=== PATIENT | male | born 1945 | race Caucasian/White ===

== ENCOUNTER 2019-07-26 11:15 | Outpatient (RCR) | payer MEDICARE, BC, SELFPAY ==
--- NOTE | 2019-03-24 18:37 | PT.OIE ---
Current Diagnoses Bicipital tendinitis, right shoulder (03/24/19) Pain in right upper arm (03/24/19) Abnormal posture (03/24/19) Weakness (03/24/19) Visit Care Team Role Provider Type Stan Spangler MD Primary Care Provider Physician Specialty: [facility] Practice Address: [address] [place] [address], [id number] Email: [email or web address] ESTELLA Renner Attending Provider Advanced Cloth Examiner [facility]ty: [facility] Address: [address] [place] [address], [place], [address] Email: [email or web address] Physical Therapy Initial Evaluation PT-OP-A Visit Information Start: 03/23/19 18:28 Freq: Status: Active Protocol: Document 03/24/19 15:18 [facility] (Rec: 03/24/19 18:37 [facility] [id number]) Out-Patient Physical Therapy Visit Information Visit Information Visit Type Initial Evaluation Visit Start Time 15:15 Visit Stop Time 16:20 Total Visit Minutes 65 Visit Number 1 Number of EVENTS SPECIALIST Visits 0 PT-OP-B Current Condition Start: 03/23/19 18:28 Freq: Status: Active Protocol: Document 03/24/19 15:18 [facility] (Rec: 03/24/19 16:04 [facility] [id number]) Current Condition History of Current Condition Onset Date got worse 3 weeks ago;over a year ago on/off but never very bad Current Complaints R lat brachium pain History of Current Condition Pt reports arm pain has been on and off for a while but its worse recently. He has taken anti inflammatories which sometiems helps. Reports it is worse in bed and sometimes even simple things like holding the shaver up aggrevates his arm. Pt reports he has started using a pillow at night and that helps. Pt reports the MD thought it may have to do with him working on the computer so he just got a new desk chair. Pt reports he has noticed his posture gets worse with prolonged sitting. 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 Pt reports on some occasional numbness in fingertips B. Pt reports when he gets a stiff neck, its typically on the R and he thinks that about 3 weeks ago he had some stifness . Prior Treatments and Tests no testing or other treatment Treatment Goals Patient/Caregiver Goals Improve sleep, improve strength, imporve compute posture, PT-OP-C Subjective Start: 03/23/19 18:28 Freq: Status: Active Protocol: Document 03/24/19 15:18 [facility] (Rec: 03/24/19 16:04 [facility] [id number]) Patient Questionnaires Quick Dash- Upper Extremity Quick Dash UE Score 27.3 Quick Dash UE Impairment 20 to 39% Impaired (Score 20- 39) OP-PT Pain Assessment Location R brachium Pain Location Details lat Scale Used Numeric (1 - 10) Description Aching,With Movement Description- Other best:2/10; worst: 6/10 Frequency Constant Pain Duration less than hour after stopping activity Other Pain Aggravating Factors sleeping, using razor, computer use, reaching Pain Alleviating Factors Heat,Medication Other Pain Alleviating Factors ointment PT-OP-J Posture/Palpation/Skin Start: 03/23/19 18:28 Freq: Status: Active Protocol: Document 03/24/19 15:18 [facility] (Rec: 03/24/19 18:37 [facility] [id number]) Posture Evaluation Comments Posture Comments 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 PT-OP-K Range of Motion Start: 03/23/19 18:28 Freq: Status: Active Protocol: Document 03/24/19 15:18 [facility] (Rec: 03/24/19 16:04 [facility] [id number]) Cervical Spine Range of Motion Cervical Spine Active Degrees Flexion 64 Extension 35 Rotation Left 62 Rotation Right 54 Lateral Flexion Left 22 Lateral Flexion Right 34 Shoulder Goniometric Range of Motion Shoulder Left Active Flexion 131 Abduction 130 External Rotation at 90 degrees 78 Abduction Internal Rotation 63 Internal Rotation Behind Back (text) T7 Right Active Flexion 129 Abduction 130 Horizontal Adduction 8 External Rotation at 90 degrees 48 Abduction Internal Rotation 58 Internal Rotation Behind Back (text) T7 PT-OP-L Special Tests Start: 03/23/19 18:28 Freq: Status: Active Protocol: Document 03/24/19 15:18 [facility] (Rec: 03/24/19 16:04 [facility] [id number]) Special Tests Shoulder Special Tests Stroud Alvarez Impingement Test Results positive Empty Can Test Results positive Neer Impingement Test Results neg Speed's Biceps Test Results positive for pain but ricketts also positive for pain Drop Arm Rotator Cuff Test Results neg AC Joint Compression Test Results neg Neural Special Tests- Upper Body Upper Limb Tension Test Test Results passive abd to 90 on R with joint tightness Radial Nerve Tension Test Results positive Comments ulnar, median negative PT-OP-M Strength Start: 03/23/19 18:28 Freq: Status: Active Protocol: Document 03/24/19 15:18 [facility] (Rec: 03/24/19 16:04 [facility] [id number]) Shoulder Strength Shoulder Manual Muscle Testing Left Flexion 5 Normal Extension 5 Normal Abduction (C5) 5 Normal External Rotation 4 Good Internal Rotation 5 Normal Horizontal Abduction 4+ Good+ Horizontal Adduction 4+ Good+ Right Flexion 3+ Fair+ Extension 4 Good Abduction (C5) 3+ Fair+ External Rotation 3+ Fair+ Horizontal Abduction 4- Good- Horizontal Adduction 3+ Fair+ PT-OP-Q Treatments Start: 03/23/19 18:28 Freq: Status: Active Protocol: Document 03/24/19 15:18 [facility] (Rec: 03/24/19 18:37 [facility] [id number]) Self-Care/Home Management Treatment Education Other Education edu on anatomy and how posture affects shoulder moverment and can cause pain. PT-OP-R Modalities Start: 03/23/19 18:28 Freq: Status: Active Protocol: Document 03/24/19 15:18 [facility] (Rec: 03/24/19 18:37 [facility] [id number]) Hot Pack/Cold Pack Treatment Hot Pack Location R brachium/shoulder Patient Position Sitting Treatment Duration (minutes) 15 PT-OP-T Assessment and Plan Start: 03/23/19 18:28 Freq: Status: Active Protocol: Document 03/24/19 15:18 [facility] (Rec: 03/24/19 16:04 [facility] [id number]) Physical Therapy Assessment Rehab Potential Rehabilitation Potential Good Evaluation Complexity Number of Personal Factors/Comorbidities 3 or More Number of Body Systems Impaired 4 or More Clinical Presentation at Evaluation Evolving Impairments Impairments Activity Tolerance,Functional Activities,Functional Mobility ,Pain,Posture,ROM,Soft Tissue Mobility,Strength Goals activities Short Term Goal (STG) Pt will be able to use razor without c/o pain or weakness. STG Duration 04/24/19 Assisted Goal (LTG) Pt will be able to sleep comfortably without pain. LTG Duration 05/24/19 posture Short Term Goal (STG) Pt will demonstrate appropriate ergonomic set up for his computer. STG Duration 04/24/19 Assisted Goal (LTG) Pt will demonstrate efficient posture with 5/5 EFT and ability to maintain most efficient posture without cueing. strength Short Term Goal (STG) Pt will be indep with HEP STG Duration 04/24/19 Assisted Goal (LTG) Pt will score 5/5 UE strength B in order to allow greater ease with typical daily activities. LTG Duration 05/24/19 Assessment Summary Assessment Pt presents with R brachium pain w/ s/s RC tendinopathy and possible impingement d/t postural restrictions & presentation. 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 He has significant R shoulder weakness, loss or ROM and pain that limits him. He would benefit from skilled PT to address these limitations and improve his ability to function without pain. Physical Therapy Plan Frequency and Duration Frequency of Treatment 2x/Week Duration of Treatment 2 months Plan of Care Start Date 03/24/19 Plan of Care End Date 05/24/19 Therapeutic Interventions Therapeutic Interventions Aquatic Therapy,Home Exercise Program,Joint Mobilizations, Manual Therapy,Neuromuscular Re-education,Patient/Caregiver Education,Self-Care/Home Management,Soft Tissue Mobilization,Taping, Therapeutic Activities, Therapeutic Exercises Modalities Cold Pack/Ice Massage,Electric Stimulation,Hot Packs, Infrared Therapy,Iontophoresis ,Traction- Mechanical, Ultrasound Next Visit Focus/Plan Next Note Type Treatment Note Next Visit Plan Review old cervical home program form, wall roll up, axial elongation, STM to UT & pec,
--- NOTE | 2019-03-24 18:37 | PT.OPPOC ---
Current Diagnoses Bicipital tendinitis, right shoulder (03/24/19) Pain in right upper arm (03/24/19) Abnormal posture (03/24/19) Weakness (03/24/19) Visit Care Team Role Provider Type Stan Spangler MD Primary Care Provider Physician Specialty: [facility] Address: [address] [place] [address], [id number] Email: [email or web address] ESTELLA Renner Attending Provider Advanced Telephone Clerk Telegraph Office Specialty: [facility] Address: [address] [place] [address], [place], [address] Email: [email or web address] Plan Of Care PT-OP-T Assessment and Plan Start: 03/23/19 18:28 Freq: Status: Active Protocol: Document 03/24/19 15:18 [facility] (Rec: 03/24/19 16:04 [facility] [id number]) Physical Therapy Assessment Rehab Potential Rehabilitation Potential Good Evaluation Complexity Number of Personal Factors/Comorbidities 3 or More Number of Body Systems Impaired 4 or More Clinical Presentation at Evaluation Evolving Impairments Impairments Activity Tolerance,Functional Activities,Functional Mobility ,Pain,Posture,ROM,Soft Tissue Mobility,Strength Goals activities Short Term Goal (STG) Pt will be able to use razor without c/o pain or weakness. STG Duration 04/24/19 Manager Sign Goal (LTG) Pt will be able to sleep comfortably without pain. LTG Duration 05/24/19 posture Short Term Goal (STG) Pt will demonstrate appropriate ergonomic set up for his computer. STG Duration 04/24/19 Penitentiary Goal (LTG) Pt will demonstrate efficient posture with 5/5 EFT and ability to maintain most efficient posture without cueing. strength Short Term Goal (STG) Pt will be indep with HEP STG Duration 04/24/19 Manager Sign Goal (LTG) Pt will score 5/5 UE strength B in order to allow greater ease with typical daily activities. LTG Duration 05/24/19 Assessment Summary Assessment Pt presents with R brachium pain w/ s/s RC tendinopathy and possible impingement d/t postural restrictions & presentation. 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 He has significant R shoulder weakness, loss or ROM and pain that limits him. He would benefit from skilled PT to address these limitations and improve his ability to function without pain. Physical Therapy Plan Frequency and Duration Frequency of Treatment 2x/Week Duration of Treatment 2 months Plan of Care Start Date 03/24/19 Plan of Care End Date 05/24/19 Therapeutic Interventions Therapeutic Interventions Aquatic Therapy,Home Exercise Program,Joint Mobilizations, Manual Therapy,Neuromuscular Re-education,Patient/Caregiver Education,Self-Care/Home Management,Soft Tissue Mobilization,Taping, Therapeutic Activities, Therapeutic Exercises Modalities Cold Pack/Ice Massage,Electric Stimulation,Hot Packs, Infrared Therapy,Iontophoresis ,Traction- Mechanical, Ultrasound Next Visit Focus/Plan Next Note Type Treatment Note Next Visit Plan Review old cervical home program form, wall roll up, axial elongation, STM to UT & pec, Plan of Care Dates Plan of Care Start Date 03/24/19 Plan of Care End Date 05/24/19
--- NOTE | 2019-03-29 17:54 | PT.OTN ---
Current Diagnoses Bicipital tendinitis, right shoulder (03/29/19) Pain in right upper arm (03/29/19) Abnormal posture (03/29/19) Weakness (03/29/19) Physical Therapy Treatment Note PT-OP-A Visit Information Start: 03/23/19 18:28 Freq: Status: Active Protocol: Document 03/29/19 15:02 [facility] (Rec: 03/29/19 17:54 [facility] [id number]) Out-Patient Physical Therapy Visit Information Visit Information Visit Type Treatment Note Visit Start Time 15:15 Visit Stop Time 16:15 Total Visit Minutes 60 Visit Number 2 Number of VISUAL EDUCATION TEACHER Visits 0 PT-OP-B Current Condition Start: 03/23/19 18:28 Freq: Status: Active Protocol: Document 03/24/19 15:18 [facility] (Rec: 03/24/19 16:04 [facility] [id number]) Current Condition History of Current Condition Onset Date got worse 3 weeks ago;over a year ago on/off but never very bad Current Complaints R lat brachium pain History of Current Condition Pt reports arm pain has been on and off for a while but its worse recently. He has taken anti inflammatories which sometiems helps. Reports it is worse in bed and sometimes even simple things like holding the shaver up aggrevates his arm. Pt reports he has started using a pillow at night and that helps. Pt reports the MD thought it may have to do with him working on the computer so he just got a new desk chair. Pt reports he has noticed his posture gets worse with prolonged sitting. 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 Pt reports on some occasional numbness in fingertips B. Pt reports when he gets a stiff neck, its typically on the R and he thinks that about 3 weeks ago he had some stifness . Prior Treatments and Tests no testing or other treatment Treatment Goals Patient/Caregiver Goals Improve sleep, improve strength, imporve compute posture, PT-OP-C Subjective Start: 03/23/19 18:28 Freq: Status: Active Protocol: Document 03/29/19 15:02 [facility] (Rec: 03/29/19 17:54 [facility] [id number]) OP-PT Subjective Patient Comments Patient Comments Pt reports he tweaked his shoulder getting into the shower yesterday PT-OP-J Posture/Palpation/Skin Start: 03/23/19 18:28 Freq: Status: Active Protocol: Document 03/24/19 15:18 [facility] (Rec: 03/24/19 18:37 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 (Rec: 03/24/19 16:04 [facility] [id number]) Cervical Spine Range of Motion Cervical Spine Active Degrees Flexion 64 Extension 35 Rotation Left 62 Rotation Right 54 Lateral Flexion Left 22 Lateral Flexion Right 34 Shoulder Goniometric Range of Motion Shoulder Left Active Flexion 131 Abduction 130 External Rotation at 90 degrees 78 Abduction Internal Rotation 63 Internal Rotation Behind Back (text) T7 Right Active Flexion 129 Abduction 130 Horizontal Adduction 8 External Rotation at 90 degrees 48 Abduction Internal Rotation 58 Internal Rotation Behind Back (text) T7 PT-OP-L Special Tests Start: 03/23/19 18:28 Freq: Status: Active Protocol: Document 03/24/19 15:18 [facility] (Rec: 03/24/19 16:04 [facility] [id number]) Special Tests Shoulder Special Tests Stroud Alvarez Impingement Test Results positive Empty Can Test Results positive Neer Impingement Test Results neg Speed's Biceps Test Results positive for pain but ricketts also positive for pain Drop Arm Rotator Cuff Test Results neg AC Joint Compression Test Results neg Neural Special Tests- Upper Body Upper Limb Tension Test Test Results passive abd to 90 on R with joint tightness Radial Nerve Tension Test Results positive Comments ulnar, median negative PT-OP-M Strength Start: 03/23/19 18:28 Freq: Status: Active Protocol: Document 03/24/19 15:18 [facility] (Rec: 03/24/19 16:04 [facility] [id number]) Shoulder Strength Shoulder Manual Muscle Testing Left Flexion 5 Normal Extension 5 Normal Abduction (C5) 5 Normal External Rotation 4 Good Internal Rotation 5 Normal Horizontal Abduction 4+ Good+ Horizontal Adduction 4+ Good+ Right Flexion 3+ Fair+ Extension 4 Good Abduction (C5) 3+ Fair+ External Rotation 3+ Fair+ Horizontal Abduction 4- Good- Horizontal Adduction 3+ Fair+ PT-OP-Q Treatments Start: 03/23/19 18:28 Freq: Status: Active Protocol: Document 03/29/19 15:02 [facility] (Rec: 03/29/19 17:54 [facility] [id number]) Therapeutic Exercises Supine Exercises tbar Supine Exercise Name flex Side right Reps/Minutes 10 Comments AAROM Standing Exercises IR Side right Equipment Used L1 Reps/Minutes 15 Comments w/towel between elbow & side ER Standing Exercise Name attempted tband but painful so did isometric Side right Reps/Minutes 5sec x5 ext Standing Exercise Name row & ext Side bilateral Equipment Used L1 Reps/Minutes 15 ea Manual Therapy Treatment Soft Tissue Mobilization biceps, deltoid Body Location R Mobilization Type Strumming pec Body Location R Mobilization Type Strumming Joint Mobilizations GH Joint R Direction distraction, inf glide & post glide Grade II PT-OP-R Modalities Start: 03/23/19 18:28 Freq: Status: Active Protocol: Document 03/29/19 15:02 [facility] (Rec: 03/29/19 17:54 [facility] [id number]) Hot Pack/Cold Pack Treatment Hot Pack Location R brachium/shoulder Patient Position Sitting Treatment Duration (minutes) 15 PT-OP-T Assessment and Plan Start: 03/23/19 18:28 Freq: Status: Active Protocol: Document 03/29/19 15:02 [facility] (Rec: 03/29/19 17:54 [facility] [id number]) Physical Therapy Assessment Goals activities Short Term Goal (STG) Pt will be able to use razor without c/o pain or weakness. STG Duration 04/24/19 Retirement Goal (LTG) Pt will be able to sleep comfortably without pain. LTG Duration 05/24/19 posture Short Term Goal (STG) Pt will demonstrate appropriate ergonomic set up for his computer. STG Duration 04/24/19 Retirement Goal (LTG) Pt will demonstrate efficient posture with 5/5 EFT and ability to maintain most efficient posture without cueing. strength Short Term Goal (STG) Pt will be indep with HEP STG Duration 04/24/19 Coffee Sommelier Goal (LTG) Pt will score 5/5 UE strength B in order to allow greater ease with typical daily activities. LTG Duration 05/24/19 Assessment Summary Assessment Pt required significant cueing re: his old home program and exercises were adjusted for appropriate scapular engagment in order to achieve proper scapulohumeral rhythm. He had tightness in pecs & GH joint capsule that improved with mobilization. Physical Therapy Plan Frequency and Duration Frequency of Treatment 2x/Week Duration of Treatment 2 months Plan of Care Start Date 03/24/19 Plan of Care End Date 05/24/19 Next Visit Focus/Plan Next Note Type Treatment Note Next Visit Plan Review exercises from last session, wall roll up, roll & reach, cont to work on shoulder jt mobility
--- NOTE | 2019-03-31 12:11 | PT.OTN ---
Current Diagnoses Bicipital tendinitis, right shoulder (03/31/19) Pain in right upper arm (03/31/19) Abnormal posture (03/31/19) Weakness (03/31/19) Physical Therapy Treatment Note PT-OP-A Visit Information Start: 03/23/19 18:28 Freq: Status: Active Protocol: Document 03/31/19 09:45 [facility] (Rec: 03/31/19 12:11 [facility] [id number]) Out-Patient Physical Therapy Visit Information Visit Information Visit Type Treatment Note Visit Start Time 09:47 Visit Stop Time 10:00 Visit Number 3 Number of GOVERNMENT RELATIONS DIRECTOR Visits 0 PT-OP-B Current Condition Start: 03/23/19 18:28 Freq: Status: Active Protocol: Document 03/24/19 15:18 [facility] (Rec: 03/24/19 16:04 [facility] [id number]) Current Condition History of Current Condition Onset Date got worse 3 weeks ago;over a year ago on/off but never very bad Current Complaints R lat brachium pain History of Current Condition Pt reports arm pain has been on and off for a while but its worse recently. He has taken anti inflammatories which sometiems helps. Reports it is worse in bed and sometimes even simple things like holding the shaver up aggrevates his arm. Pt reports he has started using a pillow at night and that helps. Pt reports the MD thought it may have to do with him working on the computer so he just got a new desk chair. Pt reports he has noticed his posture gets worse with prolonged sitting. 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 Pt reports on some occasional numbness in fingertips B. Pt reports when he gets a stiff neck, its typically on the R and he thinks that about 3 weeks ago he had some stifness . Prior Treatments and Tests no testing or other treatment Treatment Goals Patient/Caregiver Goals Improve sleep, improve strength, imporve compute posture, PT-OP-C Subjective Start: 03/23/19 18:28 Freq: Status: Active Protocol: Document 03/31/19 09:45 [facility] (Rec: 03/31/19 12:11 [facility] [id number]) OP-PT Subjective Patient Comments Patient Comments Pt reports doing better today and feeling pretty good aobut exercises PT-OP-J Posture/Palpation/Skin Start: 03/23/19 18:28 Freq: Status: Active Protocol: Document 03/24/19 15:18 [facility] (Rec: 03/24/19 18:37 [facility] [id number]) Posture Evaluation Comments Posture Comments 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 PT-OP-K Range of Motion Start: 03/23/19 18:28 Freq: Status: Active Protocol: Document 03/24/19 15:18 [facility] (Rec: 03/24/19 16:04 [facility] [id number]) Cervical Spine Range of Motion Cervical Spine Active Degrees Flexion 64 Extension 35 Rotation Left 62 Rotation Right 54 Lateral Flexion Left 22 Lateral Flexion Right 34 Shoulder Goniometric Range of Motion Shoulder Left Active Flexion 131 Abduction 130 External Rotation at 90 degrees 78 Abduction Internal Rotation 63 Internal Rotation Behind Back (text) T7 Right Active Flexion 129 Abduction 130 Horizontal Adduction 8 External Rotation at 90 degrees 48 Abduction Internal Rotation 58 Internal Rotation Behind Back (text) T7 PT-OP-L Special Tests Start: 03/23/19 18:28 Freq: Status: Active Protocol: Document 03/24/19 15:18 [facility] (Rec: 03/24/19 16:04 [facility] [id number]) Special Tests Shoulder Special Tests Stroud Alvarez Impingement Test Results positive Empty Can Test Results positive Neer Impingement Test Results neg Speed's Biceps Test Results positive for pain but ricketts also positive for pain Drop Arm Rotator Cuff Test Results neg AC Joint Compression Test Results neg Neural Special Tests- Upper Body Upper Limb Tension Test Test Results passive abd to 90 on R with joint tightness Radial Nerve Tension Test Results positive Comments ulnar, median negative PT-OP-M Strength Start: 03/23/19 18:28 Freq: Status: Active Protocol: Document 03/24/19 15:18 [facility] (Rec: 03/24/19 16:04 [facility] [id number]) Shoulder Strength Shoulder Manual Muscle Testing Left Flexion 5 Normal Extension 5 Normal Abduction (C5) 5 Normal External Rotation 4 Good Internal Rotation 5 Normal Horizontal Abduction 4+ Good+ Horizontal Adduction 4+ Good+ Right Flexion 3+ Fair+ Extension 4 Good Abduction (C5) 3+ Fair+ External Rotation 3+ Fair+ Horizontal Abduction 4- Good- Horizontal Adduction 3+ Fair+ PT-OP-Q Treatments Start: 10/02/19 18:28 Freq: Status: Active Protocol: Document 03/31/19 09:45 [facility] (Rec: 03/31/19 12:11 [facility] [id number]) Therapeutic Exercises Supine Exercises tbar Supine Exercise Name flex Side right Reps/Minutes 5 Comments AAROM Sidelying Exercises ER Sidelying Exercise Name to neutral Side right Reps/Minutes 15 Comments towel at elbow Standing Exercises IR Side right Equipment Used L1 Reps/Minutes 15 Comments w/towel between elbow & side ER Standing Exercise Name isometric Side right Reps/Minutes 5sec x5 ext Standing Exercise Name row & ext Side bilateral Equipment Used L1 Reps/Minutes 15 ea Therapeutic Activity Therapeutic Activity desk set up Comments edu on separate keyboard and mouse d/t lap top set up creating poor posture sleeping Comments how to prop arm for comfort Manual Therapy Treatment Joint Mobilizations GH Joint R Direction distraction, inf glide & post glide Grade II PT-OP-R Modalities Start: 03/23/19 18:28 Freq: Status: Active Protocol: Document 03/31/19 09:45 [facility] (Rec: 03/31/19 12:11 [facility] [id number]) Hot Pack/Cold Pack Treatment Hot Pack Location R brachium/shoulder Patient Position Sitting Treatment Duration (minutes) 15 PT-OP-T Assessment and Plan Start: 03/23/19 18:28 Freq: Status: Active Protocol: Document 03/31/19 09:45 [facility] (Rec: 03/31/19 12:11 [facility] [id number]) Physical Therapy Assessment Goals activities Short Term Goal (STG) Pt will be able to use razor without c/o pain or weakness. STG Duration 04/24/19 Custodial Goal (LTG) Pt will be able to sleep comfortably without pain. LTG Duration 05/24/19 posture Short Term Goal (STG) Pt will demonstrate appropriate ergonomic set up for his computer. STG Duration 04/24/19 Custodial Goal (LTG) Pt will demonstrate efficient posture with 5/5 EFT and ability to maintain most efficient posture without cueing. strength Short Term Goal (STG) Pt will be indep with HEP STG Duration 04/24/19 Custodial Goal (LTG) Pt will score 5/5 UE strength B in order to allow greater ease with typical daily activities. LTG Duration 05/24/19 Assessment Summary Assessment Pt did well with exercises today with min cueing. He was able to do wall roll up with significant cueing. Pt receptive to understanding importance of postural changes at home and sleeping posture. Physical Therapy Plan Frequency and Duration Frequency of Treatment 2x/Week Duration of Treatment 2 months Plan of Care Start Date 03/24/19 Plan of Care End Date 05/24/19 Next Visit Focus/Plan Next Note Type Treatment Note Next Visit Plan roll & reach & work on thoracic mobility
--- NOTE | 2019-04-20 15:22 | PT.OTN ---
Current Diagnoses Bicipital tendinitis, right shoulder (04/20/19) Pain in right upper arm (04/20/19) Abnormal posture (04/20/19) Weakness (04/20/19) Physical Therapy Treatment Note PT-OP-A Visit Information Start: 03/23/19 18:28 Freq: Status: Active Protocol: Document 04/20/19 09:44 [facility] (Rec: 04/20/19 15:22 [facility] [id number]) Out-Patient Physical Therapy Visit Information Visit Information Visit Type Treatment Note Visit Start Time 09:45 Visit Stop Time 10:40 Total Visit Minutes 55 Visit Number 4 Number of MANAGER OF IT Visits 0 PT-OP-B Current Condition Start: 03/23/19 18:28 Freq: Status: Active Protocol: Document 03/24/19 15:18 [facility] (Rec: 03/24/19 16:04 [facility] [id number]) Current Condition History of Current Condition Onset Date got worse 3 weeks ago;over a year ago on/off but never very bad Current Complaints R lat brachium pain History of Current Condition Pt reports arm pain has been on and off for a while but its worse recently. He has taken anti inflammatories which sometiems helps. Reports it is worse in bed and sometimes even simple things like holding the shaver up aggrevates his arm. Pt reports he has started using a pillow at night and that helps. Pt reports the MD thought it may have to do with him working on the computer so he just got a new desk chair. Pt reports he has noticed his posture gets worse with prolonged sitting. 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 Pt reports on some occasional numbness in fingertips B. Pt reports when he gets a stiff neck, its typically on the R and he thinks that about 3 weeks ago he had some stifness . Prior Treatments and Tests no testing or other treatment Treatment Goals Patient/Caregiver Goals Improve sleep, improve strength, imporve compute posture, PT-OP-C Subjective Start: 03/23/19 18:28 Freq: Status: Active Protocol: Document 04/20/19 09:44 [facility] (Rec: 04/20/19 15:22 [facility] [id number]) OP-PT Subjective Patient Comments Patient Comments Pt reports some difficulty with wall posture but exercises going better. Patient Reported Progress Improving PT-OP-J Posture/Palpation/Skin Start: 03/23/19 18:28 Freq: Status: Active Protocol: Document 03/24/19 15:18 [facility] (Rec: 03/24/19 18:37 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 (Rec: 03/24/19 16:04 [facility] [id number]) Cervical Spine Range of Motion Cervical Spine Active Degrees Flexion 64 Extension 35 Rotation Left 62 Rotation Right 54 Lateral Flexion Left 22 Lateral Flexion Right 34 Shoulder Goniometric Range of Motion Shoulder Left Active Flexion 131 Abduction 130 External Rotation at 90 degrees 78 Abduction Internal Rotation 63 Internal Rotation Behind Back (text) T7 Right Active Flexion 129 Abduction 130 Horizontal Adduction 8 External Rotation at 90 degrees 48 Abduction Internal Rotation 58 Internal Rotation Behind Back (text) T7 PT-OP-L Special Tests Start: 03/23/19 18:28 Freq: Status: Active Protocol: Document 03/24/19 15:18 [facility] (Rec: 03/24/19 16:04 [facility] [id number]) Special Tests Shoulder Special Tests Stroud Alvarez Impingement Test Results positive Empty Can Test Results positive Neer Impingement Test Results neg Speed's Biceps Test Results positive for pain but ricketts also positive for pain Drop Arm Rotator Cuff Test Results neg AC Joint Compression Test Results neg Neural Special Tests- Upper Body Upper Limb Tension Test Test Results passive abd to 90 on R with joint tightness Radial Nerve Tension Test Results positive Comments ulnar, median negative PT-OP-M Strength Start: 03/23/19 18:28 Freq: Status: Active Protocol: Document 03/24/19 15:18 [facility] (Rec: 03/24/19 16:04 [facility] [id number]) Shoulder Strength Shoulder Manual Muscle Testing Left Flexion 5 Normal Extension 5 Normal Abduction (C5) 5 Normal External Rotation 4 Good Internal Rotation 5 Normal Horizontal Abduction 4+ Good+ Horizontal Adduction 4+ Good+ Right Flexion 3+ Fair+ Extension 4 Good Abduction (C5) 3+ Fair+ External Rotation 3+ Fair+ Horizontal Abduction 4- Good- Horizontal Adduction 3+ Fair+ PT-OP-Q Treatments Start: 03/23/19 18:28 Freq: Status: Active Protocol: Document 04/20/19 09:44 [facility] (Rec: 04/20/19 15:22 [facility] [id number]) Therapeutic Exercises Sidelying Exercises ER Sidelying Exercise Name comfortable range Side right Reps/Minutes 15 Standing Exercises wall posture Standing Exercise Name w/abd up wall to comforable range Side bilateral Reps/Minutes 15sec hold x3 serratus punch Standing Exercise Name at wall Side bilateral Reps/Minutes 2x12 Manual Therapy Treatment Soft Tissue Mobilization teres Body Location minor/major Mobilization Type Strumming pec Body Location R Mobilization Type Strumming Joint Mobilizations scap thoracic Joint R Direction all directions with focus on upward rotation GH Joint R Direction distraction, inf glide & post glide & translation & lat gapping Comments Fucntional mobs PT-OP-R Modalities Start: 03/23/19 18:28 Freq: Status: Active Protocol: Document 04/20/19 09:44 [facility] (Rec: 04/20/19 15:22 [facility] [id number]) Hot Pack/Cold Pack Treatment Hot Pack Location R brachium/shoulder Patient Position Supine Treatment Duration (minutes) 15 PT-OP-T Assessment and Plan Start: 03/23/19 18:28 Freq: Status: Active Protocol: Document 04/20/19 09:44 [facility] (Rec: 04/20/19 15:22 [facility] [id number]) Physical Therapy Assessment Goals activities Short Term Goal (STG) Pt will be able to use razor without c/o pain or weakness. STG Duration 04/24/19 Project Coordinator Goal (LTG) Pt will be able to sleep comfortably without pain. LTG Duration 05/24/19 posture Short Term Goal (STG) Pt will demonstrate appropriate ergonomic set up for his computer. STG Duration 04/24/19 Shelter Goal (LTG) Pt will demonstrate efficient posture with 5/5 EFT and ability to maintain most efficient posture without cueing. strength Short Term Goal (STG) Pt will be indep with HEP STG Duration 04/24/19 Shelter Goal (LTG) Pt will score 5/5 UE strength B in order to allow greater ease with typical daily activities. LTG Duration 05/24/19 Assessment Summary Assessment Pt required cuieng for wall posture & for serratus punch exercise. He has significant GH tightness and limited scapulothoracic motion. Physical Therapy Plan Frequency and Duration Frequency of Treatment 2x/Week Duration of Treatment 2 months Plan of Care Start Date 03/24/19 Plan of Care End Date 05/24/19 Next Visit Focus/Plan Next Note Type Treatment Note Next Visit Plan roll & reach, thoracic mobility, review serratus punch at wall, PNF for scapular motions, scap & GH mobs, work on postural stability
--- NOTE | 2019-04-22 13:53 | PT.OTN ---
Current Diagnoses Bicipital tendinitis, right shoulder (04/22/19) Pain in right upper arm (04/22/19) Abnormal posture (04/22/19) Weakness (04/22/19) Physical Therapy Treatment Note PT-OP-A Visit Information Start: 03/23/19 18:28 Freq: Status: Active Protocol: Document 04/22/19 13:04 [facility] (Rec: 04/22/19 13:52 [facility] [id number]) Out-Patient Physical Therapy Visit Information Visit Information Visit Type Treatment Note Visit Start Time 13:04 Visit Stop Time 13:45 Total Visit Minutes 41 Visit Number 5 Number of ASSISTANT BRANCH OPERATIONS MANAGER Visits 0 PT-OP-B Current Condition Start: 03/23/19 18:28 Freq: Status: Active Protocol: Document 03/24/19 15:18 [facility] (Rec: 03/24/19 16:04 [facility] [id number]) Current Condition History of Current Condition Onset Date got worse 3 weeks ago;over a year ago on/off but never very bad Current Complaints R lat brachium pain History of Current Condition Pt reports arm pain has been on and off for a while but its worse recently. He has taken anti inflammatories which sometiems helps. Reports it is worse in bed and sometimes even simple things like holding the shaver up aggrevates his arm. Pt reports he has started using a pillow at night and that helps. Pt reports the MD thought it may have to do with him working on the computer so he just got a new desk chair. Pt reports he has noticed his posture gets worse with prolonged sitting. 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 Pt reports on some occasional numbness in fingertips B. Pt reports when he gets a stiff neck, its typically on the R and he thinks that about 3 weeks ago he had some stifness . Prior Treatments and Tests no testing or other treatment Treatment Goals Patient/Caregiver Goals Improve sleep, improve strength, imporve compute posture, PT-OP-C Subjective Start: 03/23/19 18:28 Freq: Status: Active Protocol: Document 04/22/19 13:04 [facility] (Rec: 04/22/19 13:52 [facility] [id number]) OP-PT Subjective Patient Comments Patient Comments Pt reports that PT exercises are helping him. He would like to sleep on his right side but has not been able to d/t right arm pain. 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 PT-OP-K Range of Motion Start: 03/23/19 18:28 Freq: Status: Active Protocol: Document 03/24/19 15:18 [facility] (Rec: 03/24/19 16:04 [facility] [id number]) Cervical Spine Range of Motion Cervical Spine Active Degrees Flexion 64 Extension 35 Rotation Left 62 Rotation Right 54 Lateral Flexion Left 22 Lateral Flexion Right 34 Shoulder Goniometric Range of Motion Shoulder Left Active Flexion 131 Abduction 130 External Rotation at 90 degrees 78 Abduction Internal Rotation 63 Internal Rotation Behind Back (text) T7 Right Active Flexion 129 Abduction 130 Horizontal Adduction 8 External Rotation at 90 degrees 48 Abduction Internal Rotation 58 Internal Rotation Behind Back (text) T7 PT-OP-L Special Tests Start: 03/23/19 18:28 Freq: Status: Active Protocol: Document 03/24/19 15:18 [facility] (Rec: 03/24/19 16:04 [facility] [id number]) Special Tests Shoulder Special Tests Stroud Alvarez Impingement Test Results positive Empty Can Test Results positive Neer Impingement Test Results neg Speed's Biceps Test Results positive for pain but ricketts also positive for pain Drop Arm Rotator Cuff Test Results neg AC Joint Compression Test Results neg Neural Special Tests- Upper Body Upper Limb Tension Test Test Results passive abd to 90 on R with joint tightness Radial Nerve Tension Test Results positive Comments ulnar, median negative PT-OP-M Strength Start: 03/23/19 18:28 Freq: Status: Active Protocol: Document 03/24/19 15:18 [facility] (Rec: 03/24/19 16:04 [facility] [id number]) Shoulder Strength Shoulder Manual Muscle Testing Left Flexion 5 Normal Extension 5 Normal Abduction (C5) 5 Normal External Rotation 4 Good Internal Rotation 5 Normal Horizontal Abduction 4+ Good+ Horizontal Adduction 4+ Good+ Right Flexion 3+ Fair+ Extension 4 Good Abduction (C5) 3+ Fair+ External Rotation 3+ Fair+ Horizontal Abduction 4- Good- Horizontal Adduction 3+ Fair+ PT-OP-Q Treatments Start: 03/23/19 18:28 Freq: Status: Active Protocol: Document 04/22/19 13:04 [facility] (Rec: 04/22/19 13:52 [facility] [id number]) Therapeutic Exercises Standing Exercises Racquet ball massage Comments STM with racquet ball--MWM ER infraspinatus; intrascapular Self-Care/Home Management Treatment Education Other Education Proper sleeping position, pt wants to practice B side lying , pillow support between arms, cervical and head support. Pt feels much less pain in right shoulder PT-OP-R Modalities Start: 03/23/19 18:28 Freq: Status: Active Protocol: Document 04/20/19 09:44 [facility] (Rec: 04/20/19 15:22 [facility] [id number]) Hot Pack/Cold Pack Treatment Hot Pack Location R brachium/shoulder Patient Position Supine Treatment Duration (minutes) 15 PT-OP-T Assessment and Plan Start: 03/23/19 18:28 Freq: Status: Active Protocol: Document 04/22/19 13:04 [facility] (Rec: 04/22/19 13:52 [facility] [id number]) Physical Therapy Assessment Goals activities Short Term Goal (STG) Pt will be able to use razor without c/o pain or weakness. STG Duration 04/24/19 Statement Services Representative Goal (LTG) Pt will be able to sleep comfortably without pain. LTG Duration 05/24/19 posture Short Term Goal (STG) Pt will demonstrate appropriate ergonomic set up for his computer. STG Duration 04/24/19 Usp Goal (LTG) Pt will demonstrate efficient posture with 5/5 EFT and ability to maintain most efficient posture without cueing. strength Short Term Goal (STG) Pt will be indep with HEP STG Duration 04/24/19 Usp Goal (LTG) Pt will score 5/5 UE strength B in order to allow greater ease with typical daily activities. LTG Duration 05/24/19 Assessment Summary Assessment Pt responds well to STM with racquet ball, MWM and performs ER isometric better and with less pain after MWM with racquet ball infraspinatus. Consider adding open book exercise. Physical Therapy Plan Frequency and Duration Frequency of Treatment 2x/Week Duration of Treatment 2 months Plan of Care Start Date 03/24/19 Plan of Care End Date 05/24/19 Next Visit Focus/Plan Next Note Type Treatment Note Next Visit Plan roll & reach, thoracic mobility, review serratus punch at [place], PNF for scapular motions, scap & GH mobs, work on postural stability
--- NOTE | 2019-04-26 15:43 | PT.OTN ---
Current Diagnoses Bicipital tendinitis, right shoulder (04/26/19) Pain in right upper arm (04/26/19) Abnormal posture (04/26/19) Weakness (04/26/19) Physical Therapy Treatment Note PT-OP-A Visit Information Start: 03/23/19 18:28 Freq: Status: Active Protocol: Document 04/26/19 09:46 MT (Rec: 04/26/19 11:49 MT [id number]) Out-Patient Physical Therapy Visit Information Visit Information Visit Type Treatment Note Visit Start Time 09:46 Visit Stop Time 10:43 Total Visit Minutes 57 Visit Number 6 Number of OFFICE EMPLOYEE Visits 0 PT-OP-B Current Condition Start: 03/23/19 18:28 Freq: Status: Active Protocol: Document 03/24/19 15:18 [facility] (Rec: 03/24/19 16:04 [facility] [id number]) Current Condition History of Current Condition Onset Date got worse 3 weeks ago;over a year ago on/off but never very bad Current Complaints R lat brachium pain History of Current Condition Pt reports arm pain has been on and off for a while but its worse recently. He has taken anti inflammatories which sometiems helps. Reports it is worse in bed and sometimes even simple things like holding the shaver up aggrevates his arm. Pt reports he has started using a pillow at night and that helps. Pt reports the MD thought it may have to do with him working on the computer so he just got a new desk chair. Pt reports he has noticed his posture gets worse with prolonged sitting. 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 Pt reports on some occasional numbness in fingertips B. Pt reports when he gets a stiff neck, its typically on the R and he thinks that about 3 weeks ago he had some stifness . Prior Treatments and Tests no testing or other treatment Treatment Goals Patient/Caregiver Goals Improve sleep, improve strength, imporve compute posture, PT-OP-C Subjective Start: 03/23/19 18:28 Freq: Status: Active Protocol: Document 04/26/19 09:46 MT (Rec: 04/26/19 11:49 MT [id number]) OP-PT Subjective Patient Comments Patient Comments Pt reported that he has been experiencing much less pain and that the exercises are helping him. He especially likes the racquetball self- massage technique. He reports that he did not feel sore after the joint mobilizations from the following session. Patient Reported Progress Improving PT-OP-J Posture/Palpation/Skin Start: 03/23/19 18:28 Freq: Status: Active Protocol: Document 03/24/19 15:18 [facility] (Rec: 03/24/19 18:37 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 (Rec: 03/24/19 16:04 [facility] [id number]) Cervical Spine Range of Motion Cervical Spine Active Degrees Flexion 64 Extension 35 Rotation Left 62 Rotation Right 54 Lateral Flexion Left 22 Lateral Flexion Right 34 Shoulder Goniometric Range of Motion Shoulder Left Active Flexion 131 Abduction 130 External Rotation at 90 degrees 78 Abduction Internal Rotation 63 Internal Rotation Behind Back (text) T7 Right Active Flexion 129 Abduction 130 Horizontal Adduction 8 External Rotation at 90 degrees 48 Abduction Internal Rotation 58 Internal Rotation Behind Back (text) T7 PT-OP-L Special Tests Start: 03/23/19 18:28 Freq: Status: Active Protocol: Document 03/24/19 15:18 [facility] (Rec: 03/24/19 16:04 [facility] [id number]) Special Tests Shoulder Special Tests Stroud Alvarez Impingement Test Results positive Empty Can Test Results positive Neer Impingement Test Results neg Speed's Biceps Test Results positive for pain but ricketts also positive for pain Drop Arm Rotator Cuff Test Results neg AC Joint Compression Test Results neg Neural Special Tests- Upper Body Upper Limb Tension Test Test Results passive abd to 90 on R with joint tightness Radial Nerve Tension Test Results positive Comments ulnar, median negative PT-OP-M Strength Start: 03/23/19 18:28 Freq: Status: Active Protocol: Document 03/24/19 15:18 [facility] (Rec: 03/24/19 16:04 [facility] [id number]) Shoulder Strength Shoulder Manual Muscle Testing Left Flexion 5 Normal Extension 5 Normal Abduction (C5) 5 Normal External Rotation 4 Good Internal Rotation 5 Normal Horizontal Abduction 4+ Good+ Horizontal Adduction 4+ Good+ Right Flexion 3+ Fair+ Extension 4 Good Abduction (C5) 3+ Fair+ External Rotation 3+ Fair+ Horizontal Abduction 4- Good- Horizontal Adduction 3+ Fair+ PT-OP-Q Treatments Start: 03/23/19 18:28 Freq: Status: Active Protocol: Document 04/26/19 09:46 MT (Rec: 04/26/19 11:49 MT [id number]) Therapeutic Exercises Supine Exercises roll and reach Supine Exercise Name open book/ roll and reach Side bilateral Reps/Minutes 20 Comments sustained hold caused inc pain to pt, added to HEP Prone Exercises thread the needle Prone Exercise Name thread the needle Side bilateral Reps/Minutes 20 Comments on hands and knees, added to HEP Standing Exercises wall posture Standing Exercise Name w/abd up wall to comforable range Side bilateral Reps/Minutes 15sec hold x3 Comments added to HEP serratus punch Standing Exercise Name at wall Side bilateral Reps/Minutes 2x12 Comments requires frequent cueing for proper technique Manual Therapy Treatment Joint Mobilizations GH Joint R Direction distraction, inf glide & post glide & translation & lat gapping Grade III Body Position Supine Comments Fucntional mobs PT-OP-R Modalities Start: 03/23/19 18:28 Freq: Status: Active Protocol: Document 04/26/19 09:46 MT (Rec: 04/26/19 11:49 MT [id number]) Hot Pack/Cold Pack Treatment Hot Pack Location R brachium/shoulder Patient Position Supine Treatment Duration (minutes) 15 Patient Tolerance Good PT-OP-T Assessment and Plan Start: 03/23/19 18:28 Freq: Status: Active Protocol: Document 04/26/19 09:46 MT (Rec: 04/26/19 11:49 MT [id number]) Physical Therapy Assessment Goals activities Short Term Goal (STG) Pt will be able to use razor without c/o pain or weakness. 04/26/19 - pt reports that the pain has been getting much better, but is still present during shaving or any activity requiring lifting above shoulder height STG Duration 04/24/19 Half-Way Goal (LTG) Pt will be able to sleep comfortably without pain. 04/26/19 - pt reports that sleeping is still on and off uncomfortable. he has been trying a bigger pillow, which helps but the discomfort is still present LTG Duration 05/24/19 posture Short Term Goal (STG) Pt will demonstrate appropriate ergonomic set up for his computer. STG Duration 04/24/19 Half-Way Goal (LTG) Pt will demonstrate efficient posture with 5/5 EFT and ability to maintain most efficient posture without cueing. strength Short Term Goal (STG) Pt will be indep with HEP STG Duration 04/24/19 Half-Way Goal (LTG) Pt will score 5/5 UE strength B in order to allow greater ease with typical daily activities. LTG Duration 05/24/19 Assessment Summary Assessment Pt continued to require cueing for wall posture and serratus punch exercise. wall posture , thread the needle, and roll and reach were added to pt's exercise program. Pt demonstrates GH tightness. He was able to achieve better range following joint mobilizations and reported no inc in pain. Physical Therapy Plan Frequency and Duration Frequency of Treatment 2x/Week Duration of Treatment 2 months Plan of Care Start Date 03/24/19 Plan of Care End Date 05/24/19 Next Visit Focus/Plan Next Note Type Treatment Note Next Visit Plan thoracic mobility, continue working on serratus punches, GH mobs, postural stability
--- NOTE | 2019-04-28 16:20 | PT.OTN ---
Current Diagnoses Bicipital tendinitis, right shoulder (04/28/19) Pain in right upper arm (04/28/19) Abnormal posture (04/28/19) Weakness (04/28/19) Physical Therapy Treatment Note PT-OP-A Visit Information Start: 03/23/19 18:28 Freq: Status: Active Protocol: Document 04/28/19 15:18 [facility] (Rec: 04/28/19 16:19 [facility] [id number]) Out-Patient Physical Therapy Visit Information Visit Information Visit Type Treatment Note Visit Start Time 15:18 Visit Stop Time 16:13 Total Visit Minutes 55 Visit Number 7 Number of ASSURANCE AUDITOR Visits 0 PT-OP-B Current Condition Start: 03/23/19 18:28 Freq: Status: Active Protocol: Document 03/24/19 15:18 [facility] (Rec: 03/24/19 16:04 [facility] [id number]) Current Condition History of Current Condition Onset Date got worse 3 weeks ago;over a year ago on/off but never very bad Current Complaints R lat brachium pain History of Current Condition Pt reports arm pain has been on and off for a while but its worse recently. He has taken anti inflammatories which sometiems helps. Reports it is worse in bed and sometimes even simple things like holding the shaver up aggrevates his arm. Pt reports he has started using a pillow at night and that helps. Pt reports the MD thought it may have to do with him working on the computer so he just got a new desk chair. Pt reports he has noticed his posture gets worse with prolonged sitting. 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 Pt reports on some occasional numbness in fingertips B. Pt reports when he gets a stiff neck, its typically on the R and he thinks that about 3 weeks ago he had some stifness . Prior Treatments and Tests no testing or other treatment Treatment Goals Patient/Caregiver Goals Improve sleep, improve strength, imporve compute posture, PT-OP-C Subjective Start: 03/23/19 18:28 Freq: Status: Active Protocol: Document 04/28/19 15:18 [facility] (Rec: 04/28/19 16:19 [facility] [id number]) OP-PT Subjective Patient Comments Patient Comments Completed exercises today. 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 PT-OP-K Range of Motion Start: 03/23/19 18:28 Freq: Status: Active Protocol: Document 03/24/19 15:18 [facility] (Rec: 03/24/19 16:04 [facility] [id number]) Cervical Spine Range of Motion Cervical Spine Active Degrees Flexion 64 Extension 35 Rotation Left 62 Rotation Right 54 Lateral Flexion Left 22 Lateral Flexion Right 34 Shoulder Goniometric Range of Motion Shoulder Left Active Flexion 131 Abduction 130 External Rotation at 90 degrees 78 Abduction Internal Rotation 63 Internal Rotation Behind Back (text) T7 Right Active Flexion 129 Abduction 130 Horizontal Adduction 8 External Rotation at 90 degrees 48 Abduction Internal Rotation 58 Internal Rotation Behind Back (text) T7 PT-OP-L Special Tests Start: 03/23/19 18:28 Freq: Status: Active Protocol: Document 03/24/19 15:18 [facility] (Rec: 03/24/19 16:04 [facility] [id number]) Special Tests Shoulder Special Tests Stroud Alvarez Impingement Test Results positive Empty Can Test Results positive Neer Impingement Test Results neg Speed's Biceps Test Results positive for pain but ricketts also positive for pain Drop Arm Rotator Cuff Test Results neg AC Joint Compression Test Results neg Neural Special Tests- Upper Body Upper Limb Tension Test Test Results passive abd to 90 on R with joint tightness Radial Nerve Tension Test Results positive Comments ulnar, median negative PT-OP-M Strength Start: 03/23/19 18:28 Freq: Status: Active Protocol: Document 03/24/19 15:18 [facility] (Rec: 03/24/19 16:04 [facility] [id number]) Shoulder Strength Shoulder Manual Muscle Testing Left Flexion 5 Normal Extension 5 Normal Abduction (C5) 5 Normal External Rotation 4 Good Internal Rotation 5 Normal Horizontal Abduction 4+ Good+ Horizontal Adduction 4+ Good+ Right Flexion 3+ Fair+ Extension 4 Good Abduction (C5) 3+ Fair+ External Rotation 3+ Fair+ Horizontal Abduction 4- Good- Horizontal Adduction 3+ Fair+ PT-OP-Q Treatments Start: 03/23/19 18:28 Freq: Status: Active Protocol: Document 04/28/19 15:18 [facility] (Rec: 04/28/19 16:19 [facility] [id number]) Therapeutic Exercises Supine Exercises flex Supine Exercise Name AROM Side bilateral Reps/Minutes 10 Prone Exercises thread the needle Prone Exercise Name thread the needle Side bilateral Reps/Minutes 20 Comments on hands and knees, added to HEP Sidelying Exercises open book Side bilateral Reps/Minutes 10 ER Side right Equipment Used 1# Reps/Minutes 15 Standing Exercises wall posture Standing Exercise Name w/abd up wall to comforable range Side bilateral Reps/Minutes 10 Comments added to [facility] Manual Therapy Treatment Soft Tissue Mobilization teres Body Location teres major/minor & infraspinatus Mobilization Type Rolling,Strumming Intensity/Depth Moderate Body Position Sidelying Joint Mobilizations AC Joint gapping FM GH Joint R Direction post glide with FM into range for shaving Body Position Supine PT-OP-R Modalities Start: 03/23/19 18:28 Freq: Status: Active Protocol: Document 04/28/19 15:18 [facility] (Rec: 04/28/19 16:19 [facility] [id number]) Hot Pack/Cold Pack Treatment Hot Pack Location R brachium/shoulder Patient Position Supine Treatment Duration (minutes) 15 Patient Tolerance Good PT-OP-T Assessment and Plan Start: 03/23/19 18:28 Freq: Status: Active Protocol: Document 04/28/19 15:18 [facility] (Rec: 04/28/19 16:19 [facility] [id number]) Physical Therapy Assessment Goals activities Short Term Goal (STG) Pt will be able to use razor without c/o pain or weakness. 04/26/19 - pt reports that the pain has been getting much better, but is still present during shaving or any activity requiring lifting above shoulder height STG Duration 04/24/19 Orientation & Mobility Specialist Goal (LTG) Pt will be able to sleep comfortably without pain. 04/26/19 - pt reports that sleeping is still on and off uncomfortable. he has been trying a bigger pillow, which helps but the discomfort is still present LTG Duration 05/24/19 posture Short Term Goal (STG) Pt will demonstrate appropriate ergonomic set up for his computer. STG Duration 04/24/19 Orientation & Mobility Specialist Goal (LTG) Pt will demonstrate efficient posture with 5/5 EFT and ability to maintain most efficient posture without cueing. strength Short Term Goal (STG) Pt will be indep with HEP STG Duration 04/24/19 Long-Term Goal (LTG) Pt will score 5/5 UE strength B in order to allow greater ease with typical daily activities. LTG Duration 05/24/19 Assessment Summary Assessment Pt required cueing for all exercises performed today with reminder re: scap positioning during strengthening exercises. He is improving with form and verbalizes understanding re: form Physical Therapy Plan Next Visit Focus/Plan Next Note Type Treatment Note Next Visit Plan cont to work on stability & soft tissue in shoulder & gh & ac joint
--- NOTE | 2019-05-03 16:41 | PT.OTN ---
Current Diagnoses Bicipital tendinitis, right shoulder (05/03/19) Pain in right upper arm (05/03/19) Abnormal posture (05/03/19) Weakness (05/03/19) Physical Therapy Treatment Note PT-OP-A Visit Information Start: 03/23/19 18:28 Freq: Status: Active Protocol: Document 05/03/19 09:47 MT (Rec: 05/03/19 11:42 MT [id number]) Out-Patient Physical Therapy Visit Information Visit Information Visit Type Treatment Note Visit Start Time 09:47 Visit Stop Time 10:45 Total Visit Minutes 58 Visit Number 8 Number of PATROL OFFICER Visits 0 PT-OP-B Current Condition Start: 03/23/19 18:28 Freq: Status: Active Protocol: Document 03/24/19 15:18 [facility] (Rec: 03/24/19 16:04 [facility] [id number]) Current Condition History of Current Condition Onset Date got worse 3 weeks ago;over a year ago on/off but never very bad Current Complaints R lat brachium pain History of Current Condition Pt reports arm pain has been on and off for a while but its worse recently. He has taken anti inflammatories which sometiems helps. Reports it is worse in bed and sometimes even simple things like holding the shaver up aggrevates his arm. Pt reports he has started using a pillow at night and that helps. Pt reports the MD thought it may have to do with him working on the computer so he just got a new desk chair. Pt reports he has noticed his posture gets worse with prolonged sitting. 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 Pt reports on some occasional numbness in fingertips B. Pt reports when he gets a stiff neck, its typically on the R and he thinks that about 3 weeks ago he had some stifness . Prior Treatments and Tests no testing or other treatment Treatment Goals Patient/Caregiver Goals Improve sleep, improve strength, imporve compute posture, PT-OP-C Subjective Start: 03/23/19 18:28 Freq: Status: Active Protocol: Document 05/03/19 09:47 MT (Rec: 05/03/19 11:42 MT [id number]) OP-PT Subjective Patient Comments Patient Comments Pt remarked that he has been complianbt with his HEP and stretches, but has only been focusing on his right side. He said that he continues to have pain in his shoulder and that some days are pain free while others are pretty stiff and sore. Patient Reported Progress Improving PT-OP-J Posture/Palpation/Skin Start: 03/23/19 18:28 Freq: Status: Active Protocol: Document 03/24/19 15:18 [facility] (Rec: 03/24/19 18:37 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 (Rec: 03/24/19 16:04 [facility] [id number]) Cervical Spine Range of Motion Cervical Spine Active Degrees Flexion 64 Extension 35 Rotation Left 62 Rotation Right 54 Lateral Flexion Left 22 Lateral Flexion Right 34 Shoulder Goniometric Range of Motion Shoulder Left Active Flexion 131 Abduction 130 External Rotation at 90 degrees 78 Abduction Internal Rotation 63 Internal Rotation Behind Back (text) T7 Right Active Flexion 129 Abduction 130 Horizontal Adduction 8 External Rotation at 90 degrees 48 Abduction Internal Rotation 58 Internal Rotation Behind Back (text) T7 PT-OP-L Special Tests Start: 03/23/19 18:28 Freq: Status: Active Protocol: Document 03/24/19 15:18 [facility] (Rec: 03/24/19 16:04 [facility] [id number]) Special Tests Shoulder Special Tests Stroud Alvarez Impingement Test Results positive Empty Can Test Results positive Neer Impingement Test Results neg Speed's Biceps Test Results positive for pain but ricketts also positive for pain Drop Arm Rotator Cuff Test Results neg AC Joint Compression Test Results neg Neural Special Tests- Upper Body Upper Limb Tension Test Test Results passive abd to 90 on R with joint tightness Radial Nerve Tension Test Results positive Comments ulnar, median negative PT-OP-M Strength Start: 03/23/19 18:28 Freq: Status: Active Protocol: Document 03/24/19 15:18 [facility] (Rec: 03/24/19 16:04 [facility] [id number]) Shoulder Strength Shoulder Manual Muscle Testing Left Flexion 5 Normal Extension 5 Normal Abduction (C5) 5 Normal External Rotation 4 Good Internal Rotation 5 Normal Horizontal Abduction 4+ Good+ Horizontal Adduction 4+ Good+ Right Flexion 3+ Fair+ Extension 4 Good Abduction (C5) 3+ Fair+ External Rotation 3+ Fair+ Horizontal Abduction 4- Good- Horizontal Adduction 3+ Fair+ PT-OP-Q Treatments Start: 03/23/19 18:28 Freq: Status: Active Protocol: Document 05/03/19 09:47 MT (Rec: 05/03/19 11:42 MT [id number]) Therapeutic Exercises Supine Exercises serratus punches Side bilateral Reps/Minutes 20 Comments requires frequent cueing for proper shoulder motion flex Supine Exercise Name AROM Side bilateral Reps/Minutes 10 Comments painful arch; slight pain at about 45 degrees roll and reach Supine Exercise Name open book/ roll and reach Side bilateral Reps/Minutes 20 Comments sustained hold caused inc pain to pt, added to HEP Prone Exercises thread the needle Prone Exercise Name thread the needle Side bilateral Reps/Minutes 20 Comments on hands and knees, added to HEP Sidelying Exercises open book Side bilateral Reps/Minutes 10 ER Side right Reps/Minutes 20 Comments #1 was aggravating pain so performed without resistance Standing Exercises wall posture Standing Exercise Name w/abd up wall to comforable range Side bilateral Reps/Minutes 10 serratus punch Standing Exercise Name at wall Side bilateral Reps/Minutes 2x12 Comments requires frequent cueing for proper technique IR Standing Exercise Name resisted IR Side right Resistance L3 Reps/Minutes 10 ER Standing Exercise Name resisted ER Side right Resistance L1 Reps/Minutes 5 Comments aggravated pain so perofrmed in sidelying ext Standing Exercise Name rows and lat pulldowns Side bilateral Resistance L3 Reps/Minutes 10 each Manual Therapy Treatment Joint Mobilizations AC Joint gapping FM Body Position Sidelying scap thoracic Joint scapular upward rotation and protraction Grade III Body Position Sidelying PT-OP-R Modalities Start: 03/23/19 18:28 Freq: Status: Active Protocol: Document 05/03/19 09:47 MT (Rec: 05/03/19 11:42 MT [id number]) Hot Pack/Cold Pack Treatment Hot Pack Location R brachium/shoulder Patient Position Supine Treatment Duration (minutes) 15 Patient Tolerance Good PT-OP-T Assessment and Plan Start: 03/23/19 18:28 Freq: Status: Active Protocol: Document 05/03/19 09:47 MT (Rec: 05/03/19 11:42 MT [id number]) Physical Therapy Assessment Goals activities Short Term Goal (STG) Pt will be able to use razor without c/o pain or weakness. 04/26/19 - pt reports that the pain has been getting much better, but is still present during shaving or any activity requiring lifting above shoulder height STG Duration 04/24/19 Infrastructure Consultant Goal (LTG) Pt will be able to sleep comfortably without pain. 04/26/19 - pt reports that sleeping is still on and off uncomfortable. he has been trying a bigger pillow, which helps but the discomfort is still present LTG Duration 05/24/19 posture Short Term Goal (STG) Pt will demonstrate appropriate ergonomic set up for his computer. STG Duration 04/24/19 Infrastructure Consultant Goal (LTG) Pt will demonstrate efficient posture with 5/5 EFT and ability to maintain most efficient posture without cueing. strength Short Term Goal (STG) Pt will be indep with HEP STG Duration 04/24/19 Infrastructure Consultant Goal (LTG) Pt will score 5/5 UE strength B in order to allow greater ease with typical daily activities. LTG Duration 05/24/19 Assessment Summary Assessment Revieq pt's HEP to ensure and provide cueing for proper sapular motion. Looked for areas of HEP to be progressed. Pt continues to have pain with ER and aB with resistance , but was able to perform these exercises without any weight in sidelying. Manual therapy techniques foused on motion of scapula. Pt had better control of motion and less pain with supine serratus punches following manual therapy. Physical Therapy Plan Frequency and Duration Frequency of Treatment 2x/Week Duration of Treatment 2 months Plan of Care Start Date 03/24/19 Plan of Care End Date 05/24/19 Next Visit Focus/Plan Next Note Type Treatment Note Next Visit Plan cont to work on stability & soft tissue in shoulder & gh & ac joint
--- NOTE | 2019-05-05 09:45 | PT.OTN ---
Current Diagnoses Bicipital tendinitis, right shoulder (05/05/19) Pain in right upper arm (05/05/19) Abnormal posture (05/05/19) Weakness (05/05/19) Physical Therapy Treatment Note PT-OP-A Visit Information Start: 03/23/19 18:28 Freq: Status: Active Protocol: Document 05/05/19 13:20 [facility] (Rec: 05/07/19 13:24 [facility] [id number]) Out-Patient Physical Therapy Visit Information Visit Information Visit Type Treatment Note Visit Start Time 09:00 Visit Stop Time 09:45 Total Visit Minutes 45 Visit Number 9 PT-OP-B Current Condition Start: 03/23/19 18:28 Freq: Status: Active Protocol: Document 03/24/19 15:18 [facility] (Rec: 03/24/19 16:04 [facility] [id number]) Current Condition History of Current Condition Onset Date got worse 3 weeks ago;over a year ago on/off but never very bad Current Complaints R lat brachium pain History of Current Condition Pt reports arm pain has been on and off for a while but its worse recently. He has taken anti inflammatories which sometiems helps. Reports it is worse in bed and sometimes even simple things like holding the shaver up aggrevates his arm. Pt reports he has started using a pillow at night and that helps. Pt reports the MD thought it may have to do with him working on the computer so he just got a new desk chair. Pt reports he has noticed his posture gets worse with prolonged sitting. 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 Pt reports on some occasional numbness in fingertips B. Pt reports when he gets a stiff neck, its typically on the R and he thinks that about 3 weeks ago he had some stifness . Prior Treatments and Tests no testing or other treatment Treatment Goals Patient/Caregiver Goals Improve sleep, improve strength, imporve compute posture, PT-OP-C Subjective Start: 03/23/19 18:28 Freq: Status: Active Protocol: Document 05/05/19 13:20 [facility] (Rec: 05/07/19 13:24 [facility] [id number]) OP-PT Subjective Patient Comments Patient Comments pt reports that he is doing better but still is waking up with night time pain. It is difficult to find a comfortable position to sleep PT-OP-J Posture/Palpation/Skin Start: 03/23/19 18:28 Freq: Status: Active Protocol: Document 03/24/19 15:18 [facility] (Rec: 03/24/19 18:37 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 (Rec: 03/24/19 16:04 [facility] [id number]) Cervical Spine Range of Motion Cervical Spine Active Degrees Flexion 64 Extension 35 Rotation Left 62 Rotation Right 54 Lateral Flexion Left 22 Lateral Flexion Right 34 Shoulder Goniometric Range of Motion Shoulder Left Active Flexion 131 Abduction 130 External Rotation at 90 degrees 78 Abduction Internal Rotation 63 Internal Rotation Behind Back (text) T7 Right Active Flexion 129 Abduction 130 Horizontal Adduction 8 External Rotation at 90 degrees 48 Abduction Internal Rotation 58 Internal Rotation Behind Back (text) T7 PT-OP-L Special Tests Start: 03/23/19 18:28 Freq: Status: Active Protocol: Document 03/24/19 15:18 [facility] (Rec: 03/24/19 16:04 [facility] [id number]) Special Tests Shoulder Special Tests Stroud Alvarez Impingement Test Results positive Empty Can Test Results positive Neer Impingement Test Results neg Speed's Biceps Test Results positive for pain but ricketts also positive for pain Drop Arm Rotator Cuff Test Results neg AC Joint Compression Test Results neg Neural Special Tests- Upper Body Upper Limb Tension Test Test Results passive abd to 90 on R with joint tightness Radial Nerve Tension Test Results positive Comments ulnar, median negative PT-OP-M Strength Start: 03/23/19 18:28 Freq: Status: Active Protocol: Document 03/24/19 15:18 [facility] (Rec: 03/24/19 16:04 [facility] [id number]) Shoulder Strength Shoulder Manual Muscle Testing Left Flexion 5 Normal Extension 5 Normal Abduction (C5) 5 Normal External Rotation 4 Good Internal Rotation 5 Normal Horizontal Abduction 4+ Good+ Horizontal Adduction 4+ Good+ Right Flexion 3+ Fair+ Extension 4 Good Abduction (C5) 3+ Fair+ External Rotation 3+ Fair+ Horizontal Abduction 4- Good- Horizontal Adduction 3+ Fair+ PT-OP-Q Treatments Start: 03/23/19 18:28 Freq: Status: Active Protocol: Document 05/05/19 13:20 [facility] (Rec: 05/07/19 13:24 [facility] [id number]) Cardio Equipment Upper Body Ergometer (UBE) Duration (Minutes) 5 RPM 120 Other good tolerance Therapeutic Exercises Supine Exercises serratus punches Side bilateral Reps/Minutes 20 Comments requires frequent cueing for proper shoulder motion flex Supine Exercise Name AROM Side bilateral Reps/Minutes 10 Comments painful arch; slight pain at about 45 degrees roll and reach Supine Exercise Name open book/ roll and reach Side bilateral Reps/Minutes 20 Comments sustained hold caused inc pain to pt, added to HEP tbar Supine Exercise Name flex Side right Reps/Minutes 5 Comments AAROM Prone Exercises thread the needle Prone Exercise Name thread the needle Side bilateral Reps/Minutes 20 Comments on hands and knees, added to HEP Sidelying Exercises open book Side bilateral Reps/Minutes 10 ER Side right Equipment Used 0 weight Reps/Minutes 20 Sitting Exercises 1 Sitting Exercise Name seated shoulder pully Reps/Minutes x 4 min Standing Exercises 1 Standing Exercise Name abduction wall slides Reps/Minutes x 10 reps Racquet ball massage Comments STM with racquet ball--MWM ER infraspinatus; intrascapular wall posture Standing Exercise Name w/abd up wall to comforable range Side bilateral Reps/Minutes 10 serratus punch Standing Exercise Name at wall Side bilateral Reps/Minutes 2x12 Comments requires frequent cueing for proper technique IR Standing Exercise Name resisted IR Side right Resistance L3 Reps/Minutes 10 ER Standing Exercise Name resisted ER Side right Resistance L1 Reps/Minutes 5 Comments aggravated pain so perofrmed in sidelying ext Standing Exercise Name rows and lat pulldowns Side bilateral Resistance L3 Reps/Minutes 10 each PT-OP-R Modalities Start: 03/23/19 18:28 Freq: Status: Active Protocol: Document 05/03/19 09:47 [facility] (Rec: 05/03/19 11:42 [facility] [id number]) Hot Pack/Cold Pack Treatment Hot Pack Location R brachium/shoulder Patient Position Supine Treatment Duration (minutes) 15 Patient Tolerance Good PT-OP-T Assessment and Plan Start: 03/23/19 18:28 Freq: Status: Active Protocol: Document 05/05/19 13:20 [facility] (Rec: 05/07/19 13:24 [facility] [id number]) Physical Therapy Assessment Assessment Summary Assessment increased reps to 3 sets of 10 today. This went well for all except theraband ER which is still difficult. Kept patient at level 1 theraband and no weight for sidelying ER Physical Therapy Plan Frequency and Duration Frequency of Treatment 2x/Week Duration of Treatment 2 months Plan of Care Start Date 03/24/19 Plan of Care End Date 05/24/19 Next Visit Focus/Plan Next Note Type Treatment Note Next Visit Plan cont to work on stability & soft tissue in shoulder & gh & ac joint
--- NOTE | 2019-05-10 14:15 | PT.OTN ---
Current Diagnoses Bicipital tendinitis, right shoulder (05/10/19) Pain in right upper arm (05/10/19) Abnormal posture (05/10/19) Weakness (05/10/19) Physical Therapy Treatment Note PT-OP-A Visit Information Start: 03/23/19 18:28 Freq: Status: Active Protocol: Document 05/10/19 09:45 [facility] (Rec: 05/10/19 12:36 [facility] [id number]) Out-Patient Physical Therapy Visit Information Visit Information Visit Type Treatment Note Visit Start Time 09:45 Visit Stop Time 10:39 Total Visit Minutes 54 Visit Number 10 Number of BUILDING COORDINATOR Visits 0 PT-OP-B Current Condition Start: 03/23/19 18:28 Freq: Status: Active Protocol: Document 03/24/19 15:18 [facility] (Rec: 03/24/19 16:04 [facility] [id number]) Current Condition History of Current Condition Onset Date got worse 3 weeks ago;over a year ago on/off but never very bad Current Complaints R lat brachium pain History of Current Condition Pt reports arm pain has been on and off for a while but its worse recently. He has taken anti inflammatories which sometiems helps. Reports it is worse in bed and sometimes even simple things like holding the shaver up aggrevates his arm. Pt reports he has started using a pillow at night and that helps. Pt reports the MD thought it may have to do with him working on the computer so he just got a new desk chair. Pt reports he has noticed his posture gets worse with prolonged sitting. 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 Pt reports on some occasional numbness in fingertips B. Pt reports when he gets a stiff neck, its typically on the R and he thinks that about 3 weeks ago he had some stifness . Prior Treatments and Tests no testing or other treatment Treatment Goals Patient/Caregiver Goals Improve sleep, improve strength, imporve compute posture, PT-OP-C Subjective Start: 03/23/19 18:28 Freq: Status: Active Protocol: Document 05/10/19 09:45 [facility] (Rec: 05/10/19 12:36 [facility] [id number]) OP-PT Subjective Patient Comments Patient Comments Pt reported that his shoulder feels the worst when heis trying to find a comfortable position to sleep, but he has been able to loosen his shoulder up more easily in the mornings. He has been compliant with his HEP and performing 3 sets of them each juan carlos dn says he thinks that has been helping with his pain . He reports that he has changed his desk configuration , but has not tried it out yet . PT-OP-J Posture/Palpation/Skin Start: 03/23/19 18:28 Freq: Status: Active Protocol: Document 03/24/19 15:18 [facility] (Rec: 03/24/19 18:37 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 (Rec: 03/24/19 16:04 [facility] [id number]) Cervical Spine Range of Motion Cervical Spine Active Degrees Flexion 64 Extension 35 Rotation Left 62 Rotation Right 54 Lateral Flexion Left 22 Lateral Flexion Right 34 Shoulder Goniometric Range of Motion Shoulder Left Active Flexion 131 Abduction 130 External Rotation at 90 degrees 78 Abduction Internal Rotation 63 Internal Rotation Behind Back (text) T7 Right Active Flexion 129 Abduction 130 Horizontal Adduction 8 External Rotation at 90 degrees 48 Abduction Internal Rotation 58 Internal Rotation Behind Back (text) T7 PT-OP-L Special Tests Start: 03/23/19 18:28 Freq: Status: Active Protocol: Document 03/24/19 15:18 [facility] (Rec: 03/24/19 16:04 [facility] [id number]) Special Tests Shoulder Special Tests Stroud Alvarez Impingement Test Results positive Empty Can Test Results positive Neer Impingement Test Results neg Speed's Biceps Test Results positive for pain but ricketts also positive for pain Drop Arm Rotator Cuff Test Results neg AC Joint Compression Test Results neg Neural Special Tests- Upper Body Upper Limb Tension Test Test Results passive abd to 90 on R with joint tightness Radial Nerve Tension Test Results positive Comments ulnar, median negative PT-OP-M Strength Start: 03/23/19 18:28 Freq: Status: Active Protocol: Document 03/24/19 15:18 [facility] (Rec: 03/24/19 16:04 [facility] [id number]) Shoulder Strength Shoulder Manual Muscle Testing Left Flexion 5 Normal Extension 5 Normal Abduction (C5) 5 Normal External Rotation 4 Good Internal Rotation 5 Normal Horizontal Abduction 4+ Good+ Horizontal Adduction 4+ Good+ Right Flexion 3+ Fair+ Extension 4 Good Abduction (C5) 3+ Fair+ External Rotation 3+ Fair+ Horizontal Abduction 4- Good- Horizontal Adduction 3+ Fair+ PT-OP-Q Treatments Start: 03/23/19 18:28 Freq: Status: Active Protocol: Document 05/10/19 09:45 [facility] (Rec: 05/10/19 12:36 MT [id number]) Cardio Equipment Upper Body Ergometer (UBE) Duration (Minutes) 5 RPM 120 Other good tolerance, forward and backward Therapeutic Exercises Supine Exercises serratus punches Side bilateral Reps/Minutes 20 Comments requires frequent cueing for proper shoulder motion flex Supine Exercise Name AROM Side bilateral Reps/Minutes 10 Comments use tbar to help with movement Sidelying Exercises open book Side bilateral Reps/Minutes 10 Comments cueing for bending knees to prevent pelvis motion ER Side right Equipment Used 0-1# weight Reps/Minutes 20 Comments was able to tolerate 1# for 10 reps Sitting Exercises 1 Sitting Exercise Name seated shoulder pully Reps/Minutes x 4 min Standing Exercises wall posture Standing Exercise Name w/ H abd Side bilateral Reps/Minutes 10 IR Standing Exercise Name resisted IR Side right Resistance L3 Reps/Minutes 10 ext Standing Exercise Name rows and lat pulldowns Side bilateral Resistance L3 Reps/Minutes 10 each Manual Therapy Treatment Joint Mobilizations GH Joint distraction + glides Direction inferior, posterior Grade III Body Position Hooklying Comments inferior glide with NM retrainging for abd, posterior glide with retraining for IR and HaB. PT-OP-R Modalities Start: 03/23/19 18:28 Freq: Status: Active Protocol: Document 05/10/19 09:45 [facility] (Rec: 05/10/19 12:36 MT [id number]) Hot Pack/Cold Pack Treatment Hot Pack Location R brachium/shoulder Patient Position Supine Treatment Duration (minutes) 15 Patient Tolerance Good PT-OP-T Assessment and Plan Start: 03/23/19 18:28 Freq: Status: Active Protocol: Document 05/10/19 09:45 [facility] (Rec: 05/10/19 12:36 MT [id number]) Physical Therapy Assessment Goals activities Short Term Goal (STG) Pt will be able to use razor without c/o pain or weakness. 04/26/19 - pt reports that the pain has been getting much better, but is still present during shaving or any activity requiring lifting above shoulder height STG Duration 04/24/19 Intermediate Goal (LTG) Pt will be able to sleep comfortably without pain. 04/26/19 - pt reports that sleeping is still on and off uncomfortable. he has been trying a bigger pillow, which helps but the discomfort is still present LTG Duration 05/24/19 posture Short Term Goal (STG) Pt will demonstrate appropriate ergonomic set up for his computer. STG Duration 04/24/19 Intermediate Goal (LTG) Pt will demonstrate efficient posture with 5/5 EFT and ability to maintain most efficient posture without cueing. strength Short Term Goal (STG) Pt will be indep with HEP STG Duration 04/24/19 Slps Goal (LTG) Pt will score 5/5 UE strength B in order to allow greater ease with typical daily activities. LTG Duration 05/24/19 Assessment Summary Assessment Pt able to perform shoulder strengthening exercises with band with less cueing for proper scapular motion. Pt was able to progress sidelying ER by adding 1# weight for about 10 reps before becoming fatigued. Pt was told to try incorporating 1# into some of his reps for HEP. Pt continues to reuqire cueing for serratus punch movement. Performed mobilizations on R GH. Pt was able to get more activation of posterior shoulder stabilization with IR vs HaB. Physical Therapy Plan Frequency and Duration Frequency of Treatment 2x/Week Duration of Treatment 2 months Plan of Care Start Date 03/24/19 Plan of Care End Date 05/24/19 Next Visit Focus/Plan Next Note Type Treatment Note Next Visit Plan progress exercises for core stability, increase manual therapy
--- NOTE | 2019-05-10 16:49 | PT.OPPN ---
Current Diagnoses Bicipital tendinitis, right shoulder (05/12/19) Pain in right upper arm (05/12/19) Abnormal posture (05/12/19) Weakness (05/12/19) Physical Therapy Progress Note PT-OP-A Visit Information Start: 03/23/19 18:28 Freq: Status: Active Protocol: Document 05/10/19 09:45 [facility] (Rec: 05/10/19 12:36 MT [id number]) Out-Patient Physical Therapy Visit Information Visit Information Visit Type Treatment Note Visit Start Time 09:45 Visit Stop Time 10:39 Total Visit Minutes 54 Visit Number 10 Number of PATROL OFFICER Visits 0 PT-OP-B Current Condition Start: 03/23/19 18:28 Freq: Status: Active Protocol: Document 03/24/19 15:18 [facility] (Rec: 03/24/19 16:04 [facility] [id number]) Current Condition History of Current Condition Onset Date got worse 3 weeks ago;over a year ago on/off but never very bad Current Complaints R lat brachium pain History of Current Condition Pt reports arm pain has been on and off for a while but its worse recently. He has taken anti inflammatories which sometiems helps. Reports it is worse in bed and sometimes even simple things like holding the shaver up aggrevates his arm. Pt reports he has started using a pillow at night and that helps. Pt reports the MD thought it may have to do with him working on the computer so he just got a new desk chair. Pt reports he has noticed his posture gets worse with prolonged sitting. 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 Pt reports on some occasional numbness in fingertips B. Pt reports when he gets a stiff neck, its typically on the R and he thinks that about 3 weeks ago he had some stifness . Prior Treatments and Tests no testing or other treatment Treatment Goals Patient/Caregiver Goals Improve sleep, improve strength, imporve compute posture, PT-OP-C Subjective Start: 03/23/19 18:28 Freq: Status: Active Protocol: Document 05/10/19 09:45 [facility] (Rec: 05/10/19 12:36 MT [id number]) OP-PT Subjective Patient Comments Patient Comments Pt reported that his shoulder feels the worst when heis trying to find a comfortable position to sleep, but he has been able to loosen his shoulder up more easily in the mornings. He has been compliant with his HEP and performing 3 sets of them each juan carlos dn says he thinks that has been helping with his pain . He reports that he has changed his desk configuration , but has not tried it out yet . PT-OP-J Posture/Palpation/Skin Start: 03/23/19 18:28 Freq: Status: Active Protocol: Document 03/24/19 15:18 [facility] (Rec: 03/24/19 18:37 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 (Rec: 03/24/19 16:04 [facility] [id number]) Cervical Spine Range of Motion Cervical Spine Active Degrees Flexion 64 Extension 35 Rotation Left 62 Rotation Right 54 Lateral Flexion Left 22 Lateral Flexion Right 34 Shoulder Goniometric Range of Motion Shoulder Measured in Degrees Left Active Flexion 131 Abduction 130 External Rotation at 90 degrees 78 Abduction Internal Rotation 63 Internal Rotation Behind Back (text) T7 Right Active Flexion 129 Abduction 130 Horizontal Adduction 8 External Rotation at 90 degrees 48 Abduction Internal Rotation 58 Internal Rotation Behind Back (text) T7 PT-OP-L Special Tests Start: 03/23/19 18:28 Freq: Status: Active Protocol: Document 03/24/19 15:18 [facility] (Rec: 03/24/19 16:04 [facility] [id number]) Special Tests Shoulder Special Tests Stroud Alvarez Impingement Test Results positive Empty Can Test Results positive Neer Impingement Test Results neg Speed's Biceps Test Results positive for pain but ricketts also positive for pain Drop Arm Rotator Cuff Test Results neg AC Joint Compression Test Results neg Neural Special Tests- Upper Body Upper Limb Tension Test Test Results passive abd to 90 on R with joint tightness Radial Nerve Tension Test Results positive Comments ulnar, median negative PT-OP-M Strength Start: 03/23/19 18:28 Freq: Status: Active Protocol: Document 03/24/19 15:18 [facility] (Rec: 03/24/19 16:04 [facility] [id number]) Shoulder Strength Shoulder Manual Muscle Testing Left Flexion 5 Normal Extension 5 Normal Abduction (C5) 5 Normal External Rotation 4 Good Internal Rotation 5 Normal Horizontal Abduction 4+ Good+ Horizontal Adduction 4+ Good+ Right Flexion 3+ Fair+ Extension 4 Good Abduction (C5) 3+ Fair+ External Rotation 3+ Fair+ Horizontal Abduction 4- Good- Horizontal Adduction 3+ Fair+ PT-OP-T Assessment and Plan Start: 03/23/19 18:28 Freq: Status: Active Protocol: Document 05/10/19 09:45 [facility] (Rec: 05/10/19 12:36 MT [id number]) Physical Therapy Assessment Goals activities Short Term Goal (STG) Pt will be able to use razor without c/o pain or weakness. 04/26/19 - pt reports that the pain has been getting much better, but is still present during shaving or any activity requiring lifting above shoulder height STG Duration 04/24/19 Usp Goal (LTG) Pt will be able to sleep comfortably without pain. 04/26/19 - pt reports that sleeping is still on and off uncomfortable. he has been trying a bigger pillow, which helps but the discomfort is still present LTG Duration 05/24/19 posture Short Term Goal (STG) Pt will demonstrate appropriate ergonomic set up for his computer. STG Duration 04/24/19 Usp Goal (LTG) Pt will demonstrate efficient posture with 5/5 EFT and ability to maintain most efficient posture without cueing. strength Short Term Goal (STG) Pt will be indep with HEP STG Duration 04/24/19 Usp Goal (LTG) Pt will score 5/5 UE strength B in order to allow greater ease with typical daily activities. LTG Duration 05/24/19 Assessment Summary Assessment Pt able to perform shoulder strengthening exercises with band with less cueing for proper scapular motion. Pt was able to progress sidelying ER by adding 1# weight for about 10 reps before becoming fatigued. Pt was told to try incorporating 1# into some of his reps for HEP. Pt continues to reuqire cueing for serratus punch movement. Performed mobilizations on R GH. Pt was able to get more activation of posterior shoulder stabilization with IR vs HaB. Physical Therapy Plan Frequency and Duration Frequency of Treatment 2x/Week Duration of Treatment 2 months Plan of Care Start Date 03/24/19 Plan of Care End Date 05/24/19 Next Visit Focus/Plan Next Note Type Treatment Note Next Visit Plan progress exercises for core stability, increase manual therapy
--- NOTE | 2019-05-12 16:05 | PT.OTN ---
Current Diagnoses Bicipital tendinitis, right shoulder (05/12/19) Pain in right upper arm (05/12/19) Abnormal posture (05/12/19) Weakness (05/12/19) Physical Therapy Treatment Note PT-OP-A Visit Information Start: 03/23/19 18:28 Freq: Status: Active Protocol: Document 05/12/19 09:47 [facility] (Rec: 05/12/19 16:05 [facility] [id number]) Out-Patient Physical Therapy Visit Information Visit Information Visit Type Treatment Note Visit Start Time 09:47 Visit Stop Time 10:42 Total Visit Minutes 55 Visit Number 11 Number of FIELD REPORTER Visits 0 PT-OP-B Current Condition Start: 03/23/19 18:28 Freq: Status: Active Protocol: Document 03/24/19 15:18 [facility] (Rec: 03/24/19 16:04 [facility] [id number]) Current Condition History of Current Condition Onset Date got worse 3 weeks ago;over a year ago on/off but never very bad Current Complaints R lat brachium pain History of Current Condition Pt reports arm pain has been on and off for a while but its worse recently. He has taken anti inflammatories which sometiems helps. Reports it is worse in bed and sometimes even simple things like holding the shaver up aggrevates his arm. Pt reports he has started using a pillow at night and that helps. Pt reports the MD thought it may have to do with him working on the computer so he just got a new desk chair. Pt reports he has noticed his posture gets worse with prolonged sitting. 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 Pt reports on some occasional numbness in fingertips B. Pt reports when he gets a stiff neck, its typically on the R and he thinks that about 3 weeks ago he had some stifness . Prior Treatments and Tests no testing or other treatment Treatment Goals Patient/Caregiver Goals Improve sleep, improve strength, imporve compute posture, PT-OP-C Subjective Start: 03/23/19 18:28 Freq: Status: Active Protocol: Document 05/12/19 09:47 [facility] (Rec: 05/12/19 16:05 [facility] [id number]) OP-PT Subjective Patient Comments Patient Comments Pt reports slowly getting better. 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 PT-OP-K Range of Motion Start: 03/23/19 18:28 Freq: Status: Active Protocol: Document 03/24/19 15:18 [facility] (Rec: 03/24/19 16:04 [facility] [id number]) Cervical Spine Range of Motion Cervical Spine Active Degrees Flexion 64 Extension 35 Rotation Left 62 Rotation Right 54 Lateral Flexion Left 22 Lateral Flexion Right 34 Shoulder Goniometric Range of Motion Shoulder Left Active Flexion 131 Abduction 130 External Rotation at 90 degrees 78 Abduction Internal Rotation 63 Internal Rotation Behind Back (text) T7 Right Active Flexion 129 Abduction 130 Horizontal Adduction 8 External Rotation at 90 degrees 48 Abduction Internal Rotation 58 Internal Rotation Behind Back (text) T7 PT-OP-L Special Tests Start: 03/23/19 18:28 Freq: Status: Active Protocol: Document 03/24/19 15:18 [facility] (Rec: 03/24/19 16:04 [facility] [id number]) Special Tests Shoulder Special Tests Stroud Alvarez Impingement Test Results positive Empty Can Test Results positive Neer Impingement Test Results neg Speed's Biceps Test Results positive for pain but ricketts also positive for pain Drop Arm Rotator Cuff Test Results neg AC Joint Compression Test Results neg Neural Special Tests- Upper Body Upper Limb Tension Test Test Results passive abd to 90 on R with joint tightness Radial Nerve Tension Test Results positive Comments ulnar, median negative PT-OP-M Strength Start: 03/23/19 18:28 Freq: Status: Active Protocol: Document 03/24/19 15:18 [facility] (Rec: 03/24/19 16:04 [facility] [id number]) Shoulder Strength Shoulder Manual Muscle Testing Left Flexion 5 Normal Extension 5 Normal Abduction (C5) 5 Normal External Rotation 4 Good Internal Rotation 5 Normal Horizontal Abduction 4+ Good+ Horizontal Adduction 4+ Good+ Right Flexion 3+ Fair+ Extension 4 Good Abduction (C5) 3+ Fair+ External Rotation 3+ Fair+ Horizontal Abduction 4- Good- Horizontal Adduction 3+ Fair+ PT-OP-Q Treatments Start: 03/23/19 18:28 Freq: Status: Active Protocol: Document 05/12/19 09:47 [facility] (Rec: 05/12/19 16:05 [facility] [id number]) Cardio Equipment Upper Body Ergometer (UBE) Duration (Minutes) 5 RPM 120 Other good tolerance, forward and backward Therapeutic Exercises Supine Exercises flex Supine Exercise Name w/focus on scap stability and distraction Manual Therapy Treatment Soft Tissue Mobilization pec Body Location R Mobilization Type Strumming Comments w/Habd &IR Joint Mobilizations GH Joint R Direction inferior, posterior glide & translation,distracton, lat gap FM Neuro Re-Education Treatment Movement Re-Education Movement Re-education Activities for post glide w/HAbd, distraction & lat gappping neuro redu w/manual facilitation PT-OP-R Modalities Start: 03/23/19 18:28 Freq: Status: Active Protocol: Document 05/12/19 09:47 [facility] (Rec: 05/12/19 16:05 [facility] [id number]) Hot Pack/Cold Pack Treatment Hot Pack Location R brachium/shoulder Patient Position Supine Treatment Duration (minutes) 15 Patient Tolerance Good PT-OP-T Assessment and Plan Start: 03/23/19 18:28 Freq: Status: Active Protocol: Document 05/12/19 09:47 [facility] (Rec: 05/12/19 16:05 [facility] [id number]) Physical Therapy Assessment Goals activities Short Term Goal (STG) Pt will be able to use razor without c/o pain or weakness. 04/26/19 - pt reports that the pain has been getting much better, but is still present during shaving or any activity requiring lifting above shoulder height STG Duration 04/24/19 Fpc Goal (LTG) Pt will be able to sleep comfortably without pain. 04/26/19 - pt reports that sleeping is still on and off uncomfortable. he has been trying a bigger pillow, which helps but the discomfort is still present LTG Duration 05/24/19 posture Short Term Goal (STG) Pt will demonstrate appropriate ergonomic set up for his computer. STG Duration 04/24/19 Fpc Goal (LTG) Pt will demonstrate efficient posture with 5/5 EFT and ability to maintain most efficient posture without cueing. strength Short Term Goal (STG) Pt will be indep with HEP STG Duration 04/24/19 Fpc Goal (LTG) Pt will score 5/5 UE strength B in order to allow greater ease with typical daily activities. LTG Duration 05/24/19 Assessment Summary Assessment Pt improved with ROM after treatment, but has signfiicant difficulty with using intrinsics to stabilize with overhead motions. Did well with exercise with cueing Physical Therapy Plan Frequency and Duration Frequency of Treatment 2x/Week Duration of Treatment 2 months Plan of Care Start Date 03/24/19 Plan of Care End Date 05/24/19 Therapeutic Interventions Therapeutic Interventions Aquatic Therapy,Home Exercise Program,Joint Mobilizations, Manual Therapy,Neuromuscular Re-education,Patient/Caregiver Education,Self-Care/Home Management,Soft Tissue Mobilization,Taping, Therapeutic Activities, Therapeutic Exercises Modalities Cold Pack/Ice Massage,Electric Stimulation,Hot Packs, Infrared Therapy,Iontophoresis ,Traction- Mechanical, Ultrasound Next Visit Focus/Plan Next Note Type Treatment Note Next Visit Plan progress exercises for core stability, increase manual therapy
--- NOTE | 2019-05-16 13:51 | PT.OTN ---
Current Diagnoses Bicipital tendinitis, right shoulder (05/16/19) Pain in right upper arm (05/16/19) Abnormal posture (05/16/19) Weakness (05/16/19) Physical Therapy Treatment Note PT-OP-A Visit Information Start: 03/23/19 18:28 Freq: Status: Active Protocol: Document 05/16/19 09:45 [facility] (Rec: 05/16/19 13:16 [facility] [id number]) Out-Patient Physical Therapy Visit Information Visit Information Visit Type Treatment Note Visit Start Time 09:45 Visit Stop Time 10:38 Total Visit Minutes 53 Visit Number 12 Number of S IRON WORKER Visits 0 PT-OP-B Current Condition Start: 03/23/19 18:28 Freq: Status: Active Protocol: Document 03/24/19 15:18 [facility] (Rec: 03/24/19 16:04 [facility] [id number]) Current Condition History of Current Condition Onset Date got worse 3 weeks ago;over a year ago on/off but never very bad Current Complaints R lat brachium pain History of Current Condition Pt reports arm pain has been on and off for a while but its worse recently. He has taken anti inflammatories which sometiems helps. Reports it is worse in bed and sometimes even simple things like holding the shaver up aggrevates his arm. Pt reports he has started using a pillow at night and that helps. Pt reports the MD thought it may have to do with him working on the computer so he just got a new desk chair. Pt reports he has noticed his posture gets worse with prolonged sitting. 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 Pt reports on some occasional numbness in fingertips B. Pt reports when he gets a stiff neck, its typically on the R and he thinks that about 3 weeks ago he had some stifness . Prior Treatments and Tests no testing or other treatment Treatment Goals Patient/Caregiver Goals Improve sleep, improve strength, imporve compute posture, PT-OP-C Subjective Start: 03/23/19 18:28 Freq: Status: Active Protocol: Document 05/16/19 09:45 [facility] (Rec: 05/16/19 13:16 [facility] [id number]) OP-PT Subjective Patient Comments Patient Comments Pt reports that his R shoulder has been slowly feeling like it is getting better, but there are times where it does not feel good for any particular reason PT-OP-J Posture/Palpation/Skin Start: 03/23/19 18:28 Freq: Status: Active Protocol: Document 03/24/19 15:18 [facility] (Rec: 03/24/19 18:37 [facility] [id number]) Posture Evaluation Comments Posture Comments 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 PT-OP-K Range of Motion Start: 03/23/19 18:28 Freq: Status: Active Protocol: Document 03/24/19 15:18 [facility] (Rec: 03/24/19 16:04 [facility] [id number]) Cervical Spine Range of Motion Cervical Spine Active Degrees Flexion 64 Extension 35 Rotation Left 62 Rotation Right 54 Lateral Flexion Left 22 Lateral Flexion Right 34 Shoulder Goniometric Range of Motion Shoulder Left Active Flexion 131 Abduction 130 External Rotation at 90 degrees 78 Abduction Internal Rotation 63 Internal Rotation Behind Back (text) T7 Right Active Flexion 129 Abduction 130 Horizontal Adduction 8 External Rotation at 90 degrees 48 Abduction Internal Rotation 58 Internal Rotation Behind Back (text) T7 PT-OP-L Special Tests Start: 03/23/19 18:28 Freq: Status: Active Protocol: Document 03/24/19 15:18 [facility] (Rec: 03/24/19 16:04 [facility] [id number]) Special Tests Shoulder Special Tests Stroud Alvarez Impingement Test Results positive Empty Can Test Results positive Neer Impingement Test Results neg Speed's Biceps Test Results positive for pain but ricketts also positive for pain Drop Arm Rotator Cuff Test Results neg AC Joint Compression Test Results neg Neural Special Tests- Upper Body Upper Limb Tension Test Test Results passive abd to 90 on R with joint tightness Radial Nerve Tension Test Results positive Comments ulnar, median negative PT-OP-M Strength Start: 03/23/19 18:28 Freq: Status: Active Protocol: Document 03/24/19 15:18 [facility] (Rec: 03/24/19 16:04 [facility] [id number]) Shoulder Strength Shoulder Manual Muscle Testing Left Flexion 5 Normal Extension 5 Normal Abduction (C5) 5 Normal External Rotation 4 Good Internal Rotation 5 Normal Horizontal Abduction 4+ Good+ Horizontal Adduction 4+ Good+ Right Flexion 3+ Fair+ Extension 4 Good Abduction (C5) 3+ Fair+ External Rotation 3+ Fair+ Horizontal Abduction 4- Good- Horizontal Adduction 3+ Fair+ PT-OP-Q Treatments Start: 03/23/19 18:28 Freq: Status: Active Protocol: Document 05/16/19 09:45 [facility] (Rec: 05/16/19 13:16 [facility] [id number]) Therapeutic Exercises Supine Exercises serratus punches Side bilateral Equipment Used tbar Reps/Minutes 20 Comments requires frequent cueing for proper shoulder motion flex Supine Exercise Name w/focus on scap stability and distraction Reps/Minutes 10 Sidelying Exercises ER Side right Equipment Used 1# weight Reps/Minutes 15 Manual Therapy Treatment Soft Tissue Mobilization biceps, deltoid Body Location R ant deltoid Mobilization Type Strumming,Sustained Pressure Intensity/Depth Superficial Body Position Hooklying pec Body Location R pec Mobilization Type Strumming,Sustained Pressure Intensity/Depth Moderate Body Position Hooklying Comments w/Habd &IR Joint Mobilizations GH Joint R Direction inferior, posterior glide & translation,distracton, lat gap FM Grade III Body Position Hooklying Comments inferior glide with NM retrainging for abd, posterior glide with retraining for IR and HaB. PT-OP-R Modalities Start: 03/23/19 18:28 Freq: Status: Active Protocol: Document 05/16/19 09:45 [facility] (Rec: 05/16/19 13:16 [facility] [id number]) Hot Pack/Cold Pack Treatment Hot Pack Location R brachium/shoulder Patient Position Supine Treatment Duration (minutes) 15 Patient Tolerance Good PT-OP-T Assessment and Plan Start: 03/23/19 18:28 Freq: Status: Active Protocol: Document 05/16/19 09:45 [facility] (Rec: 05/16/19 13:16 [facility] [id number]) Physical Therapy Assessment Goals activities Short Term Goal (STG) Pt will be able to use razor without c/o pain or weakness. 04/26/19 - pt reports that the pain has been getting much better, but is still present during shaving or any activity requiring lifting above shoulder height STG Duration 04/24/19 Assorter Laundry Goal (LTG) Pt will be able to sleep comfortably without pain. 04/26/19 - pt reports that sleeping is still on and off uncomfortable. he has been trying a bigger pillow, which helps but the discomfort is still present LTG Duration 05/24/19 posture Short Term Goal (STG) Pt will demonstrate appropriate ergonomic set up for his computer. STG Duration 04/24/19 Assorter Laundry Goal (LTG) Pt will demonstrate efficient posture with 5/5 EFT and ability to maintain most efficient posture without cueing. strength Short Term Goal (STG) Pt will be indep with HEP STG Duration 04/24/19 Assorter Laundry Goal (LTG) Pt will score 5/5 UE strength B in order to allow greater ease with typical daily activities. LTG Duration 05/24/19 Assessment Summary Assessment Pt is improving in his ROM and his tolerance for movement with resistance with his R GH ER. He was able to increase his ROm for horzontal aB and internal rotation following joint mobilizzations, but continues to have difficulty and requires max cueing for activating his intrinsics and stabilizing muscles during neuromuscular re-education. Physical Therapy Plan Frequency and Duration Frequency of Treatment 2x/Week Duration of Treatment 2 months Plan of Care Start Date 03/24/19 Plan of Care End Date 05/24/19 Next Visit Focus/Plan Next Note Type Treatment Note Next Visit Plan progress exercises for core stability, increase manual therapy
--- NOTE | 2019-05-18 15:36 | PT.OTN ---
Current Diagnoses Bicipital tendinitis, right shoulder (05/18/19) Pain in right upper arm (05/18/19) Abnormal posture (05/18/19) Weakness (05/18/19) Physical Therapy Treatment Note PT-OP-A Visit Information Start: 03/23/19 18:28 Freq: Status: Active Protocol: Document 05/18/19 13:01 [facility] (Rec: 05/18/19 14:29 [facility] [id number]) Out-Patient Physical Therapy Visit Information Visit Information Visit Type Treatment Note Visit Start Time 13:01 Visit Stop Time 14:00 Total Visit Minutes 59 Visit Number 13 Number of AMUSEMENT PARK RIDE MECHANIC Visits 0 PT-OP-B Current Condition Start: 03/23/19 18:28 Freq: Status: Active Protocol: Document 03/24/19 15:18 [facility] (Rec: 03/24/19 16:04 [facility] [id number]) Current Condition History of Current Condition Onset Date got worse 3 weeks ago;over a year ago on/off but never very bad Current Complaints R lat brachium pain History of Current Condition Pt reports arm pain has been on and off for a while but its worse recently. He has taken anti inflammatories which sometiems helps. Reports it is worse in bed and sometimes even simple things like holding the shaver up aggrevates his arm. Pt reports he has started using a pillow at night and that helps. Pt reports the MD thought it may have to do with him working on the computer so he just got a new desk chair. Pt reports he has noticed his posture gets worse with prolonged sitting. 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 Pt reports on some occasional numbness in fingertips B. Pt reports when he gets a stiff neck, its typically on the R and he thinks that about 3 weeks ago he had some stifness . Prior Treatments and Tests no testing or other treatment Treatment Goals Patient/Caregiver Goals Improve sleep, improve strength, imporve compute posture, PT-OP-C Subjective Start: 03/23/19 18:28 Freq: Status: Active Protocol: Document 05/18/19 13:01 [facility] (Rec: 05/18/19 14:29 [facility] [id number]) OP-PT Subjective Patient Comments Patient Comments Pt reports that he has been able to do his HEP and begin incorporating 1# weights in to a set of his ER. He reports that he continues to have pain with certain movements of his arms and uses his L arm to do a lot of things he would normally do with his R arm. Sleeping is also still painful for him, even when trying different sleeping positions. 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 PT-OP-K Range of Motion Start: 03/23/19 18:28 Freq: Status: Active Protocol: Document 03/24/19 15:18 [facility] (Rec: 03/24/19 16:04 [facility] [id number]) Cervical Spine Range of Motion Cervical Spine Active Degrees Flexion 64 Extension 35 Rotation Left 62 Rotation Right 54 Lateral Flexion Left 22 Lateral Flexion Right 34 Shoulder Goniometric Range of Motion Shoulder Left Active Flexion 131 Abduction 130 External Rotation at 90 degrees 78 Abduction Internal Rotation 63 Internal Rotation Behind Back (text) T7 Right Active Flexion 129 Abduction 130 Horizontal Adduction 8 External Rotation at 90 degrees 48 Abduction Internal Rotation 58 Internal Rotation Behind Back (text) T7 PT-OP-L Special Tests Start: 03/23/19 18:28 Freq: Status: Active Protocol: Document 03/24/19 15:18 [facility] (Rec: 03/24/19 16:04 [facility] [id number]) Special Tests Shoulder Special Tests Stroud Alvarez Impingement Test Results positive Empty Can Test Results positive Neer Impingement Test Results neg Speed's Biceps Test Results positive for pain but ricketts also positive for pain Drop Arm Rotator Cuff Test Results neg AC Joint Compression Test Results neg Neural Special Tests- Upper Body Upper Limb Tension Test Test Results passive abd to 90 on R with joint tightness Radial Nerve Tension Test Results positive Comments ulnar, median negative PT-OP-M Strength Start: 03/23/19 18:28 Freq: Status: Active Protocol: Document 03/24/19 15:18 [facility] (Rec: 03/24/19 16:04 [facility] [id number]) Shoulder Strength Shoulder Manual Muscle Testing Left Flexion 5 Normal Extension 5 Normal Abduction (C5) 5 Normal External Rotation 4 Good Internal Rotation 5 Normal Horizontal Abduction 4+ Good+ Horizontal Adduction 4+ Good+ Right Flexion 3+ Fair+ Extension 4 Good Abduction (C5) 3+ Fair+ External Rotation 3+ Fair+ Horizontal Abduction 4- Good- Horizontal Adduction 3+ Fair+ PT-OP-Q Treatments Start: 03/23/19 18:28 Freq: Status: Active Protocol: Document 05/18/19 13:01 [facility] (Rec: 05/18/19 14:29 [facility] [id number]) Cardio Equipment Upper Body Ergometer (UBE) Duration (Minutes) 5 RPM 120 Other good tolerance, forward and backward Therapeutic Exercises Supine Exercises serratus punches Side bilateral Equipment Used tbar Reps/Minutes 15 Comments requires frequent cueing for proper shoulder motion flex Supine Exercise Name w/focus on scap stability and distraction Reps/Minutes 15 Comments painful arc at about 45 degrees flexion tbar Supine Exercise Name D2 flexion; D1 extension Side right Reps/Minutes 15 each Manual Therapy Treatment Joint Mobilizations GH Joint R Direction inferior, posterior glide Grade III Body Position Hooklying Comments 1. inferior glide in supine with NM retrainging for abd, posterior glide with retraining for IR. 2. inferior glide in sitting with retraining for aB while pt activates inferior GH stabilizing muscles PT-OP-R Modalities Start: 03/23/19 18:28 Freq: Status: Active Protocol: Document 05/18/19 13:01 [facility] (Rec: 05/18/19 14:29 [facility] [id number]) Hot Pack/Cold Pack Treatment Hot Pack Location R brachium/shoulder Patient Position Supine Treatment Duration (minutes) 15 Patient Tolerance Good PT-OP-T Assessment and Plan Start: 03/23/19 18:28 Freq: Status: Active Protocol: Document 05/18/19 13:01 [facility] (Rec: 05/18/19 14:29 [facility] [id number]) Physical Therapy Assessment Goals activities Short Term Goal (STG) Pt will be able to use razor without c/o pain or weakness. 04/26/19 - pt reports that the pain has been getting much better, but is still present during shaving or any activity requiring lifting above shoulder height STG Duration 04/24/19 Ict Business Analyst Goal (LTG) Pt will be able to sleep comfortably without pain. 04/26/19 - pt reports that sleeping is still on and off uncomfortable. he has been trying a bigger pillow, which helps but the discomfort is still present LTG Duration 05/24/19 posture Short Term Goal (STG) Pt will demonstrate appropriate ergonomic set up for his computer. STG Duration 04/24/19 Ict Business Analyst Goal (LTG) Pt will demonstrate efficient posture with 5/5 EFT and ability to maintain most efficient posture without cueing. strength Short Term Goal (STG) Pt will be indep with HEP STG Duration 04/24/19 Alf Goal (LTG) Pt will score 5/5 UE strength B in order to allow greater ease with typical daily activities. LTG Duration 05/24/19 Assessment Summary Assessment Pt is improving in his tolerance for active ROM exercises. He still maintains a painful arc with his R UE during flexion. Pt responded well to mobilizations with contract-relax and re- education. Attempted the inferior mobilization in sitting with arm on table, which pt had much quicker activation of his inferior GH stabilizer muscles to maintain an inferior glide during re- education. Physical Therapy Plan Frequency and Duration Frequency of Treatment 2x/Week Duration of Treatment 2 months Plan of Care Start Date 03/24/19 Plan of Care End Date 05/24/19 Next Visit Focus/Plan Next Note Type Progress Note Next Visit Plan progress exercises for core stability, increase manual therapy
--- NOTE | 2019-05-24 16:13 | PT.OPPN ---
Current Diagnoses Bicipital tendinitis, right shoulder (05/24/19) Pain in right upper arm (05/24/19) Abnormal posture (05/24/19) Weakness (05/24/19) Physical Therapy Progress Note PT-OP-A Visit Information Start: 03/23/19 18:28 Freq: Status: Active Protocol: Document 05/24/19 09:46 MT (Rec: 05/24/19 11:00 MT [email or web address]) Out-Patient Physical Therapy Visit Information Visit Information Visit Type Progress Note Visit Start Time 09:46 Visit Stop Time 10:50 Total Visit Minutes 64 Visit Number 14 Number of SENIOR CENTER DIRECTOR Visits 0 PT-OP-B Current Condition Start: 03/23/19 18:28 Freq: Status: Active Protocol: Document 03/24/19 15:18 [facility] (Rec: 03/24/19 16:04 [facility] [id number]) Current Condition History of Current Condition Onset Date got worse 3 weeks ago;over a year ago on/off but never very bad Current Complaints R lat brachium pain History of Current Condition Pt reports arm pain has been on and off for a while but its worse recently. He has taken anti inflammatories which sometiems helps. Reports it is worse in bed and sometimes even simple things like holding the shaver up aggrevates his arm. Pt reports he has started using a pillow at night and that helps. Pt reports the MD thought it may have to do with him working on the computer so he just got a new desk chair. Pt reports he has noticed his posture gets worse with prolonged sitting. 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 Pt reports on some occasional numbness in fingertips B. Pt reports when he gets a stiff neck, its typically on the R and he thinks that about 3 weeks ago he had some stifness . Prior Treatments and Tests no testing or other treatment Treatment Goals Patient/Caregiver Goals Improve sleep, improve strength, imporve compute posture, PT-OP-C Subjective Start: 03/23/19 18:28 Freq: Status: Active Protocol: Document 05/24/19 09:46 MT (Rec: 05/24/19 11:00 MT [email or web address]) OP-PT Subjective Patient Comments Patient Comments Pt reports that he still gets on and off pain with different activities, especially with activtiies involving lifting and HaB. He reports that he feels like he is constantly on the edge of pain with active motions of his R arm. He is noting that he generally is seeing improvement with his tolerance to movement and strength in his R UE. PT-OP-J Posture/Palpation/Skin Start: 03/23/19 18:28 Freq: Status: Active Protocol: Document 05/24/19 09:46 MT (Rec: 05/24/19 11:00 MT [email or web address]) Posture Evaluation [facility] Postural Classification System Elbow Flexion Test 2 PT-OP-K Range of Motion Start: 03/23/19 18:28 Freq: Status: Active Protocol: Document 03/24/19 15:18 [facility] (Rec: 03/24/19 16:04 [facility] [id number]) Cervical Spine Range of Motion Cervical Spine Active Degrees Flexion 64 Extension 35 Rotation Left 62 Rotation Right 54 Lateral Flexion Left 22 Lateral Flexion Right 34 Shoulder Goniometric Range of Motion Shoulder Measured in Degrees Left Active Flexion 131 Abduction 130 External Rotation at 90 degrees 78 Abduction Internal Rotation 63 Internal Rotation Behind Back (text) T7 Right Active Flexion 129 Abduction 130 Horizontal Adduction 8 External Rotation at 90 degrees 48 Abduction Internal Rotation 58 Internal Rotation Behind Back (text) T7 PT-OP-L Special Tests Start: 03/23/19 18:28 Freq: Status: Active Protocol: Document 03/24/19 15:18 [facility] (Rec: 03/24/19 16:04 [facility] [id number]) Special Tests Shoulder Special Tests Stroud Alvarez Impingement Test Results positive Empty Can Test Results positive Neer Impingement Test Results neg Speed's Biceps Test Results positive for pain but ricketts also positive for pain Drop Arm Rotator Cuff Test Results neg AC Joint Compression Test Results neg Neural Special Tests- Upper Body Upper Limb Tension Test Test Results passive abd to 90 on R with joint tightness Radial Nerve Tension Test Results positive Comments ulnar, median negative PT-OP-M Strength Start: 03/23/19 18:28 Freq: Status: Active Protocol: Document 05/24/19 09:46 MT (Rec: 05/24/19 11:00 MT [email or web address]) Shoulder Strength Shoulder Manual Muscle Testing Right Flexion 4+ Good+ Extension 5 Normal Abduction (C5) 4 Good External Rotation 3 Fair Internal Rotation 4+ Good+ PT-OP-T Assessment and Plan Start: 03/23/19 18:28 Freq: Status: Active Protocol: Document 05/24/19 09:46 MT (Rec: 05/24/19 11:00 MT [email or web address]) Physical Therapy Assessment Goals activities Short Term Goal (STG) Pt will be able to use razor without c/o pain or weakness. 04/26/19 - pt reports that the pain has been getting much better, but is still present during shaving or any activity requiring lifting above shoulder height 05/24/19 - pt still reports discomfort with using razor and other activities involving HaB STG Duration 06/24/19 Correction Goal (LTG) Pt will be able to sleep comfortably without pain. 04/26/19 - pt reports that sleeping is still on and off uncomfortable. he has been trying a bigger pillow, which helps but the discomfort is still present 05/24/19 - pt reports that sleep is still painful on certain days LTG Duration 07/25/19 posture Short Term Goal (STG) Pt will demonstrate appropriate ergonomic set up for his computer. STG Duration achieved Correction Goal (LTG) Pt will demonstrate efficient posture with 5/5 EFT and ability to maintain most efficient posture without cueing. 05/24/20 - EFT 2/5 LTG Duration 07/25/19 strength Short Term Goal (STG) Pt will be indep with HEP STG Duration achieved Correction Goal (LTG) Pt will score 5/5 UE strength B in order to allow greater ease with typical daily activities. 05/24/19 - pt's RUE ER strength is a 3/5. LTG Duration 07/25/19 Progress Towards Goals Progress Towards Goals Progressing Toward Goals Progress Comments Pt is making progress toward his goals. He has achieved his goals of setting up his desk to be ergonomically efficient and for being independent with his HEP. He has been improving in his general strength and activity tolerance, but has not met his goals for R UE strength or having no pain with ADL's and sleeping. Assessment Summary Assessment Assessed pt's progress toward his goals. Pt continues to have deficits in R UE strength and propero neuromuscular control and stabilization during certain movements. He is also continuing to get pain with certain ADL's and with sleep, but has reported some improvement. Pt will continue to benefit from skilled PT to address these deficits. Pt was positioned in sitting with arm on table for STM and mobilizations because this position allowed the pt to relax and allow facilitation the most for best mobilization results. Pt had increased pain-free motion in HaB following manual treatment. Physical Therapy Plan Frequency and Duration Frequency of Treatment 2x/Week Duration of Treatment 2 months Plan of Care Start Date 05/24/19 Plan of Care End Date 07/25/19 Therapeutic Interventions Therapeutic Interventions Aquatic Therapy,Coordination Training,Home Exercise Program ,Joint Mobilizations,Manual Therapy,Neuromuscular Re- education,Patient/Caregiver Education,Self-Care/Home Management,Soft Tissue Mobilization,Taping, Therapeutic Activities, Therapeutic Exercises Modalities Cold Pack/Ice Massage,Electric Stimulation,Hot Packs, Infrared Therapy,Iontophoresis ,Traction- Mechanical, Ultrasound Next Visit Focus/Plan Next Note Type Treatment Note Next Visit Plan continue to work on manual therapy for shoulder, pt responded well to seated position for manual therapy, increasing pain-free ROM for IR/ER/HaB, progress HEP
--- NOTE | 2019-05-26 09:34 | PT.OTN ---
Current Diagnoses Bicipital tendinitis, right shoulder (05/26/19) Pain in right upper arm (05/26/19) Abnormal posture (05/26/19) Weakness (05/26/19) Physical Therapy Treatment Note PT-OP-A Visit Information Start: 03/23/19 18:28 Freq: Status: Active Protocol: Document 05/26/19 07:33 [facility] (Rec: 05/26/19 09:34 [facility] [id number]) Out-Patient Physical Therapy Visit Information Visit Information Visit Type Treatment Note Visit Start Time 07:30 Visit Stop Time 08:20 Total Visit Minutes 55 Visit Number 15 PT-OP-B Current Condition Start: 03/23/19 18:28 Freq: Status: Active Protocol: Document 03/24/19 15:18 [facility] (Rec: 03/24/19 16:04 [facility] [id number]) Current Condition History of Current Condition Onset Date got worse 3 weeks ago;over a year ago on/off but never very bad Current Complaints R lat brachium pain History of Current Condition Pt reports arm pain has been on and off for a while but its worse recently. He has taken anti inflammatories which sometiems helps. Reports it is worse in bed and sometimes even simple things like holding the shaver up aggrevates his arm. Pt reports he has started using a pillow at night and that helps. Pt reports the MD thought it may have to do with him working on the computer so he just got a new desk chair. Pt reports he has noticed his posture gets worse with prolonged sitting. 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 Pt reports on some occasional numbness in fingertips B. Pt reports when he gets a stiff neck, its typically on the R and he thinks that about 3 weeks ago he had some stifness . Prior Treatments and Tests no testing or other treatment Treatment Goals Patient/Caregiver Goals Improve sleep, improve strength, imporve compute posture, PT-OP-C Subjective Start: 03/23/19 18:28 Freq: Status: Active Protocol: Document 05/26/19 07:33 [facility] (Rec: 05/26/19 09:34 [facility] [id number]) OP-PT Subjective Patient Comments Patient Comments Pt reports reaching across seems to be going better. Pt reports reaching is bothering him less but reaching with wt is more painful still and difficult Patient Reported Progress Improving PT-OP-J Posture/Palpation/Skin Start: 03/23/19 18:28 Freq: Status: Active Protocol: Document 05/24/19 09:46 MT (Rec: 05/24/19 11:00 MT [email or web address]) Posture Evaluation [facility] Postural Classification System Elbow Flexion Test 2 PT-OP-K Range of Motion Start: 03/23/19 18:28 Freq: Status: Active Protocol: Document 03/24/19 15:18 [facility] (Rec: 03/24/19 16:04 [facility] [id number]) Cervical Spine Range of Motion Cervical Spine Active Degrees Flexion 64 Extension 35 Rotation Left 62 Rotation Right 54 Lateral Flexion Left 22 Lateral Flexion Right 34 Shoulder Goniometric Range of Motion Shoulder Left Active Flexion 131 Abduction 130 External Rotation at 90 degrees 78 Abduction Internal Rotation 63 Internal Rotation Behind Back (text) T7 Right Active Flexion 129 Abduction 130 Horizontal Adduction 8 External Rotation at 90 degrees 48 Abduction Internal Rotation 58 Internal Rotation Behind Back (text) T7 PT-OP-L Special Tests Start: 03/23/19 18:28 Freq: Status: Active Protocol: Document 03/24/19 15:18 [facility] (Rec: 03/24/19 16:04 [facility] [id number]) Special Tests Shoulder Special Tests Stroud Alvarez Impingement Test Results positive Empty Can Test Results positive Neer Impingement Test Results neg Speed's Biceps Test Results positive for pain but ricketts also positive for pain Drop Arm Rotator Cuff Test Results neg AC Joint Compression Test Results neg Neural Special Tests- Upper Body Upper Limb Tension Test Test Results passive abd to 90 on R with joint tightness Radial Nerve Tension Test Results positive Comments ulnar, median negative PT-OP-M Strength Start: 03/23/19 18:28 Freq: Status: Active Protocol: Document 05/24/19 09:46 MT (Rec: 05/24/19 11:00 MT [email or web address]) Shoulder Strength Shoulder Manual Muscle Testing Right Flexion 4+ Good+ Extension 5 Normal Abduction (C5) 4 Good External Rotation 3 Fair Internal Rotation 4+ Good+ PT-OP-Q Treatments Start: 03/23/19 18:28 Freq: Status: Active Protocol: Document 05/26/19 07:33 [facility] (Rec: 05/26/19 09:34 [facility] [id number]) Cardio Equipment Upper Body Ergometer (UBE) Duration (Minutes) 6 RPM 60 Seat Position 13 Height 5.5 Other fwd/bck Therapeutic Exercises Supine Exercises flex Supine Exercise Name flexed at 90 w/ isometrics from all directions for stabilizations Reps/Minutes 2 min Sidelying Exercises open book Side right Reps/Minutes 6 Comments review form ER Side right Reps/Minutes 8 Standing Exercises casie pose Standing Exercise Name at sink 1 Standing Exercise Name doorway 1. inf glide 2. stretch overhead wall posture Standing Exercise Name w/ H abd Side bilateral Reps/Minutes 10 Manual Therapy Treatment Soft Tissue Mobilization teres Body Location teres & lats Mobilization Type Myofascial Release,Rolling, Strumming,Sustained Pressure Intensity/Depth Moderate Body Position Supine Comments w/c/r into flex pec Body Location w/shoulder flex Joint Mobilizations GH Joint post gliding R PT-OP-R Modalities Start: 03/23/19 18:28 Freq: Status: Active Protocol: Document 05/26/19 07:33 [facility] (Rec: 05/26/19 09:34 [facility] [id number]) Hot Pack/Cold Pack Treatment Hot Pack Location R brachium/shoulder Patient Position Supine Treatment Duration (minutes) 15 Patient Tolerance Good PT-OP-T Assessment and Plan Start: 03/23/19 18:28 Freq: Status: Active Protocol: Document 05/26/19 07:33 [facility] (Rec: 05/26/19 09:34 [facility] [id number]) Physical Therapy Assessment Goals activities Short Term Goal (STG) Pt will be able to use razor without c/o pain or weakness. 04/26/19 - pt reports that the pain has been getting much better, but is still present during shaving or any activity requiring lifting above shoulder height 05/24/19 - pt still reports discomfort with using razor and other activities involving HaB STG Duration 06/24/19 Correction Goal (LTG) Pt will be able to sleep comfortably without pain. 04/26/19 - pt reports that sleeping is still on and off uncomfortable. he has been trying a bigger pillow, which helps but the discomfort is still present 05/24/19 - pt reports that sleep is still painful on certain days LTG Duration 07/25/19 posture Short Term Goal (STG) Pt will demonstrate appropriate ergonomic set up for his computer. STG Duration achieved Correction Goal (LTG) Pt will demonstrate efficient posture with 5/5 EFT and ability to maintain most efficient posture without cueing. 05/24/20 - EFT 2/5 LTG Duration 07/25/19 strength Short Term Goal (STG) Pt will be indep with HEP STG Duration achieved Pulp Refiner Operator Goal (LTG) Pt will score 5/5 UE strength B in order to allow greater ease with typical daily activities. 05/24/19 - pt's RUE ER strength is a 3/5. LTG Duration 07/25/19 Assessment Summary Assessment Pt improving with ROM and is improving with ability to stabilize in shoulder. He still has difficulty with resisted reaching activtieis but did present today with improved Habd since last session. Physical Therapy Plan Frequency and Duration Frequency of Treatment 2x/Week Duration of Treatment 2 months Plan of Care Start Date 05/24/19 Plan of Care End Date 07/25/19 Next Visit Focus/Plan Next Note Type Treatment Note Next Visit Plan cont to work on post capsule & strength and stability with reaching
--- NOTE | 2019-05-31 18:21 | PT.OTN ---
Current Diagnoses Bicipital tendinitis, right shoulder (05/31/19) Pain in right upper arm (05/31/19) Abnormal posture (05/31/19) Weakness (05/31/19) Physical Therapy Treatment Note PT-OP-A Visit Information Start: 03/23/19 18:28 Freq: Status: Active Protocol: Document 05/31/19 09:44 [facility] (Rec: 05/31/19 12:10 MT [id number]) Out-Patient Physical Therapy Visit Information Visit Information Visit Type Treatment Note Visit Start Time 09:44 Visit Stop Time 10:45 Total Visit Minutes 61 Visit Number 16 Number of WORKGROUP LEADER Visits 0 PT-OP-B Current Condition Start: 03/23/19 18:28 Freq: Status: Active Protocol: Document 03/24/19 15:18 [facility] (Rec: 03/24/19 16:04 [facility] [id number]) Current Condition History of Current Condition Onset Date got worse 3 weeks ago;over a year ago on/off but never very bad Current Complaints R lat brachium pain History of Current Condition Pt reports arm pain has been on and off for a while but its worse recently. He has taken anti inflammatories which sometiems helps. Reports it is worse in bed and sometimes even simple things like holding the shaver up aggrevates his arm. Pt reports he has started using a pillow at night and that helps. Pt reports the MD thought it may have to do with him working on the computer so he just got a new desk chair. Pt reports he has noticed his posture gets worse with prolonged sitting. 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 Pt reports on some occasional numbness in fingertips B. Pt reports when he gets a stiff neck, its typically on the R and he thinks that about 3 weeks ago he had some stifness . Prior Treatments and Tests no testing or other treatment Treatment Goals Patient/Caregiver Goals Improve sleep, improve strength, imporve compute posture, PT-OP-C Subjective Start: 03/23/19 18:28 Freq: Status: Active Protocol: Document 05/31/19 09:44 [facility] (Rec: 05/31/19 12:10 MT [id number]) OP-PT Subjective Patient Comments Patient Comments Pt remarked that he feels like he has turned a corner with his shoulder and has had overall reduced pain and improved ability to do more of his ADL's Patient Reported Progress Improving PT-OP-J Posture/Palpation/Skin Start: 03/23/19 18:28 Freq: Status: Active Protocol: Document 05/24/19 09:46 [facility] (Rec: 05/24/19 11:00 MT [email or web address]) Posture Evaluation [facility] Postural Classification System Elbow Flexion Test 2 PT-OP-K Range of Motion Start: 03/23/19 18:28 Freq: Status: Active Protocol: Document 03/24/19 15:18 [facility] (Rec: 03/24/19 16:04 [facility] [id number]) Cervical Spine Range of Motion Cervical Spine Active Degrees Flexion 64 Extension 35 Rotation Left 62 Rotation Right 54 Lateral Flexion Left 22 Lateral Flexion Right 34 Shoulder Goniometric Range of Motion Shoulder Left Active Flexion 131 Abduction 130 External Rotation at 90 degrees 78 Abduction Internal Rotation 63 Internal Rotation Behind Back (text) T7 Right Active Flexion 129 Abduction 130 Horizontal Adduction 8 External Rotation at 90 degrees 48 Abduction Internal Rotation 58 Internal Rotation Behind Back (text) T7 PT-OP-L Special Tests Start: 03/23/19 18:28 Freq: Status: Active Protocol: Document 03/24/19 15:18 [facility] (Rec: 03/24/19 16:04 [facility] [id number]) Special Tests Shoulder Special Tests Stroud Alvarez Impingement Test Results positive Empty Can Test Results positive Neer Impingement Test Results neg Speed's Biceps Test Results positive for pain but ricketts also positive for pain Drop Arm Rotator Cuff Test Results neg AC Joint Compression Test Results neg Neural Special Tests- Upper Body Upper Limb Tension Test Test Results passive abd to 90 on R with joint tightness Radial Nerve Tension Test Results positive Comments ulnar, median negative PT-OP-M Strength Start: 03/23/19 18:28 Freq: Status: Active Protocol: Document 05/24/19 09:46 [facility] (Rec: 05/24/19 11:00 MT [email or web address]) Shoulder Strength Shoulder Manual Muscle Testing Right Flexion 4+ Good+ Extension 5 Normal Abduction (C5) 4 Good External Rotation 3 Fair Internal Rotation 4+ Good+ PT-OP-Q Treatments Start: 03/23/19 18:28 Freq: Status: Active Protocol: Document 05/31/19 09:44 [facility] (Rec: 05/31/19 12:10 MT [id number]) Cardio Equipment Upper Body Ergometer (UBE) Duration (Minutes) 6 RPM 100 Seat Position 13 Height 5.5 Other fwd/bck Therapeutic Exercises Sitting Exercises 1 Sitting Exercise Name habd with arm across table Standing Exercises 1 Standing Exercise Name stretch overhead in doorway wall posture Standing Exercise Name w/ H abd and abd Side bilateral Reps/Minutes 10 serratus punch Standing Exercise Name at wall Side bilateral Comments cueing for proper scapualr motion and full protraction IR Side right Resistance L2 ER Side right Resistance L1 ext Standing Exercise Name pull downs and rows Side bilateral Resistance L3 Comments progressed resistance for HEP Manual Therapy Treatment Joint Mobilizations GH Joint R Direction inferior, posterior glide Grade III Body Position Sitting Comments 1. inferior glide with arm aB onto table, re-education for IR 2. posterior/inferior glide with arm HaB onto table, re- education for HaB PT-OP-R Modalities Start: 03/23/19 18:28 Freq: Status: Active Protocol: Document 05/31/19 09:44 [facility] (Rec: 05/31/19 12:10 MT [id number]) Hot Pack/Cold Pack Treatment Hot Pack Location R brachium/shoulder Patient Position Supine Treatment Duration (minutes) 15 Patient Tolerance Good PT-OP-T Assessment and Plan Start: 03/23/19 18:28 Freq: Status: Active Protocol: Document 05/31/19 09:44 [facility] (Rec: 05/31/19 12:10 [facility] [id number]) Physical Therapy Assessment Goals activities Short Term Goal (STG) Pt will be able to use razor without c/o pain or weakness. 04/26/19 - pt reports that the pain has been getting much better, but is still present during shaving or any activity requiring lifting above shoulder height 05/24/19 - pt still reports discomfort with using razor and other activities involving HaB STG Duration 06/24/19 Half-Way Goal (LTG) Pt will be able to sleep comfortably without pain. 04/26/19 - pt reports that sleeping is still on and off uncomfortable. he has been trying a bigger pillow, which helps but the discomfort is still present 05/24/19 - pt reports that sleep is still painful on certain days LTG Duration 07/25/19 posture Short Term Goal (STG) Pt will demonstrate appropriate ergonomic set up for his computer. STG Duration achieved Laundry Housekeeper Goal (LTG) Pt will demonstrate efficient posture with 5/5 EFT and ability to maintain most efficient posture without cueing. 05/24/20 - EFT 2/5 LTG Duration 07/25/19 strength Short Term Goal (STG) Pt will be indep with HEP STG Duration achieved Laundry Housekeeper Goal (LTG) Pt will score 5/5 UE strength B in order to allow greater ease with typical daily activities. 05/24/19 - pt's RUE ER strength is a 3/5. LTG Duration 07/25/19 Assessment Summary Assessment Pt is demonstrating increased ROM toleration and imprved strength and motor control with Habd and ER. Reviewed pt 's HEP and looked for exercises to eliminate in order to make HEP more concise . Pt also required cueing for slowing down movements to increase stabilization and control. Pt was able to achieve more abd and Habd with re-education for ER and Habd. Pt is able to actively stabilize his GH joint during movements with less cueing during manual therapy. Physical Therapy Plan Frequency and Duration Frequency of Treatment 2x/Week Duration of Treatment 2 months Plan of Care Start Date 05/24/19 Plan of Care End Date 07/25/19 Therapeutic Interventions Therapeutic Interventions Aquatic Therapy,Coordination Training,Home Exercise Program ,Joint Mobilizations,Manual Therapy,Neuromuscular Re- education,Patient/Caregiver Education,Self-Care/Home Management,Soft Tissue Mobilization,Taping, Therapeutic Activities, Therapeutic Exercises Modalities Cold Pack/Ice Massage,Electric Stimulation,Hot Packs, Infrared Therapy,Iontophoresis ,Traction- Mechanical, Ultrasound Next Visit Focus/Plan Next Note Type Treatment Note Next Visit Plan cont to work on post capsule & strength and stability with reaching
--- NOTE | 2019-06-02 10:40 | PT.OTN ---
Current Diagnoses Bicipital tendinitis, right shoulder (06/02/19) Pain in right upper arm (06/02/19) Abnormal posture (06/02/19) Weakness (06/02/19) Physical Therapy Treatment Note PT-OP-A Visit Information Start: 03/23/19 18:28 Freq: Status: Active Protocol: Document 06/02/19 09:54 [facility] (Rec: 06/02/19 10:40 [facility] [id number]) Out-Patient Physical Therapy Visit Information Visit Information Visit Type Treatment Note Visit Start Time 09:48 Visit Stop Time 10:42 Total Visit Minutes 54 Visit Number 17 Number of CLINIC LEAD Visits 0 PT-OP-B Current Condition Start: 03/23/19 18:28 Freq: Status: Active Protocol: Document 03/24/19 15:18 [facility] (Rec: 03/24/19 16:04 [facility] [id number]) Current Condition History of Current Condition Onset Date got worse 3 weeks ago;over a year ago on/off but never very bad Current Complaints R lat brachium pain History of Current Condition Pt reports arm pain has been on and off for a while but its worse recently. He has taken anti inflammatories which sometiems helps. Reports it is worse in bed and sometimes even simple things like holding the shaver up aggrevates his arm. Pt reports he has started using a pillow at night and that helps. Pt reports the MD thought it may have to do with him working on the computer so he just got a new desk chair. Pt reports he has noticed his posture gets worse with prolonged sitting. 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 Pt reports on some occasional numbness in fingertips B. Pt reports when he gets a stiff neck, its typically on the R and he thinks that about 3 weeks ago he had some stifness . Prior Treatments and Tests no testing or other treatment Treatment Goals Patient/Caregiver Goals Improve sleep, improve strength, imporve compute posture, PT-OP-C Subjective Start: 03/23/19 18:28 Freq: Status: Active Protocol: Document 06/02/19 09:54 [facility] (Rec: 06/02/19 10:40 [facility] [id number]) OP-PT Subjective Patient Comments Patient Comments Pt wants to review band numbers with exercises & form PT-OP-J Posture/Palpation/Skin Start: 03/23/19 18:28 Freq: Status: Active Protocol: Document 05/24/19 09:46 [facility] (Rec: 05/24/19 11:00 MT [id number]) Posture Evaluation [facility] Postural Classification System Elbow Flexion Test 2 PT-OP-K Range of Motion Start: 03/23/19 18:28 Freq: Status: Active Protocol: Document 03/24/19 15:18 [facility] (Rec: 03/24/19 16:04 [facility] [id number]) Cervical Spine Range of Motion Cervical Spine Active Degrees Flexion 64 Extension 35 Rotation Left 62 Rotation Right 54 Lateral Flexion Left 22 Lateral Flexion Right 34 Shoulder Goniometric Range of Motion Shoulder Left Active Flexion 131 Abduction 130 External Rotation at 90 degrees 78 Abduction Internal Rotation 63 Internal Rotation Behind Back (text) T7 Right Active Flexion 129 Abduction 130 Horizontal Adduction 8 External Rotation at 90 degrees 48 Abduction Internal Rotation 58 Internal Rotation Behind Back (text) T7 PT-OP-L Special Tests Start: 03/23/19 18:28 Freq: Status: Active Protocol: Document 03/24/19 15:18 [facility] (Rec: 03/24/19 16:04 [facility] [id number]) Special Tests Shoulder Special Tests Stroud Alvarez Impingement Test Results positive Empty Can Test Results positive Neer Impingement Test Results neg Speed's Biceps Test Results positive for pain but ricketts also positive for pain Drop Arm Rotator Cuff Test Results neg AC Joint Compression Test Results neg Neural Special Tests- Upper Body Upper Limb Tension Test Test Results passive abd to 90 on R with joint tightness Radial Nerve Tension Test Results positive Comments ulnar, median negative PT-OP-M Strength Start: 03/23/19 18:28 Freq: Status: Active Protocol: Document 05/24/19 09:46 [facility] (Rec: 05/24/19 11:00 MT [id number]) Shoulder Strength Shoulder Manual Muscle Testing Right Flexion 4+ Good+ Extension 5 Normal Abduction (C5) 4 Good External Rotation 3 Fair Internal Rotation 4+ Good+ PT-OP-Q Treatments Start: 03/23/19 18:28 Freq: Status: Active Protocol: Document 06/02/19 09:54 [facility] (Rec: 06/02/19 10:40 [facility] [id number]) Cardio Equipment Upper Body Ergometer (UBE) Duration (Minutes) 6 RPM 100 Seat Position 13 Height 5.5 Other fwd/bck Therapeutic Exercises Sitting Exercises 1 Sitting Exercise Name habd with arm across table Standing Exercises serratus punch Standing Exercise Name at wall Side bilateral Comments cueing for proper scapualr motion and full protraction IR Standing Exercise Name at 45 deg Side right Resistance L1 Reps/Minutes 15 ER Side right Resistance L1 Reps/Minutes 15 Comments w/towel at elbow ext Standing Exercise Name ext Side bilateral Resistance L3 Reps/Minutes 12 Comments progressed resistance for HEP Manual Therapy Treatment Soft Tissue Mobilization teres Body Location teres & post delt Mobilization Type Myofascial Release,Rolling, Strumming,Sustained Pressure Intensity/Depth Moderate Body Position Supine Comments w/c/r into HAbd Joint Mobilizations ribs Joint 2nd R Direction inf FM w/Habd SC Joint R Direction inf FM w/Habd AC Direction ventral & dorsal FM GH Joint r Direction post FM Body Position Sitting PT-OP-R Modalities Start: 03/23/19 18:28 Freq: Status: Active Protocol: Document 06/02/19 09:54 [facility] (Rec: 06/02/19 10:40 [facility] [id number]) Hot Pack/Cold Pack Treatment Hot Pack Location R brachium/shoulder Patient Position Supine Treatment Duration (minutes) 15 Patient Tolerance Good PT-OP-T Assessment and Plan Start: 03/23/19 18:28 Freq: Status: Active Protocol: Document 06/02/19 09:54 [facility] (Rec: 06/02/19 10:40 [facility] [id number]) Physical Therapy Assessment Goals activities Short Term Goal (STG) Pt will be able to use razor without c/o pain or weakness. 04/26/19 - pt reports that the pain has been getting much better, but is still present during shaving or any activity requiring lifting above shoulder height 05/24/19 - pt still reports discomfort with using razor and other activities involving HaB STG Duration 06/24/19 Care Home Goal (LTG) Pt will be able to sleep comfortably without pain. 04/26/19 - pt reports that sleeping is still on and off uncomfortable. he has been trying a bigger pillow, which helps but the discomfort is still present 05/24/19 - pt reports that sleep is still painful on certain days LTG Duration 07/25/19 posture Short Term Goal (STG) Pt will demonstrate appropriate ergonomic set up for his computer. STG Duration achieved Care Home Goal (LTG) Pt will demonstrate efficient posture with 5/5 EFT and ability to maintain most efficient posture without cueing. 05/24/20 - EFT 2/5 LTG Duration 07/25/19 strength Short Term Goal (STG) Pt will be indep with HEP STG Duration achieved Senior Manufacturing Technician Goal (LTG) Pt will score 5/5 UE strength B in order to allow greater ease with typical daily activities. 05/24/19 - pt's RUE ER strength is a 3/5. LTG Duration 07/25/19 Assessment Summary Assessment Pt improving with ability with HAbd and flex but still has difficulty with end ranges or with any resistance with these activities. He improved with movement ease after manual therapy Physical Therapy Plan Frequency and Duration Frequency of Treatment 2x/Week Duration of Treatment 2 months Plan of Care Start Date 05/24/19 Plan of Care End Date 07/25/19 Next Visit Focus/Plan Next Note Type Treatment Note Next Visit Plan cont to work on post capsule & strength and stability with reaching
--- NOTE | 2019-06-07 10:27 | PT.OTN ---
Current Diagnoses Bicipital tendinitis, right shoulder (06/07/19) Pain in right upper arm (06/07/19) Abnormal posture (06/07/19) Weakness (06/07/19) Physical Therapy Treatment Note PT-OP-A Visit Information Start: 03/23/19 18:28 Freq: Status: Active Protocol: Document 06/07/19 09:46 [facility] (Rec: 06/07/19 10:27 [facility] [id number]) Out-Patient Physical Therapy Visit Information Visit Information Visit Type Treatment Note Visit Start Time 09:46 Visit Stop Time 10:26 Total Visit Minutes 40 Visit Number 18 Number of VESSEL ORDINARY SEAMAN Visits 0 PT-OP-B Current Condition Start: 03/23/19 18:28 Freq: Status: Active Protocol: Document 03/24/19 15:18 [facility] (Rec: 03/24/19 16:04 [facility] [id number]) Current Condition History of Current Condition Onset Date got worse 3 weeks ago;over a year ago on/off but never very bad Current Complaints R lat brachium pain History of Current Condition Pt reports arm pain has been on and off for a while but its worse recently. He has taken anti inflammatories which sometiems helps. Reports it is worse in bed and sometimes even simple things like holding the shaver up aggrevates his arm. Pt reports he has started using a pillow at night and that helps. Pt reports the MD thought it may have to do with him working on the computer so he just got a new desk chair. Pt reports he has noticed his posture gets worse with prolonged sitting. 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 Pt reports on some occasional numbness in fingertips B. Pt reports when he gets a stiff neck, its typically on the R and he thinks that about 3 weeks ago he had some stifness . Prior Treatments and Tests no testing or other treatment Treatment Goals Patient/Caregiver Goals Improve sleep, improve strength, imporve compute posture, PT-OP-C Subjective Start: 03/23/19 18:28 Freq: Status: Active Protocol: Document 06/07/19 09:46 [facility] (Rec: 06/07/19 10:27 [facility] [id number]) OP-PT Subjective Patient Comments Patient Comments Pt states that sleeping is getting better. He is not awakening as much d/t pain. Reaching forward and across his body is troublesome. PT-OP-J Posture/Palpation/Skin Start: 03/23/19 18:28 Freq: Status: Active Protocol: Document 05/24/19 09:46 [facility] (Rec: 05/24/19 11:00 MT [email or web address]) Posture Evaluation [facility] Postural Classification System Elbow Flexion Test 2 PT-OP-K Range of Motion Start: 03/23/19 18:28 Freq: Status: Active Protocol: Document 03/24/19 15:18 [facility] (Rec: 03/24/19 16:04 [facility] [id number]) Cervical Spine Range of Motion Cervical Spine Active Degrees Flexion 64 Extension 35 Rotation Left 62 Rotation Right 54 Lateral Flexion Left 22 Lateral Flexion Right 34 Shoulder Goniometric Range of Motion Shoulder Left Active Flexion 131 Abduction 130 External Rotation at 90 degrees 78 Abduction Internal Rotation 63 Internal Rotation Behind Back (text) T7 Right Active Flexion 129 Abduction 130 Horizontal Adduction 8 External Rotation at 90 degrees 48 Abduction Internal Rotation 58 Internal Rotation Behind Back (text) T7 PT-OP-L Special Tests Start: 03/23/19 18:28 Freq: Status: Active Protocol: Document 03/24/19 15:18 [facility] (Rec: 03/24/19 16:04 [facility] [id number]) Special Tests Shoulder Special Tests Stroud Alvarez Impingement Test Results positive Empty Can Test Results positive Neer Impingement Test Results neg Speed's Biceps Test Results positive for pain but ricketts also positive for pain Drop Arm Rotator Cuff Test Results neg AC Joint Compression Test Results neg Neural Special Tests- Upper Body Upper Limb Tension Test Test Results passive abd to 90 on R with joint tightness Radial Nerve Tension Test Results positive Comments ulnar, median negative PT-OP-M Strength Start: 03/23/19 18:28 Freq: Status: Active Protocol: Document 05/24/19 09:46 [facility] (Rec: 05/24/19 11:00 MT [id number]) Shoulder Strength Shoulder Manual Muscle Testing Right Flexion 4+ Good+ Extension 5 Normal Abduction (C5) 4 Good External Rotation 3 Fair Internal Rotation 4+ Good+ PT-OP-Q Treatments Start: 03/23/19 18:28 Freq: Status: Active Protocol: Document 06/07/19 09:46 [facility] (Rec: 06/07/19 10:27 [facility] [id number]) Cardio Equipment Upper Body Ergometer (UBE) Duration (Minutes) 6 RPM 100 Seat Position 13 Height 5.5 Other fwd/bck Therapeutic Exercises Supine Exercises Posterior capsule stretch Comments Shoulder elevation with standing, so supported neck in supine and performed Sidelying Exercises open book Comments Performed 5 reps B today, he is doing at home Standing Exercises PNF AROM against wall Comments Pattern 2, following arm with eyes, consider progressing pattern and home MWM pect stretch in doorway, scap retraction to lower arms Comments Performed feet flush to door or behind, 3 reps, slowly, careful PT-OP-R Modalities Start: 03/23/19 18:28 Freq: Status: Active Protocol: Document 06/02/19 09:54 [facility] (Rec: 06/02/19 10:40 [facility] [id number]) Hot Pack/Cold Pack Treatment Hot Pack Location R brachium/shoulder Patient Position Supine Treatment Duration (minutes) 15 Patient Tolerance Good PT-OP-T Assessment and Plan Start: 03/23/19 18:28 Freq: Status: Active Protocol: Document 06/07/19 09:46 [facility] (Rec: 06/07/19 10:27 [id number]) Physical Therapy Assessment Goals activities Short Term Goal (STG) Pt will be able to use razor without c/o pain or weakness. 04/26/19 - pt reports that the pain has been getting much better, but is still present during shaving or any activity requiring lifting above shoulder height 05/24/19 - pt still reports discomfort with using razor and other activities involving HaB STG Duration 06/24/19 Custodial Goal (LTG) Pt will be able to sleep comfortably without pain. 04/26/19 - pt reports that sleeping is still on and off uncomfortable. he has been trying a bigger pillow, which helps but the discomfort is still present 05/24/19 - pt reports that sleep is still painful on certain days LTG Duration 07/25/19 posture Short Term Goal (STG) Pt will demonstrate appropriate ergonomic set up for his computer. STG Duration achieved Custodial Goal (LTG) Pt will demonstrate efficient posture with 5/5 EFT and ability to maintain most efficient posture without cueing. 05/24/20 - EFT 2/5 LTG Duration 07/25/19 strength Short Term Goal (STG) Pt will be indep with HEP STG Duration achieved Custodial Goal (LTG) Pt will score 5/5 UE strength B in order to allow greater ease with typical daily activities. 05/24/19 - pt's RUE ER strength is a 3/5. LTG Duration 07/25/19 Assessment Summary Assessment Pt with posterior capsule tightness with stretch, form better in supine than standing . Pect stretch in doorway is powerful and ed to perform carefully. He likes distraction of the shoulder. May consider AP mobs in the future with shoulder in ER as tolerated. Also consider progressing PNF for band exercises as primary therapist deems appropriate. Physical Therapy Plan Frequency and Duration Frequency of Treatment 2x/Week Duration of Treatment 2 months Plan of Care Start Date 05/24/19 Plan of Care End Date 07/25/19 Therapeutic Interventions Therapeutic Interventions Aquatic Therapy,Coordination Training,Home Exercise Program ,Joint Mobilizations,Manual Therapy,Neuromuscular Re- education,Patient/Caregiver Education,Self-Care/Home Management,Soft Tissue Mobilization,Taping, Therapeutic Activities, Therapeutic Exercises Modalities Cold Pack/Ice Massage,Electric Stimulation,Hot Packs, Infrared Therapy,Iontophoresis ,Traction- Mechanical, Ultrasound Next Visit Focus/Plan Next Note Type Treatment Note Next Visit Plan cont to work on post capsule & strength and stability with reaching, consider active PNF exercises
--- NOTE | 2019-06-09 18:02 | PT.OTN ---
Current Diagnoses Bicipital tendinitis, right shoulder (06/09/19) Pain in right upper arm (06/09/19) Abnormal posture (06/09/19) Weakness (06/09/19) Physical Therapy Treatment Note PT-OP-A Visit Information Start: 03/23/19 18:28 Freq: Status: Active Protocol: Document 06/09/19 07:36 [facility] (Rec: 06/09/19 18:01 [facility] [id number]) Out-Patient Physical Therapy Visit Information Visit Information Visit Type Treatment Note Visit Start Time 07:31 Visit Stop Time 08:14 Total Visit Minutes 43 Visit Number 19 Number of CLIENT SERVICE EXECUTIVE Visits 0 PT-OP-B Current Condition Start: 03/23/19 18:28 Freq: Status: Active Protocol: Document 03/24/19 15:18 [facility] (Rec: 03/24/19 16:04 [facility] [id number]) Current Condition History of Current Condition Onset Date got worse 3 weeks ago;over a year ago on/off but never very bad Current Complaints R lat brachium pain History of Current Condition Pt reports arm pain has been on and off for a while but its worse recently. He has taken anti inflammatories which sometiems helps. Reports it is worse in bed and sometimes even simple things like holding the shaver up aggrevates his arm. Pt reports he has started using a pillow at night and that helps. Pt reports the MD thought it may have to do with him working on the computer so he just got a new desk chair. Pt reports he has noticed his posture gets worse with prolonged sitting. 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 Pt reports on some occasional numbness in fingertips B. Pt reports when he gets a stiff neck, its typically on the R and he thinks that about 3 weeks ago he had some stifness . Prior Treatments and Tests no testing or other treatment Treatment Goals Patient/Caregiver Goals Improve sleep, improve strength, imporve compute posture, PT-OP-C Subjective Start: 03/23/19 18:28 Freq: Status: Active Protocol: Document 06/09/19 07:36 [facility] (Rec: 06/09/19 18:01 [facility] [id number]) OP-PT Subjective Patient Comments Patient Comments Pt reports he wants to go over wall posture. Reports shaving is better and reaching to put dishes away is better. Certain movements will still be painful but cannot isolate which ones at this time. Patient Reported Progress Improving PT-OP-J Posture/Palpation/Skin Start: 03/23/19 18:28 Freq: Status: Active Protocol: Document 05/24/19 09:46 [facility] (Rec: 05/24/19 11:00 MT [id number]) Posture Evaluation [facility] Postural Classification System Elbow Flexion Test 2 PT-OP-K Range of Motion Start: 03/23/19 18:28 Freq: Status: Active Protocol: Document 03/24/19 15:18 [facility] (Rec: 03/24/19 16:04 [facility] [id number]) Cervical Spine Range of Motion Cervical Spine Active Degrees Flexion 64 Extension 35 Rotation Left 62 Rotation Right 54 Lateral Flexion Left 22 Lateral Flexion Right 34 Shoulder Goniometric Range of Motion Shoulder Left Active Flexion 131 Abduction 130 External Rotation at 90 degrees 78 Abduction Internal Rotation 63 Internal Rotation Behind Back (text) T7 Right Active Flexion 129 Abduction 130 Horizontal Adduction 8 External Rotation at 90 degrees 48 Abduction Internal Rotation 58 Internal Rotation Behind Back (text) T7 PT-OP-L Special Tests Start: 03/23/19 18:28 Freq: Status: Active Protocol: Document 03/24/19 15:18 [facility] (Rec: 03/24/19 16:04 [facility] [id number]) Special Tests Shoulder Special Tests Stroud Alvarez Impingement Test Results positive Empty Can Test Results positive Neer Impingement Test Results neg Speed's Biceps Test Results positive for pain but ricketts also positive for pain Drop Arm Rotator Cuff Test Results neg AC Joint Compression Test Results neg Neural Special Tests- Upper Body Upper Limb Tension Test Test Results passive abd to 90 on R with joint tightness Radial Nerve Tension Test Results positive Comments ulnar, median negative PT-OP-M Strength Start: 03/23/19 18:28 Freq: Status: Active Protocol: Document 05/24/19 09:46 [facility] (Rec: 05/24/19 11:00 MT [id number]) Shoulder Strength Shoulder Manual Muscle Testing Right Flexion 4+ Good+ Extension 5 Normal Abduction (C5) 4 Good External Rotation 3 Fair Internal Rotation 4+ Good+ PT-OP-Q Treatments Start: 03/23/19 18:28 Freq: Status: Active Protocol: Document 06/09/19 07:36 [facility] (Rec: 06/09/19 18:01 [facility] [id number]) Cardio Equipment Upper Body Ergometer (UBE) Duration (Minutes) 6 RPM 100 Seat Position 13 Height 5.5 Other fwd/bck Therapeutic Exercises Supine Exercises Posterior capsule stretch Comments Shoulder elevation with standing, so supported neck in supine and performed Standing Exercises PNF AROM against wall Standing Exercise Name PNF D2 ext Side right Equipment Used L1 Reps/Minutes 15 MWM pect stretch in doorway, scap retraction to lower arms Comments Performed feet flush to door or behind, 3 reps, slowly, careful wall posture Standing Exercise Name w/90/90 ER Side bilateral Reps/Minutes 15 IR Standing Exercise Name at 45 deg Side right Resistance L1 Reps/Minutes 15 ER Side right Resistance L1 Reps/Minutes 15 Comments w/towel at elbow ext Standing Exercise Name ext Side bilateral Resistance L4 Reps/Minutes 12 Comments progressed resistance for HEP Self-Care/Home Management Treatment Education Other Education edu re: anatomy & importance of posture; discussed some desk set up importance; reaching mechanics PT-OP-R Modalities Start: 03/23/19 18:28 Freq: Status: Active Protocol: Document 06/02/19 09:54 [facility] (Rec: 06/02/19 10:40 [facility] [id number]) Hot Pack/Cold Pack Treatment Hot Pack Location R brachium/shoulder Patient Position Supine Treatment Duration (minutes) 15 Patient Tolerance Good PT-OP-T Assessment and Plan Start: 03/23/19 18:28 Freq: Status: Active Protocol: Document 06/09/19 07:36 [facility] (Rec: 06/09/19 18:01 [facility] [id number]) Physical Therapy Assessment Goals activities Short Term Goal (STG) Pt will be able to use razor without c/o pain or weakness. 04/26/19 - pt reports that the pain has been getting much better, but is still present during shaving or any activity requiring lifting above shoulder height 05/24/19 - pt still reports discomfort with using razor and other activities involving HaB STG Duration 06/24/19 Mcc Goal (LTG) Pt will be able to sleep comfortably without pain. 04/26/19 - pt reports that sleeping is still on and off uncomfortable. he has been trying a bigger pillow, which helps but the discomfort is still present 05/24/19 - pt reports that sleep is still painful on certain days LTG Duration 07/25/19 posture Short Term Goal (STG) Pt will demonstrate appropriate ergonomic set up for his computer. STG Duration achieved It Support Analyst Goal (LTG) Pt will demonstrate efficient posture with 5/5 EFT and ability to maintain most efficient posture without cueing. 05/24/20 - EFT 2/5 LTG Duration 07/25/19 strength Short Term Goal (STG) Pt will be indep with HEP STG Duration achieved It Support Analyst Goal (LTG) Pt will score 5/5 UE strength B in order to allow greater ease with typical daily activities. 05/24/19 - pt's RUE ER strength is a 3/5. LTG Duration 07/25/19 Assessment Summary Assessment Pt did well with exercises but did require cueing with reaching tecnique but once he followed appropriate movement mecahnics, he no longer had pain with movement. Physical Therapy Plan Frequency and Duration Frequency of Treatment 2x/Week Duration of Treatment 2 months Plan of Care Start Date 05/24/19 Plan of Care End Date 07/25/19 Next Visit Focus/Plan Next Note Type Treatment Note Next Visit Plan cont to work on post capsule & strength and stability with reaching
--- NOTE | 2019-06-23 08:22 | PT.OTN ---
Current Diagnoses Bicipital tendinitis, right shoulder (06/23/19) Pain in right upper arm (06/23/19) Abnormal posture (06/23/19) Weakness (06/23/19) Physical Therapy Treatment Note PT-OP-A Visit Information Start: 03/23/19 18:28 Freq: Status: Active Protocol: Document 06/23/19 07:27 [facility] (Rec: 06/23/19 08:21 [facility] [id number]) Out-Patient Physical Therapy Visit Information Visit Information Visit Type Treatment Note Visit Start Time 07:30 Visit Stop Time 08:10 Total Visit Minutes 40 Visit Number 20 Number of DIRECTOR AGRICULTURAL SERVICES Visits 0 PT-OP-B Current Condition Start: 03/23/19 18:28 Freq: Status: Active Protocol: Document 03/24/19 15:18 [facility] (Rec: 03/24/19 16:04 [facility] [id number]) Current Condition History of Current Condition Onset Date got worse 3 weeks ago;over a year ago on/off but never very bad Current Complaints R lat brachium pain History of Current Condition Pt reports arm pain has been on and off for a while but its worse recently. He has taken anti inflammatories which sometiems helps. Reports it is worse in bed and sometimes even simple things like holding the shaver up aggrevates his arm. Pt reports he has started using a pillow at night and that helps. Pt reports the MD thought it may have to do with him working on the computer so he just got a new desk chair. Pt reports he has noticed his posture gets worse with prolonged sitting. 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 Pt reports on some occasional numbness in fingertips B. Pt reports when he gets a stiff neck, its typically on the R and he thinks that about 3 weeks ago he had some stifness . Prior Treatments and Tests no testing or other treatment Treatment Goals Patient/Caregiver Goals Improve sleep, improve strength, imporve compute posture, PT-OP-C Subjective Start: 03/23/19 18:28 Freq: Status: Active Protocol: Document 06/23/19 07:27 [facility] (Rec: 06/23/19 08:21 [facility] [id number]) OP-PT Subjective Patient Comments Patient Comments Pt reprots he can shave without having to take a break and can reach better but has to think about his mechanics. Overll doing better. Patient Reported Progress Improving PT-OP-J Posture/Palpation/Skin Start: 03/23/19 18:28 Freq: Status: Active Protocol: Document 05/24/19 09:46 [facility] (Rec: 05/24/19 11:00 [facility] [id number]) Posture Evaluation [facility] Postural Classification System Elbow Flexion Test 2 PT-OP-K Range of Motion Start: 03/23/19 18:28 Freq: Status: Active Protocol: Document 03/24/19 15:18 [facility] (Rec: 03/24/19 16:04 [facility] [id number]) Cervical Spine Range of Motion Cervical Spine Active Degrees Flexion 64 Extension 35 Rotation Left 62 Rotation Right 54 Lateral Flexion Left 22 Lateral Flexion Right 34 Shoulder Goniometric Range of Motion Shoulder Left Active Flexion 131 Abduction 130 External Rotation at 90 degrees 78 Abduction Internal Rotation 63 Internal Rotation Behind Back (text) T7 Right Active Flexion 129 Abduction 130 Horizontal Adduction 8 External Rotation at 90 degrees 48 Abduction Internal Rotation 58 Internal Rotation Behind Back (text) T7 PT-OP-L Special Tests Start: 03/23/19 18:28 Freq: Status: Active Protocol: Document 03/24/19 15:18 [facility] (Rec: 03/24/19 16:04 [facility] [id number]) Special Tests Shoulder Special Tests Stroud Alvarez Impingement Test Results positive Empty Can Test Results positive Neer Impingement Test Results neg Speed's Biceps Test Results positive for pain but ricketts also positive for pain Drop Arm Rotator Cuff Test Results neg AC Joint Compression Test Results neg Neural Special Tests- Upper Body Upper Limb Tension Test Test Results passive abd to 90 on R with joint tightness Radial Nerve Tension Test Results positive Comments ulnar, median negative PT-OP-M Strength Start: 03/23/19 18:28 Freq: Status: Active Protocol: Document 05/24/19 09:46 [facility] (Rec: 05/24/19 11:00 [facility] [id number]) Shoulder Strength Shoulder Manual Muscle Testing Right Flexion 4+ Good+ Extension 5 Normal Abduction (C5) 4 Good External Rotation 3 Fair Internal Rotation 4+ Good+ PT-OP-Q Treatments Start: 03/23/19 18:28 Freq: Status: Active Protocol: Document 06/23/19 07:27 [facility] (Rec: 06/23/19 08:21 [facility] [id number]) Cardio Equipment Upper Body Ergometer (UBE) Duration (Minutes) 6 RPM 100 Seat Position 13 Height 6 Other fwd/bck Therapeutic Exercises Supine Exercises ER Equipment Used manual resistance Reps/Minutes sustained hold Prone Exercises scaption Side right Reps/Minutes 15 ER Prone Exercise Name /90 ER Side right Reps/Minutes 15 Habd Side right Reps/Minutes 15 Standing Exercises PNF AROM against wall Standing Exercise Name PNF D2 ext Side right Equipment Used L1 Reps/Minutes 15 Comments not against wall wall posture Standing Exercise Name w/ ER Side bilateral Reps/Minutes 15 ER Side right Resistance L1 Reps/Minutes 15 Comments w/towel at elbow Manual Therapy Treatment Soft Tissue Mobilization pec Body Location R w/ER Mobilization Type Strumming Joint Mobilizations ribs Joint distraction ribs 4-6 Grade II AC Direction ventral FM w/D2 patern GH Joint R Direction inf FM w/D2 pattern PT-OP-R Modalities Start: 03/23/19 18:28 Freq: Status: Active Protocol: Document 06/23/19 07:27 [facility] (Rec: 06/23/19 08:22 [facility] [id number]) Hot Pack/Cold Pack Treatment Hot Pack Location R brachium/shoulder Patient Position Supine Treatment Duration (minutes) 15 Patient Tolerance Good PT-OP-T Assessment and Plan Start: 03/23/19 18:28 Freq: Status: Active Protocol: Document 06/23/19 07:27 [facility] (Rec: 06/23/19 08:21 [facility] [id number]) Physical Therapy Assessment Goals activities Short Term Goal (STG) Pt will be able to use razor without c/o pain or weakness. 04/26/19 - pt reports that the pain has been getting much better, but is still present during shaving or any activity requiring lifting above shoulder height 05/24/19 - pt still reports discomfort with using razor and other activities involving HaB STG Duration achieved Grain Broker And Market Operator Goal (LTG) Pt will be able to sleep comfortably without pain. 04/26/19 - pt reports that sleeping is still on and off uncomfortable. he has been trying a bigger pillow, which helps but the discomfort is still present 05/24/19 - pt reports that sleep is still painful on certain days LTG Duration 07/25/19 posture Short Term Goal (STG) Pt will demonstrate appropriate ergonomic set up for his computer. STG Duration achieved Grain Broker And Market Operator Goal (LTG) Pt will demonstrate efficient posture with 5/5 EFT and ability to maintain most efficient posture without cueing. 05/24/20 - EFT 2/5 LTG Duration 07/25/19 strength Short Term Goal (STG) Pt will be indep with HEP STG Duration achieved Skilled Nursing Goal (LTG) Pt will score 5/5 UE strength B in order to allow greater ease with typical daily activities. 05/24/19 - pt's RUE ER strength is a 3/5. LTG Duration 07/25/19 Assessment Summary Assessment Pt able to tolerate all exercises with inc pain with cuieng for posture & scapular motions. Pt cont to have tightness in pecs and shoulder joints that limit her motion but is improving and pt is more restricted with motor control. Physical Therapy Plan Frequency and Duration Frequency of Treatment 2x/Week Duration of Treatment 2 months Plan of Care Start Date 05/24/19 Plan of Care End Date 07/25/19 Next Visit Focus/Plan Next Note Type Treatment Note Next Visit Plan cont to work on post capsule & strength and stability with reaching
--- NOTE | 2019-06-28 18:09 | PT.OTN ---
Current Diagnoses Bicipital tendinitis, right shoulder (06/28/19) Pain in right upper arm (06/28/19) Abnormal posture (06/28/19) Weakness (06/28/19) Physical Therapy Treatment Note PT-OP-A Visit Information Start: 03/23/19 18:28 Freq: Status: Active Protocol: Document 06/28/19 08:12 [facility] (Rec: 06/28/19 18:09 [facility] [id number]) Out-Patient Physical Therapy Visit Information Visit Information Visit Type Treatment Note Visit Start Time 08:15 Visit Stop Time 09:10 Total Visit Minutes 55 Visit Number 21 Number of BUILDING RENTAL SUPERINTENDENT Visits 0 PT-OP-B Current Condition Start: 03/23/19 18:28 Freq: Status: Active Protocol: Document 03/24/19 15:18 [facility] (Rec: 03/24/19 16:04 [facility] [id number]) Current Condition History of Current Condition Onset Date got worse 3 weeks ago;over a year ago on/off but never very bad Current Complaints R lat brachium pain History of Current Condition Pt reports arm pain has been on and off for a while but its worse recently. He has taken anti inflammatories which sometiems helps. Reports it is worse in bed and sometimes even simple things like holding the shaver up aggrevates his arm. Pt reports he has started using a pillow at night and that helps. Pt reports the MD thought it may have to do with him working on the computer so he just got a new desk chair. Pt reports he has noticed his posture gets worse with prolonged sitting. 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 Pt reports on some occasional numbness in fingertips B. Pt reports when he gets a stiff neck, its typically on the R and he thinks that about 3 weeks ago he had some stifness . Prior Treatments and Tests no testing or other treatment Treatment Goals Patient/Caregiver Goals Improve sleep, improve strength, imporve compute posture, PT-OP-C Subjective Start: 03/23/19 18:28 Freq: Status: Active Protocol: Document 06/28/19 08:12 [facility] (Rec: 06/28/19 18:09 [facility] [id number]) OP-PT Subjective Patient Comments Patient Comments Pt reports woke up feeling pretty good today. Notes he is working on his moving mechanics. He is now sleeping better at night. Reports he if he moves in the wrong way, he feels it still. Patient Reported Progress Improving PT-OP-J Posture/Palpation/Skin Start: 03/23/19 18:28 Freq: Status: Active Protocol: Document 05/24/19 09:46 [facility] (Rec: 05/24/19 11:00 MT [id number]) Posture Evaluation [facility] Postural Classification System Elbow Flexion Test 2 PT-OP-K Range of Motion Start: 03/23/19 18:28 Freq: Status: Active Protocol: Document 03/24/19 15:18 [facility] (Rec: 03/24/19 16:04 [facility] [id number]) Cervical Spine Range of Motion Cervical Spine Active Degrees Flexion 64 Extension 35 Rotation Left 62 Rotation Right 54 Lateral Flexion Left 22 Lateral Flexion Right 34 Shoulder Goniometric Range of Motion Shoulder Left Active Flexion 131 Abduction 130 External Rotation at 90 degrees 78 Abduction Internal Rotation 63 Internal Rotation Behind Back (text) T7 Right Active Flexion 129 Abduction 130 Horizontal Adduction 8 External Rotation at 90 degrees 48 Abduction Internal Rotation 58 Internal Rotation Behind Back (text) T7 PT-OP-L Special Tests Start: 03/23/19 18:28 Freq: Status: Active Protocol: Document 03/24/19 15:18 [facility] (Rec: 03/24/19 16:04 [facility] [id number]) Special Tests Shoulder Special Tests Stroud Alvarez Impingement Test Results positive Empty Can Test Results positive Neer Impingement Test Results neg Speed's Biceps Test Results positive for pain but ricketts also positive for pain Drop Arm Rotator Cuff Test Results neg AC Joint Compression Test Results neg Neural Special Tests- Upper Body Upper Limb Tension Test Test Results passive abd to 90 on R with joint tightness Radial Nerve Tension Test Results positive Comments ulnar, median negative PT-OP-M Strength Start: 03/23/19 18:28 Freq: Status: Active Protocol: Document 05/24/19 09:46 [facility] (Rec: 05/24/19 11:00 MT [id number]) Shoulder Strength Shoulder Manual Muscle Testing Right Flexion 4+ Good+ Extension 5 Normal Abduction (C5) 4 Good External Rotation 3 Fair Internal Rotation 4+ Good+ PT-OP-Q Treatments Start: 03/23/19 18:28 Freq: Status: Active Protocol: Document 06/28/19 08:12 [facility] (Rec: 06/28/19 18:09 [facility] [id number]) Cardio Equipment Upper Body Ergometer (UBE) Duration (Minutes) 6 RPM 100 Seat Position 13 Height 6 Other fwd/bck Therapeutic Exercises Prone Exercises scaption Side right Reps/Minutes 15 ER Prone Exercise Name 90/90 ER Side right Reps/Minutes 20 Habd Side right Reps/Minutes 15 Standing Exercises ER Side right Resistance L1 Reps/Minutes 15 Comments 90/90 Manual Therapy Treatment Soft Tissue Mobilization infraspinatus Body Location R Mobilization Type Strumming,Sustained Pressure Body Position Prone Comments w/er teres Body Location R Mobilization Type Rolling,Strumming Joint Mobilizations thoracic Joint R Direction UPA w/breathing AC Direction ventral FM w/90/90 ER prone PT-OP-R Modalities Start: 03/23/19 18:28 Freq: Status: Active Protocol: Document 06/28/19 08:12 [facility] (Rec: 06/28/19 18:09 [facility] [id number]) Hot Pack/Cold Pack Treatment Hot Pack Location R brachium/shoulder Patient Position Supine Treatment Duration (minutes) 15 Patient Tolerance Good PT-OP-T Assessment and Plan Start: 03/23/19 18:28 Freq: Status: Active Protocol: Document 06/28/19 08:12 [facility] (Rec: 06/28/19 18:09 [facility] [id number]) Physical Therapy Assessment Goals activities Short Term Goal (STG) Pt will be able to use razor without c/o pain or weakness. 04/26/19 - pt reports that the pain has been getting much better, but is still present during shaving or any activity requiring lifting above shoulder height 05/24/19 - pt still reports discomfort with using razor and other activities involving HaB STG Duration achieved Jail Goal (LTG) Pt will be able to sleep comfortably without pain. 04/26/19 - pt reports that sleeping is still on and off uncomfortable. he has been trying a bigger pillow, which helps but the discomfort is still present 05/24/19 - pt reports that sleep is still painful on certain days LTG Duration 07/25/19 posture Short Term Goal (STG) Pt will demonstrate appropriate ergonomic set up for his computer. STG Duration achieved Hydroelectric Mechanic Goal (LTG) Pt will demonstrate efficient posture with 5/5 EFT and ability to maintain most efficient posture without cueing. 05/24/20 - EFT 2/5 LTG Duration 07/25/19 strength Short Term Goal (STG) Pt will be indep with HEP STG Duration achieved Jail Goal (LTG) Pt will score 5/5 UE strength B in order to allow greater ease with typical daily activities. 05/24/19 - pt's RUE ER strength is a 3/5. LTG Duration 07/25/19 Assessment Summary Assessment Pt did well with all activities today with dec pain with exercises after manual therapy. REquires cuieng for scap motion and resetting to neutral. Improved painfree ROM after manual treatment. Physical Therapy Plan Frequency and Duration Frequency of Treatment 2x/Week Duration of Treatment 2 months Plan of Care Start Date 05/24/19 Plan of Care End Date 07/25/19 Next Visit Focus/Plan Next Note Type Treatment Note Next Visit Plan cont to work on post capsule & strength and stability with reaching
--- NOTE | 2019-06-30 12:07 | PT-IP ANOTE ---
Pt called out same day d/t waking up w/sore throat.
--- NOTE | 2019-07-12 14:54 | PT.OTN ---
Current Diagnoses Bicipital tendinitis, right shoulder (07/12/19) Pain in right upper arm (07/12/19) Abnormal posture (07/12/19) Weakness (07/12/19) Physical Therapy Treatment Note PT-OP-A Visit Information Start: 03/23/19 18:28 Freq: Status: Active Protocol: Document 07/12/19 13:50 [facility] (Rec: 07/12/19 14:54 [facility] [id number]) Out-Patient Physical Therapy Visit Information Visit Information Visit Type Treatment Note Visit Start Time 13:46 Visit Stop Time 14:27 Total Visit Minutes 41 Visit Number 22 Number of SOLAR WATER HEATER INSTALLER Visits 0 PT-OP-B Current Condition Start: 03/23/19 18:28 Freq: Status: Active Protocol: Document 03/24/19 15:18 [facility] (Rec: 03/24/19 16:04 [facility] [id number]) Current Condition History of Current Condition Onset Date got worse 3 weeks ago;over a year ago on/off but never very bad Current Complaints R lat brachium pain History of Current Condition Pt reports arm pain has been on and off for a while but its worse recently. He has taken anti inflammatories which sometiems helps. Reports it is worse in bed and sometimes even simple things like holding the shaver up aggrevates his arm. Pt reports he has started using a pillow at night and that helps. Pt reports the MD thought it may have to do with him working on the computer so he just got a new desk chair. Pt reports he has noticed his posture gets worse with prolonged sitting. 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 Pt reports on some occasional numbness in fingertips B. Pt reports when he gets a stiff neck, its typically on the R and he thinks that about 3 weeks ago he had some stifness . Prior Treatments and Tests no testing or other treatment Treatment Goals Patient/Caregiver Goals Improve sleep, improve strength, imporve compute posture, PT-OP-C Subjective Start: 03/23/19 18:28 Freq: Status: Active Protocol: Document 07/12/19 13:50 [facility] (Rec: 07/12/19 14:54 [facility] [id number]) OP-PT Subjective Patient Comments Patient Comments Pt reports overall he feels like he is doing better but had a set back this weekend after doing shoveling and a lot of driving. Notes the next day, he was very sore so he stretched and heated and by the next day, it was better. PT-OP-J Posture/Palpation/Skin Start: 03/23/19 18:28 Freq: Status: Active Protocol: Document 05/24/19 09:46 [facility] (Rec: 05/24/19 11:00 MT [id number]) Posture Evaluation [facility] Postural Classification System Elbow Flexion Test 2 PT-OP-K Range of Motion Start: 03/23/19 18:28 Freq: Status: Active Protocol: Document 03/24/19 15:18 [facility] (Rec: 03/24/19 16:04 [facility] [id number]) Cervical Spine Range of Motion Cervical Spine Active Degrees Flexion 64 Extension 35 Rotation Left 62 Rotation Right 54 Lateral Flexion Left 22 Lateral Flexion Right 34 Shoulder Goniometric Range of Motion Shoulder Left Active Flexion 131 Abduction 130 External Rotation at 90 degrees 78 Abduction Internal Rotation 63 Internal Rotation Behind Back (text) T7 Right Active Flexion 129 Abduction 130 Horizontal Adduction 8 External Rotation at 90 degrees 48 Abduction Internal Rotation 58 Internal Rotation Behind Back (text) T7 PT-OP-L Special Tests Start: 03/23/19 18:28 Freq: Status: Active Protocol: Document 03/24/19 15:18 [facility] (Rec: 03/24/19 16:04 [facility] [id number]) Special Tests Shoulder Special Tests Stroud Alvarez Impingement Test Results positive Empty Can Test Results positive Neer Impingement Test Results neg Speed's Biceps Test Results positive for pain but ricketts also positive for pain Drop Arm Rotator Cuff Test Results neg AC Joint Compression Test Results neg Neural Special Tests- Upper Body Upper Limb Tension Test Test Results passive abd to 90 on R with joint tightness Radial Nerve Tension Test Results positive Comments ulnar, median negative PT-OP-M Strength Start: 03/23/19 18:28 Freq: Status: Active Protocol: Document 05/24/19 09:46 [facility] (Rec: 05/24/19 11:00 [facility] [id number]) Shoulder Strength Shoulder Manual Muscle Testing Right Flexion 4+ Good+ Extension 5 Normal Abduction (C5) 4 Good External Rotation 3 Fair Internal Rotation 4+ Good+ PT-OP-Q Treatments Start: 03/23/19 18:28 Freq: Status: Active Protocol: Document 07/12/19 13:50 [facility] (Rec: 07/12/19 14:54 [facility] [id number]) Cardio Equipment Upper Body Ergometer (UBE) Duration (Minutes) 6 RPM 100 Seat Position 13 Height 6 Other fwd/bck Therapeutic Exercises Standing Exercises 1 Standing Exercise Name flex Side right Equipment Used 1-2# Comments in mirror; focus on form Manual Therapy Treatment Soft Tissue Mobilization infraspinatus Body Location R Mobilization Type Strumming,Sustained Pressure Body Position Prone Comments w/er Joint Mobilizations AC Direction ventral FM w/90/90 ER prone Self-Care/Home Management Treatment Education Patient Education Home Exercise Program Other Education review HEP, Review sleep positioning options, edu on importance of inc strength & endurance. PT-OP-R Modalities Start: 03/23/19 18:28 Freq: Status: Active Protocol: Document 06/28/19 08:12 [facility] (Rec: 06/28/19 18:09 [facility] [id number]) Hot Pack/Cold Pack Treatment Hot Pack Location R brachium/shoulder Patient Position Supine Treatment Duration (minutes) 15 Patient Tolerance Good PT-OP-T Assessment and Plan Start: 03/23/19 18:28 Freq: Status: Active Protocol: Document 07/12/19 13:50 [facility] (Rec: 07/12/19 14:54 [facility] [id number]) Physical Therapy Assessment Goals activities Short Term Goal (STG) Pt will be able to use razor without c/o pain or weakness. 04/26/19 - pt reports that the pain has been getting much better, but is still present during shaving or any activity requiring lifting above shoulder height 05/24/19 - pt still reports discomfort with using razor and other activities involving HaB STG Duration achieved Hvac Controls Technician Goal (LTG) Pt will be able to sleep comfortably without pain. 04/26/19 - pt reports that sleeping is still on and off uncomfortable. he has been trying a bigger pillow, which helps but the discomfort is still present 05/24/19 - pt reports that sleep is still painful on certain days LTG Duration 07/25/19 posture Short Term Goal (STG) Pt will demonstrate appropriate ergonomic set up for his computer. STG Duration achieved Prison Goal (LTG) Pt will demonstrate efficient posture with 5/5 EFT and ability to maintain most efficient posture without cueing. 12/3/20 - EFT 2/5 LTG Duration 07/25/19 strength Short Term Goal (STG) Pt will be indep with HEP STG Duration achieved Hvac Controls Technician Goal (LTG) Pt will score 5/5 UE strength B in order to allow greater ease with typical daily activities. 05/24/19 - pt's RUE ER strength is a 3/5. LTG Duration 07/25/19 Assessment Summary Assessment Pt able to dec pressure on shoulder with mult options for adjusting sleep posture. He was able to do 2# with flex only about 4 x prior to using compensenatory strategies. He was able to do 1# for mult reps and is to cont this for HEP Physical Therapy Plan Frequency and Duration Frequency of Treatment 2x/Week Duration of Treatment 2 months Plan of Care Start Date 05/24/19 Plan of Care End Date 07/25/19 Next Visit Focus/Plan Next Note Type Treatment Note Next Visit Plan cont to work on post capsule & strength and stability with reaching; possible d/c if pt feels ready.
--- NOTE | 2019-07-26 12:10 | PT.OTN ---
Current Diagnoses Bicipital tendinitis, right shoulder (07/26/19) Pain in right upper arm (07/26/19) Abnormal posture (07/26/19) Weakness (07/26/19) Physical Therapy Treatment Note PT-OP-A Visit Information Start: 03/23/19 18:28 Freq: Status: Active Protocol: Document 07/26/19 11:25 [facility] (Rec: 07/26/19 12:10 [facility] [id number]) Out-Patient Physical Therapy Visit Information Visit Information Visit Type Discharge Summary Visit Start Time 11:18 Visit Stop Time 11:59 Total Visit Minutes 41 Visit Number 23 Number of CLIP BOLTER AND WRAPPER Visits 0 PT-OP-B Current Condition Start: 03/23/19 18:28 Freq: Status: Active Protocol: Document 03/24/19 15:18 [facility] (Rec: 03/24/19 16:04 [facility] [id number]) Current Condition History of Current Condition Onset Date got worse 3 weeks ago;over a year ago on/off but never very bad Current Complaints R lat brachium pain History of Current Condition Pt reports arm pain has been on and off for a while but its worse recently. He has taken anti inflammatories which sometiems helps. Reports it is worse in bed and sometimes even simple things like holding the shaver up aggrevates his arm. Pt reports he has started using a pillow at night and that helps. Pt reports the MD thought it may have to do with him working on the computer so he just got a new desk chair. Pt reports he has noticed his posture gets worse with prolonged sitting. 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 Pt reports on some occasional numbness in fingertips B. Pt reports when he gets a stiff neck, its typically on the R and he thinks that about 3 weeks ago he had some stifness . Prior Treatments and Tests no testing or other treatment Treatment Goals Patient/Caregiver Goals Improve sleep, improve strength, imporve compute posture, PT-OP-C Subjective Start: 03/23/19 18:28 Freq: Status: Active Protocol: Document 07/26/19 11:25 [facility] (Rec: 07/26/19 12:10 [facility] [id number]) OP-PT Subjective Patient Comments Patient Comments Pt reports overall doing well. he still notes weakness with reaching but changed his pillow and that helps sleeping and got a mattress topper. Patient Reported Progress Improving PT-OP-J Posture/Palpation/Skin Start: 03/23/19 18:28 Freq: Status: Active Protocol: Document 07/26/19 11:25 [facility] (Rec: 07/26/19 12:10 [facility] [id number]) Posture Evaluation [facility] Postural Classification System Elbow Flexion Test 4 PT-OP-K Range of Motion Start: 03/23/19 18:28 Freq: Status: Active Protocol: Document 03/24/19 15:18 [facility] (Rec: 03/24/19 16:04 [facility] [id number]) Cervical Spine Range of Motion Cervical Spine Active Degrees Flexion 64 Extension 35 Rotation Left 62 Rotation Right 54 Lateral Flexion Left 22 Lateral Flexion Right 34 Shoulder Goniometric Range of Motion Shoulder Left Active Flexion 131 Abduction 130 External Rotation at 90 degrees 78 Abduction Internal Rotation 63 Internal Rotation Behind Back (text) T7 Right Active Flexion 129 Abduction 130 Horizontal Adduction 8 External Rotation at 90 degrees 48 Abduction Internal Rotation 58 Internal Rotation Behind Back (text) T7 PT-OP-L Special Tests Start: 03/23/19 18:28 Freq: Status: Active Protocol: Document 03/24/19 15:18 [facility] (Rec: 03/24/19 16:04 [facility] [id number]) Special Tests Shoulder Special Tests Stroud Alvarez Impingement Test Results positive Empty Can Test Results positive Neer Impingement Test Results neg Speed's Biceps Test Results positive for pain but ricketts also positive for pain Drop Arm Rotator Cuff Test Results neg AC Joint Compression Test Results neg Neural Special Tests- Upper Body Upper Limb Tension Test Test Results passive abd to 90 on R with joint tightness Radial Nerve Tension Test Results positive Comments ulnar, median negative PT-OP-M Strength Start: 03/23/19 18:28 Freq: Status: Active Protocol: Document 07/26/19 11:25 [facility] (Rec: 07/26/19 12:10 [facility] [id number]) Shoulder Strength Shoulder Manual Muscle Testing Right Flexion 4+ Good+ Extension 5 Normal Abduction (C5) 4+ Good+ External Rotation 3+ Fair+ Internal Rotation 5 Normal PT-OP-Q Treatments Start: 03/23/19 18:28 Freq: Status: Active Protocol: Document 07/26/19 11:25 [facility] (Rec: 07/26/19 12:10 [facility] [id number]) Cardio Equipment Upper Body Ergometer (UBE) Duration (Minutes) 6 RPM 100 Seat Position 13 Height 6 Other fwd/bck Therapeutic Exercises Prone Exercises ER Prone Exercise Name 90/90 ER Side right Equipment Used 1# Reps/Minutes 10 Habd Side right Equipment Used 1# Reps/Minutes 15 Sidelying Exercises open book Side right Equipment Used 1# Reps/Minutes 10 Standing Exercises abd Side right Reps/Minutes 10 1 Standing Exercise Name flex Side right Equipment Used 1-2# Comments in mirror; focus on form wall posture Standing Exercise Name w/90/90 ER Side bilateral Reps/Minutes 15 ER Side right Resistance L1 Reps/Minutes 15 Comments w/towel ext Standing Exercise Name ext Side bilateral Resistance L4 Reps/Minutes 12 Manual Therapy Treatment Soft Tissue Mobilization infraspinatus Body Location R Mobilization Type Strumming,Sustained Pressure Body Position Prone Comments w/er PT-OP-R Modalities Start: 03/23/19 18:28 Freq: Status: Active Protocol: Document 06/28/19 08:12 [facility] (Rec: 06/28/19 18:09 [facility] [id number]) Hot Pack/Cold Pack Treatment Hot Pack Location R brachium/shoulder Patient Position Supine Treatment Duration (minutes) 15 Patient Tolerance Good PT-OP-T Assessment and Plan Start: 03/23/19 18:28 Freq: Status: Active Protocol: Document 07/26/19 11:25 [facility] (Rec: 07/26/19 12:10 [facility] [id number]) Physical Therapy Assessment Goals activities Short Term Goal (STG) Pt will be able to use razor without c/o pain or weakness. 04/26/19 - pt reports that the pain has been getting much better, but is still present during shaving or any activity requiring lifting above shoulder height 05/24/19 - pt still reports discomfort with using razor and other activities involving HaB STG Duration achieved Frog Farmer Goal (LTG) Pt will be able to sleep comfortably without pain. 04/26/19 - pt reports that sleeping is still on and off uncomfortable. he has been trying a bigger pillow, which helps but the discomfort is still present 05/24/19 - pt reports that sleep is still painful on certain days LTG Duration achieved posture Short Term Goal (STG) Pt will demonstrate appropriate ergonomic set up for his computer. STG Duration achieved Frog Farmer Goal (LTG) Pt will demonstrate efficient posture with 5/5 EFT and ability to maintain most efficient posture without cueing. 05/24/20 - EFT 2/5 LTG Duration significantly improved to 4/5 strength Short Term Goal (STG) Pt will be indep with HEP STG Duration achieved Frog Farmer Goal (LTG) Pt will score 5/5 UE strength B in order to allow greater ease with typical daily activities. 05/24/19 - pt's RUE ER strength is a 3/5. LTG Duration improved and pt to cont to work on at home Assessment Summary Assessment Pt is indep with HEP at this time and has significantly improved with functional mobility, ROM, strength, dec pain and overall ability. Pt is d/c to HEP at this time. Physical Therapy Plan Frequency and Duration Frequency of Treatment 1x/Week Duration of Treatment 1 day Plan of Care Start Date 07/26/19 Plan of Care End Date 07/26/19 Therapeutic Interventions Therapeutic Interventions Aquatic Therapy,Coordination Training,Home Exercise Program ,Joint Mobilizations,Manual Therapy,Neuromuscular Re- education,Patient/Caregiver Education,Self-Care/Home Management,Soft Tissue Mobilization,Taping, Therapeutic Activities, Therapeutic Exercises Modalities Cold Pack/Ice Massage,Electric Stimulation,Hot Packs, Infrared Therapy,Iontophoresis ,Traction- Mechanical, Ultrasound Discharge Physical Therapy Discharge Reasons Goals Met
--- NOTE | 2019-07-26 12:10 | PT.OPPOC ---
Physical, Occupational & Speech Therapy At [facility] Current Diagnoses Bicipital tendinitis, right shoulder (07/26/19) Pain in right upper arm (07/26/19) Abnormal posture (07/26/19) Weakness (07/26/19) Visit Care Team Role Provider Type Stan Spangler MD Primary Care Provider Physician Specialty: [facility] Address: [address] [place] [address], [facility] [place], [address] Email: [email or web address] Renner Attending Provider Advanced Solution Coordinator Specialty: [facility] Address: [address] [place] [address], [facility] [place], [address] Email: [email or web address] Plan Of Care PT-OP-T Assessment and Plan Start: 03/23/19 18:28 Freq: Status: Active Protocol: Document 07/26/19 11:25 [facility] (Rec: 07/26/19 12:10 [facility] [id number]) Physical Therapy Assessment Goals activities Short Term Goal (STG) Pt will be able to use razor without c/o pain or weakness. 04/26/19 - pt reports that the pain has been getting much better, but is still present during shaving or any activity requiring lifting above shoulder height 05/24/19 - pt still reports discomfort with using razor and other activities involving HaB STG Duration achieved Long-Term Goal (LTG) Pt will be able to sleep comfortably without pain. 04/26/19 - pt reports that sleeping is still on and off uncomfortable. he has been trying a bigger pillow, which helps but the discomfort is still present 05/24/19 - pt reports that sleep is still painful on certain days LTG Duration achieved posture Short Term Goal (STG) Pt will demonstrate appropriate ergonomic set up for his computer. STG Duration achieved Long-Term Goal (LTG) Pt will demonstrate efficient posture with 5/5 EFT and ability to maintain most efficient posture without cueing. 05/24/20 - EFT 2/5 LTG Duration significantly improved to 4/5 strength Short Term Goal (STG) Pt will be indep with HEP STG Duration achieved Plate Painter Goal (LTG) Pt will score 5/5 UE strength B in order to allow greater ease with typical daily activities. 05/24/19 - pt's RUE ER strength is a 3/5. LTG Duration improved and pt to cont to work on at home Assessment Summary Assessment Pt is indep with HEP at this time and has significantly improved with functional mobility, ROM, strength, dec pain and overall ability. Pt is d/c to HEP at this time. Physical Therapy Plan Frequency and Duration Frequency of Treatment 1x/Week Duration of Treatment 1 day Plan of Care Start Date 07/26/19 Plan of Care End Date 07/26/19 Therapeutic Interventions Therapeutic Interventions Aquatic Therapy,Coordination Training,Home Exercise Program ,Joint Mobilizations,Manual Therapy,Neuromuscular Re- education,Patient/Caregiver Education,Self-Care/Home Management,Soft Tissue Mobilization,Taping, Therapeutic Activities, Therapeutic Exercises Modalities Cold Pack/Ice Massage,Electric Stimulation,Hot Packs, Infrared Therapy,Iontophoresis ,Traction- Mechanical, Ultrasound Discharge Physical Therapy Discharge Reasons Goals Met Plan of Care Dates Plan of Care Start Date 07/26/19 Plan of Care End Date 07/26/19 Electronically Signed by: Karolina Reyes, PT 07/26/19 1210 Please Sign and Return: I have reviewed this Plan of Care and certify that the skilled therapy services above are required to meet the patient?s needs. Physician Signature Date Printed Name and Credentials Clinical Instructor Signature Printed Name and Credentials
== END 2019-07-26 12:11 | disposition home or self-care (01) ==
LOC: PHYS 11:15
PROVIDERS: PCP Family Medicine; Visit Provider Internal Medicine
DX: M79.621 Pain in right upper arm (principal); M75.21 Bicipital tendinitis, right shoulder; R53.1 Weakness; R29.3 Abnormal posture
CPT/HCPCS: 97010; 97110; 97112; 97140; 97162; 97530; 97535

== ENCOUNTER 2020-09-24 16:00 | Outpatient (RCR) | payer MEDICARE, BC, OTHER, SELFPAY ==
--- NOTE | 2020-04-16 17:37 | PT.OIE ---
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) Pain in left ankle and joints of left foot (04/16/20) Other specified joint disorders, left ankle and foot (04/16/20) Difficulty in walking, not elsewhere classified (04/16/20) Abnormal posture (04/16/20) Weakness (04/16/20) Visit Care Team Role Provider Type Stan Spangler MD Family Provider Physician Primary Care Provider Specialty: Family Practice Address: [address] [place] [address], [facility] [place], [address] Email: [email or web address] Perkins DPM Attending Provider Physician Referring Provider Specialty: Podiatry Address: [address] [place] [address], [place], [address] Email: [email or web address] [facility] Initial Evaluation PT-OP-A Visit Information Start: 04/16/20 07:27 Freq: Status: Active Protocol: Document 04/16/20 08:17 [facility] (Rec: 04/16/20 09:00 [facility] [id number]) Out-Patient Physical Therapy Visit Information Visit Information Visit Type Initial Evaluation Visit Note 07/01 Visit Start Time 08:18 Visit Stop Time 09:00 Total Visit Minutes 42 Visit Number 1 Number of CONSTRUCTION FRAMER Visits 0 PT-OP-B Current Condition Start: 04/16/20 07:27 Freq: Status: Active Protocol: Document 04/16/20 08:17 [facility] (Rec: 04/16/20 09:00 [facility] [id number]) Current Condition History of Current Condition Onset Date several months ago , ~5 months ago Current Complaints ant and lat L ankle History of Current Condition Pt reports he cannot remember anything specific starting his foot pain. Pt reprots he has had pain on/off and it has been nagging. Uphill is worse than downhill. Takes a walk 3 miles every few days and hasn' t been able to not walk d/t pain. Pt has been doing some stretching, ibuprofen to help. Pain has gradually gotten worse Prior Treatments and Tests Xrays shows some problems per pt and had a steroid injection -initally didn't help but after a couple of weeks it may have helped slightly, but not does not feel like its making much difference. He has started superfeet insoles per MD and that helped. Treatment Goals Patient/Caregiver Goals be able to do walks without pain Personal Factors Other Personal Factors That May Effect PMH: back pain, neck pain, Therapy/Recovery varicose veins PT-OP-C Subjective Start: 04/16/20 07:27 Freq: Status: Active Protocol: Document 04/16/20 08:17 [facility] (Rec: 04/16/20 09:00 [facility] [id number]) Patient Questionnaires Foot & Ankle Ability Measure- ADL and Sports FAAM-ADL Score 56 FAAM-ADL Impairment 20 to 39% Impaired (Score 50- 66) Lower Extremity Functional Scale LEFS Score 59 LEFS Impairment 20 to 39% Impaired (Score 48- 62) OP-PT Pain Assessment Location L ankle Pain Location Details L ant lat ankle Intensity 4 Scale Used Numeric (0 - 10) Description Sharp,With Movement Frequency Intermittent Pain Aggravating Factors Walking,Stair Climbing Other Pain Aggravating Factors up hills, DF Pain Alleviating Factors Heat,Medication Other Pain Alleviating Factors stretching PT-OP-D Balance Start: 04/16/20 07:27 Freq: Status: Active Protocol: Document 04/16/20 08:17 [facility] (Rec: 04/16/20 09:00 [facility] [id number]) Balance Tests Single Limb Standing Single Limb- Right 15 sec w/arms out and lat shift over hips Single Limb- Left 3 sec w/arms out and lat shift over hips-some pain PT-OP-F Manual Assessment Start: 04/16/20 07:27 Freq: Status: Active Protocol: Document 04/16/20 08:17 [facility] (Rec: 04/16/20 09:00 [facility] [id number]) Manual Assessments Soft Tissue Assessment Soft Tissue Mobility Assessment tihgtness/tendernss in L calf, L ATFL PT-OP-G Mobility & Gait Start: 04/16/20 07:27 Freq: Status: Active Protocol: Document 04/16/20 08:17 [facility] (Rec: 04/16/20 09:00 [facility] [id number]) OP Gait Assessment Comments Gait Comments dec push off, some lat leaning Stair Climbing Evaluation Comments Stair Climbing Comments able ot go up/down reciprocally with mild paind escent PT-OP-J Posture/Palpation/Skin Start: 04/16/20 07:27 Freq: Status: Active Protocol: Document 04/16/20 08:17 [facility] (Rec: 04/16/20 09:00 [facility] [id number]) Posture Evaluation [facility] Postural Classification System Lumbar Protective Mechanism Left AP 1 Lumbar Protective Mechanism Right AP 2 Lumbar Protective Mechanism Left PA 0 Lumbar Protective Mechanism Right PA 0 Comments Posture Comments thoracic cage sheared R, pronation B, fwd head and shoulders PT-OP-K Range of Motion Start: 04/16/20 07:27 Freq: Status: Active Protocol: Document 04/16/20 08:17 [facility] (Rec: 04/16/20 09:00 [facility] [id number]) Ankle and Foot Goniometric Range of Motion Ankle and Foot Right Active Dorsiflexion with Knee Flexed 3 Plantarflexion 56 Inversion 25 Eversion 21 Left Active Dorsiflexion with Knee Flexed 1 Plantarflexion 48 Inversion 10 Eversion 18 Comments pain w/inversion & DF PT-OP-M Strength Start: 04/16/20 07:27 Freq: Status: Active Protocol: Document 04/16/20 08:17 [facility] (Rec: 04/16/20 09:00 [facility] [id number]) Hip Strength Hip Manual Muscle Testing Right Flexion (L2) 3+ Fair+ Extension (S1) 4- Good- Abduction 4 Good External Rotation 4- Good- Internal Rotation 4+ Good+ Left Flexion (L2) 3 Fair Extension (S1) 3+ Fair+ Abduction 4 Good External Rotation 3+ Fair+ Internal Rotation 4+ Good+ Knee Strength Knee Manual Muscle Testing Right Flexion (S2) 4 Good Left Flexion (S2) 4 Good Extension (L3) 5 Normal Ankle/Foot Strength Ankle and Foot Manual Muscle Testing Right Dorsiflexion (L4) 5 Normal Inversion 5 Normal Eversion (S1) 5 Normal Left Dorsiflexion (L4) 4 Good Plantarflexion (S1) 3 Fair Inversion 4- Good- Eversion (S1) 5 Normal Comments only able to do 3 heel raises PT-OP-Q Treatments Start: 04/16/20 07:27 Freq: Status: Active Protocol: Document 04/16/20 08:17 [facility] (Rec: 04/16/20 09:00 [facility] [id number]) Therapeutic Exercises Prone Exercises ext Prone Exercise Name hip alt Side bilateral Reps/Minutes 10 Sitting Exercises stretch Sitting Exercise Name plantar fascia stretch Side left Reps/Minutes 30 sec 1 Sitting Exercise Name gastroc towel stretch Side left Equipment Used yoga strap Reps/Minutes 30 sec PT-OP-T Assessment and Plan Start: 04/16/20 07:27 Freq: Status: Active Protocol: Document 04/16/20 08:17 [facility] (Rec: 04/16/20 09:00 [facility] [id number]) Physical Therapy Assessment Rehab Potential Rehabilitation Potential Good Evaluation Complexity Number of Personal Factors/Comorbidities 3 or More Number of Body Systems Impaired 4 or More Clinical Presentation at Evaluation Evolving Impairments Impairments Activity Tolerance,Balance, Functional Activities, Functional Mobility,Gait,Pain, Posture,ROM,Soft Tissue Mobility,Strength Goals balance Skilled Nursing Goal (LTG) Pt will be able to balance 10 sec on LLE w/o lat deviation B LTG Duration 06/16/20 ROM Skilled Nursing Goal (LTG) Pt will have improved DF to 10 w/knee flex and 6 w/knee ext so he will have improved gait mechanics. LTG Duration 06/16/20 FAAM Impairment 56/84 Short Term Goal (STG) Pt will score 66/84 to show improved functional ability. STG Duration 05/17/20 Skilled Nursing Goal (LTG) Pt will score 80/84 to show improved functional ability. LTG Duration 06/16/20 activities Short Term Goal (STG) Pt will be able to go up/down stairs without pain STG Duration 05/17/20 Skilled Nursing Goal (LTG) Pt will be able to do his typical walks without any inc in pain. LTG Duration 06/16/20 strength Short Term Goal (STG) Pt will be indep with HEP STG Duration 05/17/20 Skilled Nursing Goal (LTG) Pt will have 5/5 LE strength and 3/5 LPM to show improved stability so he will not have pain during typical activities . LTG Duration 06/16/20 Assessment Summary Assessment Pt presents with L ankle pain consistant with ant impingment as diagnosed by MD. Pt has limited ROM, strength, and inc pain with activities including his walks, stairs and extended standing. He would beneift from PT to work manually on increasing ROM of ankle with less pain and work on improving gait mechanics and restoring strength of L ankle in order to improve pt's ability to continue his recreational activities and ADLs without pain. Physical Therapy Plan Frequency and Duration Frequency of Treatment 2x/Week Duration of Treatment 2 months Plan of Care Start Date 04/16/20 Plan of Care End Date 06/16/20 Therapeutic Interventions Therapeutic Interventions Aquatic Therapy,Balance Training,Gait Training,Home Exercise Program,Joint Mobilizations,Manual Therapy, Neuromuscular Re-education, Patient/Caregiver Education, Self-Care/Home Management,Soft Tissue Mobilization,Taping, Therapeutic Activities, Therapeutic Exercises Modalities Cold Pack/Ice Massage,Electric Stimulation,Hot Packs, Infrared Therapy,Iontophoresis ,Ultrasound Next Visit Focus/Plan Next Note Type Treatment Note Next Visit Plan calcaneal, talar & tib/fib mobs, STM to calf & plantar fascia, review exercises, work on squat & balance board
--- NOTE | 2020-04-16 17:37 | PT.OPPOC ---
Physical, Occupational & Speech Therapy At [facility] 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) Pain in left ankle and joints of left foot (04/16/20) Other specified joint disorders, left ankle and foot (04/16/20) Difficulty in walking, not elsewhere classified (04/16/20) Abnormal posture (04/16/20) Weakness (04/16/20) Visit Care Team Role Provider Type Stan Spangler MD Family Provider Physician Primary Care Provider Specialty: Family Practice Address: [address] [place] [address], [facility] [place], [address] Email: Susan Perkins DPM Attending Provider Physician Referring Provider Specialty: Podiatry Address: [address] [place] [address], [id number] Email: [email or web address] Plan Of Care PT-OP-T Assessment and Plan Start: 04/16/20 07:27 Freq: Status: Active Protocol: Document 04/16/20 08:17 [facility] (Rec: 04/16/20 09:00 [facility] [id number]) Physical Therapy Assessment Rehab Potential Rehabilitation Potential Good Evaluation Complexity Number of Personal Factors/Comorbidities 3 or More Number of Body Systems Impaired 4 or More Clinical Presentation at Evaluation Evolving Impairments Impairments Activity Tolerance,Balance, Functional Activities, Functional Mobility,Gait,Pain, Posture,ROM,Soft Tissue Mobility,Strength Goals balance Senior Living Goal (LTG) Pt will be able to balance 10 sec on LLE w/o lat deviation B LTG Duration 06/16/20 ROM Group Teacher Goal (LTG) Pt will have improved DF to 10 w/knee flex and 6 w/knee ext so he will have improved gait mechanics. LTG Duration 06/16/20 FAAM Impairment 56/84 Short Term Goal (STG) Pt will score 66/84 to show improved functional ability. STG Duration 05/17/20 Group Teacher Goal (LTG) Pt will score 80/84 to show improved functional ability. LTG Duration 06/16/20 activities Short Term Goal (STG) Pt will be able to go up/down stairs without pain STG Duration 05/17/20 Group Teacher Goal (LTG) Pt will be able to do his typical walks without any inc in pain. LTG Duration 06/16/20 strength Short Term Goal (STG) Pt will be indep with HEP STG Duration 05/17/20 Senior Living Goal (LTG) Pt will have 5/5 LE strength and 3/5 LPM to show improved stability so he will not have pain during typical activities . LTG Duration 06/16/20 Assessment Summary Assessment Pt presents with L ankle pain consistant with ant impingment as diagnosed by MD. Pt has limited ROM, strength, and inc pain with activities including his walks, stairs and extended standing. He would beneift from PT to work manually on increasing ROM of ankle with less pain and work on improving gait mechanics and restoring strength of L ankle in order to improve pt's ability to continue his recreational activities and ADLs without pain. Physical Therapy Plan Frequency and Duration Frequency of Treatment 2x/Week Duration of Treatment 2 months Plan of Care Start Date 04/16/20 Plan of Care End Date 06/16/20 Therapeutic Interventions Therapeutic Interventions Aquatic Therapy,Balance Training,Gait Training,Home Exercise Program,Joint Mobilizations,Manual Therapy, Neuromuscular Re-education, Patient/Caregiver Education, Self-Care/Home Management,Soft Tissue Mobilization,Taping, Therapeutic Activities, Therapeutic Exercises Modalities Cold Pack/Ice Massage,Electric Stimulation,Hot Packs, Infrared Therapy,Iontophoresis ,Ultrasound Next Visit Focus/Plan Next Note Type Treatment Note Next Visit Plan calcaneal, talar & tib/fib mobs, STM to calf & plantar fascia, review exercises, work on squat & balance board Plan of Care Dates Plan of Care Start Date 04/16/20 Plan of Care End Date 06/16/20 Electronically Signed by: Karolina Reyes, PT 04/16/20 1010 Please Sign and Return: I have reviewed this Plan of Care and certify that the skilled therapy services above are required to meet the patient?s needs. Physician Signature Date Printed Name and Credentials Clinical Instructor Signature Printed Name and Credentials
--- NOTE | 2020-04-18 09:03 | PT.OTN ---
Current Diagnoses Other acquired deformities of left foot (04/18/20) Pain in left ankle and joints of left foot (04/18/20) Other specified joint disorders, left ankle and foot (04/18/20) Difficulty in walking, not elsewhere classified (04/18/20) Abnormal posture (04/18/20) Weakness (04/18/20) Physical Therapy Treatment Note PT-OP-A Visit Information Start: 04/16/20 07:27 Freq: Status: Active Protocol: Document 04/18/20 08:19 [facility] (Rec: 04/18/20 09:03 [facility] [id number]) Out-Patient Physical Therapy Visit Information Visit Information Visit Type Treatment Note Visit Note 08/01 Visit Start Time 08:16 Visit Stop Time 08:56 Total Visit Minutes 40 Visit Number 2 Number of DIE TRIMMER Visits 0 PT-OP-B Current Condition Start: 04/16/20 07:27 Freq: Status: Active Protocol: Document 04/16/20 08:17 [facility] (Rec: 04/16/20 09:00 [facility] [id number]) Current Condition History of Current Condition Onset Date several months ago , ~5 months ago Current Complaints ant and lat L ankle History of Current Condition Pt reports he cannot remember anything specific starting his foot pain. Pt reprots he has had pain on/off and it has been nagging. Uphill is worse than downhill. Takes a walk 3 miles every few days and hasn' t been able to not walk d/t pain. Pt has been doing some stretching, ibuprofen to help. Pain has gradually gotten worse Prior Treatments and Tests Xrays shows some problems per pt and had a steroid injection -initally didn't help but after a couple of weeks it may have helped slightly, but not does not feel like its making much difference. He has started superfeet insoles per MD and that helped. Treatment Goals Patient/Caregiver Goals be able to do walks without pain Personal Factors Other Personal Factors That May Effect PMH: back pain, neck pain, Therapy/Recovery varicose veins PT-OP-C Subjective Start: 04/16/20 07:27 Freq: Status: Active Protocol: Document 04/18/20 08:19 [facility] (Rec: 04/18/20 09:03 [facility] [id number]) OP-PT Subjective Patient Comments Patient Comments Pt wants to check to make sure he is doing exercises correctly PT-OP-D Balance Start: 04/16/20 07:27 Freq: Status: Active Protocol: Document 04/16/20 08:17 [facility] (Rec: 04/16/20 09:00 [facility] [id number]) Balance Tests Single Limb Standing Single Limb- Right 15 sec w/arms out and lat shift over hips Single Limb- Left 3 sec w/arms out and lat shift over hips-some pain PT-OP-F Manual Assessment Start: 04/16/20 07:27 Freq: Status: Active Protocol: Document 04/16/20 08:17 [facility] (Rec: 04/16/20 09:00 [facility] [id number]) Manual Assessments Soft Tissue Assessment Soft Tissue Mobility Assessment tihgtness/tendernss in L calf, L ATFL PT-OP-G Mobility & Gait Start: 04/16/20 07:27 Freq: Status: Active Protocol: Document 04/16/20 08:17 [facility] (Rec: 04/16/20 09:00 [facility] [id number]) OP Gait Assessment Comments Gait Comments dec push off, some lat leaning Stair Climbing Evaluation Comments Stair Climbing Comments able ot go up/down reciprocally with mild paind escent PT-OP-J Posture/Palpation/Skin Start: 04/16/20 07:27 Freq: Status: Active Protocol: Document 04/16/20 08:17 [facility] (Rec: 04/16/20 09:00 [facility] [id number]) Posture Evaluation [place] Postural Classification System Lumbar Protective Mechanism Left AP 1 Lumbar Protective Mechanism Right AP 2 Lumbar Protective Mechanism Left PA 0 Lumbar Protective Mechanism Right PA 0 Comments Posture Comments thoracic cage sheared R, pronation B, fwd head and shoulders PT-OP-K Range of Motion Start: 04/16/20 07:27 Freq: Status: Active Protocol: Document 04/16/20 08:17 [facility] (Rec: 04/16/20 09:00 [facility] [id number]) Ankle and Foot Goniometric Range of Motion Ankle and Foot Right Active Dorsiflexion with Knee Flexed 3 Plantarflexion 56 Inversion 25 Eversion 21 Left Active Dorsiflexion with Knee Flexed 1 Plantarflexion 48 Inversion 10 Eversion 18 Comments pain w/inversion & DF PT-OP-M Strength Start: 04/16/20 07:27 Freq: Status: Active Protocol: Document 04/16/20 08:17 [facility] (Rec: 04/16/20 09:00 [facility] [id number]) Hip Strength Hip Manual Muscle Testing Right Flexion (L2) 3+ Fair+ Extension (S1) 4- Good- Abduction 4 Good External Rotation 4- Good- Internal Rotation 4+ Good+ Left Flexion (L2) 3 Fair Extension (S1) 3+ Fair+ Abduction 4 Good External Rotation 3+ Fair+ Internal Rotation 4+ Good+ Knee Strength Knee Manual Muscle Testing Right Flexion (S2) 4 Good Left Flexion (S2) 4 Good Extension (L3) 5 Normal Ankle/Foot Strength Ankle and Foot Manual Muscle Testing Right Dorsiflexion (L4) 5 Normal Inversion 5 Normal Eversion (S1) 5 Normal Left Dorsiflexion (L4) 4 Good Plantarflexion (S1) 3 Fair Inversion 4- Good- Eversion (S1) 5 Normal Comments only able to do 3 heel raises PT-OP-Q Treatments Start: 04/16/20 07:27 Freq: Status: Active Protocol: Document 04/18/20 08:19 [facility] (Rec: 04/18/20 09:03 [facility] [id number]) Therapeutic Exercises Sitting Exercises flex Sitting Exercise Name towel scrunch Side left Reps/Minutes 2 intrinsics Sitting Exercise Name 1. big toe DF 2. DF of toes> abd>back to ground Side left Reps/Minutes 15 ea stretch Sitting Exercise Name plantar fascia stretch Side left Reps/Minutes 30 sec 1 Sitting Exercise Name gastroc towel stretch Side left Equipment Used yoga strap Reps/Minutes 30 sec Manual Therapy Treatment Soft Tissue Mobilization calf Body Location L calf & achilles & plantar fasica Mobilization Type Rolling,Strumming,Sustained Pressure Intensity/Depth Moderate Body Position Supine Joint Mobilizations tib fib Joint distal tib PA glide FM talus Joint L Direction distraction & AP FM calcaneus Joint L Direction distraction & lat tilt FM PT-OP-T Assessment and Plan Start: 04/16/20 07:27 Freq: Status: Active Protocol: Document 04/18/20 08:19 [facility] (Rec: 04/18/20 09:03 [facility] [id number]) Physical Therapy Assessment Goals balance Check Weigher Goal (LTG) Pt will be able to balance 10 sec on LLE w/o lat deviation B LTG Duration 06/16/20 ROM Check Weigher Goal (LTG) Pt will have improved DF to 10 w/knee flex and 6 w/knee ext so he will have improved gait mechanics. LTG Duration 06/16/20 FAAM Impairment 56/84 Short Term Goal (STG) Pt will score 66/84 to show improved functional ability. STG Duration 05/17/20 Longterm Goal (LTG) Pt will score 80/84 to show improved functional ability. LTG Duration 06/16/20 activities Short Term Goal (STG) Pt will be able to go up/down stairs without pain STG Duration 05/17/20 Check Weigher Goal (LTG) Pt will be able to do his typical walks without any inc in pain. LTG Duration 06/16/20 strength Short Term Goal (STG) Pt will be indep with HEP STG Duration 05/17/20 Longterm Goal (LTG) Pt will have 5/5 LE strength and 3/5 LPM to show improved stability so he will not have pain during typical activities . LTG Duration 06/16/20 Assessment Summary Assessment Pt had only min pain with DF after manual treatment done today. He was able to do all new exercises without inc pain . Cuieng for initial HEP was only required with plantar fascia stretch Physical Therapy Plan Frequency and Duration Frequency of Treatment 2x/Week Duration of Treatment 2 months Plan of Care Start Date 04/16/20 Plan of Care End Date 06/16/20 Next Visit Focus/Plan Next Note Type Treatment Note Next Visit Plan calcaneal, talar & tib/fib mobs, STM to calf & plantar fascia, review exercises, work on squat & balance board
--- NOTE | 2020-04-23 13:45 | PT.OTN ---
Current Diagnoses Other acquired deformities of left foot (04/23/20) Pain in left ankle and joints of left foot (04/23/20) Other specified joint disorders, left ankle and foot (04/23/20) Difficulty in walking, not elsewhere classified (04/23/20) Abnormal posture (04/23/20) Weakness (04/23/20) Physical Therapy Treatment Note PT-OP-A Visit Information Start: 04/16/20 07:27 Freq: Status: Active Protocol: Document 04/23/20 13:02 [facility] (Rec: 04/23/20 13:45 [facility] [id number]) Out-Patient Physical Therapy Visit Information Visit Information Visit Type Treatment Note Visit Note 08/29 Visit Start Time 13:02 Visit Stop Time 13:42 Total Visit Minutes 40 Visit Number 3 Number of TICKET CLERK Visits 0 PT-OP-B Current Condition Start: 04/16/20 07:27 Freq: Status: Active Protocol: Document 04/16/20 08:17 [facility] (Rec: 04/16/20 09:00 [facility] [id number]) Current Condition History of Current Condition Onset Date several months ago , ~5 months ago Current Complaints ant and lat L ankle History of Current Condition Pt reports he cannot remember anything specific starting his foot pain. Pt reprots he has had pain on/off and it has been nagging. Uphill is worse than downhill. Takes a walk 3 miles every few days and hasn' t been able to not walk d/t pain. Pt has been doing some stretching, ibuprofen to help. Pain has gradually gotten worse Prior Treatments and Tests Xrays shows some problems per pt and had a steroid injection -initally didn't help but after a couple of weeks it may have helped slightly, but not does not feel like its making much difference. He has started superfeet insoles per MD and that helped. Treatment Goals Patient/Caregiver Goals be able to do walks without pain Personal Factors Other Personal Factors That May Effect PMH: back pain, neck pain, Therapy/Recovery varicose veins PT-OP-C Subjective Start: 04/16/20 07:27 Freq: Status: Active Protocol: Document 04/23/20 13:02 [facility] (Rec: 04/23/20 13:45 [facility] [id number]) OP-PT Subjective Patient Comments Patient Comments Pt reports he has beend oing exercises and pain is less right after PT-OP-D Balance Start: 04/16/20 07:27 Freq: Status: Active Protocol: Document 04/16/20 08:17 [facility] (Rec: 04/16/20 09:00 [facility] [id number]) Balance Tests Single Limb Standing Single Limb- Right 15 sec w/arms out and lat shift over hips Single Limb- Left 3 sec w/arms out and lat shift over hips-some pain PT-OP-F Manual Assessment Start: 04/16/20 07:27 Freq: Status: Active Protocol: Document 04/16/20 08:17 [facility] (Rec: 04/16/20 09:00 [facility] [id number]) Manual Assessments Soft Tissue Assessment Soft Tissue Mobility Assessment tihgtness/tendernss in L calf, L ATFL PT-OP-G Mobility & Gait Start: 04/16/20 07:27 Freq: Status: Active Protocol: Document 04/16/20 08:17 [facility] (Rec: 04/16/20 09:00 [facility] [id number]) OP Gait Assessment Comments Gait Comments dec push off, some lat leaning Stair Climbing Evaluation Comments Stair Climbing Comments able ot go up/down reciprocally with mild paind escent PT-OP-J Posture/Palpation/Skin Start: 04/16/20 07:27 Freq: Status: Active Protocol: Document 04/16/20 08:17 [facility] (Rec: 04/16/20 09:00 [facility] [id number]) Posture Evaluation [facility] Postural Classification System Lumbar Protective Mechanism Left AP 1 Lumbar Protective Mechanism Right AP 2 Lumbar Protective Mechanism Left PA 0 Lumbar Protective Mechanism Right PA 0 Comments Posture Comments thoracic cage sheared R, pronation B, fwd head and shoulders PT-OP-K Range of Motion Start: 04/16/20 07:27 Freq: Status: Active Protocol: Document 04/16/20 08:17 [facility] (Rec: 04/16/20 09:00 [facility] [id number]) Ankle and Foot Goniometric Range of Motion Ankle and Foot Right Active Dorsiflexion with Knee Flexed 3 Plantarflexion 56 Inversion 25 Eversion 21 Left Active Dorsiflexion with Knee Flexed 1 Plantarflexion 48 Inversion 10 Eversion 18 Comments pain w/inversion & DF PT-OP-M Strength Start: 04/16/20 07:27 Freq: Status: Active Protocol: Document 04/16/20 08:17 [facility] (Rec: 04/16/20 09:00 [facility] [id number]) Hip Strength Hip Manual Muscle Testing Right Flexion (L2) 3+ Fair+ Extension (S1) 4- Good- Abduction 4 Good External Rotation 4- Good- Internal Rotation 4+ Good+ Left Flexion (L2) 3 Fair Extension (S1) 3+ Fair+ Abduction 4 Good External Rotation 3+ Fair+ Internal Rotation 4+ Good+ Knee Strength Knee Manual Muscle Testing Right Flexion (S2) 4 Good Left Flexion (S2) 4 Good Extension (L3) 5 Normal Ankle/Foot Strength Ankle and Foot Manual Muscle Testing Right Dorsiflexion (L4) 5 Normal Inversion 5 Normal Eversion (S1) 5 Normal Left Dorsiflexion (L4) 4 Good Plantarflexion (S1) 3 Fair Inversion 4- Good- Eversion (S1) 5 Normal Comments only able to do 3 heel raises PT-OP-Q Treatments Start: 04/16/20 07:27 Freq: Status: Active Protocol: Document 04/23/20 13:02 [facility] (Rec: 04/23/20 13:45 [facility] [id number]) Gym Equipment Shuttle Balance red clips Comments fwd & side: WBOS & NBOS fwd staggered stance Therapeutic Exercises Sitting Exercises flex Sitting Exercise Name towel scrunch Side left Reps/Minutes 2 intrinsics Sitting Exercise Name 1. big toe DF 2. DF of toes> abd>back to ground Side left Reps/Minutes 10 ea stretch Sitting Exercise Name plantar fascia stretch Side left Reps/Minutes 30 sec 1 Sitting Exercise Name gastroc towel stretch Side left Equipment Used yoga strap Reps/Minutes 30 sec Manual Therapy Treatment Joint Mobilizations tib fib Joint distal tib PA glide FM talus Joint L Direction distraction & AP & med glide FM calcaneus Joint L Direction distraction & lat tilt FM PT-OP-T Assessment and Plan Start: 04/16/20 07:27 Freq: Status: Active Protocol: Document 04/23/20 13:02 [facility] (Rec: 04/23/20 13:45 [facility] [id number]) Physical Therapy Assessment Goals balance Horticultural Therapist Goal (LTG) Pt will be able to balance 10 sec on LLE w/o lat deviation B LTG Duration 06/16/20 ROM Horticultural Therapist Goal (LTG) Pt will have improved DF to 10 w/knee flex and 6 w/knee ext so he will have improved gait mechanics. LTG Duration 06/16/20 FAAM Impairment 56/84 Short Term Goal (STG) Pt will score 66/84 to show improved functional ability. STG Duration 05/17/20 Horticultural Therapist Goal (LTG) Pt will score 80/84 to show improved functional ability. LTG Duration 06/16/20 activities Short Term Goal (STG) Pt will be able to go up/down stairs without pain STG Duration 05/17/20 Intermediate Goal (LTG) Pt will be able to do his typical walks without any inc in pain. LTG Duration 06/16/20 strength Short Term Goal (STG) Pt will be indep with HEP STG Duration 05/17/20 Horticultural Therapist Goal (LTG) Pt will have 5/5 LE strength and 3/5 LPM to show improved stability so he will not have pain during typical activities . LTG Duration 06/16/20 Assessment Summary Assessment Pt was challenged by balance board with espeically difficulty w/NBOS & staggered stance positions. DIfficiulty with squat from with IR Of hips R>L and w/knees going fwd past toes. Max cuieng required and use of mirror. Good performance w/ HEP Physical Therapy Plan Frequency and Duration Frequency of Treatment 2x/Week Duration of Treatment 2 months Plan of Care Start Date 04/16/20 Plan of Care End Date 06/16/20 Next Visit Focus/Plan Next Note Type Treatment Note Next Visit Plan calcaneal, talar & tib/fib mobs, STM to calf & plantar fascia, review exercises, cont work on squat & balance board
--- NOTE | 2020-04-25 14:05 | PT.OTN ---
Current Diagnoses Other acquired deformities of left foot (04/25/20) Pain in left ankle and joints of left foot (04/25/20) Other specified joint disorders, left ankle and foot (04/25/20) Difficulty in walking, not elsewhere classified (04/25/20) Abnormal posture (04/25/20) Weakness (04/25/20) Physical Therapy Treatment Note PT-OP-A Visit Information Start: 04/16/20 07:27 Freq: Status: Active Protocol: Document 04/25/20 13:55 [facility] (Rec: 04/25/20 14:05 [facility] [id number]) Out-Patient Physical Therapy Visit Information Visit Information Visit Type Treatment Note Visit Note 09/29 Visit Start Time 13:00 Visit Stop Time 13:45 Total Visit Minutes 45 Visit Number 4 Number of ELEMENTARY SCHOOL BAND DIRECTOR Visits 0 PT-OP-B Current Condition Start: 04/16/20 07:27 Freq: Status: Active Protocol: Document 04/16/20 08:17 [facility] (Rec: 04/16/20 09:00 [facility] [id number]) Current Condition History of Current Condition Onset Date several months ago , ~5 months ago Current Complaints ant and lat L ankle History of Current Condition Pt reports he cannot remember anything specific starting his foot pain. Pt reprots he has had pain on/off and it has been nagging. Uphill is worse than downhill. Takes a walk 3 miles every few days and hasn' t been able to not walk d/t pain. Pt has been doing some stretching, ibuprofen to help. Pain has gradually gotten worse Prior Treatments and Tests Xrays shows some problems per pt and had a steroid injection -initally didn't help but after a couple of weeks it may have helped slightly, but not does not feel like its making much difference. He has started superfeet insoles per MD and that helped. Treatment Goals Patient/Caregiver Goals be able to do walks without pain Personal Factors Other Personal Factors That May Effect PMH: back pain, neck pain, Therapy/Recovery varicose veins PT-OP-C Subjective Start: 04/16/20 07:27 Freq: Status: Active Protocol: Document 04/25/20 13:55 [facility] (Rec: 04/25/20 14:05 [facility] [id number]) OP-PT Subjective Patient Comments Patient Comments Pt reprots noting pain with push off PT-OP-D Balance Start: 04/16/20 07:27 Freq: Status: Active Protocol: Document 04/16/20 08:17 [facility] (Rec: 04/16/20 09:00 [facility] [id number]) Balance Tests Single Limb Standing Single Limb- Right 15 sec w/arms out and lat shift over hips Single Limb- Left 3 sec w/arms out and lat shift over hips-some pain PT-OP-F Manual Assessment Start: 04/16/20 07:27 Freq: Status: Active Protocol: Document 04/16/20 08:17 [facility] (Rec: 04/16/20 09:00 [facility] [id number]) Manual Assessments Soft Tissue Assessment Soft Tissue Mobility Assessment tihgtness/tendernss in L calf, L ATFL PT-OP-G Mobility & Gait Start: 04/16/20 07:27 Freq: Status: Active Protocol: Document 04/16/20 08:17 [facility] (Rec: 04/16/20 09:00 [facility] [id number]) OP Gait Assessment Comments Gait Comments dec push off, some lat leaning Stair Climbing Evaluation Comments Stair Climbing Comments able ot go up/down reciprocally with mild paind escent PT-OP-J Posture/Palpation/Skin Start: 04/16/20 07:27 Freq: Status: Active Protocol: Document 04/16/20 08:17 [facility] (Rec: 04/16/20 09:00 [facility] [id number]) Posture Evaluation [place]i Postural Classification System Lumbar Protective Mechanism Left AP 1 Lumbar Protective Mechanism Right AP 2 Lumbar Protective Mechanism Left PA 0 Lumbar Protective Mechanism Right PA 0 Comments Posture Comments thoracic cage sheared R, pronation B, fwd head and shoulders PT-OP-K Range of Motion Start: 04/16/20 07:27 Freq: Status: Active Protocol: Document 04/16/20 08:17 [facility] (Rec: 04/16/20 09:00 [facility] [id number]) Ankle and Foot Goniometric Range of Motion Ankle and Foot Right Active Dorsiflexion with Knee Flexed 3 Plantarflexion 56 Inversion 25 Eversion 21 Left Active Dorsiflexion with Knee Flexed 1 Plantarflexion 48 Inversion 10 Eversion 18 Comments pain w/inversion & DF PT-OP-M Strength Start: 10/26/20 07:27 Freq: Status: Active Protocol: Document 04/16/20 08:17 [facility] (Rec: 04/16/20 09:00 [facility] [id number]) Hip Strength Hip Manual Muscle Testing Right Flexion (L2) 3+ Fair+ Extension (S1) 4- Good- Abduction 4 Good External Rotation 4- Good- Internal Rotation 4+ Good+ Left Flexion (L2) 3 Fair Extension (S1) 3+ Fair+ Abduction 4 Good External Rotation 3+ Fair+ Internal Rotation 4+ Good+ Knee Strength Knee Manual Muscle Testing Right Flexion (S2) 4 Good Left Flexion (S2) 4 Good Extension (L3) 5 Normal Ankle/Foot Strength Ankle and Foot Manual Muscle Testing Right Dorsiflexion (L4) 5 Normal Inversion 5 Normal Eversion (S1) 5 Normal Left Dorsiflexion (L4) 4 Good Plantarflexion (S1) 3 Fair Inversion 4- Good- Eversion (S1) 5 Normal Comments only able to do 3 heel raises PT-OP-Q Treatments Start: 04/16/20 07:27 Freq: Status: Active Protocol: Document 04/25/20 13:55 [facility] (Rec: 04/25/20 14:05 [facility] [id number]) Gym Equipment Shuttle Balance red clips Comments fwd & side: WBOS & NBOS fwd staggered stance Therapeutic Exercises Sitting Exercises 1 Sitting Exercise Name DF Side left Reps/Minutes 30 Standing Exercises 1 Standing Exercise Name PF Side bilateral Reps/Minutes 30 Manual Therapy Treatment Soft Tissue Mobilization calf Body Location L calf & achilles & plantar fasica Mobilization Type Rolling,Strumming,Sustained Pressure Intensity/Depth Moderate Body Position Supine Joint Mobilizations tib fib Joint distal fib AP glide FM talus Joint L Direction distraction & AP & med glide FM PT-OP-T Assessment and Plan Start: 04/16/20 07:27 Freq: Status: Active Protocol: Document 04/25/20 13:55 [facility] (Rec: 04/25/20 14:05 [facility] [id number]) Physical Therapy Assessment Goals balance Gas Generator Operator Goal (LTG) Pt will be able to balance 10 sec on LLE w/o lat deviation B LTG Duration 06/16/20 [facility] Goal (LTG) Pt will have improved DF to 10 w/knee flex and 6 w/knee ext so he will have improved gait mechanics. LTG Duration 06/16/20 FAAM Impairment 56/84 Short Term Goal (STG) Pt will score 66/84 to show improved functional ability. STG Duration 05/17/20 [facility] Goal (LTG) Pt will score 80/84 to show improved functional ability. LTG Duration 06/16/20 activities Short Term Goal (STG) Pt will be able to go up/down stairs without pain STG Duration 05/17/20 [facility] Goal (LTG) Pt will be able to do his typical walks without any inc in pain. LTG Duration 06/16/20 strength Short Term Goal (STG) Pt will be indep with HEP STG Duration 05/17/20 [facility] Goal (LTG) Pt will have 5/5 LE strength and 3/5 LPM to show improved stability so he will not have pain during typical activities . LTG Duration 06/16/20 Assessment Summary Assessment Pt able to do all new exercises without inc pain as long as he kept his foot in neutral.i mproved balance on balance board today but still significant challenge. Physical Therapy Plan Frequency and Duration Frequency of Treatment 2x/Week Duration of Treatment 2 months Plan of Care Start Date 04/16/20 Plan of Care End Date 06/16/20 Next Visit Focus/Plan Next Note Type Treatment Note Next Visit Plan calcaneal, talar & tib/fib mobs, STM to calf & plantar fascia, review exercises, cont work on squat & balance board
--- NOTE | 2020-04-30 12:11 | PT.OTN ---
Current Diagnoses Other acquired deformities of left foot (04/30/20) Pain in left ankle and joints of left foot (04/30/20) Other specified joint disorders, left ankle and foot (04/30/20) Difficulty in walking, not elsewhere classified (04/30/20) Abnormal posture (04/30/20) Weakness (04/30/20) Physical Therapy Treatment Note PT-OP-A Visit Information Start: 04/16/20 07:27 Freq: Status: Active Protocol: Document 04/30/20 11:19 [facility] (Rec: 04/30/20 12:11 [facility] [id number]) Out-Patient Physical Therapy Visit Information Visit Information Visit Type Treatment Note Visit Note 10/29 Visit Start Time 11:19 Visit Stop Time 12:00 Total Visit Minutes 41 Visit Number 5 Number of WATER CONTROL STATION ENGINEER Visits 0 PT-OP-B Current Condition Start: 04/16/20 07:27 Freq: Status: Active Protocol: Document 04/16/20 08:17 [facility] (Rec: 04/16/20 09:00 [facility] [id number]) Current Condition History of Current Condition Onset Date several months ago , ~5 months ago Current Complaints ant and lat L ankle History of Current Condition Pt reports he cannot remember anything specific starting his foot pain. Pt reprots he has had pain on/off and it has been nagging. Uphill is worse than downhill. Takes a walk 3 miles every few days and hasn' t been able to not walk d/t pain. Pt has been doing some stretching, ibuprofen to help. Pain has gradually gotten worse Prior Treatments and Tests Xrays shows some problems per pt and had a steroid injection -initally didn't help but after a couple of weeks it may have helped slightly, but not does not feel like its making much difference. He has started superfeet insoles per MD and that helped. Treatment Goals Patient/Caregiver Goals be able to do walks without pain Personal Factors Other Personal Factors That May Effect PMH: back pain, neck pain, Therapy/Recovery varicose veins PT-OP-C Subjective Start: 04/16/20 07:27 Freq: Status: Active Protocol: Document 04/30/20 11:19 [facility] (Rec: 04/30/20 12:11 [facility] [id number]) OP-PT Subjective Patient Comments Patient Comments Pt reprots feeling good with exercises but still noting soreness PT-OP-D Balance Start: 04/16/20 07:27 Freq: Status: Active Protocol: Document 04/16/20 08:17 [facility] (Rec: 04/16/20 09:00 [facility] [id number]) Balance Tests Single Limb Standing Single Limb- Right 15 sec w/arms out and lat shift over hips Single Limb- Left 3 sec w/arms out and lat shift over hips-some pain PT-OP-F Manual Assessment Start: 04/16/20 07:27 Freq: Status: Active Protocol: Document 04/16/20 08:17 [facility] (Rec: 04/16/20 09:00 [facility] [id number]) Manual Assessments Soft Tissue Assessment Soft Tissue Mobility Assessment tihgtness/tendernss in L calf, L ATFL PT-OP-G Mobility & Gait Start: 04/16/20 07:27 Freq: Status: Active Protocol: Document 04/16/20 08:17 [facility] (Rec: 04/16/20 09:00 [facility] [id number]) OP Gait Assessment Comments Gait Comments dec push off, some lat leaning Stair Climbing Evaluation Comments Stair Climbing Comments able ot go up/down reciprocally with mild paind escent PT-OP-J Posture/Palpation/Skin Start: 04/16/20 07:27 Freq: Status: Active Protocol: Document 04/16/20 08:17 [facility] (Rec: 04/16/20 09:00 [facility] [id number]) Posture Evaluation [place] Postural Classification System Lumbar Protective Mechanism Left AP 1 Lumbar Protective Mechanism Right AP 2 Lumbar Protective Mechanism Left PA 0 Lumbar Protective Mechanism Right PA 0 Comments Posture Comments thoracic cage sheared R, pronation B, fwd head and shoulders PT-OP-K Range of Motion Start: 04/16/20 07:27 Freq: Status: Active Protocol: Document 04/16/20 08:17 [facility] (Rec: 04/16/20 09:00 [facility] [id number]) Ankle and Foot Goniometric Range of Motion Ankle and Foot Right Active Dorsiflexion with Knee Flexed 3 Plantarflexion 56 Inversion 25 Eversion 21 Left Active Dorsiflexion with Knee Flexed 1 Plantarflexion 48 Inversion 10 Eversion 18 Comments pain w/inversion & DF PT-OP-M Strength Start: 04/16/20 07:27 Freq: Status: Active Protocol: Document 04/16/20 08:17 [facility] (Rec: 04/16/20 09:00 [facility] [id number]) Hip Strength Hip Manual Muscle Testing Right Flexion (L2) 3+ Fair+ Extension (S1) 4- Good- Abduction 4 Good External Rotation 4- Good- Internal Rotation 4+ Good+ Left Flexion (L2) 3 Fair Extension (S1) 3+ Fair+ Abduction 4 Good External Rotation 3+ Fair+ Internal Rotation 4+ Good+ Knee Strength Knee Manual Muscle Testing Right Flexion (S2) 4 Good Left Flexion (S2) 4 Good Extension (L3) 5 Normal Ankle/Foot Strength Ankle and Foot Manual Muscle Testing Right Dorsiflexion (L4) 5 Normal Inversion 5 Normal Eversion (S1) 5 Normal Left Dorsiflexion (L4) 4 Good Plantarflexion (S1) 3 Fair Inversion 4- Good- Eversion (S1) 5 Normal Comments only able to do 3 heel raises PT-OP-Q Treatments Start: 04/16/20 07:27 Freq: Status: Active Protocol: Document 04/30/20 11:19 [facility] (Rec: 04/30/20 12:11 [facility] [id number]) Gym Equipment Shuttle Balance red clips Comments fwd & side: WBOS & NBOS fwd staggered stance Gait Training Gait Activity wt shifts Comments 1.fwd wt shifts to each LE 2. wt acceptance w/balance in SLS in mirror 3. hip hikes to work on wt acceptance x10 B Manual Therapy Treatment Joint Mobilizations tib fib Joint distal fib PA FM talus Direction distraction & med glide in PF calcaneus Joint L Direction distraction & lat gapping into PF PT-OP-T Assessment and Plan Start: 04/16/20 07:27 Freq: Status: Active Protocol: Document 04/30/20 11:19 [facility] (Rec: 04/30/20 12:11 [facility] [id number]) Physical Therapy Assessment Goals balance Chip Bin Operator Goal (LTG) Pt will be able to balance 10 sec on LLE w/o lat deviation B LTG Duration 06/16/20 ROM Chip Bin Operator Goal (LTG) Pt will have improved DF to 10 w/knee flex and 6 w/knee ext so he will have improved gait mechanics. LTG Duration 06/16/20 FAAM Impairment 56/84 Short Term Goal (STG) Pt will score 66/84 to show improved functional ability. STG Duration 05/17/20 [facility] Goal (LTG) Pt will score 80/84 to show improved functional ability. LTG Duration 06/16/20 activities Short Term Goal (STG) Pt will be able to go up/down stairs without pain STG Duration 05/17/20 [facility] Goal (LTG) Pt will be able to do his typical walks without any inc in pain. LTG Duration 06/16/20 strength Short Term Goal (STG) Pt will be indep with HEP STG Duration 05/17/20 Chip Bin Operator Goal (LTG) Pt will have 5/5 LE strength and 3/5 LPM to show improved stability so he will not have pain during typical activities . LTG Duration 06/16/20 Assessment Summary Assessment Pt did better on balance board today with improved stiablity . Did require cueing for foot postiioning in all standing exercises. Improved PF w/less inversion after mnaul treatment Physical Therapy Plan Next Visit Focus/Plan Next Note Type Treatment Note Next Visit Plan work on squating and balance
--- NOTE | 2020-05-02 11:55 | PT.OTN ---
Current Diagnoses Other acquired deformities of left foot (05/02/20) Pain in left ankle and joints of left foot (05/02/20) Other specified joint disorders, left ankle and foot (05/02/20) Difficulty in walking, not elsewhere classified (05/02/20) Abnormal posture (05/02/20) Weakness (05/02/20) Physical Therapy Treatment Note PT-OP-A Visit Information Start: 04/16/20 07:27 Freq: Status: Active Protocol: Document 05/02/20 11:42 [facility] (Rec: 05/02/20 11:54 [facility] [id number]) Out-Patient Physical Therapy Visit Information Visit Information Visit Type Treatment Note Visit Note 11/29 Visit Start Time 09:03 Visit Stop Time 09:44 Total Visit Minutes 41 Visit Number 6 Number of BIOCHEMISTRY TEACHER Visits 0 PT-OP-B Current Condition Start: 04/16/20 07:27 Freq: Status: Active Protocol: Document 04/16/20 08:17 [facility] (Rec: 04/16/20 09:00 [facility] [id number]) Current Condition History of Current Condition Onset Date several months ago , ~5 months ago Current Complaints ant and lat L ankle History of Current Condition Pt reports he cannot remember anything specific starting his foot pain. Pt reprots he has had pain on/off and it has been nagging. Uphill is worse than downhill. Takes a walk 3 miles every few days and hasn' t been able to not walk d/t pain. Pt has been doing some stretching, ibuprofen to help. Pain has gradually gotten worse Prior Treatments and Tests Xrays shows some problems per pt and had a steroid injection -initally didn't help but after a couple of weeks it may have helped slightly, but not does not feel like its making much difference. He has started superfeet insoles per MD and that helped. Treatment Goals Patient/Caregiver Goals be able to do walks without pain Personal Factors Other Personal Factors That May Effect PMH: back pain, neck pain, Therapy/Recovery varicose veins PT-OP-C Subjective Start: 04/16/20 07:27 Freq: Status: Active Protocol: Document 05/02/20 11:42 [facility] (Rec: 05/02/20 11:54 [facility] [id number]) OP-PT Subjective Patient Comments Patient Comments pt reports exercises do feel good PT-OP-D Balance Start: 04/16/20 07:27 Freq: Status: Active Protocol: Document 04/16/20 08:17 [facility] (Rec: 04/16/20 09:00 [facility] [id number]) Balance Tests Single Limb Standing Single Limb- Right 15 sec w/arms out and lat shift over hips Single Limb- Left 3 sec w/arms out and lat shift over hips-some pain PT-OP-F Manual Assessment Start: 04/16/20 07:27 Freq: Status: Active Protocol: Document 04/16/20 08:17 [facility] (Rec: 04/16/20 09:00 [facility] [id number]) Manual Assessments Soft Tissue Assessment Soft Tissue Mobility Assessment tihgtness/tendernss in L calf, L ATFL PT-OP-G Mobility & Gait Start: 04/16/20 07:27 Freq: Status: Active Protocol: Document 04/16/20 08:17 [facility] (Rec: 04/16/20 09:00 [facility] [id number]) OP Gait Assessment Comments Gait Comments dec push off, some lat leaning Stair Climbing Evaluation Comments Stair Climbing Comments able ot go up/down reciprocally with mild paind escent PT-OP-J Posture/Palpation/Skin Start: 04/16/20 07:27 Freq: Status: Active Protocol: Document 04/16/20 08:17 [facility] (Rec: 04/16/20 09:00 [facility] [id number]) Posture Evaluation [place] Postural Classification System Lumbar Protective Mechanism Left AP 1 Lumbar Protective Mechanism Right AP 2 Lumbar Protective Mechanism Left PA 0 Lumbar Protective Mechanism Right PA 0 Comments Posture Comments thoracic cage sheared R, pronation B, fwd head and shoulders PT-OP-K Range of Motion Start: 04/16/20 07:27 Freq: Status: Active Protocol: Document 04/16/20 08:17 [facility] (Rec: 04/16/20 09:00 [facility] [id number]) Ankle and Foot Goniometric Range of Motion Ankle and Foot Right Active Dorsiflexion with Knee Flexed 3 Plantarflexion 56 Inversion 25 Eversion 21 Left Active Dorsiflexion with Knee Flexed 1 Plantarflexion 48 Inversion 10 Eversion 18 Comments pain w/inversion & DF PT-OP-M Strength Start: 04/16/20 07:27 Freq: Status: Active Protocol: Document 04/16/20 08:17 [facility] (Rec: 04/16/20 09:00 [facility] [id number]) Hip Strength Hip Manual Muscle Testing Right Flexion (L2) 3+ Fair+ Extension (S1) 4- Good- Abduction 4 Good External Rotation 4- Good- Internal Rotation 4+ Good+ Left Flexion (L2) 3 Fair Extension (S1) 3+ Fair+ Abduction 4 Good External Rotation 3+ Fair+ Internal Rotation 4+ Good+ Knee Strength Knee Manual Muscle Testing Right Flexion (S2) 4 Good Left Flexion (S2) 4 Good Extension (L3) 5 Normal Ankle/Foot Strength Ankle and Foot Manual Muscle Testing Right Dorsiflexion (L4) 5 Normal Inversion 5 Normal Eversion (S1) 5 Normal Left Dorsiflexion (L4) 4 Good Plantarflexion (S1) 3 Fair Inversion 4- Good- Eversion (S1) 5 Normal Comments only able to do 3 heel raises PT-OP-Q Treatments Start: 04/16/20 07:27 Freq: Status: Active Protocol: Document 05/02/20 11:42 [facility] (Rec: 05/02/20 11:54 [facility] [id number]) Gym Equipment Shuttle Balance red clips Comments fwd & side: WBOS & NBOS fwd staggered stance Therapeutic Exercises Standing Exercises stretch Standing Exercise Name B calf stretch Side bilateral Equipment Used stair Reps/Minutes 30sec 1 Standing Exercise Name PF Side bilateral Reps/Minutes 30 Comments w/tennis ball btwn heels Gait Training Gait Activity wt shifts Comments 1.fwd wt shifts to each LE Manual Therapy Treatment Soft Tissue Mobilization calf Body Location L calf & achilles & plantar fasica Mobilization Type Rolling,Strumming,Sustained Pressure Intensity/Depth Moderate Body Position Supine Neuro Re-Education Treatment Balance Activities tandem stance Details B trials PT-OP-R Modalities Start: 04/16/20 07:27 Freq: Status: Active Protocol: Document 05/02/20 11:42 [facility] (Rec: 05/02/20 11:55 [facility] [id number]) Infrared Treatment Treatment L ant to fibula Duration (Minutes) 1 Program or Protocal chronic med intenisity for ligaments & tendons PT-OP-T Assessment and Plan Start: 04/16/20 07:27 Freq: Status: Active Protocol: Document 05/02/20 11:42 [facility] (Rec: 05/02/20 11:54 [facility] [id number]) Physical Therapy Assessment Goals balance [facility] Goal (LTG) Pt will be able to balance 10 sec on LLE w/o lat deviation B LTG Duration 06/16/20 ROM [facility] Goal (LTG) Pt will have improved DF to 10 w/knee flex and 6 w/knee ext so he will have improved gait mechanics. LTG Duration 06/16/20 FAAM Impairment 56/84 Short Term Goal (STG) Pt will score 66/84 to show improved functional ability. STG Duration 05/17/20 [employer] Operator Goal (LTG) Pt will score 80/84 to show improved functional ability. LTG Duration 06/16/20 activities Short Term Goal (STG) Pt will be able to go up/down stairs without pain STG Duration 05/17/20 [facility] Goal (LTG) Pt will be able to do his typical walks without any inc in pain. LTG Duration 06/16/20 strength Short Term Goal (STG) Pt will be indep with HEP STG Duration 05/17/20 [employer] Operator Goal (LTG) Pt will have 5/5 LE strength and 3/5 LPM to show improved stability so he will not have pain during typical activities . LTG Duration 06/16/20 Assessment Summary Assessment pt did well with exercises today but with gait he did require cueing to keep big toe down with push off. He did report feeling better after session. Physical Therapy Plan Frequency and Duration Frequency of Treatment 2x/Week Duration of Treatment 2 months Plan of Care Start Date 04/16/20 Plan of Care End Date 06/16/20 Next Visit Focus/Plan Next Note Type Treatment Note Next Visit Plan work on squating and balance
--- NOTE | 2020-05-07 12:07 | PT.OTN ---
Current Diagnoses Other acquired deformities of left foot (05/07/20) Pain in left ankle and joints of left foot (05/07/20) Other specified joint disorders, left ankle and foot (05/07/20) Difficulty in walking, not elsewhere classified (05/07/20) Abnormal posture (05/07/20) Weakness (05/07/20) Physical Therapy Treatment Note PT-OP-A Visit Information Start: 04/16/20 07:27 Freq: Status: Active Protocol: Document 05/07/20 10:58 [facility] (Rec: 05/07/20 12:06 [facility] [id number]) Out-Patient Physical Therapy Visit Information Visit Information Visit Type Treatment Note Visit Note 12/29 Visit Start Time 11:17 Visit Stop Time 11:57 Total Visit Minutes 40 Visit Number 7 Number of BUSINESS SUPPORT ASSISTANT Visits 0 PT-OP-B Current Condition Start: 04/16/20 07:27 Freq: Status: Active Protocol: Document 04/16/20 08:17 [facility] (Rec: 04/16/20 09:00 [facility] [id number]) Current Condition History of Current Condition Onset Date several months ago , ~5 months ago Current Complaints ant and lat L ankle History of Current Condition Pt reports he cannot remember anything specific starting his foot pain. Pt reprots he has had pain on/off and it has been nagging. Uphill is worse than downhill. Takes a walk 3 miles every few days and hasn' t been able to not walk d/t pain. Pt has been doing some stretching, ibuprofen to help. Pain has gradually gotten worse Prior Treatments and Tests Xrays shows some problems per pt and had a steroid injection -initally didn't help but after a couple of weeks it may have helped slightly, but not does not feel like its making much difference. He has started superfeet insoles per MD and that helped. Treatment Goals Patient/Caregiver Goals be able to do walks without pain Personal Factors Other Personal Factors That May Effect PMH: back pain, neck pain, Therapy/Recovery varicose veins PT-OP-C Subjective Start: 04/16/20 07:27 Freq: Status: Active Protocol: Document 05/07/20 10:58 [facility] (Rec: 05/07/20 12:06 [facility] [id number]) OP-PT Subjective Patient Comments Patient Comments did exercises daily except 1 day PT-OP-D Balance Start: 04/16/20 07:27 Freq: Status: Active Protocol: Document 04/16/20 08:17 [facility] (Rec: 04/16/20 09:00 [facility] [id number]) Balance Tests Single Limb Standing Single Limb- Right 15 sec w/arms out and lat shift over hips Single Limb- Left 3 sec w/arms out and lat shift over hips-some pain PT-OP-F Manual Assessment Start: 04/16/20 07:27 Freq: Status: Active Protocol: Document 04/16/20 08:17 [facility] (Rec: 04/16/20 09:00 [facility] [id number]) Manual Assessments Soft Tissue Assessment Soft Tissue Mobility Assessment tihgtness/tendernss in L calf, L ATFL PT-OP-G Mobility & Gait Start: 04/16/20 07:27 Freq: Status: Active Protocol: Document 04/16/20 08:17 [facility] (Rec: 04/16/20 09:00 [facility] [id number]) OP Gait Assessment Comments Gait Comments dec push off, some lat leaning Stair Climbing Evaluation Comments Stair Climbing Comments able ot go up/down reciprocally with mild paind escent PT-OP-J Posture/Palpation/Skin Start: 04/16/20 07:27 Freq: Status: Active Protocol: Document 04/16/20 08:17 [facility] (Rec: 04/16/20 09:00 [facility] [id number]) Posture Evaluation Timi Postural Classification System Lumbar Protective Mechanism Left AP 1 Lumbar Protective Mechanism Right AP 2 Lumbar Protective Mechanism Left PA 0 Lumbar Protective Mechanism Right PA 0 Comments Posture Comments thoracic cage sheared R, pronation B, fwd head and shoulders PT-OP-K Range of Motion Start: 04/16/20 07:27 Freq: Status: Active Protocol: Document 04/16/20 08:17 [facility] (Rec: 04/16/20 09:00 [facility] [id number]) Ankle and Foot Goniometric Range of Motion Ankle and Foot Right Active Dorsiflexion with Knee Flexed 3 Plantarflexion 56 Inversion 25 Eversion 21 Left Active Dorsiflexion with Knee Flexed 1 Plantarflexion 48 Inversion 10 Eversion 18 Comments pain w/inversion & DF PT-OP-M Strength Start: 04/16/20 07:27 Freq: Status: Active Protocol: Document 04/16/20 08:17 [facility] (Rec: 04/16/20 09:00 [facility] [id number]) Hip Strength Hip Manual Muscle Testing Right Flexion (L2) 3+ Fair+ Extension (S1) 4- Good- Abduction 4 Good External Rotation 4- Good- Internal Rotation 4+ Good+ Left Flexion (L2) 3 Fair Extension (S1) 3+ Fair+ Abduction 4 Good External Rotation 3+ Fair+ Internal Rotation 4+ Good+ Knee Strength Knee Manual Muscle Testing Right Flexion (S2) 4 Good Left Flexion (S2) 4 Good Extension (L3) 5 Normal Ankle/Foot Strength Ankle and Foot Manual Muscle Testing Right Dorsiflexion (L4) 5 Normal Inversion 5 Normal Eversion (S1) 5 Normal Left Dorsiflexion (L4) 4 Good Plantarflexion (S1) 3 Fair Inversion 4- Good- Eversion (S1) 5 Normal Comments only able to do 3 heel raises PT-OP-Q Treatments Start: 04/16/20 07:27 Freq: Status: Active Protocol: Document 05/07/20 10:58 [facility] (Rec: 05/07/20 12:06 [facility] [id number]) Gym Equipment Shuttle Balance red clips Comments fwd & side: WBOS & NBOS fwd staggered stance fwd &side WBOS wt shifts Therapeutic Exercises Sitting Exercises 1 Sitting Exercise Name eversion Side left Equipment Used L2 Reps/Minutes 20 Standing Exercises squat Side bilateral Equipment Used L1 band around knees Reps/Minutes 10 w/rail & 20 over chair in mirror Comments focus on knee position 1 Standing Exercise Name PF Side bilateral Reps/Minutes 30 Comments w/tennis ball btwn heels Gait Training Gait Activity wt shifts Comments 1.fwd wt shifts to each LE Manual Therapy Treatment Joint Mobilizations talus Direction med glide & AP FM PT-OP-R Modalities Start: 04/16/20 07:27 Freq: Status: Active Protocol: Document 05/02/20 11:42 [facility] (Rec: 05/02/20 11:55 [facility] [id number]) Infrared Treatment Treatment L ant to fibula Duration (Minutes) 1 Program or Protocal chronic med intenisity for ligaments & tendons PT-OP-T Assessment and Plan Start: 04/16/20 07:27 Freq: Status: Active Protocol: Document 05/07/20 10:58 [facility] (Rec: 05/07/20 12:06 [facility] [id number]) Physical Therapy Assessment Goals balance Snow Plow Tractor Operator Goal (LTG) Pt will be able to balance 10 sec on LLE w/o lat deviation B LTG Duration 06/16/20 ROM Long-Term Goal (LTG) Pt will have improved DF to 10 w/knee flex and 6 w/knee ext so he will have improved gait mechanics. LTG Duration 06/16/20 FAAM Impairment 56/84 Short Term Goal (STG) Pt will score 66/84 to show improved functional ability. STG Duration 05/17/20 Long-Term Goal (LTG) Pt will score 80/84 to show improved functional ability. LTG Duration 06/16/20 activities Short Term Goal (STG) Pt will be able to go up/down stairs without pain STG Duration 05/17/20 Long-Term Goal (LTG) Pt will be able to do his typical walks without any inc in pain. LTG Duration 06/16/20 strength Short Term Goal (STG) Pt will be indep with HEP STG Duration 05/17/20 Snow Plow Tractor Operator Goal (LTG) Pt will have 5/5 LE strength and 3/5 LPM to show improved stability so he will not have pain during typical activities . LTG Duration 06/16/20 Assessment Summary Assessment Pt able to dec pain with push off and heel raises when focus on not supinating excessively in PF whcih is difficult for pt and initially required tacitle cueing. Physical Therapy Plan Frequency and Duration Frequency of Treatment 2x/Week Duration of Treatment 2 months Plan of Care Start Date 04/16/20 Plan of Care End Date 06/16/20 Next Visit Focus/Plan Next Note Type Treatment Note Next Visit Plan work on squating and balance
--- NOTE | 2020-05-09 17:52 | PT.OTN ---
Current Diagnoses Other acquired deformities of left foot (05/09/20) Pain in left ankle and joints of left foot (05/09/20) Other specified joint disorders, left ankle and foot (05/09/20) Difficulty in walking, not elsewhere classified (05/09/20) Abnormal posture (05/09/20) Weakness (05/09/20) Physical Therapy Treatment Note PT-OP-A Visit Information Start: 04/16/20 07:27 Freq: Status: Active Protocol: Document 05/09/20 09:02 [facility] (Rec: 05/09/20 17:52 [facility] [id number]) Out-Patient Physical Therapy Visit Information Visit Information Visit Type Treatment Note Visit Note 01/29 Visit Start Time 09:04 Visit Stop Time 09:44 Total Visit Minutes 40 Visit Number 8 Number of INSURANCE OFFICE MANAGER Visits 0 PT-OP-B Current Condition Start: 04/16/20 07:27 Freq: Status: Active Protocol: Document 04/16/20 08:17 [facility] (Rec: 04/16/20 09:00 [facility] [id number]) Current Condition History of Current Condition Onset Date several months ago , ~5 months ago Current Complaints ant and lat L ankle History of Current Condition Pt reports he cannot remember anything specific starting his foot pain. Pt reprots he has had pain on/off and it has been nagging. Uphill is worse than downhill. Takes a walk 3 miles every few days and hasn' t been able to not walk d/t pain. Pt has been doing some stretching, ibuprofen to help. Pain has gradually gotten worse Prior Treatments and Tests Xrays shows some problems per pt and had a steroid injection -initally didn't help but after a couple of weeks it may have helped slightly, but not does not feel like its making much difference. He has started superfeet insoles per MD and that helped. Treatment Goals Patient/Caregiver Goals be able to do walks without pain Personal Factors Other Personal Factors That May Effect PMH: back pain, neck pain, Therapy/Recovery varicose veins PT-OP-C Subjective Start: 04/16/20 07:27 Freq: Status: Active Protocol: Document 05/09/20 09:02 [facility] (Rec: 05/09/20 17:52 [facility] [id number]) OP-PT Subjective Patient Comments Patient Comments Pt reports pain is less when first getitng up and with hills. Notes pain is different now Patient Reported Progress Improving PT-OP-D Balance Start: 04/16/20 07:27 Freq: Status: Active Protocol: Document 04/16/20 08:17 [facility] (Rec: 04/16/20 09:00 [facility] [id number]) Balance Tests Single Limb Standing Single Limb- Right 15 sec w/arms out and lat shift over hips Single Limb- Left 3 sec w/arms out and lat shift over hips-some pain PT-OP-F Manual Assessment Start: 04/16/20 07:27 Freq: Status: Active Protocol: Document 04/16/20 08:17 [facility] (Rec: 04/16/20 09:00 [facility] [id number]) Manual Assessments Soft Tissue Assessment Soft Tissue Mobility Assessment tihgtness/tendernss in L calf, L ATFL PT-OP-G Mobility & Gait Start: 04/16/20 07:27 Freq: Status: Active Protocol: Document 04/16/20 08:17 [facility] (Rec: 04/16/20 09:00 [facility] [id number]) OP Gait Assessment Comments Gait Comments dec push off, some lat leaning Stair Climbing Evaluation Comments Stair Climbing Comments able ot go up/down reciprocally with mild paind escent PT-OP-J Posture/Palpation/Skin Start: 04/16/20 07:27 Freq: Status: Active Protocol: Document 04/16/20 08:17 [facility] (Rec: 04/16/20 09:00 [facility] [id number]) Posture Evaluation Timi Postural Classification System Lumbar Protective Mechanism Left AP 1 Lumbar Protective Mechanism Right AP 2 Lumbar Protective Mechanism Left PA 0 Lumbar Protective Mechanism Right PA 0 Comments Posture Comments thoracic cage sheared R, pronation B, fwd head and shoulders PT-OP-K Range of Motion Start: 04/16/20 07:27 Freq: Status: Active Protocol: Document 04/16/20 08:17 [facility] (Rec: 04/16/20 09:00 [facility] [id number]) Ankle and Foot Goniometric Range of Motion Ankle and Foot Right Active Dorsiflexion with Knee Flexed 3 Plantarflexion 56 Inversion 25 Eversion 21 Left Active Dorsiflexion with Knee Flexed 1 Plantarflexion 48 Inversion 10 Eversion 18 Comments pain w/inversion & DF PT-OP-M Strength Start: 04/16/20 07:27 Freq: Status: Active Protocol: Document 04/16/20 08:17 [facility] (Rec: 04/16/20 09:00 [facility] [id number]) Hip Strength Hip Manual Muscle Testing Right Flexion (L2) 3+ Fair+ Extension (S1) 4- Good- Abduction 4 Good External Rotation 4- Good- Internal Rotation 4+ Good+ Left Flexion (L2) 3 Fair Extension (S1) 3+ Fair+ Abduction 4 Good External Rotation 3+ Fair+ Internal Rotation 4+ Good+ Knee Strength Knee Manual Muscle Testing Right Flexion (S2) 4 Good Left Flexion (S2) 4 Good Extension (L3) 5 Normal Ankle/Foot Strength Ankle and Foot Manual Muscle Testing Right Dorsiflexion (L4) 5 Normal Inversion 5 Normal Eversion (S1) 5 Normal Left Dorsiflexion (L4) 4 Good Plantarflexion (S1) 3 Fair Inversion 4- Good- Eversion (S1) 5 Normal Comments only able to do 3 heel raises PT-OP-Q Treatments Start: 04/16/20 07:27 Freq: Status: Active Protocol: Document 05/09/20 09:02 [facility] (Rec: 05/09/20 17:52 [facility] [id number]) Gym Equipment Shuttle Balance red clips Comments fwd & side: WBOS & NBOS fwd staggered stance fwd &side WBOS wt shifts Therapeutic Exercises Sitting Exercises 1 Sitting Exercise Name eversion Side left Reps/Minutes 20 Standing Exercises squat Side bilateral Equipment Used L1 band around knees Reps/Minutes 20 over chair in mirror Comments focus on knee position 1 Standing Exercise Name PF Side bilateral Reps/Minutes 30 Comments w/tennis ball btwn heels Manual Therapy Treatment Joint Mobilizations forefoot Comments 1. cueniforms gapping in standing w/arch support & supine 2. 1st MT AP FM talus Direction med glide & AP FM PT-OP-R Modalities Start: 04/16/20 07:27 Freq: Status: Active Protocol: Document 05/09/20 09:02 [facility] (Rec: 05/09/20 17:52 [facility] [id number]) Infrared Treatment Treatment L ant to fibula Duration (Minutes) 1 Program or Protocal chronic med intenisity for ligaments & tendons PT-OP-T Assessment and Plan Start: 04/16/20 07:27 Freq: Status: Active Protocol: Document 05/09/20 09:02 [facility] (Rec: 05/09/20 17:52 [facility] [id number]) Physical Therapy Assessment Goals balance Horizontal Resaw Operator Goal (LTG) Pt will be able to balance 10 sec on LLE w/o lat deviation B LTG Duration 06/16/20 ROM Horizontal Resaw Operator Goal (LTG) Pt will have improved DF to 10 w/knee flex and 6 w/knee ext so he will have improved gait mechanics. LTG Duration 06/16/20 FAAM Impairment 56/84 Short Term Goal (STG) Pt will score 66/84 to show improved functional ability. STG Duration 05/17/20 Horizontal Resaw Operator Goal (LTG) Pt will score 80/84 to show improved functional ability. LTG Duration 06/16/20 activities Short Term Goal (STG) Pt will be able to go up/down stairs without pain STG Duration 05/17/20 Jail Goal (LTG) Pt will be able to do his typical walks without any inc in pain. LTG Duration 06/16/20 strength Short Term Goal (STG) Pt will be indep with HEP STG Duration 05/17/20 Horizontal Resaw Operator Goal (LTG) Pt will have 5/5 LE strength and 3/5 LPM to show improved stability so he will not have pain during typical activities . LTG Duration 06/16/20 Assessment Summary Assessment Improved squat form today with use of mirror and band and min-mod cueing. DId not use band today with eversionto get better quality motion. Physical Therapy Plan Frequency and Duration Frequency of Treatment 2x/Week Duration of Treatment 2 months Plan of Care Start Date 04/16/20 Plan of Care End Date 06/16/20 Next Visit Focus/Plan Next Note Type Treatment Note Next Visit Plan work on squating and balance
--- NOTE | 2020-05-14 09:13 | PT.OTN ---
Current Diagnoses Other acquired deformities of left foot (05/14/20) Pain in left ankle and joints of left foot (05/14/20) Other specified joint disorders, left ankle and foot (05/14/20) Difficulty in walking, not elsewhere classified (05/14/20) Abnormal posture (05/14/20) Weakness (05/14/20) Physical Therapy Treatment Note PT-OP-A Visit Information Start: 04/16/20 07:27 Freq: Status: Active Protocol: Document 05/14/20 08:15 [facility] (Rec: 05/14/20 09:13 [facility] [id number]) Out-Patient Physical Therapy Visit Information Visit Information Visit Type Treatment Note Visit Note 03/01 Visit Start Time 08:16 Visit Stop Time 08:56 Total Visit Minutes 40 Visit Number 9 Number of PRIMARY CARE NURSE PRACTITIONER Visits 0 PT-OP-B Current Condition Start: 04/16/20 07:27 Freq: Status: Active Protocol: Document 04/16/20 08:17 [facility] (Rec: 04/16/20 09:00 [facility] [id number]) Current Condition History of Current Condition Onset Date several months ago , ~5 months ago Current Complaints ant and lat L ankle History of Current Condition Pt reports he cannot remember anything specific starting his foot pain. Pt reprots he has had pain on/off and it has been nagging. Uphill is worse than downhill. Takes a walk 3 miles every few days and hasn' t been able to not walk d/t pain. Pt has been doing some stretching, ibuprofen to help. Pain has gradually gotten worse Prior Treatments and Tests Xrays shows some problems per pt and had a steroid injection -initally didn't help but after a couple of weeks it may have helped slightly, but not does not feel like its making much difference. He has started superfeet insoles per MD and that helped. Treatment Goals Patient/Caregiver Goals be able to do walks without pain Personal Factors Other Personal Factors That May Effect PMH: back pain, neck pain, Therapy/Recovery varicose veins PT-OP-C Subjective Start: 04/16/20 07:27 Freq: Status: Active Protocol: Document 05/14/20 08:15 [facility] (Rec: 05/14/20 09:13 [facility] [id number]) OP-PT Subjective Patient Comments Patient Comments Pt reports he feels like he is doing better on hills on hikes. PT-OP-D Balance Start: 04/16/20 07:27 Freq: Status: Active Protocol: Document 04/16/20 08:17 [facility] (Rec: 04/16/20 09:00 [facility] [id number]) Balance Tests Single Limb Standing Single Limb- Right 15 sec w/arms out and lat shift over hips Single Limb- Left 3 sec w/arms out and lat shift over hips-some pain PT-OP-F Manual Assessment Start: 04/16/20 07:27 Freq: Status: Active Protocol: Document 04/16/20 08:17 [facility] (Rec: 04/16/20 09:00 [facility] [id number]) Manual Assessments Soft Tissue Assessment Soft Tissue Mobility Assessment tihgtness/tendernss in L calf, L ATFL PT-OP-G Mobility & Gait Start: 04/16/20 07:27 Freq: Status: Active Protocol: Document 04/16/20 08:17 [facility] (Rec: 04/16/20 09:00 [facility] [id number]) OP Gait Assessment Comments Gait Comments dec push off, some lat leaning Stair Climbing Evaluation Comments Stair Climbing Comments able ot go up/down reciprocally with mild paind escent PT-OP-J Posture/Palpation/Skin Start: 04/16/20 07:27 Freq: Status: Active Protocol: Document 04/16/20 08:17 [facility] (Rec: 04/16/20 09:00 [facility] [id number]) Posture Evaluation [facility] Postural Classification System Lumbar Protective Mechanism Left AP 1 Lumbar Protective Mechanism Right AP 2 Lumbar Protective Mechanism Left PA 0 Lumbar Protective Mechanism Right PA 0 Comments Posture Comments thoracic cage sheared R, pronation B, fwd head and shoulders PT-OP-K Range of Motion Start: 04/16/20 07:27 Freq: Status: Active Protocol: Document 04/16/20 08:17 [facility] (Rec: 04/16/20 09:00 [facility] [id number]) Ankle and Foot Goniometric Range of Motion Ankle and Foot Right Active Dorsiflexion with Knee Flexed 3 Plantarflexion 56 Inversion 25 Eversion 21 Left Active Dorsiflexion with Knee Flexed 1 Plantarflexion 48 Inversion 10 Eversion 18 Comments pain w/inversion & DF PT-OP-M Strength Start: 04/16/20 07:27 Freq: Status: Active Protocol: Document 04/16/20 08:17 [facility] (Rec: 04/16/20 09:00 [facility] [id number]) Hip Strength Hip Manual Muscle Testing Right Flexion (L2) 3+ Fair+ Extension (S1) 4- Good- Abduction 4 Good External Rotation 4- Good- Internal Rotation 4+ Good+ Left Flexion (L2) 3 Fair Extension (S1) 3+ Fair+ Abduction 4 Good External Rotation 3+ Fair+ Internal Rotation 4+ Good+ Knee Strength Knee Manual Muscle Testing Right Flexion (S2) 4 Good Left Flexion (S2) 4 Good Extension (L3) 5 Normal Ankle/Foot Strength Ankle and Foot Manual Muscle Testing Right Dorsiflexion (L4) 5 Normal Inversion 5 Normal Eversion (S1) 5 Normal Left Dorsiflexion (L4) 4 Good Plantarflexion (S1) 3 Fair Inversion 4- Good- Eversion (S1) 5 Normal Comments only able to do 3 heel raises PT-OP-Q Treatments Start: 04/16/20 07:27 Freq: Status: Active Protocol: Document 05/14/20 08:15 [facility] (Rec: 05/14/20 09:13 [facility] [id number]) Gym Equipment Shuttle Balance red clips Comments fwd & side: WBOS & NBOS fwd staggered stance fwd &side WBOS wt shifts Therapeutic Exercises Supine Exercises flex Supine Exercise Name passive stretching to L ant tib Reps/Minutes 30 sec Comments other foot to help Sitting Exercises 1 Sitting Exercise Name eversion Side left Equipment Used non first set, 2nd Lvl 1 tband Reps/Minutes 2x10 Standing Exercises squat Side bilateral Equipment Used L1 band around knees Reps/Minutes 20 over chair in mirror Comments focus on knee position Manual Therapy Treatment Soft Tissue Mobilization calf Body Location L achilles Mobilization Type Rolling,Strumming,Sustained Pressure Intensity/Depth Moderate Body Position Supine Comments TFM along ATFL Joint Mobilizations talus Direction med glide & AP FM calcaneus Joint L Direction lat glide & distraction PT-OP-R Modalities Start: 04/16/20 07:27 Freq: Status: Active Protocol: Document 05/14/20 08:15 [facility] (Rec: 05/14/20 09:13 [facility] [id number]) Infrared Treatment Treatment L ant to fibula Duration (Minutes) 1 Program or Protocal chronic med intenisity for ligaments & tendons PT-OP-T Assessment and Plan Start: 04/16/20 07:27 Freq: Status: Active Protocol: Document 05/14/20 08:15 [facility] (Rec: 05/14/20 09:13 [facility] [id number]) Physical Therapy Assessment Goals balance Prison Goal (LTG) Pt will be able to balance 10 sec on LLE w/o lat deviation B LTG Duration 06/16/20 ROM Sheet Metal Worker Maintenance Goal (LTG) Pt will have improved DF to 10 w/knee flex and 6 w/knee ext so he will have improved gait mechanics. LTG Duration 06/16/20 FAAM Impairment 56/84 Short Term Goal (STG) Pt will score 66/84 to show improved functional ability. STG Duration 05/17/20 Prison Goal (LTG) Pt will score 80/84 to show improved functional ability. LTG Duration 06/16/20 activities Short Term Goal (STG) Pt will be able to go up/down stairs without pain STG Duration 05/17/20 Sheet Metal Worker Maintenance Goal (LTG) Pt will be able to do his typical walks without any inc in pain. LTG Duration 06/16/20 strength Short Term Goal (STG) Pt will be indep with HEP STG Duration 05/17/20 Sheet Metal Worker Maintenance Goal (LTG) Pt will have 5/5 LE strength and 3/5 LPM to show improved stability so he will not have pain during typical activities . LTG Duration 06/16/20 Assessment Summary Assessment Pt cont to improve with his ability to do exercises but squatting does require band as attempteed w/o and pt went too far fwd w/knees past toes. He cont to have inverted positioning when going into PF which likely causes the pain d/t inc tension on ligaments. Physical Therapy Plan Frequency and Duration Frequency of Treatment 2x/Week Duration of Treatment 2 months Plan of Care Start Date 04/16/20 Plan of Care End Date 06/16/20 Next Visit Focus/Plan Next Note Type Progress Note Next Visit Plan work on squating and balance
--- NOTE | 2020-05-16 09:46 | PT.OTN ---
Current Diagnoses Other acquired deformities of left foot (05/16/20) Pain in left ankle and joints of left foot (05/16/20) Other specified joint disorders, left ankle and foot (05/16/20) Difficulty in walking, not elsewhere classified (05/16/20) Abnormal posture (05/16/20) Weakness (05/16/20) Physical Therapy Treatment Note PT-OP-A Visit Information Start: 04/16/20 07:27 Freq: Status: Active Protocol: Document 05/16/20 07:31 [facility] (Rec: 05/16/20 09:45 [facility] [id number]) Out-Patient Physical Therapy Visit Information Visit Information Visit Type Progress Note Visit Note 07/01 Visit Start Time 07:31 Visit Stop Time 08:15 Total Visit Minutes 44 Visit Number 10 Number of PASS WORKER Visits 0 PT-OP-B Current Condition Start: 04/16/20 07:27 Freq: Status: Active Protocol: Document 04/16/20 08:17 [facility] (Rec: 04/16/20 09:00 [facility] [id number]) Current Condition History of Current Condition Onset Date several months ago , ~5 months ago Current Complaints ant and lat L ankle History of Current Condition Pt reports he cannot remember anything specific starting his foot pain. Pt reprots he has had pain on/off and it has been nagging. Uphill is worse than downhill. Takes a walk 3 miles every few days and hasn' t been able to not walk d/t pain. Pt has been doing some stretching, ibuprofen to help. Pain has gradually gotten worse Prior Treatments and Tests Xrays shows some problems per pt and had a steroid injection -initally didn't help but after a couple of weeks it may have helped slightly, but not does not feel like its making much difference. He has started superfeet insoles per MD and that helped. Treatment Goals Patient/Caregiver Goals be able to do walks without pain Personal Factors Other Personal Factors That May Effect PMH: back pain, neck pain, Therapy/Recovery varicose veins PT-OP-C Subjective Start: 04/16/20 07:27 Freq: Status: Active Protocol: Document 05/16/20 07:31 [facility] (Rec: 05/16/20 09:45 [facility] [id number]) OP-PT Subjective Patient Comments Patient Comments P treports exercises takea obut 25 min PT-OP-D Balance Start: 04/16/20 07:27 Freq: Status: Active Protocol: Document 05/16/20 07:31 [facility] (Rec: 05/16/20 09:45 [facility] [id number]) Balance Tests Single Limb Standing Single Limb- Right 13 sec w/arms across chest and dec lat shift over hips Single Limb- Left 15 sec w/arms out & lat shift; 7 sec w/arms across chest and some lat shift PT-OP-F Manual Assessment Start: 04/16/20 07:27 Freq: Status: Active Protocol: Document 04/16/20 08:17 [facility] (Rec: 04/16/20 09:00 [facility] [id number]) Manual Assessments Soft Tissue Assessment Soft Tissue Mobility Assessment tihgtness/tendernss in L calf, L ATFL PT-OP-G Mobility & Gait Start: 04/16/20 07:27 Freq: Status: Active Protocol: Document 04/16/20 08:17 [facility] (Rec: 04/16/20 09:00 [facility] [id number]) OP Gait Assessment Comments Gait Comments dec push off, some lat leaning Stair Climbing Evaluation Comments Stair Climbing Comments able ot go up/down reciprocally with mild paind escent PT-OP-J Posture/Palpation/Skin Start: 04/16/20 07:27 Freq: Status: Active Protocol: Document 04/16/20 08:17 [facility] (Rec: 04/16/20 09:00 [facility] [id number]) Posture Evaluation [facility] Postural Classification System Lumbar Protective Mechanism Left AP 1 Lumbar Protective Mechanism Right AP 2 Lumbar Protective Mechanism Left PA 0 Lumbar Protective Mechanism Right PA 0 Comments Posture Comments thoracic cage sheared R, pronation B, fwd head and shoulders PT-OP-K Range of Motion Start: 04/16/20 07:27 Freq: Status: Active Protocol: Document 05/16/20 07:31 [facility] (Rec: 05/16/20 09:45 [facility] [id number]) Ankle and Foot Goniometric Range of Motion Ankle and Foot Right Active Dorsiflexion with Knee Flexed 3 Left Active Dorsiflexion with Knee Flexed 3 Dorsiflexion with Knee Extended 2 PT-OP-M Strength Start: 04/16/20 07:27 Freq: Status: Active Protocol: Document 05/16/20 07:31 [facility] (Rec: 05/16/20 09:45 [facility] [id number]) Hip Strength Hip Manual Muscle Testing Right Flexion (L2) 4- Good- Extension (S1) 4- Good- Abduction 4 Good External Rotation 4 Good Internal Rotation 4+ Good+ Left Flexion (L2) 4- Good- Extension (S1) 4 Good Abduction 4+ Good+ External Rotation 4 Good Internal Rotation 4+ Good+ Knee Strength Knee Manual Muscle Testing Right Flexion (S2) 5 Normal Left Flexion (S2) 5 Normal Extension (L3) 5 Normal Ankle/Foot Strength Ankle and Foot Manual Muscle Testing Right Dorsiflexion (L4) 5 Normal Plantarflexion (S1) 5 Normal Inversion 5 Normal Eversion (S1) 5 Normal Left Dorsiflexion (L4) 4+ Good+ Plantarflexion (S1) 3+ Fair+ Inversion 4+ Good+ Eversion (S1) 5 Normal Comments able to do 9 PT-OP-Q Treatments Start: 04/16/20 07:27 Freq: Status: Active Protocol: Document 05/16/20 07:31 [facility] (Rec: 05/16/20 09:45 [facility] [id number]) Therapeutic Exercises Sitting Exercises stretch Sitting Exercise Name stretch into PF & plantar flexor stretch Side left Reps/Minutes 30 sec x2 1 Sitting Exercise Name eversion & DF Side left Equipment Used L2 Reps/Minutes 15 ea Standing Exercises squat Side bilateral Equipment Used L1 band around knees Reps/Minutes 20 over chair in mirror Comments focus on knee position 1 Standing Exercise Name wt shift fwd Side bilateral Reps/Minutes 8 Self-Care/Home Management Treatment Education Patient Education Home Exercise Program Other Education review of HEP with questions & progression w/resistance w/ some andwriting down more cues PT-OP-R Modalities Start: 04/16/20 07:27 Freq: Status: Active Protocol: Document 05/16/20 07:31 [facility] (Rec: 05/16/20 09:45 [facility] [id number]) Infrared Treatment Treatment L ant to fibula Duration (Minutes) 1 Program or Protocal chronic med intenisity for ligaments & tendons PT-OP-T Assessment and Plan Start: 04/16/20 07:27 Freq: Status: Active Protocol: Document 05/16/20 07:31 [facility] (Rec: 05/16/20 09:45 [facility] [id number]) Physical Therapy Assessment Goals balance Nursing Home Goal (LTG) Pt will be able to balance 10 sec on LLE w/o lat deviation B 05/16-improving LTG Duration 06/16/20 ROM Lead Fabricator Goal (LTG) Pt will have improved DF to 10 w/knee flex and 6 w/knee ext so he will have improved gait mechanics. 05/16-improving LTG Duration 06/16/20 FAAM Impairment 56/84 Short Term Goal (STG) Pt will score 66/84 to show improved functional ability. STG Duration 05/17/20 Nursing Home Goal (LTG) Pt will score 80/84 to show improved functional ability. LTG Duration 06/16/20 activities Short Term Goal (STG) Pt will be able to go up/down stairs without pain 05/16-occ some pain STG Duration 05/17/20 Lead Fabricator Goal (LTG) Pt will be able to do his typical walks without any inc in pain. 05/16-improving LTG Duration 06/16/20 strength Short Term Goal (STG) Pt will be indep with HEP STG Duration achieved progressing as needed Lead Fabricator Goal (LTG) Pt will have 5/5 LE strength and 3/5 LPM to show improved stability so he will not have pain during typical activities . 05/16-improving LTG Duration 06/16/20 Assessment Summary Assessment Pt is showing great improvement with strength, balance, pain and some improvement with ROM. Adjsuted and reviewed exercises today and enocuraged pt to do strengthening every other day and stretching daily. Physical Therapy Plan Frequency and Duration Frequency of Treatment 2x/Week Duration of Treatment 2 months Plan of Care Start Date 04/16/20 Plan of Care End Date 06/16/20 Next Visit Focus/Plan Next Note Type Treatment Note Next Visit Plan work on squating and balance
--- NOTE | 2020-05-16 16:00 | PT.OPPN ---
Current Diagnoses Other acquired deformities of left foot (05/22/20) Pain in left ankle and joints of left foot (05/22/20) Other specified joint disorders, left ankle and foot (05/22/20) Difficulty in walking, not elsewhere classified (05/22/20) Abnormal posture (05/22/20) Weakness (05/22/20) Physical Therapy Progress Note PT-OP-A Visit Information Start: 04/16/20 07:27 Freq: Status: Active Protocol: Document 05/16/20 07:31 [facility] (Rec: 05/16/20 09:45 [facility] [id number]) Out-Patient Physical Therapy Visit Information Visit Information Visit Type Progress Note Visit Note 07/01 Visit Start Time 07:31 Visit Stop Time 08:15 Total Visit Minutes 44 Visit Number 10 Number of OCCUPATIONAL THERAPY SUPERVISOR Visits 0 PT-OP-B Current Condition Start: 04/16/20 07:27 Freq: Status: Active Protocol: Document 04/16/20 08:17 [facility] (Rec: 04/16/20 09:00 [facility] [id number]) Current Condition History of Current Condition Onset Date several months ago , ~5 months ago Current Complaints ant and lat L ankle History of Current Condition Pt reports he cannot remember anything specific starting his foot pain. Pt reprots he has had pain on/off and it has been nagging. Uphill is worse than downhill. Takes a walk 3 miles every few days and hasn' t been able to not walk d/t pain. Pt has been doing some stretching, ibuprofen to help. Pain has gradually gotten worse Prior Treatments and Tests Xrays shows some problems per pt and had a steroid injection -initally didn't help but after a couple of weeks it may have helped slightly, but not does not feel like its making much difference. He has started superfeet insoles per MD and that helped. Treatment Goals Patient/Caregiver Goals be able to do walks without pain Personal Factors Other Personal Factors That May Effect PMH: back pain, neck pain, Therapy/Recovery varicose veins PT-OP-C Subjective Start: 04/16/20 07:27 Freq: Status: Active Protocol: Document 05/16/20 07:31 [facility] (Rec: 05/16/20 09:45 [facility] [id number]) OP-PT Subjective Patient Comments Patient Comments P treports exercises takea obut 25 min PT-OP-D Balance Start: 04/16/20 07:27 Freq: Status: Active Protocol: Document 05/16/20 07:31 [facility] (Rec: 05/16/20 09:45 [facility] [id number]) Balance Tests Single Limb Standing Single Limb- Right 13 sec w/arms across chest and dec lat shift over hips Single Limb- Left 15 sec w/arms out & lat shift; 7 sec w/arms across chest and some lat shift PT-OP-F Manual Assessment Start: 04/16/20 07:27 Freq: Status: Active Protocol: Document 04/16/20 08:17 [facility] (Rec: 04/16/20 09:00 [facility] [id number]) Manual Assessments Soft Tissue Assessment Soft Tissue Mobility Assessment tihgtness/tendernss in L calf, L ATFL PT-OP-G Mobility & Gait Start: 04/16/20 07:27 Freq: Status: Active Protocol: Document 04/16/20 08:17 [facility] (Rec: 04/16/20 09:00 [facility] [id number]) OP Gait Assessment Comments Gait Comments dec push off, some lat leaning Stair Climbing Evaluation Comments Stair Climbing Comments able ot go up/down reciprocally with mild paind escent PT-OP-J Posture/Palpation/Skin Start: 04/16/20 07:27 Freq: Status: Active Protocol: Document 04/16/20 08:17 [facility] (Rec: 04/16/20 09:00 [facility] [id number]) Posture Evaluation [facility] Postural Classification System Lumbar Protective Mechanism Left AP 1 Lumbar Protective Mechanism Right AP 2 Lumbar Protective Mechanism Left PA 0 Lumbar Protective Mechanism Right PA 0 Comments Posture Comments thoracic cage sheared R, pronation B, fwd head and shoulders PT-OP-K Range of Motion Start: 04/16/20 07:27 Freq: Status: Active Protocol: Document 05/16/20 07:31 [facility] (Rec: 05/16/20 09:45 [facility] [id number]) Ankle and Foot Goniometric Range of Motion Ankle and Foot Measured in Degrees Right Active Dorsiflexion with Knee Flexed 3 Left Active Dorsiflexion with Knee Flexed 3 Dorsiflexion with Knee Extended 2 PT-OP-M Strength Start: 04/16/20 07:27 Freq: Status: Active Protocol: Document 05/16/20 07:31 [facility] (Rec: 05/16/20 09:45 [facility] [id number]) Hip Strength Hip Manual Muscle Testing Right Flexion (L2) 4- Good- Extension (S1) 4- Good- Abduction 4 Good External Rotation 4 Good Internal Rotation 4+ Good+ Left Flexion (L2) 4- Good- Extension (S1) 4 Good Abduction 4+ Good+ External Rotation 4 Good Internal Rotation 4+ Good+ Knee Strength Knee Manual Muscle Testing Right Flexion (S2) 5 Normal Left Flexion (S2) 5 Normal Extension (L3) 5 Normal Ankle/Foot Strength Ankle and Foot Manual Muscle Testing Right Dorsiflexion (L4) 5 Normal Plantarflexion (S1) 5 Normal Inversion 5 Normal Eversion (S1) 5 Normal Left Dorsiflexion (L4) 4+ Good+ Plantarflexion (S1) 3+ Fair+ Inversion 4+ Good+ Eversion (S1) 5 Normal Comments able to do 9 PT-OP-T Assessment and Plan Start: 04/16/20 07:27 Freq: Status: Active Protocol: Document 05/16/20 07:31 [facility] (Rec: 05/16/20 09:45 [facility] [id number]) Physical Therapy Assessment Goals balance Supervisor [employer] Rol[employer] Covers Goal (LTG) Pt will be able to balance 10 sec on LLE w/o lat deviation B 05/16-improving LTG Duration 06/16/20 ROM Intermediate Goal (LTG) Pt will have improved DF to 10 w/knee flex and 6 w/knee ext so he will have improved gait mechanics. 05/16-improving LTG Duration 06/16/20 FAAM Impairment 56/84 Short Term Goal (STG) Pt will score 66/84 to show improved functional ability. STG Duration 05/17/20 Intermediate Goal (LTG) Pt will score 80/84 to show improved functional ability. LTG Duration 06/16/20 activities Short Term Goal (STG) Pt will be able to go up/down stairs without pain 05/16-occ some pain STG Duration 05/17/20 Intermediate Goal (LTG) Pt will be able to do his typical walks without any inc in pain. 05/16-improving LTG Duration 06/16/20 strength Short Term Goal (STG) Pt will be indep with HEP STG Duration achieved progressing as needed Intermediate Goal (LTG) Pt will have 5/5 LE strength and 3/5 LPM to show improved stability so he will not have pain during typical activities . 05/16-improving LTG Duration 06/16/20 Assessment Summary Assessment Pt is showing great improvement with strength, balance, pain and some improvement with ROM. Adjsuted and reviewed exercises today and enocuraged pt to do strengthening every other day and stretching daily. Physical Therapy Plan Frequency and Duration Frequency of Treatment 2x/Week Duration of Treatment 2 months Plan of Care Start Date 04/16/20 Plan of Care End Date 06/16/20 Next Visit Focus/Plan Next Note Type Treatment Note Next Visit Plan work on squating and balance
--- NOTE | 2020-05-22 10:51 | PT.OTN ---
Current Diagnoses Other acquired deformities of left foot (05/22/20) Pain in left ankle and joints of left foot (05/22/20) Other specified joint disorders, left ankle and foot (05/22/20) Difficulty in walking, not elsewhere classified (05/22/20) Abnormal posture (05/22/20) Weakness (05/22/20) Physical Therapy Treatment Note PT-OP-A Visit Information Start: 04/16/20 07:27 Freq: Status: Active Protocol: Document 05/22/20 10:46 [facility] (Rec: 05/22/20 10:51 [facility] [id number]) Out-Patient Physical Therapy Visit Information Visit Information Visit Type Treatment Note Visit Note 08/01 Visit Start Time 09:46 Visit Stop Time 10:28 Total Visit Minutes 42 Visit Number 11 Number of [employer] AND [employer]ER DRILLER Visits 0 PT-OP-B Current Condition Start: 04/16/20 07:27 Freq: Status: Active Protocol: Document 04/16/20 08:17 [facility] (Rec: 04/16/20 09:00 [facility] [id number]) Current Condition History of Current Condition Onset Date several months ago , ~5 months ago Current Complaints ant and lat L ankle History of Current Condition Pt reports he cannot remember anything specific starting his foot pain. Pt reprots he has had pain on/off and it has been nagging. Uphill is worse than downhill. Takes a walk 3 miles every few days and hasn' t been able to not walk d/t pain. Pt has been doing some stretching, ibuprofen to help. Pain has gradually gotten worse Prior Treatments and Tests Xrays shows some problems per pt and had a steroid injection -initally didn't help but after a couple of weeks it may have helped slightly, but not does not feel like its making much difference. He has started superfeet insoles per MD and that helped. Treatment Goals Patient/Caregiver Goals be able to do walks without pain Personal Factors Other Personal Factors That May Effect PMH: back pain, neck pain, Therapy/Recovery varicose veins PT-OP-C Subjective Start: 04/16/20 07:27 Freq: Status: Active Protocol: Document 05/22/20 10:46 [facility] (Rec: 05/22/20 10:51 [facility] [id number]) OP-PT Subjective Patient Comments Patient Comments Pt reports he was brad to do a hike with more hills and feels like pain is less Patient Reported Progress Improving PT-OP-D Balance Start: 04/16/20 07:27 Freq: Status: Active Protocol: Document 05/16/20 07:31 [facility] (Rec: 05/16/20 09:45 [facility] [id number]) Balance Tests Single Limb Standing Single Limb- Right 13 sec w/arms across chest and dec lat shift over hips Single Limb- Left 15 sec w/arms out & lat shift; 7 sec w/arms across chest and some lat shift PT-OP-F Manual Assessment Start: 04/16/20 07:27 Freq: Status: Active Protocol: Document 04/16/20 08:17 [facility] (Rec: 04/16/20 09:00 [facility] [id number]) Manual Assessments Soft Tissue Assessment Soft Tissue Mobility Assessment tihgtness/tendernss in L calf, L ATFL PT-OP-G Mobility & Gait Start: 04/16/20 07:27 Freq: Status: Active Protocol: Document 04/16/20 08:17 [facility] (Rec: 04/16/20 09:00 [facility] [id number]) OP Gait Assessment Comments Gait Comments dec push off, some lat leaning Stair Climbing Evaluation Comments Stair Climbing Comments able ot go up/down reciprocally with mild paind escent PT-OP-J Posture/Palpation/Skin Start: 04/16/20 07:27 Freq: Status: Active Protocol: Document 04/16/20 08:17 [facility] (Rec: 04/16/20 09:00 [facility] [id number]) Posture Evaluation [place] Postural Classification System Lumbar Protective Mechanism Left AP 1 Lumbar Protective Mechanism Right AP 2 Lumbar Protective Mechanism Left PA 0 Lumbar Protective Mechanism Right PA 0 Comments Posture Comments thoracic cage sheared R, pronation B, fwd head and shoulders PT-OP-K Range of Motion Start: 04/16/20 07:27 Freq: Status: Active Protocol: Document 05/16/20 07:31 [facility] (Rec: 05/16/20 09:45 [facility] [id number]) Ankle and Foot Goniometric Range of Motion Ankle and Foot Right Active Dorsiflexion with Knee Flexed 3 Left Active Dorsiflexion with Knee Flexed 3 Dorsiflexion with Knee Extended 2 PT-OP-M Strength Start: 04/16/20 07:27 Freq: Status: Active Protocol: Document 05/16/20 07:31 [facility] (Rec: 05/16/20 09:45 [facility] [id number]) Hip Strength Hip Manual Muscle Testing Right Flexion (L2) 4- Good- Extension (S1) 4- Good- Abduction 4 Good External Rotation 4 Good Internal Rotation 4+ Good+ Left Flexion (L2) 4- Good- Extension (S1) 4 Good Abduction 4+ Good+ External Rotation 4 Good Internal Rotation 4+ Good+ Knee Strength Knee Manual Muscle Testing Right Flexion (S2) 5 Normal Left Flexion (S2) 5 Normal Extension (L3) 5 Normal Ankle/Foot Strength Ankle and Foot Manual Muscle Testing Right Dorsiflexion (L4) 5 Normal Plantarflexion (S1) 5 Normal Inversion 5 Normal Eversion (S1) 5 Normal Left Dorsiflexion (L4) 4+ Good+ Plantarflexion (S1) 3+ Fair+ Inversion 4+ Good+ Eversion (S1) 5 Normal Comments able to do 9 PT-OP-Q Treatments Start: 04/16/20 07:27 Freq: Status: Active Protocol: Document 05/22/20 10:46 [facility] (Rec: 05/22/20 10:51 [facility] [id number]) Gym Equipment Shuttle Balance red clips Reps/Duration head turns w/fwd & side WBOS & NBOS balance Comments fwd & side: WBOS & NBOS fwd staggered stance fwd &side WBOS wt shifts Therapeutic Exercises Standing Exercises squat Side bilateral Equipment Used L1 band around knees Reps/Minutes 20 over chair in mirror Comments focus on knee position Manual Therapy Treatment Soft Tissue Mobilization calf Body Location L achilles & calf Mobilization Type Rolling,Strumming,Sustained Pressure Intensity/Depth Moderate Body Position Supine Joint Mobilizations talus Direction med glide & AP FM calcaneus Joint L Direction lat gapping & distraction Self-Care/Home Management Treatment Education Other Education edu and pt demo & attempt rolling out of calf & plantar fascia w/tennis ball PT-OP-R Modalities Start: 04/16/20 07:27 Freq: Status: Active Protocol: Document 05/22/20 10:46 [facility] (Rec: 05/22/20 10:51 [facility] [id number]) Infrared Treatment Treatment L ant to fibula Duration (Minutes) 1 Program or Protocal chronic med intenisity for ligaments & tendons PT-OP-T Assessment and Plan Start: 04/16/20 07:27 Freq: Status: Active Protocol: Document 05/22/20 10:46 [facility] (Rec: 05/22/20 10:51 [facility] [id number]) Physical Therapy Assessment Goals balance Alf Goal (LTG) Pt will be able to balance 10 sec on LLE w/o lat deviation B 05/16-improving LTG Duration 06/16/20 ROM Alf Goal (LTG) Pt will have improved DF to 10 w/knee flex and 6 w/knee ext so he will have improved gait mechanics. 05/16-improving LTG Duration 06/16/20 FAAM Impairment 56/84 Short Term Goal (STG) Pt will score 66/84 to show improved functional ability. STG Duration 05/17/20 Alf Goal (LTG) Pt will score 80/84 to show improved functional ability. LTG Duration 06/16/20 activities Short Term Goal (STG) Pt will be able to go up/down stairs without pain 05/16-occ some pain STG Duration 05/17/20 Alf Goal (LTG) Pt will be able to do his typical walks without any inc in pain. 05/16-improving LTG Duration 06/16/20 strength Short Term Goal (STG) Pt will be indep with HEP STG Duration achieved progressing as needed Alf Goal (LTG) Pt will have 5/5 LE strength and 3/5 LPM to show improved stability so he will not have pain during typical activities . 05/16-improving LTG Duration 06/16/20 Assessment Summary Assessment Improving squat but still rquires cueing to keep knees further apart and not to wt shift to R. Pt imprvoingw ith balance on unstable surfaces. after manual, able to get pt's foot into more neutral position in PF vs inverted. Dec pain into DF after STM. Physical Therapy Plan Frequency and Duration Frequency of Treatment 2x/Week Duration of Treatment 2 months Plan of Care Start Date 04/16/20 Plan of Care End Date 06/16/20 Next Visit Focus/Plan Next Note Type Treatment Note Next Visit Plan work on squating and balance
--- NOTE | 2020-05-24 10:55 | PT.OTN ---
Current Diagnoses Other acquired deformities of left foot (05/24/20) Pain in left ankle and joints of left foot (05/24/20) Other specified joint disorders, left ankle and foot (05/24/20) Difficulty in walking, not elsewhere classified (05/24/20) Abnormal posture (05/24/20) Weakness (05/24/20) Physical Therapy Treatment Note PT-OP-A Visit Information Start: 04/16/20 07:27 Freq: Status: Active Protocol: Document 05/24/20 10:45 [facility] (Rec: 05/24/20 10:55 [facility] [id number]) Out-Patient Physical Therapy Visit Information Visit Information Visit Type Treatment Note Visit Note 08/29 Visit Start Time 09:51 Visit Stop Time 10:33 Total Visit Minutes 42 Visit Number 12 Number of LAW OFFICE ASSISTANT Visits 0 PT-OP-B Current Condition Start: 04/16/20 07:27 Freq: Status: Active Protocol: Document 04/16/20 08:17 [facility] (Rec: 04/16/20 09:00 [facility] [id number]) Current Condition History of Current Condition Onset Date several months ago , ~5 months ago Current Complaints ant and lat L ankle History of Current Condition Pt reports he cannot remember anything specific starting his foot pain. Pt reprots he has had pain on/off and it has been nagging. Uphill is worse than downhill. Takes a walk 3 miles every few days and hasn' t been able to not walk d/t pain. Pt has been doing some stretching, ibuprofen to help. Pain has gradually gotten worse Prior Treatments and Tests Xrays shows some problems per pt and had a steroid injection -initally didn't help but after a couple of weeks it may have helped slightly, but not does not feel like its making much difference. He has started superfeet insoles per MD and that helped. Treatment Goals Patient/Caregiver Goals be able to do walks without pain Personal Factors Other Personal Factors That May Effect PMH: back pain, neck pain, Therapy/Recovery varicose veins PT-OP-C Subjective Start: 04/16/20 07:27 Freq: Status: Active Protocol: Document 05/24/20 10:45 [facility] (Rec: 05/24/20 10:55 [facility] [id number]) OP-PT Subjective Patient Comments Patient Comments Pt reports he feels like his ankle is improving some. he thinks he went to hard w/ tennis ball under ball of foot as it was sore right after but it felt fine later. Patient Reported Progress Improving PT-OP-D Balance Start: 04/16/20 07:27 Freq: Status: Active Protocol: Document 05/16/20 07:31 [facility] (Rec: 05/16/20 09:45 [facility] [id number]) Balance Tests Single Limb Standing Single Limb- Right 13 sec w/arms across chest and dec lat shift over hips Single Limb- Left 15 sec w/arms out & lat shift; 7 sec w/arms across chest and some lat shift PT-OP-F Manual Assessment Start: 04/16/20 07:27 Freq: Status: Active Protocol: Document 04/16/20 08:17 [facility] (Rec: 04/16/20 09:00 [facility] [id number]) Manual Assessments Soft Tissue Assessment Soft Tissue Mobility Assessment tihgtness/tendernss in L calf, L ATFL PT-OP-G Mobility & Gait Start: 04/16/20 07:27 Freq: Status: Active Protocol: Document 04/16/20 08:17 [facility] (Rec: 04/16/20 09:00 [facility] [id number]) OP Gait Assessment Comments Gait Comments dec push off, some lat leaning Stair Climbing Evaluation Comments Stair Climbing Comments able ot go up/down reciprocally with mild paind escent PT-OP-J Posture/Palpation/Skin Start: 04/16/20 07:27 Freq: Status: Active Protocol: Document 04/16/20 08:17 [facility] (Rec: 04/16/20 09:00 [facility] [id number]) Posture Evaluation [facility] Postural Classification System Lumbar Protective Mechanism Left AP 1 Lumbar Protective Mechanism Right AP 2 Lumbar Protective Mechanism Left PA 0 Lumbar Protective Mechanism Right PA 0 Comments Posture Comments thoracic cage sheared R, pronation B, fwd head and shoulders PT-OP-K Range of Motion Start: 04/16/20 07:27 Freq: Status: Active Protocol: Document 05/16/20 07:31 [facility] (Rec: 05/16/20 09:45 [facility] [id number]) Ankle and Foot Goniometric Range of Motion Ankle and Foot Right Active Dorsiflexion with Knee Flexed 3 Left Active Dorsiflexion with Knee Flexed 3 Dorsiflexion with Knee Extended 2 PT-OP-M Strength Start: 04/16/20 07:27 Freq: Status: Active Protocol: Document 05/16/20 07:31 [facility] (Rec: 05/16/20 09:45 [facility] [id number]) Hip Strength Hip Manual Muscle Testing Right Flexion (L2) 4- Good- Extension (S1) 4- Good- Abduction 4 Good External Rotation 4 Good Internal Rotation 4+ Good+ Left Flexion (L2) 4- Good- Extension (S1) 4 Good Abduction 4+ Good+ External Rotation 4 Good Internal Rotation 4+ Good+ Knee Strength Knee Manual Muscle Testing Right Flexion (S2) 5 Normal Left Flexion (S2) 5 Normal Extension (L3) 5 Normal Ankle/Foot Strength Ankle and Foot Manual Muscle Testing Right Dorsiflexion (L4) 5 Normal Plantarflexion (S1) 5 Normal Inversion 5 Normal Eversion (S1) 5 Normal Left Dorsiflexion (L4) 4+ Good+ Plantarflexion (S1) 3+ Fair+ Inversion 4+ Good+ Eversion (S1) 5 Normal Comments able to do 9 PT-OP-Q Treatments Start: 04/16/20 07:27 Freq: Status: Active Protocol: Document 05/24/20 10:45 [facility] (Rec: 05/24/20 10:55 [facility] [id number]) Gym Equipment Shuttle Balance red clips Reps/Duration head turns w/fwd & side WBOS & NBOS balance Comments fwd & side: WBOS & NBOS &staggered stance fwd &side WBOS wt shifts Therapeutic Exercises Supine Exercises stretch Supine Exercise Name ian test Side bilateral Standing Exercises 1 Standing Exercise Name hip flexor Side bilateral Reps/Minutes 30 sec Manual Therapy Treatment Joint Mobilizations forefoot Comments 1. cueniforms gapping supine tib fib Joint fib PA FM w/PF talus Direction med glide & AP FM calcaneus Joint L Direction lat glide & distraction Neuro Re-Education Treatment Balance Activities SLS Details rolling ball CW & CCW B step up Details 8 in step w/alt august w/DF Reps/Duration 10 B Self-Care/Home Management Treatment Education Other Education edu on importance of hip ext and knee ext w/gait to dec strain onankle PT-OP-R Modalities Start: 04/16/20 07:27 Freq: Status: Active Protocol: Document 05/24/20 10:45 [facility] (Rec: 05/24/20 10:55 [facility] [id number]) Infrared Treatment Treatment L ant to fibula Duration (Minutes) 1 Program or Protocal chronic med intenisity for ligaments & tendons PT-OP-T Assessment and Plan Start: 04/16/20 07:27 Freq: Status: Active Protocol: Document 05/24/20 10:45 [facility] (Rec: 05/24/20 10:55 [facility] [id number]) Physical Therapy Assessment Goals balance [employer] Goal (LTG) Pt will be able to balance 10 sec on LLE w/o lat deviation B 05/16-improving LTG Duration 06/16/20 ROM Assisted Goal (LTG) Pt will have improved DF to 10 w/knee flex and 6 w/knee ext so he will have improved gait mechanics. 05/16-improving LTG Duration 06/16/20 FAAM Impairment 56/84 Short Term Goal (STG) Pt will score 66/84 to show improved functional ability. STG Duration 05/17/20 [employer]ician Goal (LTG) Pt will score 80/84 to show improved functional ability. LTG Duration 06/16/20 activities Short Term Goal (STG) Pt will be able to go up/down stairs without pain 05/16-occ some pain STG Duration 05/17/20 Assisted Goal (LTG) Pt will be able to do his typical walks without any inc in pain. 05/16-improving LTG Duration 06/16/20 strength Short Term Goal (STG) Pt will be indep with HEP STG Duration achieved progressing as needed [employer]ician Goal (LTG) Pt will have 5/5 LE strength and 3/5 LPM to show improved stability so he will not have pain during typical activities . 05/16-improving LTG Duration 06/16/20 Assessment Summary Assessment Pt had difficulty extending L knee and hip when R hip flexed and tested w/ian test and pt was significantly tight in RF, quads and iliacus L which will affect his ability to do push off, placing more stress onto L ankle. Pt did wel lwith hip flexor stretch Physical Therapy Plan Frequency and Duration Frequency of Treatment 2x/Week Duration of Treatment 2 months Plan of Care Start Date 04/16/20 Plan of Care End Date 06/16/20 Next Visit Focus/Plan Next Note Type Treatment Note Next Visit Plan work on squating and balance & LLE ext for push off
--- NOTE | 2020-05-29 12:16 | PT.OTN ---
Current Diagnoses Other acquired deformities of left foot (05/29/20) Pain in left ankle and joints of left foot (05/29/20) Other specified joint disorders, left ankle and foot (05/29/20) Difficulty in walking, not elsewhere classified (05/29/20) Abnormal posture (05/29/20) Weakness (05/29/20) Physical Therapy Treatment Note PT-OP-A Visit Information Start: 04/16/20 07:27 Freq: Status: Active Protocol: Document 05/29/20 11:13 [facility] (Rec: 05/29/20 12:16 [facility] [id number]) Out-Patient Physical Therapy Visit Information Visit Information Visit Type Treatment Note Visit Start Time 11:17 Visit Stop Time 12:00 Total Visit Minutes 43 Visit Number 13 Number of SHEET ROCK INSTALLATION HELPER Visits 0 PT-OP-B Current Condition Start: 04/16/20 07:27 Freq: Status: Active Protocol: Document 04/16/20 08:17 [facility] (Rec: 04/16/20 09:00 [facility] [id number]) Current Condition History of Current Condition Onset Date several months ago , ~5 months ago Current Complaints ant and lat L ankle History of Current Condition Pt reports he cannot remember anything specific starting his foot pain. Pt reprots he has had pain on/off and it has been nagging. Uphill is worse than downhill. Takes a walk 3 miles every few days and hasn' t been able to not walk d/t pain. Pt has been doing some stretching, ibuprofen to help. Pain has gradually gotten worse Prior Treatments and Tests Xrays shows some problems per pt and had a steroid injection -initally didn't help but after a couple of weeks it may have helped slightly, but not does not feel like its making much difference. He has started superfeet insoles per MD and that helped. Treatment Goals Patient/Caregiver Goals be able to do walks without pain Personal Factors Other Personal Factors That May Effect PMH: back pain, neck pain, Therapy/Recovery varicose veins PT-OP-C Subjective Start: 04/16/20 07:27 Freq: Status: Active Protocol: Document 05/29/20 11:13 [facility] (Rec: 05/29/20 12:16 [facility] [id number]) OP-PT Subjective Patient Comments Patient Comments Pt did a big hike yesterday and felt good. Pt reports pain is less but still there. Patient Reported Progress Improving PT-OP-D Balance Start: 04/16/20 07:27 Freq: Status: Active Protocol: Document 05/16/20 07:31 [facility] (Rec: 05/16/20 09:45 [facility] [id number]) Balance Tests Single Limb Standing Single Limb- Right 13 sec w/arms across chest and dec lat shift over hips Single Limb- Left 15 sec w/arms out & lat shift; 7 sec w/arms across chest and some lat shift PT-OP-F Manual Assessment Start: 04/16/20 07:27 Freq: Status: Active Protocol: Document 04/16/20 08:17 [facility] (Rec: 04/16/20 09:00 [facility] [id number]) Manual Assessments Soft Tissue Assessment Soft Tissue Mobility Assessment tihgtness/tendernss in L calf, L ATFL PT-OP-G Mobility & Gait Start: 04/16/20 07:27 Freq: Status: Active Protocol: Document 04/16/20 08:17 [facility] (Rec: 04/16/20 09:00 [facility] [id number]) OP Gait Assessment Comments Gait Comments dec push off, some lat leaning Stair Climbing Evaluation Comments Stair Climbing Comments able ot go up/down reciprocally with mild paind escent PT-OP-J Posture/Palpation/Skin Start: 04/16/20 07:27 Freq: Status: Active Protocol: Document 04/16/20 08:17 [facility] (Rec: 04/16/20 09:00 [facility] [id number]) Posture Evaluation Timi Postural Classification System Lumbar Protective Mechanism Left AP 1 Lumbar Protective Mechanism Right AP 2 Lumbar Protective Mechanism Left PA 0 Lumbar Protective Mechanism Right PA 0 Comments Posture Comments thoracic cage sheared R, pronation B, fwd head and shoulders PT-OP-K Range of Motion Start: 04/16/20 07:27 Freq: Status: Active Protocol: Document 05/16/20 07:31 [facility] (Rec: 05/16/20 09:45 [facility] [id number]) Ankle and Foot Goniometric Range of Motion Ankle and Foot Right Active Dorsiflexion with Knee Flexed 3 Left Active Dorsiflexion with Knee Flexed 3 Dorsiflexion with Knee Extended 2 PT-OP-M Strength Start: 04/16/20 07:27 Freq: Status: Active Protocol: Document 05/16/20 07:31 [facility] (Rec: 05/16/20 09:45 [facility] [id number]) Hip Strength Hip Manual Muscle Testing Right Flexion (L2) 4- Good- Extension (S1) 4- Good- Abduction 4 Good External Rotation 4 Good Internal Rotation 4+ Good+ Left Flexion (L2) 4- Good- Extension (S1) 4 Good Abduction 4+ Good+ External Rotation 4 Good Internal Rotation 4+ Good+ Knee Strength Knee Manual Muscle Testing Right Flexion (S2) 5 Normal Left Flexion (S2) 5 Normal Extension (L3) 5 Normal Ankle/Foot Strength Ankle and Foot Manual Muscle Testing Right Dorsiflexion (L4) 5 Normal Plantarflexion (S1) 5 Normal Inversion 5 Normal Eversion (S1) 5 Normal Left Dorsiflexion (L4) 4+ Good+ Plantarflexion (S1) 3+ Fair+ Inversion 4+ Good+ Eversion (S1) 5 Normal Comments able to do 9 PT-OP-Q Treatments Start: 04/16/20 07:27 Freq: Status: Active Protocol: Document 05/29/20 11:13 [facility] (Rec: 05/29/20 12:16 [facility] [id number]) Gym Equipment Shuttle Balance red clips Reps/Duration head turns w/fwd & side WBOS & NBOS balance Comments fwd & side: WBOS & NBOS &staggered stance fwd &side WBOS wt shifts Therapeutic Exercises Standing Exercises squat Side bilateral Reps/Minutes 20 over chair in mirror Comments focus on knee position 1 Standing Exercise Name LEEANN Side bilateral Comments fwd/back wt shifts x20 & stretch x1 min PT-OP-R Modalities Start: 04/16/20 07:27 Freq: Status: Active Protocol: Document 05/29/20 11:13 [facility] (Rec: 05/29/20 12:16 [facility] [id number]) Infrared Treatment Treatment L ant to fibula Duration (Minutes) 1 Program or Protocal chronic med intenisity for ligaments & tendons PT-OP-T Assessment and Plan Start: 04/16/20 07:27 Freq: Status: Active Protocol: Document 05/29/20 11:13 [facility] (Rec: 05/29/20 12:16 [facility] [id number]) Physical Therapy Assessment Goals balance Fdc Goal (LTG) Pt will be able to balance 10 sec on LLE w/o lat deviation B 05/16-improving LTG Duration 06/16/20 ROM Fdc Goal (LTG) Pt will have improved DF to 10 w/knee flex and 6 w/knee ext so he will have improved gait mechanics. 05/16-improving LTG Duration 06/16/20 FAAM Impairment 56/84 Short Term Goal (STG) Pt will score 66/84 to show improved functional ability. STG Duration 05/17/20 Fdc Goal (LTG) Pt will score 80/84 to show improved functional ability. LTG Duration 06/16/20 activities Short Term Goal (STG) Pt will be able to go up/down stairs without pain 05/16-occ some pain STG Duration 05/17/20 Line Welder Goal (LTG) Pt will be able to do his typical walks without any inc in pain. 05/16-improving LTG Duration 06/16/20 strength Short Term Goal (STG) Pt will be indep with HEP STG Duration achieved progressing as needed Fdc Goal (LTG) Pt will have 5/5 LE strength and 3/5 LPM to show improved stability so he will not have pain during typical activities . 05/16-improving LTG Duration 06/16/20 Assessment Summary Assessment Pt improving with squat formw ith less cueing. He is doing better iwth balance on uneven surfaces but requires cueing to dec UE support. Physical Therapy Plan Frequency and Duration Frequency of Treatment 2x/Week Duration of Treatment 2 months Plan of Care Start Date 04/16/20 Plan of Care End Date 06/16/20 Next Visit Focus/Plan Next Note Type Treatment Note Next Visit Plan work on squating and balance & LLE ext for push off
--- NOTE | 2020-05-31 15:41 | PT.OTN ---
Current Diagnoses Other acquired deformities of left foot (05/31/20) Pain in left ankle and joints of left foot (05/31/20) Other specified joint disorders, left ankle and foot (05/31/20) Difficulty in walking, not elsewhere classified (05/31/20) Abnormal posture (05/31/20) Weakness (05/31/20) Physical Therapy Treatment Note PT-OP-A Visit Information Start: 04/16/20 07:27 Freq: Status: Active Protocol: Document 05/31/20 15:31 [facility] (Rec: 05/31/20 15:41 [facility] [id number]) Out-Patient Physical Therapy Visit Information Visit Information Visit Type Treatment Note Visit Start Time 11:18 Visit Stop Time 12:00 Total Visit Minutes 42 Visit Number 14 Number of DETECTIVE SERGEANT Visits 0 PT-OP-B Current Condition Start: 04/16/20 07:27 Freq: Status: Active Protocol: Document 04/16/20 08:17 [facility] (Rec: 04/16/20 09:00 [facility] [id number]) Current Condition History of Current Condition Onset Date several months ago , ~5 months ago Current Complaints ant and lat L ankle History of Current Condition Pt reports he cannot remember anything specific starting his foot pain. Pt reprots he has had pain on/off and it has been nagging. Uphill is worse than downhill. Takes a walk 3 miles every few days and hasn' t been able to not walk d/t pain. Pt has been doing some stretching, ibuprofen to help. Pain has gradually gotten worse Prior Treatments and Tests Xrays shows some problems per pt and had a steroid injection -initally didn't help but after a couple of weeks it may have helped slightly, but not does not feel like its making much difference. He has started superfeet insoles per MD and that helped. Treatment Goals Patient/Caregiver Goals be able to do walks without pain Personal Factors Other Personal Factors That May Effect PMH: back pain, neck pain, Therapy/Recovery varicose veins PT-OP-C Subjective Start: 04/16/20 07:27 Freq: Status: Active Protocol: Document 05/31/20 15:31 [facility] (Rec: 05/31/20 15:41 [facility] [id number]) OP-PT Subjective Patient Comments Patient Comments Pt reprots he felt his ankle some today. Its on and off whe he feels it. Patient Reported Progress Improving PT-OP-D Balance Start: 04/16/20 07:27 Freq: Status: Active Protocol: Document 05/16/20 07:31 [facility] (Rec: 05/16/20 09:45 [facility] [id number]) Balance Tests Single Limb Standing Single Limb- Right 13 sec w/arms across chest and dec lat shift over hips Single Limb- Left 15 sec w/arms out & lat shift; 7 sec w/arms across chest and some lat shift PT-OP-F Manual Assessment Start: 04/16/20 07:27 Freq: Status: Active Protocol: Document 04/16/20 08:17 [facility] (Rec: 04/16/20 09:00 [facility] [id number]) Manual Assessments Soft Tissue Assessment Soft Tissue Mobility Assessment tihgtness/tendernss in L calf, L ATFL PT-OP-G Mobility & Gait Start: 04/16/20 07:27 Freq: Status: Active Protocol: Document 04/16/20 08:17 [facility] (Rec: 04/16/20 09:00 [facility] [id number]) OP Gait Assessment Comments Gait Comments dec push off, some lat leaning Stair Climbing Evaluation Comments Stair Climbing Comments able ot go up/down reciprocally with mild paind escent PT-OP-J Posture/Palpation/Skin Start: 04/16/20 07:27 Freq: Status: Active Protocol: Document 04/16/20 08:17 [facility] (Rec: 04/16/20 09:00 [facility] [id number]) Posture Evaluation Timi Postural Classification System Lumbar Protective Mechanism Left AP 1 Lumbar Protective Mechanism Right AP 2 Lumbar Protective Mechanism Left PA 0 Lumbar Protective Mechanism Right PA 0 Comments Posture Comments thoracic cage sheared R, pronation B, fwd head and shoulders PT-OP-K Range of Motion Start: 04/16/20 07:27 Freq: Status: Active Protocol: Document 05/16/20 07:31 [facility] (Rec: 05/16/20 09:45 [facility] [id number]) Ankle and Foot Goniometric Range of Motion Ankle and Foot Right Active Dorsiflexion with Knee Flexed 3 Left Active Dorsiflexion with Knee Flexed 3 Dorsiflexion with Knee Extended 2 PT-OP-M Strength Start: 04/16/20 07:27 Freq: Status: Active Protocol: Document 05/16/20 07:31 [facility] (Rec: 05/16/20 09:45 [facility] [id number]) Hip Strength Hip Manual Muscle Testing Right Flexion (L2) 4- Good- Extension (S1) 4- Good- Abduction 4 Good External Rotation 4 Good Internal Rotation 4+ Good+ Left Flexion (L2) 4- Good- Extension (S1) 4 Good Abduction 4+ Good+ External Rotation 4 Good Internal Rotation 4+ Good+ Knee Strength Knee Manual Muscle Testing Right Flexion (S2) 5 Normal Left Flexion (S2) 5 Normal Extension (L3) 5 Normal Ankle/Foot Strength Ankle and Foot Manual Muscle Testing Right Dorsiflexion (L4) 5 Normal Plantarflexion (S1) 5 Normal Inversion 5 Normal Eversion (S1) 5 Normal Left Dorsiflexion (L4) 4+ Good+ Plantarflexion (S1) 3+ Fair+ Inversion 4+ Good+ Eversion (S1) 5 Normal Comments able to do 9 PT-OP-Q Treatments Start: 04/16/20 07:27 Freq: Status: Active Protocol: Document 05/31/20 15:31 [facility] (Rec: 05/31/20 15:41 [facility] [id number]) Gym Equipment Shuttle Balance red clips Reps/Duration head turns Comments fwd & side: WBOS & NBOS &staggered stance Therapeutic Exercises Standing Exercises squat Side bilateral Reps/Minutes 15 over chair in mirror Comments focus on knee position 1 Standing Exercise Name LEEANN Side bilateral Comments fwd/back wt shifts x20 & stretch x1 min Manual Therapy Treatment Soft Tissue Mobilization calf Body Location L achilles & calf & plantar fascia Mobilization Type Rolling,Strumming,Sustained Pressure Intensity/Depth Moderate Body Position Supine Joint Mobilizations tib fib Joint tib AP w/knee bends talus Direction AP FM w/knee bends & supine PT-OP-R Modalities Start: 04/16/20 07:27 Freq: Status: Active Protocol: Document 05/31/20 15:31 [facility] (Rec: 05/31/20 15:41 [facility] [id number]) Infrared Treatment Treatment L ant to fibula Duration (Minutes) 1 Program or Protocal chronic med intenisity for ligaments & tendons PT-OP-T Assessment and Plan Start: 04/16/20 07:27 Freq: Status: Active Protocol: Document 05/31/20 15:31 [facility] (Rec: 05/31/20 15:41 [facility] [id number]) Physical Therapy Assessment Goals balance Custodial Goal (LTG) Pt will be able to balance 10 sec on LLE w/o lat deviation B 05/16-improving LTG Duration 06/16/20 ROM Technology Administrator Goal (LTG) Pt will have improved DF to 10 w/knee flex and 6 w/knee ext so he will have improved gait mechanics. 05/16-improving LTG Duration 06/16/20 FAAM Impairment 56/84 Short Term Goal (STG) Pt will score 66/84 to show improved functional ability. STG Duration 05/17/20 Technology Administrator Goal (LTG) Pt will score 80/84 to show improved functional ability. LTG Duration 06/16/20 activities Short Term Goal (STG) Pt will be able to go up/down stairs without pain 05/16-occ some pain STG Duration 05/17/20 Technology Administrator Goal (LTG) Pt will be able to do his typical walks without any inc in pain. 05/16-improving LTG Duration 06/16/20 strength Short Term Goal (STG) Pt will be indep with HEP STG Duration achieved progressing as needed Technology Administrator Goal (LTG) Pt will have 5/5 LE strength and 3/5 LPM to show improved stability so he will not have pain during typical activities . 05/16-improving LTG Duration 06/16/20 Assessment Summary Assessment Pt cont to improve with squat form and balance. He was able to do head turns with better stability. He had improved DF in standing after manual treatment w/dec pain Physical Therapy Plan Frequency and Duration Frequency of Treatment 2x/Week Duration of Treatment 2 months Plan of Care Start Date 04/16/20 Plan of Care End Date 06/16/20 Next Visit Focus/Plan Next Note Type Treatment Note Next Visit Plan work on squating and balance & LLE ext for push off
--- NOTE | 2020-06-05 13:02 | PT.OTN ---
Current Diagnoses Other acquired deformities of left foot (06/05/20) Pain in left ankle and joints of left foot (06/05/20) Other specified joint disorders, left ankle and foot (06/05/20) Difficulty in walking, not elsewhere classified (06/05/20) Abnormal posture (06/05/20) Weakness (06/05/20) Physical Therapy Treatment Note PT-OP-A Visit Information Start: 04/16/20 07:27 Freq: Status: Active Protocol: Document 06/05/20 11:35 [facility] (Rec: 06/05/20 12:14 [facility] [id number]) Out-Patient Physical Therapy Visit Information Visit Information Visit Type Treatment Note Visit Start Time 11:18 Visit Stop Time 12:01 Total Visit Minutes 43 Visit Number 15 Number of SLEDGER Visits 0 PT-OP-B Current Condition Start: 04/16/20 07:27 Freq: Status: Active Protocol: Document 04/16/20 08:17 [facility] (Rec: 04/16/20 09:00 [facility] [id number]) Current Condition History of Current Condition Onset Date several months ago , ~5 months ago Current Complaints ant and lat L ankle History of Current Condition Pt reports he cannot remember anything specific starting his foot pain. Pt reprots he has had pain on/off and it has been nagging. Uphill is worse than downhill. Takes a walk 3 miles every few days and hasn' t been able to not walk d/t pain. Pt has been doing some stretching, ibuprofen to help. Pain has gradually gotten worse Prior Treatments and Tests Xrays shows some problems per pt and had a steroid injection -initally didn't help but after a couple of weeks it may have helped slightly, but not does not feel like its making much difference. He has started superfeet insoles per MD and that helped. Treatment Goals Patient/Caregiver Goals be able to do walks without pain Personal Factors Other Personal Factors That May Effect PMH: back pain, neck pain, Therapy/Recovery varicose veins PT-OP-C Subjective Start: 04/16/20 07:27 Freq: Status: Active Protocol: Document 06/05/20 11:35 [facility] (Rec: 06/05/20 12:14 [facility] [id number]) OP-PT Subjective Patient Comments Patient Comments Pt feels like ankle is going in the correct direction Patient Reported Progress Improving PT-OP-D Balance Start: 04/16/20 07:27 Freq: Status: Active Protocol: Document 05/16/20 07:31 [facility] (Rec: 05/16/20 09:45 [facility] [id number]) Balance Tests Single Limb Standing Single Limb- Right 13 sec w/arms across chest and dec lat shift over hips Single Limb- Left 15 sec w/arms out & lat shift; 7 sec w/arms across chest and some lat shift PT-OP-F Manual Assessment Start: 04/16/20 07:27 Freq: Status: Active Protocol: Document 04/16/20 08:17 [facility] (Rec: 04/16/20 09:00 [facility] [id number]) Manual Assessments Soft Tissue Assessment Soft Tissue Mobility Assessment tihgtness/tendernss in L calf, L ATFL PT-OP-G Mobility & Gait Start: 04/16/20 07:27 Freq: Status: Active Protocol: Document 04/16/20 08:17 [facility] (Rec: 04/16/20 09:00 [facility] [id number]) OP Gait Assessment Comments Gait Comments dec push off, some lat leaning Stair Climbing Evaluation Comments Stair Climbing Comments able ot go up/down reciprocally with mild paind escent PT-OP-J Posture/Palpation/Skin Start: 04/16/20 07:27 Freq: Status: Active Protocol: Document 04/16/20 08:17 [facility] (Rec: 04/16/20 09:00 [facility] [id number]) Posture Evaluation Timi Postural Classification System Lumbar Protective Mechanism Left AP 1 Lumbar Protective Mechanism Right AP 2 Lumbar Protective Mechanism Left PA 0 Lumbar Protective Mechanism Right PA 0 Comments Posture Comments thoracic cage sheared R, pronation B, fwd head and shoulders PT-OP-K Range of Motion Start: 04/16/20 07:27 Freq: Status: Active Protocol: Document 05/16/20 07:31 [facility] (Rec: 05/16/20 09:45 [facility] [id number]) Ankle and Foot Goniometric Range of Motion Ankle and Foot Right Active Dorsiflexion with Knee Flexed 3 Left Active Dorsiflexion with Knee Flexed 3 Dorsiflexion with Knee Extended 2 PT-OP-M Strength Start: 04/16/20 07:27 Freq: Status: Active Protocol: Document 05/16/20 07:31 [facility] (Rec: 05/16/20 09:45 [facility] [id number]) Hip Strength Hip Manual Muscle Testing Right Flexion (L2) 4- Good- Extension (S1) 4- Good- Abduction 4 Good External Rotation 4 Good Internal Rotation 4+ Good+ Left Flexion (L2) 4- Good- Extension (S1) 4 Good Abduction 4+ Good+ External Rotation 4 Good Internal Rotation 4+ Good+ Knee Strength Knee Manual Muscle Testing Right Flexion (S2) 5 Normal Left Flexion (S2) 5 Normal Extension (L3) 5 Normal Ankle/Foot Strength Ankle and Foot Manual Muscle Testing Right Dorsiflexion (L4) 5 Normal Plantarflexion (S1) 5 Normal Inversion 5 Normal Eversion (S1) 5 Normal Left Dorsiflexion (L4) 4+ Good+ Plantarflexion (S1) 3+ Fair+ Inversion 4+ Good+ Eversion (S1) 5 Normal Comments able to do 9 PT-OP-Q Treatments Start: 04/16/20 07:27 Freq: Status: Active Protocol: Document 06/05/20 11:35 [facility] (Rec: 06/05/20 12:14 [facility] [id number]) Gym Equipment Shuttle Balance red clips Reps/Duration head turns Comments fwd & side: WBOS & NBOS &staggered stance wt shifts Therapeutic Exercises Sitting Exercises intrinsics Sitting Exercise Name toe ext (big toe then small toes 1 Sitting Exercise Name arch lift Comments progressed to standing d/t dififculty sitting Standing Exercises squat Side bilateral Reps/Minutes 15 over chair in mirror Comments focus on knee position stretch Standing Exercise Name into PF Side left Reps/Minutes 30 sec 1 Standing Exercise Name LEEANN Side bilateral Comments fwd/back wt shifts x20 & stretch x1 min Manual Therapy Treatment Soft Tissue Mobilization calf Body Location L achilles & calf & plantar fascia Mobilization Type Rolling,Strumming,Sustained Pressure Intensity/Depth Moderate Body Position Supine Joint Mobilizations talus Direction AP FM in supine Neuro Re-Education Treatment Balance Activities tandem stance Comments staggered stance EC PT-OP-R Modalities Start: 04/16/20 07:27 Freq: Status: Active Protocol: Document 06/05/20 11:35 [facility] (Rec: 06/05/20 12:14 [facility] [id number]) Infrared Treatment Treatment L ant to fibula Duration (Minutes) 1 Program or Protocal chronic med intenisity for ligaments & tendons PT-OP-T Assessment and Plan Start: 04/16/20 07:27 Freq: Status: Active Protocol: Document 06/05/20 11:35 [facility] (Rec: 06/05/20 12:14 [facility] [id number]) Physical Therapy Assessment Goals balance Strap Machine Operator Automatic Goal (LTG) Pt will be able to balance 10 sec on LLE w/o lat deviation B 05/16-improving LTG Duration 06/16/20 ROM Strap Machine Operator Automatic Goal (LTG) Pt will have improved DF to 10 w/knee flex and 6 w/knee ext so he will have improved gait mechanics. 05/16-improving LTG Duration 06/16/20 FAAM Impairment 56/84 Short Term Goal (STG) Pt will score 66/84 to show improved functional ability. STG Duration 05/17/20 Strap Machine Operator Automatic Goal (LTG) Pt will score 80/84 to show improved functional ability. LTG Duration 06/16/20 activities Short Term Goal (STG) Pt will be able to go up/down stairs without pain 05/16-occ some pain STG Duration 05/17/20 Residential Goal (LTG) Pt will be able to do his typical walks without any inc in pain. 05/16-improving LTG Duration 06/16/20 strength Short Term Goal (STG) Pt will be indep with HEP STG Duration achieved progressing as needed Residential Goal (LTG) Pt will have 5/5 LE strength and 3/5 LPM to show improved stability so he will not have pain during typical activities . 05/16-improving LTG Duration 06/16/20 Assessment Summary Assessment Pt cont to improve with balance exercises and ability to go into DF onto leeann w/less backward lean of torso. He still has tightness of calf & PF which likely cont to limit his ability to go inot full DF . Physical Therapy Plan Frequency and Duration Frequency of Treatment 2x/Week Duration of Treatment 2 months Plan of Care Start Date 04/16/20 Plan of Care End Date 06/16/20 Next Visit Focus/Plan Next Note Type Treatment Note Next Visit Plan work on squating and balance & LLE ext for push off
--- NOTE | 2020-06-07 12:13 | PT.OTN ---
Current Diagnoses Other acquired deformities of left foot (06/07/20) Pain in left ankle and joints of left foot (06/07/20) Other specified joint disorders, left ankle and foot (06/07/20) Difficulty in walking, not elsewhere classified (06/07/20) Abnormal posture (06/07/20) Weakness (06/07/20) Physical Therapy Treatment Note PT-OP-A Visit Information Start: 04/16/20 07:27 Freq: Status: Active Protocol: Document 06/07/20 11:17 [facility] (Rec: 06/07/20 12:12 [facility] [id number]) Out-Patient Physical Therapy Visit Information Visit Information Visit Type Treatment Note Visit Start Time 11:17 Visit Stop Time 12:00 Total Visit Minutes 43 Visit Number 16 Number of SUPERVISOR INSPECTING Visits 0 PT-OP-B Current Condition Start: 04/16/20 07:27 Freq: Status: Active Protocol: Document 04/16/20 08:17 [facility] (Rec: 04/16/20 09:00 [facility] [id number]) Current Condition History of Current Condition Onset Date several months ago , ~5 months ago Current Complaints ant and lat L ankle History of Current Condition Pt reports he cannot remember anything specific starting his foot pain. Pt reprots he has had pain on/off and it has been nagging. Uphill is worse than downhill. Takes a walk 3 miles every few days and hasn' t been able to not walk d/t pain. Pt has been doing some stretching, ibuprofen to help. Pain has gradually gotten worse Prior Treatments and Tests Xrays shows some problems per pt and had a steroid injection -initally didn't help but after a couple of weeks it may have helped slightly, but not does not feel like its making much difference. He has started superfeet insoles per MD and that helped. Treatment Goals Patient/Caregiver Goals be able to do walks without pain Personal Factors Other Personal Factors That May Effect PMH: back pain, neck pain, Therapy/Recovery varicose veins PT-OP-C Subjective Start: 04/16/20 07:27 Freq: Status: Active Protocol: Document 06/07/20 11:17 [facility] (Rec: 06/07/20 12:12 [facility] [id number]) OP-PT Subjective Patient Comments Patient Comments Pt reports he looked up his shoes taht were worn and found he bought them a year ago so bought a new pair PT-OP-D Balance Start: 04/16/20 07:27 Freq: Status: Active Protocol: Document 05/16/20 07:31 [facility] (Rec: 05/16/20 09:45 [facility] [id number]) Balance Tests Single Limb Standing Single Limb- Right 13 sec w/arms across chest and dec lat shift over hips Single Limb- Left 15 sec w/arms out & lat shift; 7 sec w/arms across chest and some lat shift PT-OP-F Manual Assessment Start: 04/16/20 07:27 Freq: Status: Active Protocol: Document 04/16/20 08:17 [facility] (Rec: 04/16/20 09:00 [facility] [id number]) Manual Assessments Soft Tissue Assessment Soft Tissue Mobility Assessment tihgtness/tendernss in L calf, L ATFL PT-OP-G Mobility & Gait Start: 04/16/20 07:27 Freq: Status: Active Protocol: Document 04/16/20 08:17 [facility] (Rec: 04/16/20 09:00 [facility] [id number]) OP Gait Assessment Comments Gait Comments dec push off, some lat leaning Stair Climbing Evaluation Comments Stair Climbing Comments able ot go up/down reciprocally with mild paind escent PT-OP-J Posture/Palpation/Skin Start: 04/16/20 07:27 Freq: Status: Active Protocol: Document 04/16/20 08:17 [facility] (Rec: 04/16/20 09:00 [facility] [id number]) Posture Evaluation [place] Postural Classification System Lumbar Protective Mechanism Left AP 1 Lumbar Protective Mechanism Right AP 2 Lumbar Protective Mechanism Left PA 0 Lumbar Protective Mechanism Right PA 0 Comments Posture Comments thoracic cage sheared R, pronation B, fwd head and shoulders PT-OP-K Range of Motion Start: 04/16/20 07:27 Freq: Status: Active Protocol: Document 05/16/20 07:31 [facility] (Rec: 05/16/20 09:45 [facility] [id number]) Ankle and Foot Goniometric Range of Motion Ankle and Foot Right Active Dorsiflexion with Knee Flexed 3 Left Active Dorsiflexion with Knee Flexed 3 Dorsiflexion with Knee Extended 2 PT-OP-M Strength Start: 04/16/20 07:27 Freq: Status: Active Protocol: Document 05/16/20 07:31 [facility] (Rec: 05/16/20 09:45 [facility] [id number]) Hip Strength Hip Manual Muscle Testing Right Flexion (L2) 4- Good- Extension (S1) 4- Good- Abduction 4 Good External Rotation 4 Good Internal Rotation 4+ Good+ Left Flexion (L2) 4- Good- Extension (S1) 4 Good Abduction 4+ Good+ External Rotation 4 Good Internal Rotation 4+ Good+ Knee Strength Knee Manual Muscle Testing Right Flexion (S2) 5 Normal Left Flexion (S2) 5 Normal Extension (L3) 5 Normal Ankle/Foot Strength Ankle and Foot Manual Muscle Testing Right Dorsiflexion (L4) 5 Normal Plantarflexion (S1) 5 Normal Inversion 5 Normal Eversion (S1) 5 Normal Left Dorsiflexion (L4) 4+ Good+ Plantarflexion (S1) 3+ Fair+ Inversion 4+ Good+ Eversion (S1) 5 Normal Comments able to do 9 PT-OP-Q Treatments Start: 04/16/20 07:27 Freq: Status: Active Protocol: Document 06/07/20 11:17 [facility] (Rec: 06/07/20 12:12 [facility] [id number]) Gym Equipment Shuttle Balance red clips Reps/Duration head turns Comments fwd & side: WBOS & NBOS &staggered stance wt shifts Gait Training Gait Activity gait Comments 1. exaggerated push off 2x50ft 2. resisted gait with dowel 2x50ft 3. General work on push off with noramlized gait 3x50ft wt shifts Comments 1.fwd wt shifts to each LE Manual Therapy Treatment Joint Mobilizations talus Direction AP supine glides & PA FM calcaneus Joint L Direction lat glide & distraction Self-Care/Home Management Treatment Education Other Education edu on things to look at in new shoes PT-OP-R Modalities Start: 04/16/20 07:27 Freq: Status: Active Protocol: Document 06/05/20 11:35 [facility] (Rec: 06/05/20 12:14 [facility] [id number]) Infrared Treatment Treatment L ant to fibula Duration (Minutes) 1 Program or Protocal chronic med intenisity for ligaments & tendons PT-OP-T Assessment and Plan Start: 04/16/20 07:27 Freq: Status: Active Protocol: Document 06/07/20 11:17 [facility] (Rec: 06/07/20 12:12 [facility] [id number]) Physical Therapy Assessment Goals balance Residential Goal (LTG) Pt will be able to balance 10 sec on LLE w/o lat deviation B 05/16-improving LTG Duration 06/16/20 ROM Residential Goal (LTG) Pt will have improved DF to 10 w/knee flex and 6 w/knee ext so he will have improved gait mechanics. 05/16-improving LTG Duration 06/16/20 FAAM Impairment 56/84 Short Term Goal (STG) Pt will score 66/84 to show improved functional ability. STG Duration 05/17/20 Offset Plate Preparation Supervisor Goal (LTG) Pt will score 80/84 to show improved functional ability. LTG Duration 06/16/20 activities Short Term Goal (STG) Pt will be able to go up/down stairs without pain 05/16-occ some pain STG Duration 05/17/20 Residential Goal (LTG) Pt will be able to do his typical walks without any inc in pain. 05/16-improving LTG Duration 06/16/20 strength Short Term Goal (STG) Pt will be indep with HEP STG Duration achieved progressing as needed Offset Plate Preparation Supervisor Goal (LTG) Pt will have 5/5 LE strength and 3/5 LPM to show improved stability so he will not have pain during typical activities . 05/16-improving LTG Duration 06/16/20 Assessment Summary Assessment Pt had less noise w/heel strike on L side w/cueing for push off. Able to improve gait mechanics after significant cuieng. Cont to imrpove iwth balance. no pain with DF today but pain w/PF in WB Physical Therapy Plan Frequency and Duration Frequency of Treatment 2x/Week Duration of Treatment 2 months Plan of Care Start Date 04/16/20 Plan of Care End Date 06/16/20 Next Visit Focus/Plan Next Note Type Progress Note Next Visit Plan new POC, work on push off and gait mechanics, work on more neutral positioning of foot for push off
--- NOTE | 2020-06-11 12:09 | PT.OTN ---
Current Diagnoses Other acquired deformities of left foot (06/11/20) Pain in left ankle and joints of left foot (06/11/20) Other specified joint disorders, left ankle and foot (06/11/20) Difficulty in walking, not elsewhere classified (06/11/20) Abnormal posture (06/11/20) Weakness (06/11/20) Physical Therapy Treatment Note PT-OP-A Visit Information Start: 04/16/20 07:27 Freq: Status: Active Protocol: Document 06/11/20 12:06 [facility] (Rec: 06/12/20 12:09 [facility] [id number]) Out-Patient Physical Therapy Visit Information Visit Information Visit Type Treatment Note Visit Note 01/29 Visit Start Time 09:48 Visit Stop Time 10:30 Total Visit Minutes 42 Visit Number 17 Number of COMMUNITY MARKETING COORDINATOR Visits 0 PT-OP-B Current Condition Start: 04/16/20 07:27 Freq: Status: Active Protocol: Document 04/16/20 08:17 [facility] (Rec: 04/16/20 09:00 [facility] [id number]) Current Condition History of Current Condition Onset Date several months ago , ~5 months ago Current Complaints ant and lat L ankle History of Current Condition Pt reports he cannot remember anything specific starting his foot pain. Pt reprots he has had pain on/off and it has been nagging. Uphill is worse than downhill. Takes a walk 3 miles every few days and hasn' t been able to not walk d/t pain. Pt has been doing some stretching, ibuprofen to help. Pain has gradually gotten worse Prior Treatments and Tests Xrays shows some problems per pt and had a steroid injection -initally didn't help but after a couple of weeks it may have helped slightly, but not does not feel like its making much difference. He has started superfeet insoles per MD and that helped. Treatment Goals Patient/Caregiver Goals be able to do walks without pain Personal Factors Other Personal Factors That May Effect PMH: back pain, neck pain, Therapy/Recovery varicose veins PT-OP-C Subjective Start: 04/16/20 07:27 Freq: Status: Active Protocol: Document 06/11/20 12:06 [facility] (Rec: 06/12/20 12:09 [facility] [id number]) OP-PT Subjective Patient Comments Patient Comments Reprots working on his walking PT-OP-D Balance Start: 04/16/20 07:27 Freq: Status: Active Protocol: Document 05/16/20 07:31 [facility] (Rec: 05/16/20 09:45 [facility] [id number]) Balance Tests Single Limb Standing Single Limb- Right 13 sec w/arms across chest and dec lat shift over hips Single Limb- Left 15 sec w/arms out & lat shift; 7 sec w/arms across chest and some lat shift PT-OP-F Manual Assessment Start: 04/16/20 07:27 Freq: Status: Active Protocol: Document 04/16/20 08:17 [facility] (Rec: 04/16/20 09:00 [facility] [id number]) Manual Assessments Soft Tissue Assessment Soft Tissue Mobility Assessment tihgtness/tendernss in L calf, L ATFL PT-OP-G Mobility & Gait Start: 04/16/20 07:27 Freq: Status: Active Protocol: Document 04/16/20 08:17 [facility] (Rec: 04/16/20 09:00 [facility] [id number]) OP Gait Assessment Comments Gait Comments dec push off, some lat leaning Stair Climbing Evaluation Comments Stair Climbing Comments able ot go up/down reciprocally with mild paind escent PT-OP-J Posture/Palpation/Skin Start: 04/16/20 07:27 Freq: Status: Active Protocol: Document 04/16/20 08:17 [facility] (Rec: 04/16/20 09:00 [facility] [id number]) Posture Evaluation [place] Postural Classification System Lumbar Protective Mechanism Left AP 1 Lumbar Protective Mechanism Right AP 2 Lumbar Protective Mechanism Left PA 0 Lumbar Protective Mechanism Right PA 0 Comments Posture Comments thoracic cage sheared R, pronation B, fwd head and shoulders PT-OP-K Range of Motion Start: 04/16/20 07:27 Freq: Status: Active Protocol: Document 05/16/20 07:31 [facility] (Rec: 05/16/20 09:45 [facility] [id number]) Ankle and Foot Goniometric Range of Motion Ankle and Foot Right Active Dorsiflexion with Knee Flexed 3 Left Active Dorsiflexion with Knee Flexed 3 Dorsiflexion with Knee Extended 2 PT-OP-M Strength Start: 04/16/20 07:27 Freq: Status: Active Protocol: Document 05/16/20 07:31 [facility] (Rec: 05/16/20 09:45 [facility] [id number]) Hip Strength Hip Manual Muscle Testing Right Flexion (L2) 4- Good- Extension (S1) 4- Good- Abduction 4 Good External Rotation 4 Good Internal Rotation 4+ Good+ Left Flexion (L2) 4- Good- Extension (S1) 4 Good Abduction 4+ Good+ External Rotation 4 Good Internal Rotation 4+ Good+ Knee Strength Knee Manual Muscle Testing Right Flexion (S2) 5 Normal Left Flexion (S2) 5 Normal Extension (L3) 5 Normal Ankle/Foot Strength Ankle and Foot Manual Muscle Testing Right Dorsiflexion (L4) 5 Normal Plantarflexion (S1) 5 Normal Inversion 5 Normal Eversion (S1) 5 Normal Left Dorsiflexion (L4) 4+ Good+ Plantarflexion (S1) 3+ Fair+ Inversion 4+ Good+ Eversion (S1) 5 Normal Comments able to do 9 PT-OP-Q Treatments Start: 04/16/20 07:27 Freq: Status: Active Protocol: Document 06/11/20 12:06 [facility] (Rec: 06/12/20 12:09 [facility] [id number]) Therapeutic Exercises Standing Exercises 1 Standing Exercise Name hip hikes Side bilateral Reps/Minutes 10 Gait Training Gait Activity gait Comments 1. exaggerated push off 2x50ft 2. resisted gait with dowel 5x50ft 3. General work on push off with noramlized gait 4x50ft wt shifts Comments 1.fwd wt shifts to each LE Manual Therapy Treatment Joint Mobilizations talus Direction AP supine glides & PA FM calcaneus Joint L Direction lat glide & distraction PT-OP-R Modalities Start: 04/16/20 07:27 Freq: Status: Active Protocol: Document 06/05/20 11:35 [facility] (Rec: 06/05/20 12:14 [facility] [id number]) Infrared Treatment Treatment L ant to fibula Duration (Minutes) 1 Program or Protocal chronic med intenisity for ligaments & tendons PT-OP-T Assessment and Plan Start: 04/16/20 07:27 Freq: Status: Active Protocol: Document 06/11/20 12:06 [facility] (Rec: 06/12/20 12:09 [facility] [id number]) Physical Therapy Assessment Goals balance [facility]ci Goal (LTG) Pt will be able to balance 10 sec on LLE w/o lat deviation B 05/16-improving LTG Duration 06/16/20 ROM Fci Goal (LTG) Pt will have improved DF to 10 w/knee flex and 6 w/knee ext so he will have improved gait mechanics. 05/16-improving LTG Duration 06/16/20 FAAM Impairment 56/84 Short Term Goal (STG) Pt will score 66/84 to show improved functional ability. STG Duration 05/17/20 Fci Goal (LTG) Pt will score 80/84 to show improved functional ability. LTG Duration 06/16/20 activities Short Term Goal (STG) Pt will be able to go up/down stairs without pain 05/16-occ some pain STG Duration 05/17/20 Order Processing Specialist Goal (LTG) Pt will be able to do his typical walks without any inc in pain. 05/16-improving LTG Duration 06/16/20 strength Short Term Goal (STG) Pt will be indep with HEP STG Duration achieved progressing as needed Fci Goal (LTG) Pt will have 5/5 LE strength and 3/5 LPM to show improved stability so he will not have pain during typical activities . 05/16-improving LTG Duration 06/16/20 Assessment Summary Assessment Pt had imrpoved ability to go into PF w/less inversion after manual treatment with improved rearfoot eversion. He is improving with gait mechancis but still does require cueing . Physical Therapy Plan Frequency and Duration Frequency of Treatment 2x/Week Duration of Treatment 2 months Plan of Care Start Date 04/16/20 Plan of Care End Date 06/16/20 Next Visit Focus/Plan Next Note Type Progress Note Next Visit Plan new POC, work on push off and gait mechanics, work on more neutral positioning of foot for push off
--- NOTE | 2020-06-21 11:44 | PT.OTN ---
Current Diagnoses Other acquired deformities of left foot (06/21/20) Pain in left ankle and joints of left foot (06/21/20) Other specified joint disorders, left ankle and foot (06/21/20) Difficulty in walking, not elsewhere classified (06/21/20) Abnormal posture (06/21/20) Weakness (06/21/20) Physical Therapy Treatment Note PT-OP-A Visit Information Start: 04/16/20 07:27 Freq: Status: Active Protocol: Document 06/21/20 11:38 [facility] (Rec: 06/21/20 11:44 [facility] [id number]) Out-Patient Physical Therapy Visit Information Visit Information Visit Type Progress Note Visit Start Time 08:18 Visit Stop Time 09:00 Total Visit Minutes 42 Visit Number 18 Number of DRILL PUNCH OPERATOR Visits 0 PT-OP-B Current Condition Start: 04/16/20 07:27 Freq: Status: Active Protocol: Document 04/16/20 08:17 [facility] (Rec: 04/16/20 09:00 [facility] [id number]) Current Condition History of Current Condition Onset Date several months ago , ~5 months ago Current Complaints ant and lat L ankle History of Current Condition Pt reports he cannot remember anything specific starting his foot pain. Pt reprots he has had pain on/off and it has been nagging. Uphill is worse than downhill. Takes a walk 3 miles every few days and hasn' t been able to not walk d/t pain. Pt has been doing some stretching, ibuprofen to help. Pain has gradually gotten worse Prior Treatments and Tests Xrays shows some problems per pt and had a steroid injection -initally didn't help but after a couple of weeks it may have helped slightly, but not does not feel like its making much difference. He has started superfeet insoles per MD and that helped. Treatment Goals Patient/Caregiver Goals be able to do walks without pain Personal Factors Other Personal Factors That May Effect PMH: back pain, neck pain, Therapy/Recovery varicose veins PT-OP-C Subjective Start: 04/16/20 07:27 Freq: Status: Active Protocol: Document 06/21/20 11:38 [facility] (Rec: 06/21/20 11:44 [facility] [id number]) OP-PT Subjective Patient Comments Patient Comments Reports when he pushes through his big toe during gait, it dec pain PT-OP-D Balance Start: 04/16/20 07:27 Freq: Status: Active Protocol: Document 05/16/20 07:31 [facility] (Rec: 05/16/20 09:45 [facility] [id number]) Balance Tests Single Limb Standing Single Limb- Right 13 sec w/arms across chest and dec lat shift over hips Single Limb- Left 15 sec w/arms out & lat shift; 7 sec w/arms across chest and some lat shift PT-OP-F Manual Assessment Start: 04/16/20 07:27 Freq: Status: Active Protocol: Document 04/16/20 08:17 [facility] (Rec: 04/16/20 09:00 [facility] [id number]) Manual Assessments Soft Tissue Assessment Soft Tissue Mobility Assessment tihgtness/tendernss in L calf, L ATFL PT-OP-G Mobility & Gait Start: 04/16/20 07:27 Freq: Status: Active Protocol: Document 04/16/20 08:17 [facility] (Rec: 04/16/20 09:00 [facility] [id number]) OP Gait Assessment Comments Gait Comments dec push off, some lat leaning Stair Climbing Evaluation Comments Stair Climbing Comments able ot go up/down reciprocally with mild paind escent PT-OP-J Posture/Palpation/Skin Start: 04/16/20 07:27 Freq: Status: Active Protocol: Document 04/16/20 08:17 [facility] (Rec: 04/16/20 09:00 [facility] [id number]) Posture Evaluation [facility] Postural Classification System Lumbar Protective Mechanism Left AP 1 Lumbar Protective Mechanism Right AP 2 Lumbar Protective Mechanism Left PA 0 Lumbar Protective Mechanism Right PA 0 Comments Posture Comments thoracic cage sheared R, pronation B, fwd head and shoulders PT-OP-K Range of Motion Start: 04/16/20 07:27 Freq: Status: Active Protocol: Document 05/16/20 07:31 [facility] (Rec: 05/16/20 09:45 [facility] [id number]) Ankle and Foot Goniometric Range of Motion Ankle and Foot Right Active Dorsiflexion with Knee Flexed 3 Left Active Dorsiflexion with Knee Flexed 3 Dorsiflexion with Knee Extended 2 PT-OP-M Strength Start: 04/16/20 07:27 Freq: Status: Active Protocol: Document 05/16/20 07:31 [facility] (Rec: 05/16/20 09:45 [facility] [id number]) Hip Strength Hip Manual Muscle Testing Right Flexion (L2) 4- Good- Extension (S1) 4- Good- Abduction 4 Good External Rotation 4 Good Internal Rotation 4+ Good+ Left Flexion (L2) 4- Good- Extension (S1) 4 Good Abduction 4+ Good+ External Rotation 4 Good Internal Rotation 4+ Good+ Knee Strength Knee Manual Muscle Testing Right Flexion (S2) 5 Normal Left Flexion (S2) 5 Normal Extension (L3) 5 Normal Ankle/Foot Strength Ankle and Foot Manual Muscle Testing Right Dorsiflexion (L4) 5 Normal Plantarflexion (S1) 5 Normal Inversion 5 Normal Eversion (S1) 5 Normal Left Dorsiflexion (L4) 4+ Good+ Plantarflexion (S1) 3+ Fair+ Inversion 4+ Good+ Eversion (S1) 5 Normal Comments able to do 9 PT-OP-Q Treatments Start: 04/16/20 07:27 Freq: Status: Active Protocol: Document 06/21/20 11:38 [facility] (Rec: 06/21/20 11:44 [facility] [id number]) Gym Equipment Shuttle Balance red clips Reps/Duration head turns Comments fwd & side: WBOS & NBOS &staggered stance wt shifts Gait Training Gait Activity wt shifts Comments 1.fwd wt shifts to each LE focus on neutral foot Manual Therapy Treatment Joint Mobilizations forefoot Joint L cueiniform gapping FM tib fib Joint fib PA w/PF talus Direction AP supine glides & PA FM calcaneus Joint L Direction lat glide & distraction PT-OP-R Modalities Start: 04/16/20 07:27 Freq: Status: Active Protocol: Document 06/05/20 11:35 [facility] (Rec: 06/05/20 12:14 [facility] [id number]) Infrared Treatment Treatment L ant to fibula Duration (Minutes) 1 Program or Protocal chronic med intenisity for ligaments & tendons PT-OP-T Assessment and Plan Start: 04/16/20 07:27 Freq: Status: Active Protocol: Document 06/21/20 11:38 [facility] (Rec: 06/21/20 11:44 [facility] [id number]) Physical Therapy Assessment Goals balance Water [employer]i Operator Goal (LTG) Pt will be able to balance 10 sec on LLE w/o lat deviation B 05/16-improving LTG Duration 08/12/20 ROM Water Taxi Operator Goal (LTG) Pt will have improved DF to 10 w/knee flex and 6 w/knee ext so he will have improved gait mechanics. 05/16-improving LTG Duration 08/11/20 FAAM Impairment 56/84 Short Term Goal (STG) Pt will score 66/84 to show improved functional ability. STG Duration 07/19/20 Skilled Nursing Goal (LTG) Pt will score 80/84 to show improved functional ability. LTG Duration 08/19/20 activities Short Term Goal (STG) Pt will be able to go up/down stairs without pain 05/16-occ some pain 06/21-pain only sometimes STG Duration 07/11/20 Skilled Nursing Goal (LTG) Pt will be able to do his typical walks without any inc in pain. 05/16-improving 06/21-overall dec pain LTG Duration 08/19/20 strength Short Term Goal (STG) Pt will be indep with HEP STG Duration achieved progressing as needed Skilled Nursing Goal (LTG) Pt will have 5/5 LE strength and 3/5 LPM to show improved stability so he will not have pain during typical activities . 05/16-improving LTG Duration 08/19/20 Assessment Summary Assessment Pt had improved ability to stay neutral with push off after manual treatment but does require cuieng for glute activiation to help with push off and dec hip IR. Pt is making improvements with gait mechanics, balance and overall stability, but does still note pain that is not limiting but bothersome during activity Physical Therapy Plan Frequency and Duration Frequency of Treatment 1-2x/Week Duration of Treatment 2 months Plan of Care Start Date 06/21/20 Plan of Care End Date 08/19/20 Therapeutic Interventions Therapeutic Interventions Aquatic Therapy,Balance Training,Gait Training,Home Exercise Program,Joint Mobilizations,Manual Therapy, Neuromuscular Re-education, Patient/Caregiver Education, Self-Care/Home Management,Soft Tissue Mobilization,Taping, Therapeutic Activities, Therapeutic Exercises Modalities Cold Pack/Ice Massage,Electric Stimulation,Hot Packs, Infrared Therapy,Iontophoresis ,Ultrasound Next Visit Focus/Plan Next Note Type Treatment Note Next Visit Plan work on push off and gait mechanics, work on more neutral positioning of foot for push off, give FAAM
--- NOTE | 2020-06-21 11:44 | PT.OPPOC ---
Physical, Occupational & Speech Therapy At [facility] Current Diagnoses Other acquired deformities of left foot (06/21/20) Pain in left ankle and joints of left foot (06/21/20) Other specified joint disorders, left ankle and foot (06/21/20) Difficulty in walking, not elsewhere classified (06/21/20) Abnormal posture (06/21/20) Weakness (06/21/20) Visit Care Team Role Provider Type Stan Spangler MD Family Provider Physician Primary Care Provider Specialty: Family Practice Address: [address] [place] [address], [facility] [place], [address] Email: [email or web address] Susan Perkins DPM Attending Provider Physician Referring Provider Specialty: Podiatry Address: [address] [place] [address], [id number] Email: [email or web address] Plan Of Care PT-OP-T Assessment and Plan Start: 04/16/20 07:27 Freq: Status: Active Protocol: Document 06/21/20 11:38 [facility] (Rec: 06/21/20 11:44 [facility] [id number]) Physical Therapy Assessment Goals balance [place] Goal (LTG) Pt will be able to balance 10 sec on LLE w/o lat deviation B 05/16-improving LTG Duration 08/12/20 ROM [facility] Goal (LTG) Pt will have improved DF to 10 w/knee flex and 6 w/knee ext so he will have improved gait mechanics. 05/16-improving LTG Duration 08/11/20 FAAM Impairment 56/84 Short Term Goal (STG) Pt will score 66/84 to show improved functional ability. STG Duration 07/19/20 [facility] Goal (LTG) Pt will score 80/84 to show improved functional ability. LTG Duration 08/19/20 activities Short Term Goal (STG) Pt will be able to go up/down stairs without pain 05/16-occ some pain 06/21-pain only sometimes STG Duration 07/11/20 [place] Goal (LTG) Pt will be able to do his typical walks without any inc in pain. 05/16-improving 06/21-overall dec pain LTG Duration 08/19/20 strength Short Term Goal (STG) Pt will be indep with HEP STG Duration achieved progressing as needed [facility] Goal (LTG) Pt will have 5/5 LE strength and 3/5 LPM to show improved stability so he will not have pain during typical activities . 05/16-improving LTG Duration 08/19/20 Assessment Summary Assessment Pt had improved ability to stay neutral with push off after manual treatment but does require cuieng for glute activiation to help with push off and dec hip IR. Pt is making improvements with gait mechanics, balance and overall stability, but does still note pain that is not limiting but bothersome during activity Physical Therapy Plan Frequency and Duration Frequency of Treatment 1-2x/Week Duration of Treatment 2 months Plan of Care Start Date 06/21/20 Plan of Care End Date 08/19/20 Therapeutic Interventions Therapeutic Interventions Aquatic Therapy,Balance Training,Gait Training,Home Exercise Program,Joint Mobilizations,Manual Therapy, Neuromuscular Re-education, Patient/Caregiver Education, Self-Care/Home Management,Soft Tissue Mobilization,Taping, Therapeutic Activities, Therapeutic Exercises Modalities Cold Pack/Ice Massage,Electric Stimulation,Hot Packs, Infrared Therapy,Iontophoresis ,Ultrasound Next Visit Focus/Plan Next Note Type Treatment Note Next Visit Plan work on push off and gait mechanics, work on more neutral positioning of foot for push off, give FAAM Plan of Care Dates Plan of Care Start Date 06/21/20 Plan of Care End Date 08/19/20 Electronically Signed by: Karolina Reyes, PT 06/21/20 [id number] Please Sign and Return: I have reviewed this Plan of Care and certify that the skilled therapy services above are required to meet the patient?s needs. Physician Signature Date Printed Name and Credentials Clinical Instructor Signature Printed Name and Credentials
--- NOTE | 2020-06-28 11:34 | PT.OTN ---
Current Diagnoses Other acquired deformities of left foot (06/28/20) Pain in left ankle and joints of left foot (06/28/20) Other specified joint disorders, left ankle and foot (06/28/20) Difficulty in walking, not elsewhere classified (06/28/20) Abnormal posture (06/28/20) Weakness (06/28/20) Physical Therapy Treatment Note PT-OP-A Visit Information Start: 04/16/20 07:27 Freq: Status: Active Protocol: Document 06/28/20 09:04 [facility] (Rec: 06/28/20 11:34 [facility] [id number]) Out-Patient Physical Therapy Visit Information Visit Information Visit Type Treatment Note Visit Note 08/01 Visit Start Time 09:04 Visit Stop Time 09:44 Total Visit Minutes 40 Visit Number 19 Number of TOOL DRESSER Visits 0 PT-OP-B Current Condition Start: 04/16/20 07:27 Freq: Status: Active Protocol: Document 04/16/20 08:17 [facility] (Rec: 04/16/20 09:00 [facility] [id number]) Current Condition History of Current Condition Onset Date several months ago , ~5 months ago Current Complaints ant and lat L ankle History of Current Condition Pt reports he cannot remember anything specific starting his foot pain. Pt reprots he has had pain on/off and it has been nagging. Uphill is worse than downhill. Takes a walk 3 miles every few days and hasn' t been able to not walk d/t pain. Pt has been doing some stretching, ibuprofen to help. Pain has gradually gotten worse Prior Treatments and Tests Xrays shows some problems per pt and had a steroid injection -initally didn't help but after a couple of weeks it may have helped slightly, but not does not feel like its making much difference. He has started superfeet insoles per MD and that helped. Treatment Goals Patient/Caregiver Goals be able to do walks without pain Personal Factors Other Personal Factors That May Effect PMH: back pain, neck pain, Therapy/Recovery varicose veins PT-OP-C Subjective Start: 04/16/20 07:27 Freq: Status: Active Protocol: Document 06/28/20 09:04 [facility] (Rec: 06/28/20 11:34 [facility] [id number]) OP-PT Subjective Patient Comments Patient Comments Pt reprots sometimes feeling his big toe when walking. [place] pain is up and down in ankle Patient Reported Progress Improving PT-OP-D Balance Start: 04/16/20 07:27 Freq: Status: Active Protocol: Document 05/16/20 07:31 [facility] (Rec: 05/16/20 09:45 [facility] [id number]) Balance Tests Single Limb Standing Single Limb- Right 13 sec w/arms across chest and dec lat shift over hips Single Limb- Left 15 sec w/arms out & lat shift; 7 sec w/arms across chest and some lat shift PT-OP-F Manual Assessment Start: 04/16/20 07:27 Freq: Status: Active Protocol: Document 04/16/20 08:17 [facility] (Rec: 04/16/20 09:00 [facility] [id number]) Manual Assessments Soft Tissue Assessment Soft Tissue Mobility Assessment tihgtness/tendernss in L calf, L ATFL PT-OP-G Mobility & Gait Start: 04/16/20 07:27 Freq: Status: Active Protocol: Document 04/16/20 08:17 [facility] (Rec: 04/16/20 09:00 [facility] [id number]) OP Gait Assessment Comments Gait Comments dec push off, some lat leaning Stair Climbing Evaluation Comments Stair Climbing Comments able ot go up/down reciprocally with mild paind escent PT-OP-J Posture/Palpation/Skin Start: 04/16/20 07:27 Freq: Status: Active Protocol: Document 04/16/20 08:17 [facility] (Rec: 04/16/20 09:00 [facility] [id number]) Posture Evaluation [facility] Postural Classification System Lumbar Protective Mechanism Left AP 1 Lumbar Protective Mechanism Right AP 2 Lumbar Protective Mechanism Left PA 0 Lumbar Protective Mechanism Right PA 0 Comments Posture Comments thoracic cage sheared R, pronation B, fwd head and shoulders PT-OP-K Range of Motion Start: 04/16/20 07:27 Freq: Status: Active Protocol: Document 05/16/20 07:31 [facility] (Rec: 05/16/20 09:45 [facility] [id number]) Ankle and Foot Goniometric Range of Motion Ankle and Foot Right Active Dorsiflexion with Knee Flexed 3 Left Active Dorsiflexion with Knee Flexed 3 Dorsiflexion with Knee Extended 2 PT-OP-M Strength Start: 04/16/20 07:27 Freq: Status: Active Protocol: Document 05/16/20 07:31 [facility] (Rec: 05/16/20 09:45 [facility] [id number]) Hip Strength Hip Manual Muscle Testing Right Flexion (L2) 4- Good- Extension (S1) 4- Good- Abduction 4 Good External Rotation 4 Good Internal Rotation 4+ Good+ Left Flexion (L2) 4- Good- Extension (S1) 4 Good Abduction 4+ Good+ External Rotation 4 Good Internal Rotation 4+ Good+ Knee Strength Knee Manual Muscle Testing Right Flexion (S2) 5 Normal Left Flexion (S2) 5 Normal Extension (L3) 5 Normal Ankle/Foot Strength Ankle and Foot Manual Muscle Testing Right Dorsiflexion (L4) 5 Normal Plantarflexion (S1) 5 Normal Inversion 5 Normal Eversion (S1) 5 Normal Left Dorsiflexion (L4) 4+ Good+ Plantarflexion (S1) 3+ Fair+ Inversion 4+ Good+ Eversion (S1) 5 Normal Comments able to do 9 PT-OP-Q Treatments Start: 04/16/20 07:27 Freq: Status: Active Protocol: Document 06/28/20 09:04 [facility] (Rec: 06/28/20 11:34 [facility] [id number]) Gym Equipment Shuttle Balance red clips Reps/Duration head turns Comments fwd & side: WBOS & NBOS &staggered stance wt shifts Manual Therapy Treatment Soft Tissue Mobilization ant ankle Mobilization Type Myofascial Release Intensity/Depth Superficial Body Position Supine Comments w/toe flex & pt in PF calf Body Location L achilles & calf & plantar fascia Mobilization Type Rolling,Strumming,Sustained Pressure Intensity/Depth Moderate Body Position Supine Joint Mobilizations forefoot Joint L cueiniform gapping FM calcaneus Joint L Direction lat glide & distraction Self-Care/Home Management Treatment Education Other Education discussed that pt has more comfort in his hiking boots, discussed putting his superfeet into the shoes he is wearing. Edu on shoe tying to get a lat pull to avoid inversion w/dec pain in ankle initially when walking PT-OP-R Modalities Start: 04/16/20 07:27 Freq: Status: Active Protocol: Document 06/05/20 11:35 [facility] (Rec: 06/05/20 12:14 [facility] [id number]) Infrared Treatment Treatment L ant to fibula Duration (Minutes) 1 Program or Protocal chronic med intenisity for ligaments & tendons PT-OP-T Assessment and Plan Start: 04/16/20 07:27 Freq: Status: Active Protocol: Document 06/28/20 09:04 [facility] (Rec: 06/28/20 11:34 [facility] [id number]) Physical Therapy Assessment Goals balance Longterm Goal (LTG) Pt will be able to balance 10 sec on LLE w/o lat deviation B 05/16-improving LTG Duration 08/12/20 ROM [employer] Goal (LTG) Pt will have improved DF to 10 w/knee flex and 6 w/knee ext so he will have improved gait mechanics. 05/16-improving LTG Duration 08/11/20 FAAM Impairment 56/84 Short Term Goal (STG) Pt will score 66/84 to show improved functional ability. STG Duration 07/19/20 [employer] Goal (LTG) Pt will score 80/84 to show improved functional ability. LTG Duration 08/19/20 activities Short Term Goal (STG) Pt will be able to go up/down stairs without pain 05/16-occ some pain 06/21-pain only sometimes STG Duration 07/11/20 [employer] Goal (LTG) Pt will be able to do his typical walks without any inc in pain. 05/16-improving 06/21-overall dec pain LTG Duration 08/19/20 strength Short Term Goal (STG) Pt will be indep with HEP STG Duration achieved progressing as needed Longterm Goal (LTG) Pt will have 5/5 LE strength and 3/5 LPM to show improved stability so he will not have pain during typical activities . 05/16-improving LTG Duration 08/19/20 Assessment Summary Assessment Pt cont to have inversion positioning of ankle especially in PF and does note the pain into ant ankle w/ motion into push off. was not able to replicate toe pain except when first came in. Pt encouraged to do ankle ABCs Physical Therapy Plan Frequency and Duration Frequency of Treatment 1-2x/Week Duration of Treatment 2 months Plan of Care Start Date 06/21/20 Plan of Care End Date 08/19/20 Next Visit Focus/Plan Next Note Type Treatment Note Next Visit Plan work on push off and gait mechanics, work on more neutral positioning of foot for push off, give FAAM
--- NOTE | 2020-07-02 08:16 | PT.OTN ---
Current Diagnoses Other acquired deformities of left foot (07/02/20) Pain in left ankle and joints of left foot (07/02/20) Other specified joint disorders, left ankle and foot (07/02/20) Difficulty in walking, not elsewhere classified (07/02/20) Abnormal posture (07/02/20) Weakness (07/02/20) Physical Therapy Treatment Note PT-OP-A Visit Information Start: 04/16/20 07:27 Freq: Status: Active Protocol: Document 07/02/20 07:28 [facility] (Rec: 07/02/20 08:16 [facility] [id number]) Out-Patient Physical Therapy Visit Information Visit Information Visit Type Treatment Note Visit Note 08/29 Visit Start Time 07:30 Visit Stop Time 08:11 Total Visit Minutes 41 Visit Number 20 Number of HARDWARE TRAINER Visits 0 PT-OP-B Current Condition Start: 04/16/20 07:27 Freq: Status: Active Protocol: Document 04/16/20 08:17 [facility] (Rec: 04/16/20 09:00 [facility] [id number]) Current Condition History of Current Condition Onset Date several months ago , ~5 months ago Current Complaints ant and lat L ankle History of Current Condition Pt reports he cannot remember anything specific starting his foot pain. Pt reprots he has had pain on/off and it has been nagging. Uphill is worse than downhill. Takes a walk 3 miles every few days and hasn' t been able to not walk d/t pain. Pt has been doing some stretching, ibuprofen to help. Pain has gradually gotten worse Prior Treatments and Tests Xrays shows some problems per pt and had a steroid injection -initally didn't help but after a couple of weeks it may have helped slightly, but not does not feel like its making much difference. He has started superfeet insoles per MD and that helped. Treatment Goals Patient/Caregiver Goals be able to do walks without pain Personal Factors Other Personal Factors That May Effect PMH: back pain, neck pain, Therapy/Recovery varicose veins PT-OP-C Subjective Start: 04/16/20 07:27 Freq: Status: Active Protocol: Document 07/02/20 07:28 [facility] (Rec: 07/02/20 08:16 [facility] [id number]) OP-PT Subjective Patient Comments Patient Comments Pt reports the insoles in his hiking shoes have helped PT-OP-D Balance Start: 04/16/20 07:27 Freq: Status: Active Protocol: Document 05/16/20 07:31 [facility] (Rec: 05/16/20 09:45 [facility] [id number]) Balance Tests Single Limb Standing Single Limb- Right 13 sec w/arms across chest and dec lat shift over hips Single Limb- Left 15 sec w/arms out & lat shift; 7 sec w/arms across chest and some lat shift PT-OP-F Manual Assessment Start: 04/16/20 07:27 Freq: Status: Active Protocol: Document 04/16/20 08:17 [facility] (Rec: 04/16/20 09:00 [facility] [id number]) Manual Assessments Soft Tissue Assessment Soft Tissue Mobility Assessment tihgtness/tendernss in L calf, L ATFL PT-OP-G Mobility & Gait Start: 04/16/20 07:27 Freq: Status: Active Protocol: Document 04/16/20 08:17 [facility] (Rec: 04/16/20 09:00 [facility] [id number]) OP Gait Assessment Comments Gait Comments dec push off, some lat leaning Stair Climbing Evaluation Comments Stair Climbing Comments able ot go up/down reciprocally with mild paind escent PT-OP-J Posture/Palpation/Skin Start: 04/16/20 07:27 Freq: Status: Active Protocol: Document 04/16/20 08:17 [facility] (Rec: 04/16/20 09:00 [facility] [id number]) Posture Evaluation [place] Postural Classification System Lumbar Protective Mechanism Left AP 1 Lumbar Protective Mechanism Right AP 2 Lumbar Protective Mechanism Left PA 0 Lumbar Protective Mechanism Right PA 0 Comments Posture Comments thoracic cage sheared R, pronation B, fwd head and shoulders PT-OP-K Range of Motion Start: 04/16/20 07:27 Freq: Status: Active Protocol: Document 05/16/20 07:31 [facility] (Rec: 05/16/20 09:45 [facility] [id number]) Ankle and Foot Goniometric Range of Motion Ankle and Foot Right Active Dorsiflexion with Knee Flexed 3 Left Active Dorsiflexion with Knee Flexed 3 Dorsiflexion with Knee Extended 2 PT-OP-M Strength Start: 04/16/20 07:27 Freq: Status: Active Protocol: Document 05/16/20 07:31 [facility] (Rec: 05/16/20 09:45 [facility] [id number]) Hip Strength Hip Manual Muscle Testing Right Flexion (L2) 4- Good- Extension (S1) 4- Good- Abduction 4 Good External Rotation 4 Good Internal Rotation 4+ Good+ Left Flexion (L2) 4- Good- Extension (S1) 4 Good Abduction 4+ Good+ External Rotation 4 Good Internal Rotation 4+ Good+ Knee Strength Knee Manual Muscle Testing Right Flexion (S2) 5 Normal Left Flexion (S2) 5 Normal Extension (L3) 5 Normal Ankle/Foot Strength Ankle and Foot Manual Muscle Testing Right Dorsiflexion (L4) 5 Normal Plantarflexion (S1) 5 Normal Inversion 5 Normal Eversion (S1) 5 Normal Left Dorsiflexion (L4) 4+ Good+ Plantarflexion (S1) 3+ Fair+ Inversion 4+ Good+ Eversion (S1) 5 Normal Comments able to do 9 PT-OP-Q Treatments Start: 04/16/20 07:27 Freq: Status: Active Protocol: Document 07/02/20 07:28 [facility] (Rec: 07/02/20 08:16 [facility] [id number]) Gym Equipment Shuttle Balance red clips Details focus on neutral foot positon Reps/Duration head turns Comments fwd & side: WBOS & NBOS &staggered stance wt shifts Therapeutic Exercises Standing Exercises 1 Standing Exercise Name 1. arch raises on flat ground 2. nuetral foot heel raises Reps/Minutes about 30 ea Comments max cueing Manual Therapy Treatment Joint Mobilizations forefoot Joint L cueiniform gapping FM Comments in FM tib fib Joint fib PA w/PF talus Direction PA in PF PT-OP-R Modalities Start: 04/16/20 07:27 Freq: Status: Active Protocol: Document 06/05/20 11:35 [facility] (Rec: 06/05/20 12:14 [facility] [id number]) Infrared Treatment Treatment L ant to fibula Duration (Minutes) 1 Program or Protocal chronic med intenisity for ligaments & tendons PT-OP-T Assessment and Plan Start: 04/16/20 07:27 Freq: Status: Active Protocol: Document 07/02/20 07:28 [facility] (Rec: 07/02/20 08:16 [facility] [id number]) Physical Therapy Assessment Goals balance Housing Assistant Property Manager Goal (LTG) Pt will be able to balance 10 sec on LLE w/o lat deviation B 05/16-improving LTG Duration 08/12/20 ROM Detention Goal (LTG) Pt will have improved DF to 10 w/knee flex and 6 w/knee ext so he will have improved gait mechanics. 05/16-improving LTG Duration 08/11/20 FAAM Impairment 56/84 Short Term Goal (STG) Pt will score 66/84 to show improved functional ability. STG Duration 07/19/20 Detention Goal (LTG) Pt will score 80/84 to show improved functional ability. LTG Duration 08/19/20 activities Short Term Goal (STG) Pt will be able to go up/down stairs without pain 05/16-occ some pain 06/21-pain only sometimes STG Duration 07/11/20 Detention Goal (LTG) Pt will be able to do his typical walks without any inc in pain. 05/16-improving 06/21-overall dec pain LTG Duration 08/19/20 strength Short Term Goal (STG) Pt will be indep with HEP STG Duration achieved progressing as needed Housing Assistant Property Manager Goal (LTG) Pt will have 5/5 LE strength and 3/5 LPM to show improved stability so he will not have pain during typical activities . 05/16-improving LTG Duration 08/19/20 Assessment Summary Assessment Pt requried some cueing for neutral foot position in standing & w/heel raises. in standing, pt was just inverting foot so cuieng to keep big toe down. Physical Therapy Plan Frequency and Duration Frequency of Treatment 1-2x/Week Duration of Treatment 2 months Plan of Care Start Date 06/21/20 Plan of Care End Date 08/19/20 Next Visit Focus/Plan Next Note Type Treatment Note Next Visit Plan work on push off and gait mechanics, work on more neutral positioning of foot for push off
--- NOTE | 2020-07-12 17:23 | PT.OTN ---
Current Diagnoses Other acquired deformities of left foot (07/12/20) Pain in left ankle and joints of left foot (07/12/20) Other specified joint disorders, left ankle and foot (07/12/20) Difficulty in walking, not elsewhere classified (07/12/20) Abnormal posture (07/12/20) Weakness (07/12/20) Physical Therapy Treatment Note PT-OP-A Visit Information Start: 04/16/20 07:27 Freq: Status: Active Protocol: Document 07/12/20 17:16 [facility] (Rec: 07/12/20 17:23 [facility] [id number]) Out-Patient Physical Therapy Visit Information Visit Information Visit Type Treatment Note Visit Start Time 15:57 Visit Stop Time 16:44 Total Visit Minutes 47 Visit Number 21 Number of WINK CUTTER OPERATOR Visits 0 PT-OP-B Current Condition Start: 04/16/20 07:27 Freq: Status: Active Protocol: Document 04/16/20 08:17 [facility] (Rec: 04/16/20 09:00 [facility] [id number]) Current Condition History of Current Condition Onset Date several months ago , ~5 months ago Current Complaints ant and lat L ankle History of Current Condition Pt reports he cannot remember anything specific starting his foot pain. Pt reprots he has had pain on/off and it has been nagging. Uphill is worse than downhill. Takes a walk 3 miles every few days and hasn' t been able to not walk d/t pain. Pt has been doing some stretching, ibuprofen to help. Pain has gradually gotten worse Prior Treatments and Tests Xrays shows some problems per pt and had a steroid injection -initally didn't help but after a couple of weeks it may have helped slightly, but not does not feel like its making much difference. He has started superfeet insoles per MD and that helped. Treatment Goals Patient/Caregiver Goals be able to do walks without pain Personal Factors Other Personal Factors That May Effect PMH: back pain, neck pain, Therapy/Recovery varicose veins PT-OP-C Subjective Start: 04/16/20 07:27 Freq: Status: Active Protocol: Document 07/12/20 17:16 [facility] (Rec: 07/12/20 17:23 [facility] [id number]) OP-PT Subjective Patient Comments Patient Comments Pt reports 60-70% of the time he is doing well without pain. Notes pain comes and goes. Today has been a good day but other days he has had more pain. He reports barefoot is worse PT-OP-D Balance Start: 04/16/20 07:27 Freq: Status: Active Protocol: Document 05/16/20 07:31 [facility] (Rec: 05/16/20 09:45 [facility] [id number]) Balance Tests Single Limb Standing Single Limb- Right 13 sec w/arms across chest and dec lat shift over hips Single Limb- Left 15 sec w/arms out & lat shift; 7 sec w/arms across chest and some lat shift PT-OP-F Manual Assessment Start: 04/16/20 07:27 Freq: Status: Active Protocol: Document 04/16/20 08:17 [facility] (Rec: 04/16/20 09:00 [facility] [id number]) Manual Assessments Soft Tissue Assessment Soft Tissue Mobility Assessment tihgtness/tendernss in L calf, L ATFL PT-OP-G Mobility & Gait Start: 04/16/20 07:27 Freq: Status: Active Protocol: Document 04/16/20 08:17 [facility] (Rec: 04/16/20 09:00 [facility] [id number]) OP Gait Assessment Comments Gait Comments dec push off, some lat leaning Stair Climbing Evaluation Comments Stair Climbing Comments able ot go up/down reciprocally with mild paind escent PT-OP-J Posture/Palpation/Skin Start: 04/16/20 07:27 Freq: Status: Active Protocol: Document 04/16/20 08:17 [facility] (Rec: 04/16/20 09:00 [facility] [id number]) Posture Evaluation [facility] Postural Classification System Lumbar Protective Mechanism Left AP 1 Lumbar Protective Mechanism Right AP 2 Lumbar Protective Mechanism Left PA 0 Lumbar Protective Mechanism Right PA 0 Comments Posture Comments thoracic cage sheared R, pronation B, fwd head and shoulders PT-OP-K Range of Motion Start: 04/16/20 07:27 Freq: Status: Active Protocol: Document 05/16/20 07:31 [facility] (Rec: 05/16/20 09:45 [facility] [id number]) Ankle and Foot Goniometric Range of Motion Ankle and Foot Right Active Dorsiflexion with Knee Flexed 3 Left Active Dorsiflexion with Knee Flexed 3 Dorsiflexion with Knee Extended 2 PT-OP-M Strength Start: 04/16/20 07:27 Freq: Status: Active Protocol: Document 05/16/20 07:31 [facility] (Rec: 05/16/20 09:45 [facility] [id number]) Hip Strength Hip Manual Muscle Testing Right Flexion (L2) 4- Good- Extension (S1) 4- Good- Abduction 4 Good External Rotation 4 Good Internal Rotation 4+ Good+ Left Flexion (L2) 4- Good- Extension (S1) 4 Good Abduction 4+ Good+ External Rotation 4 Good Internal Rotation 4+ Good+ Knee Strength Knee Manual Muscle Testing Right Flexion (S2) 5 Normal Left Flexion (S2) 5 Normal Extension (L3) 5 Normal Ankle/Foot Strength Ankle and Foot Manual Muscle Testing Right Dorsiflexion (L4) 5 Normal Plantarflexion (S1) 5 Normal Inversion 5 Normal Eversion (S1) 5 Normal Left Dorsiflexion (L4) 4+ Good+ Plantarflexion (S1) 3+ Fair+ Inversion 4+ Good+ Eversion (S1) 5 Normal Comments able to do 9 PT-OP-Q Treatments Start: 04/16/20 07:27 Freq: Status: Active Protocol: Document 07/12/20 17:16 [facility] (Rec: 07/12/20 17:23 [facility] [id number]) Manual Therapy Treatment Soft Tissue Mobilization calf Body Location L achilles & calf & plantar fascia Mobilization Type Rolling,Strumming,Sustained Pressure Intensity/Depth Moderate Body Position Supine Comments in HS stretch w/APs Neuro Re-Education Treatment Balance Activities SLS Details working on no lat shear of pelvis w/mirror & holding on Other Activities PNF Details L ant elevation/post depression Comments 1. rhythimic initiation of pelvis 2. sustained isometrics of pelvis progressed to w/LE patterns 3. combo of isotonics of pelvis progressed to w/LE patterns wt shifting Details side to side for re edu for appropriate positioning PT-OP-R Modalities Start: 04/16/20 07:27 Freq: Status: Active Protocol: Document 06/05/20 11:35 [facility] (Rec: 06/05/20 12:14 [facility] [id number]) Infrared Treatment Treatment L ant to fibula Duration (Minutes) 1 Program or Protocal chronic med intenisity for ligaments & tendons PT-OP-T Assessment and Plan Start: 04/16/20 07:27 Freq: Status: Active Protocol: Document 07/12/20 17:16 [facility] (Rec: 07/12/20 17:23 [facility] [id number]) Physical Therapy Assessment Goals balance Certified Public Accountant Goal (LTG) Pt will be able to balance 10 sec on LLE w/o lat deviation B 05/16-improving LTG Duration 08/12/20 ROM Longterm Goal (LTG) Pt will have improved DF to 10 w/knee flex and 6 w/knee ext so he will have improved gait mechanics. 05/16-improving LTG Duration 08/11/20 FAAM Impairment 56/84 Short Term Goal (STG) Pt will score 66/84 to show improved functional ability. STG Duration 07/19/20 Certified Public Accountant Goal (LTG) Pt will score 80/84 to show improved functional ability. LTG Duration 08/19/20 activities Short Term Goal (STG) Pt will be able to go up/down stairs without pain 05/16-occ some pain 06/21-pain only sometimes STG Duration 07/11/20 Certified Public Accountant Goal (LTG) Pt will be able to do his typical walks without any inc in pain. 05/16-improving 06/21-overall dec pain LTG Duration 08/19/20 strength Short Term Goal (STG) Pt will be indep with HEP STG Duration achieved progressing as needed Longterm Goal (LTG) Pt will have 5/5 LE strength and 3/5 LPM to show improved stability so he will not have pain during typical activities . 05/16-improving LTG Duration 08/19/20 Assessment Summary Assessment Pt has excessive lat shear of pelvis to L with SLS on LLE which likely places inc stress onto ankle ligaments. He required max cueing and mirror and tactile facitiaton to get into good position w/LLE SLS when holding on. He improved by end of session after PNF. He had inc HS/calf tightness to 45 deg prior to manual and improved to about 55 deg hip flex w/knee ext & DF after manual to calf. Dec pain w/ heel raise w/PA mob Physical Therapy Plan Frequency and Duration Frequency of Treatment 1-2x/Week Duration of Treatment 2 months Plan of Care Start Date 06/21/20 Plan of Care End Date 08/19/20 Next Visit Focus/Plan Next Note Type Treatment Note Next Visit Plan PNF, work on wt acceptance L & try side steps for glutes, tape L ankle for stability
--- NOTE | 2020-07-18 11:17 | PT.OTN ---
Current Diagnoses Other acquired deformities of left foot (07/18/20) Pain in left ankle and joints of left foot (07/18/20) Other specified joint disorders, left ankle and foot (07/18/20) Difficulty in walking, not elsewhere classified (07/18/20) Abnormal posture (07/18/20) Weakness (07/18/20) Physical Therapy Treatment Note PT-OP-A Visit Information Start: 04/16/20 07:27 Freq: Status: Active Protocol: Document 07/18/20 10:30 [facility] (Rec: 07/18/20 11:17 [facility] [id number]) Out-Patient Physical Therapy Visit Information Visit Information Visit Type Treatment Note Visit Start Time 10:34 Visit Stop Time 11:12 Total Visit Minutes 38 Visit Number 22 Number of SUPPORTABILITY ENGINEER Visits 0 PT-OP-B Current Condition Start: 04/16/20 07:27 Freq: Status: Active Protocol: Document 04/16/20 08:17 [facility] (Rec: 04/16/20 09:00 [facility] [id number]) Current Condition History of Current Condition Onset Date several months ago , ~5 months ago Current Complaints ant and lat L ankle History of Current Condition Pt reports he cannot remember anything specific starting his foot pain. Pt reprots he has had pain on/off and it has been nagging. Uphill is worse than downhill. Takes a walk 3 miles every few days and hasn' t been able to not walk d/t pain. Pt has been doing some stretching, ibuprofen to help. Pain has gradually gotten worse Prior Treatments and Tests Xrays shows some problems per pt and had a steroid injection -initally didn't help but after a couple of weeks it may have helped slightly, but not does not feel like its making much difference. He has started superfeet insoles per MD and that helped. Treatment Goals Patient/Caregiver Goals be able to do walks without pain Personal Factors Other Personal Factors That May Effect PMH: back pain, neck pain, Therapy/Recovery varicose veins PT-OP-C Subjective Start: 04/16/20 07:27 Freq: Status: Active Protocol: Document 07/18/20 10:30 [facility] (Rec: 07/18/20 11:17 [facility] [id number]) OP-PT Subjective Patient Comments Patient Comments Pt reports working on push off more and that is helping with ankle pain PT-OP-D Balance Start: 04/16/20 07:27 Freq: Status: Active Protocol: Document 05/16/20 07:31 [facility] (Rec: 05/16/20 09:45 [facility] [id number]) Balance Tests Single Limb Standing Single Limb- Right 13 sec w/arms across chest and dec lat shift over hips Single Limb- Left 15 sec w/arms out & lat shift; 7 sec w/arms across chest and some lat shift PT-OP-F Manual Assessment Start: 04/16/20 07:27 Freq: Status: Active Protocol: Document 04/16/20 08:17 [facility] (Rec: 04/16/20 09:00 [facility] [id number]) Manual Assessments Soft Tissue Assessment Soft Tissue Mobility Assessment tihgtness/tendernss in L calf, L ATFL PT-OP-G Mobility & Gait Start: 04/16/20 07:27 Freq: Status: Active Protocol: Document 04/16/20 08:17 [facility] (Rec: 04/16/20 09:00 [facility] [id number]) OP Gait Assessment Comments Gait Comments dec push off, some lat leaning Stair Climbing Evaluation Comments Stair Climbing Comments able ot go up/down reciprocally with mild paind escent PT-OP-J Posture/Palpation/Skin Start: 04/16/20 07:27 Freq: Status: Active Protocol: Document 04/16/20 08:17 [facility] (Rec: 04/16/20 09:00 [facility] [id number]) Posture Evaluation Timi Postural Classification System Lumbar Protective Mechanism Left AP 1 Lumbar Protective Mechanism Right AP 2 Lumbar Protective Mechanism Left PA 0 Lumbar Protective Mechanism Right PA 0 Comments Posture Comments thoracic cage sheared R, pronation B, fwd head and shoulders PT-OP-K Range of Motion Start: 04/16/20 07:27 Freq: Status: Active Protocol: Document 05/16/20 07:31 [facility] (Rec: 05/16/20 09:45 [facility] [id number]) Ankle and Foot Goniometric Range of Motion Ankle and Foot Right Active Dorsiflexion with Knee Flexed 3 Left Active Dorsiflexion with Knee Flexed 3 Dorsiflexion with Knee Extended 2 PT-OP-M Strength Start: 04/16/20 07:27 Freq: Status: Active Protocol: Document 05/16/20 07:31 [facility] (Rec: 05/16/20 09:45 [facility] [id number]) Hip Strength Hip Manual Muscle Testing Right Flexion (L2) 4- Good- Extension (S1) 4- Good- Abduction 4 Good External Rotation 4 Good Internal Rotation 4+ Good+ Left Flexion (L2) 4- Good- Extension (S1) 4 Good Abduction 4+ Good+ External Rotation 4 Good Internal Rotation 4+ Good+ Knee Strength Knee Manual Muscle Testing Right Flexion (S2) 5 Normal Left Flexion (S2) 5 Normal Extension (L3) 5 Normal Ankle/Foot Strength Ankle and Foot Manual Muscle Testing Right Dorsiflexion (L4) 5 Normal Plantarflexion (S1) 5 Normal Inversion 5 Normal Eversion (S1) 5 Normal Left Dorsiflexion (L4) 4+ Good+ Plantarflexion (S1) 3+ Fair+ Inversion 4+ Good+ Eversion (S1) 5 Normal Comments able to do 9 PT-OP-Q Treatments Start: 04/16/20 07:27 Freq: Status: Active Protocol: Document 07/18/20 10:30 [facility] (Rec: 07/18/20 11:17 [facility] [id number]) Therapeutic Exercises Standing Exercises squat Side bilateral Equipment Used L2 band around knees Reps/Minutes 2x10 over chair in mirror Comments focus on knee position abd Standing Exercise Name side steps Side bilateral Equipment Used 1st set w/o resistance, next 2 w/yellow tband Reps/Minutes 20ft x3 1 Standing Exercise Name hip hikes Side bilateral Reps/Minutes 10 Comments on step ext Standing Exercise Name hip ext Side bilateral Equipment Used yellow band Reps/Minutes 2x10 Manual Therapy Treatment Soft Tissue Mobilization calf Body Location L achilles & calf & plantar fascia Mobilization Type Rolling,Strumming,Sustained Pressure Intensity/Depth Moderate Body Position Supine Comments in HS stretch w/APs Joint Mobilizations tib fib Joint fib PA w/PF calcaneus Joint L Direction lat glide & distraction Neuro Re-Education Treatment Balance Activities SLS Details working on no lat shear of pelvis w/mirror & holding on step up Details 8 in step w/alt august w/DF Reps/Duration 10 B Other Activities PNF Details L ant elevation/post depression Comments 1. rhythimic initiation of pelvis 2. sustained isometrics of pelvis progressed to w/LE patterns 3. combo of isotonics of pelvis progressed to w/LE patterns PT-OP-R Modalities Start: 04/16/20 07:27 Freq: Status: Active Protocol: Document 06/05/20 11:35 [facility] (Rec: 06/05/20 12:14 [facility] [id number]) Infrared Treatment Treatment L ant to fibula Duration (Minutes) 1 Program or Protocal chronic med intenisity for ligaments & tendons PT-OP-T Assessment and Plan Start: 04/16/20 07:27 Freq: Status: Active Protocol: Document 07/18/20 10:30 [facility] (Rec: 07/18/20 11:17 [facility] [id number]) Physical Therapy Assessment Goals balance Residential Goal (LTG) Pt will be able to balance 10 sec on LLE w/o lat deviation B 05/16-improving LTG Duration 08/12/20 ROM Residential Goal (LTG) Pt will have improved DF to 10 w/knee flex and 6 w/knee ext so he will have improved gait mechanics. 05/16-improving LTG Duration 08/11/20 FAAM Impairment 56/84 Short Term Goal (STG) Pt will score 66/84 to show improved functional ability. STG Duration 07/19/20 Note Teller Goal (LTG) Pt will score 80/84 to show improved functional ability. LTG Duration 08/19/20 activities Short Term Goal (STG) Pt will be able to go up/down stairs without pain 05/16-occ some pain 06/21-pain only sometimes STG Duration 07/11/20 Note Teller Goal (LTG) Pt will be able to do his typical walks without any inc in pain. 05/16-improving 06/21-overall dec pain LTG Duration 08/19/20 strength Short Term Goal (STG) Pt will be indep with HEP STG Duration achieved progressing as needed Residential Goal (LTG) Pt will have 5/5 LE strength and 3/5 LPM to show improved stability so he will not have pain during typical activities . 05/16-improving LTG Duration 08/19/20 Assessment Summary Assessment Pt did much better with appropriate SLS w/less L hip shear in L SLS. He did better with all glute exercises but does reuqire cueing for posture. He still erquires use of mirror and cueing for knees with squats. he does notice imrpovement w/imrpoved push off from glute activiaton . Physical Therapy Plan Frequency and Duration Frequency of Treatment 1-2x/Week Duration of Treatment 2 months Plan of Care Start Date 06/21/20 Plan of Care End Date 08/19/20 Next Visit Focus/Plan Next Note Type Treatment Note Next Visit Plan PNF, work on wt acceptance L & try side steps for glutes, tape L ankle for stability possibly
--- NOTE | 2020-07-23 17:27 | PT.OTN ---
Current Diagnoses Other acquired deformities of left foot (07/23/20) Pain in left ankle and joints of left foot (07/23/20) Other specified joint disorders, left ankle and foot (07/23/20) Difficulty in walking, not elsewhere classified (07/23/20) Abnormal posture (07/23/20) Weakness (07/23/20) Physical Therapy Treatment Note PT-OP-A Visit Information Start: 04/16/20 07:27 Freq: Status: Active Protocol: Document 07/23/20 16:50 [facility] (Rec: 07/23/20 17:11 [facility] [id number]) Out-Patient Physical Therapy Visit Information Visit Information Visit Type Treatment Note Visit Start Time 16:08 Visit Stop Time 16:50 Total Visit Minutes 42 Visit Number 23 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 (Rec: 04/16/20 09:00 [facility] [id number]) Current Condition History of Current Condition Onset Date several months ago , ~5 months ago Current Complaints ant and lat L ankle History of Current Condition Pt reports he cannot remember anything specific starting his foot pain. Pt reprots he has had pain on/off and it has been nagging. Uphill is worse than downhill. Takes a walk 3 miles every few days and hasn' t been able to not walk d/t pain. Pt has been doing some stretching, ibuprofen to help. Pain has gradually gotten worse Prior Treatments and Tests Xrays shows some problems per pt and had a steroid injection -initally didn't help but after a couple of weeks it may have helped slightly, but not does not feel like its making much difference. He has started superfeet insoles per MD and that helped. Treatment Goals Patient/Caregiver Goals be able to do walks without pain Personal Factors Other Personal Factors That May Effect PMH: back pain, neck pain, Therapy/Recovery varicose veins PT-OP-C Subjective Start: 04/16/20 07:27 Freq: Status: Active Protocol: Document 07/23/20 16:50 [facility] (Rec: 07/23/20 17:11 [facility] [id number]) OP-PT Subjective Patient Comments Patient Comments Pt states he has had less ankle pain since starting therapy PT-OP-D Balance Start: 04/16/20 07:27 Freq: Status: Active Protocol: Document 05/16/20 07:31 [facility] (Rec: 05/16/20 09:45 [facility] [id number]) Balance Tests Single Limb Standing Single Limb- Right 13 sec w/arms across chest and dec lat shift over hips Single Limb- Left 15 sec w/arms out & lat shift; 7 sec w/arms across chest and some lat shift PT-OP-F Manual Assessment Start: 04/16/20 07:27 Freq: Status: Active Protocol: Document 04/16/20 08:17 [facility] (Rec: 04/16/20 09:00 [facility] [id number]) Manual Assessments Soft Tissue Assessment Soft Tissue Mobility Assessment tihgtness/tendernss in L calf, L ATFL PT-OP-G Mobility & Gait Start: 04/16/20 07:27 Freq: Status: Active Protocol: Document 04/16/20 08:17 [facility] (Rec: 04/16/20 09:00 [facility] [id number]) OP Gait Assessment Comments Gait Comments dec push off, some lat leaning Stair Climbing Evaluation Comments Stair Climbing Comments able ot go up/down reciprocally with mild paind escent PT-OP-J Posture/Palpation/Skin Start: 04/16/20 07:27 Freq: Status: Active Protocol: Document 04/16/20 08:17 [facility] (Rec: 04/16/20 09:00 [facility] [id number]) Posture Evaluation Timi Postural Classification System Lumbar Protective Mechanism Left AP 1 Lumbar Protective Mechanism Right AP 2 Lumbar Protective Mechanism Left PA 0 Lumbar Protective Mechanism Right PA 0 Comments Posture Comments thoracic cage sheared R, pronation B, fwd head and shoulders PT-OP-K Range of Motion Start: 04/16/20 07:27 Freq: Status: Active Protocol: Document 05/16/20 07:31 [facility] (Rec: 05/16/20 09:45 [facility] [id number]) Ankle and Foot Goniometric Range of Motion Ankle and Foot Right Active Dorsiflexion with Knee Flexed 3 Left Active Dorsiflexion with Knee Flexed 3 Dorsiflexion with Knee Extended 2 PT-OP-M Strength Start: 04/16/20 07:27 Freq: Status: Active Protocol: Document 05/16/20 07:31 [facility] (Rec: 05/16/20 09:45 [facility] [id number]) Hip Strength Hip Manual Muscle Testing Right Flexion (L2) 4- Good- Extension (S1) 4- Good- Abduction 4 Good External Rotation 4 Good Internal Rotation 4+ Good+ Left Flexion (L2) 4- Good- Extension (S1) 4 Good Abduction 4+ Good+ External Rotation 4 Good Internal Rotation 4+ Good+ Knee Strength Knee Manual Muscle Testing Right Flexion (S2) 5 Normal Left Flexion (S2) 5 Normal Extension (L3) 5 Normal Ankle/Foot Strength Ankle and Foot Manual Muscle Testing Right Dorsiflexion (L4) 5 Normal Plantarflexion (S1) 5 Normal Inversion 5 Normal Eversion (S1) 5 Normal Left Dorsiflexion (L4) 4+ Good+ Plantarflexion (S1) 3+ Fair+ Inversion 4+ Good+ Eversion (S1) 5 Normal Comments able to do 9 PT-OP-Q Treatments Start: 04/16/20 07:27 Freq: Status: Active Protocol: Document 07/23/20 16:50 [facility] (Rec: 07/23/20 17:11 [facility] [id number]) Therapeutic Exercises Standing Exercises Calf Raises Reps/Minutes 2x10 Comments oen set with ball b/w feet, one with ankles together no ball squat Side bilateral Equipment Used L2 band around knees Reps/Minutes 2x10 over chair in mirror Comments focus on knee position stretch Standing Exercise Name Calf stretch on stair Side bilateral Reps/Minutes 60 sec abd Standing Exercise Name side steps Side bilateral Equipment Used yellow TB Reps/Minutes 20ft x3 1 Standing Exercise Name hip hikes Side bilateral Reps/Minutes 10 Comments on step ext Standing Exercise Name hip ext Side bilateral Equipment Used yellow band Reps/Minutes 2x10 Gait Training Gait Activity gait Comments 1. jogging 2. lateral movements/cutting 3. small jumps x10 4. start/stop quickly Done to assess FAAM wt shifts Comments 1.fwd wt shifts to each LE focus on neutral foot and push off Manual Therapy Treatment Soft Tissue Mobilization calf Body Location L achilles & calf & plantar fascia Mobilization Type Rolling,Strumming,Sustained Pressure Intensity/Depth Moderate Body Position Supine Joint Mobilizations calcaneus Joint L Direction lat glide & distraction PT-OP-R Modalities Start: 04/16/20 07:27 Freq: Status: Active Protocol: Document 06/05/20 11:35 [facility] (Rec: 06/05/20 12:14 [facility] [id number]) Infrared Treatment Treatment L ant to fibula Duration (Minutes) 1 Program or Protocal chronic med intenisity for ligaments & tendons PT-OP-T Assessment and Plan Start: 04/16/20 07:27 Freq: Status: Active Protocol: Document 07/23/20 16:50 [facility] (Rec: 07/23/20 17:11 [facility] [id number]) Physical Therapy Assessment Goals balance Care Home Goal (LTG) Pt will be able to balance 10 sec on LLE w/o lat deviation B 05/16-improving LTG Duration 08/12/20 ROM Care Home Goal (LTG) Pt will have improved DF to 10 w/knee flex and 6 w/knee ext so he will have improved gait mechanics. 05/16-improving LTG Duration 08/11/20 FAAM Impairment 56/84 Short Term Goal (STG) Pt will score 66/84 to show improved functional ability. STG Duration 07/19/20 Alining Inspector Goal (LTG) Pt will score 80/84 to show improved functional ability. LTG Duration 08/19/20 activities Short Term Goal (STG) Pt will be able to go up/down stairs without pain 05/16-occ some pain 06/21-pain only sometimes 07/23/20- GOAL MET- pt no longer has pain on stairs STG Duration GOAL MET Care Home Goal (LTG) Pt will be able to do his typical walks without any inc in pain. 05/16-improving 06/21-overall dec pain LTG Duration 08/19/20 strength Short Term Goal (STG) Pt will be indep with HEP STG Duration achieved progressing as needed Alining Inspector Goal (LTG) Pt will have 5/5 LE strength and 3/5 LPM to show improved stability so he will not have pain during typical activities . 05/16-improving LTG Duration 08/19/20 Assessment Summary Assessment Pt was able to self-correct squats today using mirror. He needed minor cues to avoid forward flexion while working hip extension for glute facilitation. At end of session, pt performed several movements for Sports Subscale of FAAM and had only slight difficulty (running, jumping/ landing, lateral movements/ cutting, and quick start/stop) . Physical Therapy Plan Frequency and Duration Frequency of Treatment 1-2x/Week Duration of Treatment 2 months Plan of Care Start Date 06/21/20 Plan of Care End Date 08/19/20 Therapeutic Interventions Therapeutic Interventions Aquatic Therapy,Balance Training,Gait Training,Home Exercise Program,Joint Mobilizations,Manual Therapy, Neuromuscular Re-education, Patient/Caregiver Education, Self-Care/Home Management,Soft Tissue Mobilization,Taping, Therapeutic Activities, Therapeutic Exercises Modalities Cold Pack/Ice Massage,Electric Stimulation,Hot Packs, Infrared Therapy,Iontophoresis ,Ultrasound Next Visit Focus/Plan Next Note Type Treatment Note Next Visit Plan Have pt fill out FAAM-not sport subscale PNF, work on wt acceptance L & try side steps for glutes, tape L ankle for stability possibly
--- NOTE | 2020-08-02 12:06 | PT.OTN ---
Current Diagnoses Other acquired deformities of left foot (08/02/20) Pain in left ankle and joints of left foot (08/02/20) Other specified joint disorders, left ankle and foot (08/02/20) Difficulty in walking, not elsewhere classified (08/02/20) Abnormal posture (08/02/20) Weakness (08/02/20) Physical Therapy Treatment Note PT-OP-A Visit Information Start: 04/16/20 07:27 Freq: Status: Active Protocol: Document 08/02/20 10:23 [facility] (Rec: 08/02/20 12:06 [facility] [id number]) Out-Patient Physical Therapy Visit Information Visit Information Visit Type Treatment Note Visit Note 12/29 Visit Start Time 11:16 Visit Stop Time 12:00 Total Visit Minutes 44 Visit Number 24 Number of TECHNICAL MGR Visits 0 PT-OP-B Current Condition Start: 04/16/20 07:27 Freq: Status: Active Protocol: Document 04/16/20 08:17 [facility] (Rec: 04/16/20 09:00 [facility] [id number]) Current Condition History of Current Condition Onset Date several months ago , ~5 months ago Current Complaints ant and lat L ankle History of Current Condition Pt reports he cannot remember anything specific starting his foot pain. Pt reprots he has had pain on/off and it has been nagging. Uphill is worse than downhill. Takes a walk 3 miles every few days and hasn' t been able to not walk d/t pain. Pt has been doing some stretching, ibuprofen to help. Pain has gradually gotten worse Prior Treatments and Tests Xrays shows some problems per pt and had a steroid injection -initally didn't help but after a couple of weeks it may have helped slightly, but not does not feel like its making much difference. He has started superfeet insoles per MD and that helped. Treatment Goals Patient/Caregiver Goals be able to do walks without pain Personal Factors Other Personal Factors That May Effect PMH: back pain, neck pain, Therapy/Recovery varicose veins PT-OP-C Subjective Start: 04/16/20 07:27 Freq: Status: Active Protocol: Document 08/02/20 10:23 [facility] (Rec: 08/02/20 12:06 [facility] [id number]) OP-PT Subjective Patient Comments Patient Comments Pt reports some days he has pain sometimes he is fine. Some pain w/push off duirng step. Feels like its slowly getting better. whne glute engages, it improves it. Patient Reported Progress Improving PT-OP-D Balance Start: 04/16/20 07:27 Freq: Status: Active Protocol: Document 05/16/20 07:31 [facility] (Rec: 05/16/20 09:45 [facility] [id number]) Balance Tests Single Limb Standing Single Limb- Right 13 sec w/arms across chest and dec lat shift over hips Single Limb- Left 15 sec w/arms out & lat shift; 7 sec w/arms across chest and some lat shift PT-OP-F Manual Assessment Start: 04/16/20 07:27 Freq: Status: Active Protocol: Document 04/16/20 08:17 [facility] (Rec: 04/16/20 09:00 [facility] [id number]) Manual Assessments Soft Tissue Assessment Soft Tissue Mobility Assessment tihgtness/tendernss in L calf, L ATFL PT-OP-G Mobility & Gait Start: 04/16/20 07:27 Freq: Status: Active Protocol: Document 04/16/20 08:17 [facility] (Rec: 04/16/20 09:00 [facility] [id number]) OP Gait Assessment Comments Gait Comments dec push off, some lat leaning Stair Climbing Evaluation Comments Stair Climbing Comments able ot go up/down reciprocally with mild paind escent PT-OP-J Posture/Palpation/Skin Start: 04/16/20 07:27 Freq: Status: Active Protocol: Document 04/16/20 08:17 [facility] (Rec: 04/16/20 09:00 [facility] [id number]) Posture Evaluation [place] Postural Classification System Lumbar Protective Mechanism Left AP 1 Lumbar Protective Mechanism Right AP 2 Lumbar Protective Mechanism Left PA 0 Lumbar Protective Mechanism Right PA 0 Comments Posture Comments thoracic cage sheared R, pronation B, fwd head and shoulders PT-OP-K Range of Motion Start: 04/16/20 07:27 Freq: Status: Active Protocol: Document 05/16/20 07:31 [facility] (Rec: 05/16/20 09:45 [facility] [id number]) Ankle and Foot Goniometric Range of Motion Ankle and Foot Right Active Dorsiflexion with Knee Flexed 3 Left Active Dorsiflexion with Knee Flexed 3 Dorsiflexion with Knee Extended 2 PT-OP-M Strength Start: 04/16/20 07:27 Freq: Status: Active Protocol: Document 05/16/20 07:31 [facility] (Rec: 05/16/20 09:45 [facility] [id number]) Hip Strength Hip Manual Muscle Testing Right Flexion (L2) 4- Good- Extension (S1) 4- Good- Abduction 4 Good External Rotation 4 Good Internal Rotation 4+ Good+ Left Flexion (L2) 4- Good- Extension (S1) 4 Good Abduction 4+ Good+ External Rotation 4 Good Internal Rotation 4+ Good+ Knee Strength Knee Manual Muscle Testing Right Flexion (S2) 5 Normal Left Flexion (S2) 5 Normal Extension (L3) 5 Normal Ankle/Foot Strength Ankle and Foot Manual Muscle Testing Right Dorsiflexion (L4) 5 Normal Plantarflexion (S1) 5 Normal Inversion 5 Normal Eversion (S1) 5 Normal Left Dorsiflexion (L4) 4+ Good+ Plantarflexion (S1) 3+ Fair+ Inversion 4+ Good+ Eversion (S1) 5 Normal Comments able to do 9 PT-OP-Q Treatments Start: 04/16/20 07:27 Freq: Status: Active Protocol: Document 08/02/20 10:23 [facility] (Rec: 08/02/20 12:06 [facility] [id number]) Therapeutic Exercises Standing Exercises abd Standing Exercise Name side steps Side bilateral Equipment Used yellow TB Reps/Minutes 20ft x2 Comments 2nd time in mini squat PNF AROM against wall Standing Exercise Name for gait Side bilateral Reps/Minutes 10 sec x6 Comments foot flat 1 Standing Exercise Name hip hikes Side bilateral Reps/Minutes 10 Comments on step ext Standing Exercise Name hip ext Side bilateral Equipment Used yellow band Reps/Minutes 2x10 Manual Therapy Treatment Soft Tissue Mobilization ant ankle Mobilization Type Myofascial Release Intensity/Depth Superficial Body Position Supine Comments w/toe flex & pt in PF, lower leg& plantar foot Joint Mobilizations forefoot Joint L cueiniform gapping FM Comments on 1/2 foam talus Joint L Direction distraction calcaneus Joint L Direction distraction Self-Care/Home Management Treatment Education Other Education posture, demo w/ext limits w/ fwd flex posture & edu on importance of strong glute push off PT-OP-R Modalities Start: 04/16/20 07:27 Freq: Status: Active Protocol: Document 06/05/20 11:35 [facility] (Rec: 06/05/20 12:14 [facility] [id number]) Infrared Treatment Treatment L ant to fibula Duration (Minutes) 1 Program or Protocal chronic med intenisity for ligaments & tendons PT-OP-T Assessment and Plan Start: 04/16/20 07:27 Freq: Status: Active Protocol: Document 08/02/20 10:23 [facility] (Rec: 08/02/20 12:06 [facility] [id number]) Physical Therapy Assessment Goals balance Java Xml Developer Goal (LTG) Pt will be able to balance 10 sec on LLE w/o lat deviation B 05/16-improving LTG Duration 08/12/20 ROM Retirement Goal (LTG) Pt will have improved DF to 10 w/knee flex and 6 w/knee ext so he will have improved gait mechanics. 05/16-improving LTG Duration 08/11/20 FAAM Impairment 56/84 Short Term Goal (STG) Pt will score 66/84 to show improved functional ability. STG Duration 07/19/20 Retirement Goal (LTG) Pt will score 80/84 to show improved functional ability. LTG Duration 08/19/20 activities Short Term Goal (STG) Pt will be able to go up/down stairs without pain 05/16-occ some pain 06/21-pain only sometimes 07/23/20- GOAL MET- pt no longer has pain on stairs STG Duration GOAL MET Retirement Goal (LTG) Pt will be able to do his typical walks without any inc in pain. 05/16-improving 06/21-overall dec pain LTG Duration 08/19/20 strength Short Term Goal (STG) Pt will be indep with HEP STG Duration achieved progressing as needed Java Xml Developer Goal (LTG) Pt will have 5/5 LE strength and 3/5 LPM to show improved stability so he will not have pain during typical activities . 05/16-improving LTG Duration 08/19/20 Assessment Summary Assessment Pt doing better during glute exercises but does still have lat excursion of L hip when standing o LLE when he is not cued and needs heavy cueing. IMproving PF position w/ neutral foot position. Physical Therapy Plan Frequency and Duration Frequency of Treatment 1-2x/Week Duration of Treatment 2 months Plan of Care Start Date 06/21/20 Plan of Care End Date 08/19/20 Next Visit Focus/Plan Next Note Type Treatment Note Next Visit Plan progress note in 2 visits, cont to work on glute control
--- NOTE | 2020-08-06 17:02 | PT.OTN ---
Current Diagnoses Other acquired deformities of left foot (08/06/20) Pain in left ankle and joints of left foot (08/06/20) Other specified joint disorders, left ankle and foot (08/06/20) Difficulty in walking, not elsewhere classified (08/06/20) Abnormal posture (08/06/20) Weakness (08/06/20) Physical Therapy Treatment Note PT-OP-A Visit Information Start: 04/16/20 07:27 Freq: Status: Active Protocol: Document 08/06/20 16:45 [facility] (Rec: 08/06/20 17:02 [facility] [id number]) Out-Patient Physical Therapy Visit Information Visit Information Visit Type Treatment Note Visit Start Time 16:00 Visit Stop Time 16:43 Total Visit Minutes 43 Visit Number 25 Number of MARKETING INFORMATION ANALYST Visits 1 PT-OP-B Current Condition Start: 04/16/20 07:27 Freq: Status: Active Protocol: Document 04/16/20 08:17 [facility] (Rec: 04/16/20 09:00 [facility] [id number]) Current Condition History of Current Condition Onset Date several months ago , ~5 months ago Current Complaints ant and lat L ankle History of Current Condition Pt reports he cannot remember anything specific starting his foot pain. Pt reprots he has had pain on/off and it has been nagging. Uphill is worse than downhill. Takes a walk 3 miles every few days and hasn' t been able to not walk d/t pain. Pt has been doing some stretching, ibuprofen to help. Pain has gradually gotten worse Prior Treatments and Tests Xrays shows some problems per pt and had a steroid injection -initally didn't help but after a couple of weeks it may have helped slightly, but not does not feel like its making much difference. He has started superfeet insoles per MD and that helped. Treatment Goals Patient/Caregiver Goals be able to do walks without pain Personal Factors Other Personal Factors That May Effect PMH: back pain, neck pain, Therapy/Recovery varicose veins PT-OP-C Subjective Start: 04/16/20 07:27 Freq: Status: Active Protocol: Document 08/06/20 16:45 [facility] (Rec: 08/06/20 17:02 [facility] [id number]) OP-PT Subjective Patient Comments Patient Comments Pt has been having less pain and is able to walk further before feelign like he needs to stop. He had no problem walking in the snow this weekend with his PT-OP-D Balance Start: 04/16/20 07:27 Freq: Status: Active Protocol: Document 05/16/20 07:31 [facility] (Rec: 05/16/20 09:45 [facility] [id number]) Balance Tests Single Limb Standing Single Limb- Right 13 sec w/arms across chest and dec lat shift over hips Single Limb- Left 15 sec w/arms out & lat shift; 7 sec w/arms across chest and some lat shift PT-OP-F Manual Assessment Start: 04/16/20 07:27 Freq: Status: Active Protocol: Document 04/16/20 08:17 [facility] (Rec: 04/16/20 09:00 [facility] [id number]) Manual Assessments Soft Tissue Assessment Soft Tissue Mobility Assessment tihgtness/tendernss in L calf, L ATFL PT-OP-G Mobility & Gait Start: 04/16/20 07:27 Freq: Status: Active Protocol: Document 04/16/20 08:17 [facility] (Rec: 04/16/20 09:00 [facility] [id number]) OP Gait Assessment Comments Gait Comments dec push off, some lat leaning Stair Climbing Evaluation Comments Stair Climbing Comments able ot go up/down reciprocally with mild paind escent PT-OP-J Posture/Palpation/Skin Start: 04/16/20 07:27 Freq: Status: Active Protocol: Document 04/16/20 08:17 [facility] (Rec: 04/16/20 09:00 [facility] [id number]) Posture Evaluation [facility] Postural Classification System Lumbar Protective Mechanism Left AP 1 Lumbar Protective Mechanism Right AP 2 Lumbar Protective Mechanism Left PA 0 Lumbar Protective Mechanism Right PA 0 Comments Posture Comments thoracic cage sheared R, pronation B, fwd head and shoulders PT-OP-K Range of Motion Start: 04/16/20 07:27 Freq: Status: Active Protocol: Document 05/16/20 07:31 [facility] (Rec: 05/16/20 09:45 [facility] [id number]) Ankle and Foot Goniometric Range of Motion Ankle and Foot Right Active Dorsiflexion with Knee Flexed 3 Left Active Dorsiflexion with Knee Flexed 3 Dorsiflexion with Knee Extended 2 PT-OP-M Strength Start: 04/16/20 07:27 Freq: Status: Active Protocol: Document 05/16/20 07:31 [facility] (Rec: 05/16/20 09:45 [facility] [id number]) Hip Strength Hip Manual Muscle Testing Right Flexion (L2) 4- Good- Extension (S1) 4- Good- Abduction 4 Good External Rotation 4 Good Internal Rotation 4+ Good+ Left Flexion (L2) 4- Good- Extension (S1) 4 Good Abduction 4+ Good+ External Rotation 4 Good Internal Rotation 4+ Good+ Knee Strength Knee Manual Muscle Testing Right Flexion (S2) 5 Normal Left Flexion (S2) 5 Normal Extension (L3) 5 Normal Ankle/Foot Strength Ankle and Foot Manual Muscle Testing Right Dorsiflexion (L4) 5 Normal Plantarflexion (S1) 5 Normal Inversion 5 Normal Eversion (S1) 5 Normal Left Dorsiflexion (L4) 4+ Good+ Plantarflexion (S1) 3+ Fair+ Inversion 4+ Good+ Eversion (S1) 5 Normal Comments able to do 9 PT-OP-Q Treatments Start: 04/16/20 07:27 Freq: Status: Active Protocol: Document 08/06/20 16:45 [facility] (Rec: 08/06/20 17:02 [facility] [id number]) Therapeutic Exercises Standing Exercises stretch Standing Exercise Name Calf stretch on 6 step Side bilateral Reps/Minutes 2 min abd Standing Exercise Name side steps Side bilateral Equipment Used yellow TB Reps/Minutes 20ft x2 Comments 2nd time in mini squat ext Standing Exercise Name hip ext Side bilateral Equipment Used yellow band Reps/Minutes 2x10 Manual Therapy Treatment Soft Tissue Mobilization ant ankle Mobilization Type Myofascial Release Intensity/Depth Superficial Body Position Supine Comments w/toe flex & pt in PF, lower leg& plantar foot calf Body Location L achilles & calf & plantar fascia Mobilization Type Rolling,Strumming,Sustained Pressure Intensity/Depth Moderate Body Position Supine Joint Mobilizations talus Joint L Direction distraction calcaneus Joint L Direction distraction Neuro Re-Education Treatment Balance Activities SLS Details SLS lisa Surface solid Reps/Duration 20 sec Comments one hand holding wall for balance PT-OP-R Modalities Start: 04/16/20 07:27 Freq: Status: Active Protocol: Document 06/05/20 11:35 [facility] (Rec: 06/05/20 12:14 [facility] [id number]) Infrared Treatment Treatment L ant to fibula Duration (Minutes) 1 Program or Protocal chronic med intenisity for ligaments & tendons PT-OP-T Assessment and Plan Start: 04/16/20 07:27 Freq: Status: Active Protocol: Document 08/06/20 16:45 [facility] (Rec: 08/06/20 17:02 [facility] [id number]) Physical Therapy Assessment Goals balance Assisted Goal (LTG) Pt will be able to balance 10 sec on LLE w/o lat deviation B 05/16-improving LTG Duration 08/12/20 ROM Assisted Goal (LTG) Pt will have improved DF to 10 w/knee flex and 6 w/knee ext so he will have improved gait mechanics. 05/16-improving LTG Duration 08/11/20 FAAM Impairment 56/84 Short Term Goal (STG) Pt will score 66/84 to show improved functional ability. STG Duration 07/19/20 Assisted Goal (LTG) Pt will score 80/84 to show improved functional ability. LTG Duration 08/19/20 activities Short Term Goal (STG) Pt will be able to go up/down stairs without pain 05/16-occ some pain 06/21-pain only sometimes 07/23/20- GOAL MET- pt no longer has pain on stairs STG Duration GOAL MET Health Unit Coordinator Goal (LTG) Pt will be able to do his typical walks without any inc in pain. 05/16-improving 06/21-overall dec pain LTG Duration 08/19/20 strength Short Term Goal (STG) Pt will be indep with HEP STG Duration achieved progressing as needed Assisted Goal (LTG) Pt will have 5/5 LE strength and 3/5 LPM to show improved stability so he will not have pain during typical activities . 05/16-improving LTG Duration 08/19/20 Assessment Summary Assessment Pt needs cues during SLS to stay neutral. He is able to stand for ~5 seconds before needing to touch bar for balance. He has some tenderness along medial calf and lateral anterior ankle that improved after STM. Physical Therapy Plan Frequency and Duration Frequency of Treatment 1-2x/Week Duration of Treatment 2 months Plan of Care Start Date 06/21/20 Plan of Care End Date 08/19/20 Therapeutic Interventions Therapeutic Interventions Aquatic Therapy,Balance Training,Gait Training,Home Exercise Program,Joint Mobilizations,Manual Therapy, Neuromuscular Re-education, Patient/Caregiver Education, Self-Care/Home Management,Soft Tissue Mobilization,Taping, Therapeutic Activities, Therapeutic Exercises Modalities Cold Pack/Ice Massage,Electric Stimulation,Hot Packs, Infrared Therapy,Iontophoresis ,Ultrasound Next Visit Focus/Plan Next Note Type Treatment Note Next Visit Plan Progress Note next session Continue workin on glute control and balance
--- NOTE | 2020-08-16 18:23 | PT.OTN ---
Current Diagnoses Other acquired deformities of left foot (08/16/20) Pain in left ankle and joints of left foot (08/16/20) Other specified joint disorders, left ankle and foot (08/16/20) Difficulty in walking, not elsewhere classified (08/16/20) Abnormal posture (08/16/20) Weakness (08/16/20) Physical Therapy Treatment Note PT-OP-A Visit Information Start: 04/16/20 07:27 Freq: Status: Active Protocol: Document 08/16/20 12:08 [facility] (Rec: 08/16/20 12:15 [facility] [id number]) Out-Patient Physical Therapy Visit Information Visit Information Visit Type Progress Note Visit Start Time 10:37 Visit Stop Time 11:15 Total Visit Minutes 38 Visit Number 26 Number of BOTANICAL TECHNICAL OFFICER Visits 0 PT-OP-B Current Condition Start: 04/16/20 07:27 Freq: Status: Active Protocol: Document 04/16/20 08:17 [facility] (Rec: 04/16/20 09:00 [facility] [id number]) Current Condition History of Current Condition Onset Date several months ago , ~5 months ago Current Complaints ant and lat L ankle History of Current Condition Pt reports he cannot remember anything specific starting his foot pain. Pt reprots he has had pain on/off and it has been nagging. Uphill is worse than downhill. Takes a walk 3 miles every few days and hasn' t been able to not walk d/t pain. Pt has been doing some stretching, ibuprofen to help. Pain has gradually gotten worse Prior Treatments and Tests Xrays shows some problems per pt and had a steroid injection -initally didn't help but after a couple of weeks it may have helped slightly, but not does not feel like its making much difference. He has started superfeet insoles per MD and that helped. Treatment Goals Patient/Caregiver Goals be able to do walks without pain Personal Factors Other Personal Factors That May Effect PMH: back pain, neck pain, Therapy/Recovery varicose veins PT-OP-C Subjective Start: 04/16/20 07:27 Freq: Status: Active Protocol: Document 08/16/20 12:08 [facility] (Rec: 08/16/20 12:15 [facility] [id number]) OP-PT Subjective Patient Comments Patient Comments Pt reports pain is getting better and is less often Patient Questionnaires Foot & Ankle Ability Measure- ADL and Sports FAAM-ADL Score 68 PT-OP-D Balance Start: 04/16/20 07:27 Freq: Status: Active Protocol: Document 05/16/20 07:31 [facility] (Rec: 05/16/20 09:45 [facility] [id number]) Balance Tests Single Limb Standing Single Limb- Right 13 sec w/arms across chest and dec lat shift over hips Single Limb- Left 15 sec w/arms out & lat shift; 7 sec w/arms across chest and some lat shift PT-OP-F Manual Assessment Start: 04/16/20 07:27 Freq: Status: Active Protocol: Document 04/16/20 08:17 [facility] (Rec: 04/16/20 09:00 [facility] [id number]) Manual Assessments Soft Tissue Assessment Soft Tissue Mobility Assessment tihgtness/tendernss in L calf, L ATFL PT-OP-G Mobility & Gait Start: 04/16/20 07:27 Freq: Status: Active Protocol: Document 04/16/20 08:17 [facility] (Rec: 04/16/20 09:00 [facility] [id number]) OP Gait Assessment Comments Gait Comments dec push off, some lat leaning Stair Climbing Evaluation Comments Stair Climbing Comments able ot go up/down reciprocally with mild paind escent PT-OP-J Posture/Palpation/Skin Start: 04/16/20 07:27 Freq: Status: Active Protocol: Document 04/16/20 08:17 [facility] (Rec: 04/16/20 09:00 [facility] [id number]) Posture Evaluation Timi Postural Classification System Lumbar Protective Mechanism Left AP 1 Lumbar Protective Mechanism Right AP 2 Lumbar Protective Mechanism Left PA 0 Lumbar Protective Mechanism Right PA 0 Comments Posture Comments thoracic cage sheared R, pronation B, fwd head and shoulders PT-OP-K Range of Motion Start: 04/16/20 07:27 Freq: Status: Active Protocol: Document 05/16/20 07:31 [facility] (Rec: 05/16/20 09:45 [facility] [id number]) Ankle and Foot Goniometric Range of Motion Ankle and Foot Right Active Dorsiflexion with Knee Flexed 3 Left Active Dorsiflexion with Knee Flexed 3 Dorsiflexion with Knee Extended 2 PT-OP-M Strength Start: 04/16/20 07:27 Freq: Status: Active Protocol: Document 08/16/20 12:08 [facility] (Rec: 08/16/20 12:15 [facility] [id number]) Hip Strength Hip Manual Muscle Testing Right Flexion (L2) 5 Normal Extension (S1) 4 Good Abduction 4 Good External Rotation 4+ Good+ Internal Rotation 4+ Good+ Left Flexion (L2) 5 Normal Extension (S1) 4 Good Abduction 4+ Good+ External Rotation 4+ Good+ Internal Rotation 4+ Good+ Knee Strength Knee Manual Muscle Testing Right Flexion (S2) 5 Normal Extension (L3) 5 Normal Left Flexion (S2) 5 Normal Extension (L3) 5 Normal Ankle/Foot Strength Ankle and Foot Manual Muscle Testing Right Dorsiflexion (L4) 5 Normal Plantarflexion (S1) 5 Normal Inversion 5 Normal Eversion (S1) 5 Normal Left Dorsiflexion (L4) 5 Normal Plantarflexion (S1) 5 Normal Inversion 5 Normal Eversion (S1) 5 Normal Comments able to do 20 but smaller range than R PT-OP-Q Treatments Start: 04/16/20 07:27 Freq: Status: Active Protocol: Document 08/16/20 12:08 [facility] (Rec: 08/16/20 12:15 [facility] [id number]) Therapeutic Exercises Standing Exercises Calf Raises Standing Exercise Name eccentric L 1 Standing Exercise Name lat lunges Side bilateral Reps/Minutes 15 Comments at rail Manual Therapy Treatment Soft Tissue Mobilization calf Body Location L achilles & calf & plantar fascia Mobilization Type Rolling,Strumming,Sustained Pressure Intensity/Depth Moderate Body Position Supine Joint Mobilizations talus Joint L Direction distraction & med gliding calcaneus Joint L Direction distraction Neuro Re-Education Treatment Balance Activities SLS Comments 1. trials B 2. march on blue foam B 3. 4 point touch on square in SLS B tandem stance Comments tandem stance B PT-OP-R Modalities Start: 04/16/20 07:27 Freq: Status: Active Protocol: Document 06/05/20 11:35 [facility] (Rec: 06/05/20 12:14 [facility] [id number]) Infrared Treatment Treatment L ant to fibula Duration (Minutes) 1 Program or Protocal chronic med intenisity for ligaments & tendons PT-OP-T Assessment and Plan Start: 04/16/20 07:27 Freq: Status: Active Protocol: Document 08/16/20 12:08 [facility] (Rec: 08/16/20 12:15 [facility] [id number]) Physical Therapy Assessment Goals balance Loom Setter Goal (LTG) Pt will be able to balance 10 sec on LLE w/o lat deviation B 05/16-improving 08/16-6 sec L w/o deviation but can go 10 sec total L, R 10 sec LTG Duration 10/14/20 ROM Assisted Goal (LTG) Pt will have improved DF to 10 w/knee flex and 6 w/knee ext so he will have improved gait mechanics. 05/16-improving 08/16-lacking 4 deg w/both LTG Duration 10/14/20 FAAM Impairment 56/84 Short Term Goal (STG) Pt will score 66/84 to show improved functional ability. STG Duration achieved Assisted Goal (LTG) Pt will score 80/84 to show improved functional ability. LTG Duration 10/14/20 activities Short Term Goal (STG) Pt will be able to go up/down stairs without pain 05/16-occ some pain 06/21-pain only sometimes 07/23/20- GOAL MET- pt no longer has pain on stairs STG Duration GOAL MET Loom Setter Goal (LTG) Pt will be able to do his typical walks without any inc in pain. 05/16-improving 06/21-overall dec pain 08/16-pain about 20-25% of the time but has only tried up to 3 miles LTG Duration 10/14/20 strength Short Term Goal (STG) Pt will be indep with HEP STG Duration achieved progressing as needed Loom Setter Goal (LTG) Pt will have 5/5 LE strength and 3/5 LPM to show improved stability so he will not have pain during typical activities . 05/16-improving 08/16-2/5 LPM all planes, LTG Duration 10/14/20 Assessment Summary Assessment Pt cont to slowly imrpove with functional ability and is having less pain at this time. Reports pain only with 20% of his walks that are 3 miles or less with less pain on hikes than paved walks. he was encouraged to start to slowly increasing walk distance by . 25 mile. He is improving significantly with stabiltiy in hip and ankles which is improving his gait mechanics. Cont PT to cont to dec pain and pt return to full functional ability. Physical Therapy Plan Frequency and Duration Frequency of Treatment 1-2x/Week Duration of Treatment 2 months Plan of Care Start Date 08/16/20 Plan of Care End Date 10/14/20 Therapeutic Interventions Therapeutic Interventions Aquatic Therapy,Balance Training,Gait Training,Home Exercise Program,Joint Mobilizations,Manual Therapy, Neuromuscular Re-education, Patient/Caregiver Education, Self-Care/Home Management,Soft Tissue Mobilization,Taping, Therapeutic Activities, Therapeutic Exercises Modalities Cold Pack/Ice Massage,Electric Stimulation,Hot Packs, Infrared Therapy,Iontophoresis ,Ultrasound Next Visit Focus/Plan Next Note Type Treatment Note Next Visit Plan work on balance & ability to do lateral movement
--- NOTE | 2020-08-16 18:23 | PT.OPPOC ---
Physical, Occupational & Speech Therapy At [facility] Current Diagnoses Other acquired deformities of left foot (08/16/20) Pain in left ankle and joints of left foot (08/16/20) Other specified joint disorders, left ankle and foot (08/16/20) Difficulty in walking, not elsewhere classified (08/16/20) Abnormal posture (08/16/20) Weakness (08/16/20) Visit Care Team Role Provider Type Stan Spangler MD Family Provider Physician Primary Care Provider Specialty: Family Practice Address: [address] [place] [address], [facility] [place], [address] Email: [email or web address] Susan Perkins DPM Attending Provider Physician Referring Provider Specialty: Podiatry Address: [address] [place] [address], [id number] Email: [email or web address] Plan Of Care PT-OP-T Assessment and Plan Start: 04/16/20 07:27 Freq: Status: Active Protocol: Document 08/16/20 12:08 [facility] (Rec: 08/16/20 12:15 [facility] [id number]) Physical Therapy Assessment Goals balance Welfare Service Aide Goal (LTG) Pt will be able to balance 10 sec on LLE w/o lat deviation B 05/16-improving 08/16-6 sec L w/o deviation but can go 10 sec total L, R 10 sec LTG Duration 10/14/20 ROM Welfare Service Aide Goal (LTG) Pt will have improved DF to 10 w/knee flex and 6 w/knee ext so he will have improved gait mechanics. 05/16-improving 08/16-lacking 4 deg w/both LTG Duration 10/14/20 FAAM Impairment 56/84 Short Term Goal (STG) Pt will score 66/84 to show improved functional ability. STG Duration achieved Usp Goal (LTG) Pt will score 80/84 to show improved functional ability. LTG Duration 10/14/20 activities Short Term Goal (STG) Pt will be able to go up/down stairs without pain 05/16-occ some pain 06/21-pain only sometimes 07/23/20- GOAL MET- pt no longer has pain on stairs STG Duration GOAL MET Welfare Service Aide Goal (LTG) Pt will be able to do his typical walks without any inc in pain. 05/16-improving 06/21-overall dec pain 08/16-pain about 20-25% of the time but has only tried up to 3 miles LTG Duration 10/14/20 strength Short Term Goal (STG) Pt will be indep with HEP STG Duration achieved progressing as needed Welfare Service Aide Goal (LTG) Pt will have 5/5 LE strength and 3/5 LPM to show improved stability so he will not have pain during typical activities . 05/16-improving 08/16-2/5 LPM all planes, LTG Duration 10/14/20 Assessment Summary Assessment Pt cont to slowly imrpove with functional ability and is having less pain at this time. Reports pain only with 20% of his walks that are 3 miles or less with less pain on hikes than paved walks. he was encouraged to start to slowly increasing walk distance by . 25 mile. He is improving significantly with stabiltiy in hip and ankles which is improving his gait mechanics. Cont PT to cont to dec pain and pt return to full functional ability. Physical Therapy Plan Frequency and Duration Frequency of Treatment 1-2x/Week Duration of Treatment 2 months Plan of Care Start Date 08/16/20 Plan of Care End Date 10/14/20 Therapeutic Interventions Therapeutic Interventions Aquatic Therapy,Balance Training,Gait Training,Home Exercise Program,Joint Mobilizations,Manual Therapy, Neuromuscular Re-education, Patient/Caregiver Education, Self-Care/Home Management,Soft Tissue Mobilization,Taping, Therapeutic Activities, Therapeutic Exercises Modalities Cold Pack/Ice Massage,Electric Stimulation,Hot Packs, Infrared Therapy,Iontophoresis ,Ultrasound Next Visit Focus/Plan Next Note Type Treatment Note Next Visit Plan work on balance & ability to do lateral movement Plan of Care Dates Plan of Care Start Date 08/16/20 Plan of Care End Date 10/14/20 Electronically Signed by: Karolina Reyes, PT 08/16/20 8103 Please Sign and Return: I have reviewed this Plan of Care and certify that the skilled therapy services above are required to meet the patient?s needs. Physician Signature Date Printed Name and Credentials Clinical Instructor Signature Printed Name and Credentials
--- NOTE | 2020-08-22 16:04 | PT.OTN ---
Current Diagnoses Other acquired deformities of left foot (08/22/20) Pain in left ankle and joints of left foot (08/22/20) Other specified joint disorders, left ankle and foot (08/22/20) Difficulty in walking, not elsewhere classified (08/22/20) Abnormal posture (08/22/20) Weakness (08/22/20) Physical Therapy Treatment Note PT-OP-A Visit Information Start: 04/16/20 07:27 Freq: Status: Active Protocol: Document 08/22/20 14:44 [facility] (Rec: 08/22/20 16:04 [facility] [id number]) Out-Patient Physical Therapy Visit Information Visit Information Visit Type Treatment Note Visit Note 08/01 Visit Start Time 15:17 Visit Stop Time 15:56 Total Visit Minutes 39 Visit Number 27 Number of STEEL DIE PRESS SET UP OPERATOR Visits 0 PT-OP-B Current Condition Start: 04/16/20 07:27 Freq: Status: Active Protocol: Document 04/16/20 08:17 [facility] (Rec: 04/16/20 09:00 [facility] [id number]) Current Condition History of Current Condition Onset Date several months ago , ~5 months ago Current Complaints ant and lat L ankle History of Current Condition Pt reports he cannot remember anything specific starting his foot pain. Pt reprots he has had pain on/off and it has been nagging. Uphill is worse than downhill. Takes a walk 3 miles every few days and hasn' t been able to not walk d/t pain. Pt has been doing some stretching, ibuprofen to help. Pain has gradually gotten worse Prior Treatments and Tests Xrays shows some problems per pt and had a steroid injection -initally didn't help but after a couple of weeks it may have helped slightly, but not does not feel like its making much difference. He has started superfeet insoles per MD and that helped. Treatment Goals Patient/Caregiver Goals be able to do walks without pain Personal Factors Other Personal Factors That May Effect PMH: back pain, neck pain, Therapy/Recovery varicose veins PT-OP-C Subjective Start: 04/16/20 07:27 Freq: Status: Active Protocol: Document 08/22/20 14:44 [facility] (Rec: 08/22/20 16:04 [facility] [id number]) OP-PT Subjective Patient Comments Patient Comments Pt reports he noticed after stretching after his walk his ankle didn't hurt PT-OP-D Balance Start: 04/16/20 07:27 Freq: Status: Active Protocol: Document 05/16/20 07:31 [facility] (Rec: 05/16/20 09:45 [facility] [id number]) Balance Tests Single Limb Standing Single Limb- Right 13 sec w/arms across chest and dec lat shift over hips Single Limb- Left 15 sec w/arms out & lat shift; 7 sec w/arms across chest and some lat shift PT-OP-F Manual Assessment Start: 04/16/20 07:27 Freq: Status: Active Protocol: Document 04/16/20 08:17 [facility] (Rec: 04/16/20 09:00 [facility] [id number]) Manual Assessments Soft Tissue Assessment Soft Tissue Mobility Assessment tihgtness/tendernss in L calf, L ATFL PT-OP-G Mobility & Gait Start: 04/16/20 07:27 Freq: Status: Active Protocol: Document 04/16/20 08:17 [facility] (Rec: 04/16/20 09:00 [facility] [id number]) OP Gait Assessment Comments Gait Comments dec push off, some lat leaning Stair Climbing Evaluation Comments Stair Climbing Comments able ot go up/down reciprocally with mild paind escent PT-OP-J Posture/Palpation/Skin Start: 04/16/20 07:27 Freq: Status: Active Protocol: Document 04/16/20 08:17 [facility] (Rec: 04/16/20 09:00 [facility] [id number]) Posture Evaluation Timi Postural Classification System Lumbar Protective Mechanism Left AP 1 Lumbar Protective Mechanism Right AP 2 Lumbar Protective Mechanism Left PA 0 Lumbar Protective Mechanism Right PA 0 Comments Posture Comments thoracic cage sheared R, pronation B, fwd head and shoulders PT-OP-K Range of Motion Start: 04/16/20 07:27 Freq: Status: Active Protocol: Document 05/16/20 07:31 [facility] (Rec: 05/16/20 09:45 [facility] [id number]) Ankle and Foot Goniometric Range of Motion Ankle and Foot Right Active Dorsiflexion with Knee Flexed 3 Left Active Dorsiflexion with Knee Flexed 3 Dorsiflexion with Knee Extended 2 PT-OP-M Strength Start: 10/26/20 07:27 Freq: Status: Active Protocol: Document 08/16/20 12:08 [facility] (Rec: 08/16/20 12:15 [facility] [id number]) Hip Strength Hip Manual Muscle Testing Right Flexion (L2) 5 Normal Extension (S1) 4 Good Abduction 4 Good External Rotation 4+ Good+ Internal Rotation 4+ Good+ Left Flexion (L2) 5 Normal Extension (S1) 4 Good Abduction 4+ Good+ External Rotation 4+ Good+ Internal Rotation 4+ Good+ Knee Strength Knee Manual Muscle Testing Right Flexion (S2) 5 Normal Extension (L3) 5 Normal Left Flexion (S2) 5 Normal Extension (L3) 5 Normal Ankle/Foot Strength Ankle and Foot Manual Muscle Testing Right Dorsiflexion (L4) 5 Normal Plantarflexion (S1) 5 Normal Inversion 5 Normal Eversion (S1) 5 Normal Left Dorsiflexion (L4) 5 Normal Plantarflexion (S1) 5 Normal Inversion 5 Normal Eversion (S1) 5 Normal Comments able to do 20 but smaller range than R PT-OP-Q Treatments Start: 04/16/20 07:27 Freq: Status: Active Protocol: Document 08/22/20 14:44 [facility] (Rec: 08/22/20 16:04 [facility] [id number]) Gym Equipment Sport Cord step up Exercise Details w/alt march Cord/Resistance green Reps/Duration 10 B Therapeutic Exercises Standing Exercises hip hike Standing Exercise Name on step Side bilateral Reps/Minutes 15 1 Standing Exercise Name lat lunges Side bilateral Reps/Minutes 15 Comments in mirror Manual Therapy Treatment Soft Tissue Mobilization ant ankle Mobilization Type Myofascial Release Intensity/Depth Superficial Body Position Supine calf Body Location L achilles & calf & plantar fascia Mobilization Type Rolling,Strumming,Sustained Pressure Intensity/Depth Moderate Body Position Supine Joint Mobilizations talus Joint L Direction distraction & AP gliding calcaneus Joint L Direction distraction Neuro Re-Education Treatment Balance Activities caricoca Reps/Duration 20ftx2 B SLS Comments 1. trials B 2. march on blue foam B 3. 4 point touch on square in SLS B 4. sport cord w/hip hike x12 B in mirror tandem stance Comments tandem stance B PT-OP-R Modalities Start: 04/16/20 07:27 Freq: Status: Active Protocol: Document 06/05/20 11:35 [facility] (Rec: 06/05/20 12:14 [facility] [id number]) Infrared Treatment Treatment L ant to fibula Duration (Minutes) 1 Program or Protocal chronic med intenisity for ligaments & tendons PT-OP-T Assessment and Plan Start: 04/16/20 07:27 Freq: Status: Active Protocol: Document 08/22/20 14:44 [facility] (Rec: 08/22/20 16:04 [facility] [id number]) Physical Therapy Assessment Goals balance Hr Internship Goal (LTG) Pt will be able to balance 10 sec on LLE w/o lat deviation B 05/16-improving 08/16-6 sec L w/o deviation but can go 10 sec total L, R 10 sec LTG Duration 10/14/20 ROM Hr Internship Goal (LTG) Pt will have improved DF to 10 w/knee flex and 6 w/knee ext so he will have improved gait mechanics. 05/16-improving 08/16-lacking 4 deg w/both LTG Duration 10/14/20 FAAM Impairment 56/84 Short Term Goal (STG) Pt will score 66/84 to show improved functional ability. STG Duration achieved Correction Goal (LTG) Pt will score 80/84 to show improved functional ability. LTG Duration 10/14/20 activities Short Term Goal (STG) Pt will be able to go up/down stairs without pain 05/16-occ some pain 06/21-pain only sometimes 07/23/20- GOAL MET- pt no longer has pain on stairs STG Duration GOAL MET Correction Goal (LTG) Pt will be able to do his typical walks without any inc in pain. 05/16-improving 06/21-overall dec pain 08/16-pain about 20-25% of the time but has only tried up to 3 miles LTG Duration 10/14/20 strength Short Term Goal (STG) Pt will be indep with HEP STG Duration achieved progressing as needed Correction Goal (LTG) Pt will have 5/5 LE strength and 3/5 LPM to show improved stability so he will not have pain during typical activities . 05/16-improving 08/16-2/5 LPM all planes, LTG Duration 10/14/20 Assessment Summary Assessment Pt did better with balance today but does still require cueing re: no lat shearing of L hip. He reported relief adam han Physical Therapy Plan Frequency and Duration Frequency of Treatment 1-2x/Week Duration of Treatment 2 months Plan of Care Start Date 08/16/20 Plan of Care End Date 10/14/20 Next Visit Focus/Plan Next Note Type Treatment Note Next Visit Plan work on balance & ability to do lateral movement
--- NOTE | 2020-08-31 16:15 | PT.OTN ---
Current Diagnoses Other acquired deformities of left foot (08/31/20) Pain in left ankle and joints of left foot (08/31/20) Other specified joint disorders, left ankle and foot (08/31/20) Difficulty in walking, not elsewhere classified (08/31/20) Abnormal posture (08/31/20) Weakness (08/31/20) Physical Therapy Treatment Note PT-OP-A Visit Information Start: 04/16/20 07:27 Freq: Status: Active Protocol: Document 08/31/20 15:20 MA (Rec: 08/31/20 16:13 MA [id number]) Out-Patient Physical Therapy Visit Information Visit Information Visit Type Treatment Note Visit Note 08/29 Visit Start Time 15:15 Visit Stop Time 16:00 Total Visit Minutes 45 Visit Number 28 Number of KEY MAKER Visits 1 PT-OP-B Current Condition Start: 04/16/20 07:27 Freq: Status: Active Protocol: Document 04/16/20 08:17 [facility] (Rec: 04/16/20 09:00 [facility] [id number]) Current Condition History of Current Condition Onset Date several months ago , ~5 months ago Current Complaints ant and lat L ankle History of Current Condition Pt reports he cannot remember anything specific starting his foot pain. Pt reprots he has had pain on/off and it has been nagging. Uphill is worse than downhill. Takes a walk 3 miles every few days and hasn' t been able to not walk d/t pain. Pt has been doing some stretching, ibuprofen to help. Pain has gradually gotten worse Prior Treatments and Tests Xrays shows some problems per pt and had a steroid injection -initally didn't help but after a couple of weeks it may have helped slightly, but not does not feel like its making much difference. He has started superfeet insoles per MD and that helped. Treatment Goals Patient/Caregiver Goals be able to do walks without pain Personal Factors Other Personal Factors That May Effect PMH: back pain, neck pain, Therapy/Recovery varicose veins PT-OP-C Subjective Start: 04/16/20 07:27 Freq: Status: Active Protocol: Document 08/31/20 16:14 MA (Rec: 08/31/20 16:15 MA [id number]) OP-PT Subjective Patient Comments Patient Comments Pt feels he has more pain after walking on the pavement but doesn't have pain after trail walks. He was able to walk 6 miles one day this week without pain PT-OP-D Balance Start: 04/16/20 07:27 Freq: Status: Active Protocol: Document 05/16/20 07:31 [facility] (Rec: 05/16/20 09:45 [facility] [id number]) Balance Tests Single Limb Standing Single Limb- Right 13 sec w/arms across chest and dec lat shift over hips Single Limb- Left 15 sec w/arms out & lat shift; 7 sec w/arms across chest and some lat shift PT-OP-F Manual Assessment Start: 04/16/20 07:27 Freq: Status: Active Protocol: Document 04/16/20 08:17 [facility] (Rec: 04/16/20 09:00 [facility] [id number]) Manual Assessments Soft Tissue Assessment Soft Tissue Mobility Assessment tihgtness/tendernss in L calf, L ATFL PT-OP-G Mobility & Gait Start: 04/16/20 07:27 Freq: Status: Active Protocol: Document 04/16/20 08:17 [facility] (Rec: 04/16/20 09:00 [facility] [id number]) OP Gait Assessment Comments Gait Comments dec push off, some lat leaning Stair Climbing Evaluation Comments Stair Climbing Comments able ot go up/down reciprocally with mild paind escent PT-OP-J Posture/Palpation/Skin Start: 04/16/20 07:27 Freq: Status: Active Protocol: Document 04/16/20 08:17 [facility] (Rec: 04/16/20 09:00 [facility] [id number]) Posture Evaluation [facility] Postural Classification System Lumbar Protective Mechanism Left AP 1 Lumbar Protective Mechanism Right AP 2 Lumbar Protective Mechanism Left PA 0 Lumbar Protective Mechanism Right PA 0 Comments Posture Comments thoracic cage sheared R, pronation B, fwd head and shoulders PT-OP-K Range of Motion Start: 04/16/20 07:27 Freq: Status: Active Protocol: Document 05/16/20 07:31 [facility] (Rec: 05/16/20 09:45 [facility] [id number]) Ankle and Foot Goniometric Range of Motion Ankle and Foot Right Active Dorsiflexion with Knee Flexed 3 Left Active Dorsiflexion with Knee Flexed 3 Dorsiflexion with Knee Extended 2 PT-OP-M Strength Start: 04/16/20 07:27 Freq: Status: Active Protocol: Document 08/16/20 12:08 [facility] (Rec: 08/16/20 12:15 [facility] [id number]) Hip Strength Hip Manual Muscle Testing Right Flexion (L2) 5 Normal Extension (S1) 4 Good Abduction 4 Good External Rotation 4+ Good+ Internal Rotation 4+ Good+ Left Flexion (L2) 5 Normal Extension (S1) 4 Good Abduction 4+ Good+ External Rotation 4+ Good+ Internal Rotation 4+ Good+ Knee Strength Knee Manual Muscle Testing Right Flexion (S2) 5 Normal Extension (L3) 5 Normal Left Flexion (S2) 5 Normal Extension (L3) 5 Normal Ankle/Foot Strength Ankle and Foot Manual Muscle Testing Right Dorsiflexion (L4) 5 Normal Plantarflexion (S1) 5 Normal Inversion 5 Normal Eversion (S1) 5 Normal Left Dorsiflexion (L4) 5 Normal Plantarflexion (S1) 5 Normal Inversion 5 Normal Eversion (S1) 5 Normal Comments able to do 20 but smaller range than R PT-OP-Q Treatments Start: 04/16/20 07:27 Freq: Status: Active Protocol: Document 08/31/20 15:20 MA (Rec: 08/31/20 16:13 MA [id number]) Manual Therapy Treatment Soft Tissue Mobilization ant ankle Mobilization Type Myofascial Release Intensity/Depth Superficial Body Position Supine calf Body Location L achilles & calf & plantar fascia Mobilization Type Rolling,Strumming,Sustained Pressure Intensity/Depth Moderate Body Position Supine Neuro Re-Education Treatment Balance Activities caricoca Reps/Duration 20ftx2 B SLS Equipment mirror Comments 1. trials B 2. august on blue foam B 3. 4 point touch SLS B 4. SLS L against wall to limit lateral deviation PT-OP-R Modalities Start: 04/16/20 07:27 Freq: Status: Active Protocol: Document 06/05/20 11:35 [facility] (Rec: 06/05/20 12:14 [facility] [id number]) Infrared Treatment Treatment L ant to fibula Duration (Minutes) 1 Program or Protocal chronic med intenisity for ligaments & tendons PT-OP-T Assessment and Plan Start: 04/16/20 07:27 Freq: Status: Active Protocol: Document 08/31/20 15:20 MA (Rec: 08/31/20 16:13 MA [id number]) Physical Therapy Assessment Goals balance [facility] Operator Goal (LTG) Pt will be able to balance 10 sec on LLE w/o lat deviation B 05/16-improving 08/16-6 sec L w/o deviation but can go 10 sec total L, R 10 sec 08/31/20 - 8 sec before deviating when L SLS LTG Duration 10/14/20 ROM [facility] Operator Goal (LTG) Pt will have improved DF to 10 w/knee flex and 6 w/knee ext so he will have improved gait mechanics. 05/16-improving 08/16-lacking 4 deg w/both LTG Duration 10/14/20 FAAM Impairment 56/84 Short Term Goal (STG) Pt will score 66/84 to show improved functional ability. STG Duration achieved Alf Goal (LTG) Pt will score 80/84 to show improved functional ability. LTG Duration 10/14/20 activities Short Term Goal (STG) Pt will be able to go up/down stairs without pain 05/16-occ some pain 06/21-pain only sometimes 07/23/20- GOAL MET- pt no longer has pain on stairs STG Duration GOAL MET [facility] Operator Goal (LTG) Pt will be able to do his typical walks without any inc in pain. 05/16-improving 06/21-overall dec pain 08/16-pain about 20-25% of the time but has only tried up to 3 miles LTG Duration 10/14/20 strength Short Term Goal (STG) Pt will be indep with HEP STG Duration achieved progressing as needed Alf Goal (LTG) Pt will have 5/5 LE strength and 3/5 LPM to show improved stability so he will not have pain during typical activities . 05/16-improving 08/16-2/5 LPM all planes, LTG Duration 10/14/20 Assessment Summary Assessment Pt is sore along anterior ankle but has no pain along calf and minimal pain in L plantar fascia during STM. Pt is able to walk further without pain on trails but continues to have pain after long pavement walks. During SLS, pt is able to get up to 8 seconds on the LLE before deviating laterally. Cues for keeping RLE from adducting help pt avoid lateral shift. Discussed pt's progress and how he feels therapy is helping. Pt would like to continue therapy through September as he feels it continues to make a difference and he would still like to improve his balance. Physical Therapy Plan Frequency and Duration Frequency of Treatment 1-2x/Week Duration of Treatment 2 months Plan of Care Start Date 08/16/20 Plan of Care End Date 10/14/20 Therapeutic Interventions Therapeutic Interventions Aquatic Therapy,Balance Training,Gait Training,Home Exercise Program,Joint Mobilizations,Manual Therapy, Neuromuscular Re-education, Patient/Caregiver Education, Self-Care/Home Management,Soft Tissue Mobilization,Taping, Therapeutic Activities, Therapeutic Exercises Modalities Cold Pack/Ice Massage,Electric Stimulation,Hot Packs, Infrared Therapy,Iontophoresis ,Ultrasound Next Visit Focus/Plan Next Note Type Treatment Note Next Visit Plan work on balance & ability to do lateral movement
--- NOTE | 2020-09-03 16:55 | PT.OTN ---
Current Diagnoses Other acquired deformities of left foot (09/03/20) Pain in left ankle and joints of left foot (09/03/20) Other specified joint disorders, left ankle and foot (09/03/20) Difficulty in walking, not elsewhere classified (09/03/20) Abnormal posture (09/03/20) Weakness (09/03/20) Physical Therapy Treatment Note PT-OP-A Visit Information Start: 04/16/20 07:27 Freq: Status: Active Protocol: Document 09/03/20 15:23 MA (Rec: 09/03/20 16:01 MA [id number]) Out-Patient Physical Therapy Visit Information Visit Information Visit Type Treatment Note Visit Note 09/29 Visit Start Time 15:16 Visit Stop Time 15:59 Total Visit Minutes 43 Visit Number [address] CLEARER Visits 2 PT-OP-B Current Condition Start: 04/16/20 07:27 Freq: Status: Active Protocol: Document 04/16/20 08:17 [facility] (Rec: 04/16/20 09:00 [facility] [id number]) Current Condition History of Current Condition Onset Date several months ago , ~5 months ago Current Complaints ant and lat L ankle History of Current Condition Pt reports he cannot remember anything specific starting his foot pain. Pt reprots he has had pain on/off and it has been nagging. Uphill is worse than downhill. Takes a walk 3 miles every few days and hasn' t been able to not walk d/t pain. Pt has been doing some stretching, ibuprofen to help. Pain has gradually gotten worse Prior Treatments and Tests Xrays shows some problems per pt and had a steroid injection -initally didn't help but after a couple of weeks it may have helped slightly, but not does not feel like its making much difference. He has started superfeet insoles per MD and that helped. Treatment Goals Patient/Caregiver Goals be able to do walks without pain Personal Factors Other Personal Factors That May Effect PMH: back pain, neck pain, Therapy/Recovery varicose veins PT-OP-C Subjective Start: 04/16/20 07:27 Freq: Status: Active Protocol: Document 09/03/20 15:23 MA (Rec: 09/03/20 16:01 MA [id number]) OP-PT Subjective Patient Comments Patient Comments Pt did a 6 mile hike through [place] [employer] [place] over the weekend without pain PT-OP-D Balance Start: 04/16/20 07:27 Freq: Status: Active Protocol: Document 05/16/20 07:31 [facility] (Rec: 05/16/20 09:45 [facility] [id number]) Balance Tests Single Limb Standing Single Limb- Right 13 sec w/arms across chest and dec lat shift over hips Single Limb- Left 15 sec w/arms out & lat shift; 7 sec w/arms across chest and some lat shift PT-OP-F Manual Assessment Start: 04/16/20 07:27 Freq: Status: Active Protocol: Document 04/16/20 08:17 [facility] (Rec: 04/16/20 09:00 [facility] [id number]) Manual Assessments Soft Tissue Assessment Soft Tissue Mobility Assessment tihgtness/tendernss in L calf, L ATFL PT-OP-G Mobility & Gait Start: 04/16/20 07:27 Freq: Status: Active Protocol: Document 04/16/20 08:17 [facility] (Rec: 04/16/20 09:00 [facility] [id number]) OP Gait Assessment Comments Gait Comments dec push off, some lat leaning Stair Climbing Evaluation Comments Stair Climbing Comments able ot go up/down reciprocally with mild paind escent PT-OP-J Posture/Palpation/Skin Start: 04/16/20 07:27 Freq: Status: Active Protocol: Document 04/16/20 08:17 [facility] (Rec: 04/16/20 09:00 [facility] [id number]) Posture Evaluation [place] Postural Classification System Lumbar Protective Mechanism Left AP 1 Lumbar Protective Mechanism Right AP 2 Lumbar Protective Mechanism Left PA 0 Lumbar Protective Mechanism Right PA 0 Comments Posture Comments thoracic cage sheared R, pronation B, fwd head and shoulders PT-OP-K Range of Motion Start: 04/16/20 07:27 Freq: Status: Active Protocol: Document 05/16/20 07:31 [facility] (Rec: 05/16/20 09:45 [facility] [id number]) Ankle and Foot Goniometric Range of Motion Ankle and Foot Right Active Dorsiflexion with Knee Flexed 3 Left Active Dorsiflexion with Knee Flexed 3 Dorsiflexion with Knee Extended 2 PT-OP-M Strength Start: 04/16/20 07:27 Freq: Status: Active Protocol: Document 08/16/20 12:08 LR (Rec: 08/16/20 12:15 LR [id number]) Hip Strength Hip Manual Muscle Testing Right Flexion (L2) 5 Normal Extension (S1) 4 Good Abduction 4 Good External Rotation 4+ Good+ Internal Rotation 4+ Good+ Left Flexion (L2) 5 Normal Extension (S1) 4 Good Abduction 4+ Good+ External Rotation 4+ Good+ Internal Rotation 4+ Good+ Knee Strength Knee Manual Muscle Testing Right Flexion (S2) 5 Normal Extension (L3) 5 Normal Left Flexion (S2) 5 Normal Extension (L3) 5 Normal Ankle/Foot Strength Ankle and Foot Manual Muscle Testing Right Dorsiflexion (L4) 5 Normal Plantarflexion (S1) 5 Normal Inversion 5 Normal Eversion (S1) 5 Normal Left Dorsiflexion (L4) 5 Normal Plantarflexion (S1) 5 Normal Inversion 5 Normal Eversion (S1) 5 Normal Comments able to do 20 but smaller range than R PT-OP-Q Treatments Start: 04/16/20 07:27 Freq: Status: Active Protocol: Document 09/03/20 15:23 MA (Rec: 09/03/20 16:01 MA [id number]) Manual Therapy Treatment Soft Tissue Mobilization ant ankle Mobilization Type Myofascial Release Intensity/Depth Superficial Body Position Supine calf Body Location L achilles & calf & plantar fascia Mobilization Type Rolling,Strumming,Sustained Pressure Intensity/Depth Moderate Body Position Supine Neuro Re-Education Treatment Balance Activities caricoca Reps/Duration 20ftx2 B SLS Equipment mirror Comments 1. SLS lisa 2. March on solid floor then blue foam 3. SLS blue foam tandem stance Surface solid, blue foam Reps/Duration 2x60 sec Comments tandem stance B PT-OP-R Modalities Start: 04/16/20 07:27 Freq: Status: Active Protocol: Document 06/05/20 11:35 [facility] (Rec: 06/05/20 12:14 [facility] [id number]) Infrared Treatment Treatment L ant to fibula Duration (Minutes) 1 Program or Protocal chronic med intenisity for ligaments & tendons PT-OP-T Assessment and Plan Start: 04/16/20 07:27 Freq: Status: Active Protocol: Document 09/03/20 15:23 MA (Rec: 09/03/20 16:01 MA [id number]) Physical Therapy Assessment Goals balance [facility] Goal (LTG) Pt will be able to balance 10 sec on LLE w/o lat deviation B 05/16-improving 08/16-6 sec L w/o deviation but can go 10 sec total L, R 10 sec 08/31/20 - 8 sec before deviating when L SLS LTG Duration 10/14/20 ROM [facility] Goal (LTG) Pt will have improved DF to 10 w/knee flex and 6 w/knee ext so he will have improved gait mechanics. 05/16-improving 08/16-lacking 4 deg w/both LTG Duration 10/14/20 FAAM Impairment 56/84 Short Term Goal (STG) Pt will score 66/84 to show improved functional ability. STG Duration achieved [facility] Goal (LTG) Pt will score 80/84 to show improved functional ability. LTG Duration 10/14/20 activities Short Term Goal (STG) Pt will be able to go up/down stairs without pain 05/16-occ some pain 06/21-pain only sometimes 07/23/20- GOAL MET- pt no longer has pain on stairs STG Duration GOAL MET [facility] Goal (LTG) Pt will be able to do his typical walks without any inc in pain. 05/16-improving 06/21-overall dec pain 08/16-pain about 20-25% of the time but has only tried up to 3 miles LTG Duration 10/14/20 strength Short Term Goal (STG) Pt will be indep with HEP STG Duration achieved progressing as needed Business Operations Coordinator Goal (LTG) Pt will have 5/5 LE strength and 3/5 LPM to show improved stability so he will not have pain during typical activities . 05/16-improving 08/16-2/5 LPM all planes, LTG Duration 10/14/20 Assessment Summary Assessment Pt shows improvement today with avoiding lateral shift during SLS and tandem stance. Standing on blue foam is challenging for pt. Educated pt on how he can perform self- STM to anterior ankle Physical Therapy Plan Frequency and Duration Frequency of Treatment 1-2x/Week Duration of Treatment 2 months Plan of Care Start Date 08/16/20 Plan of Care End Date 10/14/20 Therapeutic Interventions Therapeutic Interventions Aquatic Therapy,Balance Training,Gait Training,Home Exercise Program,Joint Mobilizations,Manual Therapy, Neuromuscular Re-education, Patient/Caregiver Education, Self-Care/Home Management,Soft Tissue Mobilization,Taping, Therapeutic Activities, Therapeutic Exercises Modalities Cold Pack/Ice Massage,Electric Stimulation,Hot Packs, Infrared Therapy,Iontophoresis ,Ultrasound Next Visit Focus/Plan Next Note Type Treatment Note Next Visit Plan work on balance & ability to do lateral movement
--- NOTE | 2020-09-13 17:35 | PT.OTN ---
Current Diagnoses Other acquired deformities of left foot (09/13/20) Pain in left ankle and joints of left foot (09/13/20) Other specified joint disorders, left ankle and foot (09/13/20) Difficulty in walking, not elsewhere classified (09/13/20) Abnormal posture (09/13/20) Weakness (09/13/20) Physical Therapy Treatment Note PT-OP-A Visit Information Start: 04/16/20 07:27 Freq: Status: Active Protocol: Document 09/13/20 17:22 [facility] (Rec: 09/13/20 17:35 [facility] [id number]) Out-Patient Physical Therapy Visit Information Visit Information Visit Type Treatment Note Visit Note 10/29 Visit Start Time 15:21 Visit Stop Time 16:01 Total Visit Minutes 40 Visit Number 30 Number of RESIDENTIAL SOLAR CONSULTANT Visits 0 PT-OP-B Current Condition Start: 04/16/20 07:27 Freq: Status: Active Protocol: Document 04/16/20 08:17 [facility] (Rec: 04/16/20 09:00 [facility] [id number]) Current Condition History of Current Condition Onset Date several months ago , ~5 months ago Current Complaints ant and lat L ankle History of Current Condition Pt reports he cannot remember anything specific starting his foot pain. Pt reprots he has had pain on/off and it has been nagging. Uphill is worse than downhill. Takes a walk 3 miles every few days and hasn' t been able to not walk d/t pain. Pt has been doing some stretching, ibuprofen to help. Pain has gradually gotten worse Prior Treatments and Tests Xrays shows some problems per pt and had a steroid injection -initally didn't help but after a couple of weeks it may have helped slightly, but not does not feel like its making much difference. He has started superfeet insoles per MD and that helped. Treatment Goals Patient/Caregiver Goals be able to do walks without pain Personal Factors Other Personal Factors That May Effect PMH: back pain, neck pain, Therapy/Recovery varicose veins PT-OP-C Subjective Start: 04/16/20 07:27 Freq: Status: Active Protocol: Document 09/13/20 17:22 [facility] (Rec: 09/13/20 17:35 [facility] [id number]) OP-PT Subjective Patient Comments Patient Comments Pt reports doing mult 6 mile hikes iwthout pain. Still has pain occ. NOtes he noticed pain towards the end of his 3. [address] PT-OP-D Balance Start: 04/16/20 07:27 Freq: Status: Active Protocol: Document 05/16/20 07:31 [facility] (Rec: 05/16/20 09:45 [facility] [id number]) Balance Tests Single Limb Standing Single Limb- Right 13 sec w/arms across chest and dec lat shift over hips Single Limb- Left 15 sec w/arms out & lat shift; 7 sec w/arms across chest and some lat shift PT-OP-F Manual Assessment Start: 04/16/20 07:27 Freq: Status: Active Protocol: Document 04/16/20 08:17 [facility] (Rec: 04/16/20 09:00 [facility] [id number]) Manual Assessments Soft Tissue Assessment Soft Tissue Mobility Assessment tihgtness/tendernss in L calf, L ATFL PT-OP-G Mobility & Gait Start: 04/16/20 07:27 Freq: Status: Active Protocol: Document 04/16/20 08:17 [facility] (Rec: 04/16/20 09:00 [facility] [id number]) OP Gait Assessment Comments Gait Comments dec push off, some lat leaning Stair Climbing Evaluation Comments Stair Climbing Comments able ot go up/down reciprocally with mild paind escent PT-OP-J Posture/Palpation/Skin Start: 04/16/20 07:27 Freq: Status: Active Protocol: Document 04/16/20 08:17 [facility] (Rec: 04/16/20 09:00 [facility] [id number]) Posture Evaluation [facility] Postural Classification System Lumbar Protective Mechanism Left AP 1 Lumbar Protective Mechanism Right AP 2 Lumbar Protective Mechanism Left PA 0 Lumbar Protective Mechanism Right PA 0 Comments Posture Comments thoracic cage sheared R, pronation B, fwd head and shoulders PT-OP-K Range of Motion Start: 04/16/20 07:27 Freq: Status: Active Protocol: Document 05/16/20 07:31 [facility] (Rec: 05/16/20 09:45 [facility] [id number]) Ankle and Foot Goniometric Range of Motion Ankle and Foot Right Active Dorsiflexion with Knee Flexed 3 Left Active Dorsiflexion with Knee Flexed 3 Dorsiflexion with Knee Extended 2 PT-OP-M Strength Start: 04/16/20 07:27 Freq: Status: Active Protocol: Document 08/16/20 12:08 [facility] (Rec: 08/16/20 12:15 [facility] [id number]) Hip Strength Hip Manual Muscle Testing Right Flexion (L2) 5 Normal Extension (S1) 4 Good Abduction 4 Good External Rotation 4+ Good+ Internal Rotation 4+ Good+ Left Flexion (L2) 5 Normal Extension (S1) 4 Good Abduction 4+ Good+ External Rotation 4+ Good+ Internal Rotation 4+ Good+ Knee Strength Knee Manual Muscle Testing Right Flexion (S2) 5 Normal Extension (L3) 5 Normal Left Flexion (S2) 5 Normal Extension (L3) 5 Normal Ankle/Foot Strength Ankle and Foot Manual Muscle Testing Right Dorsiflexion (L4) 5 Normal Plantarflexion (S1) 5 Normal Inversion 5 Normal Eversion (S1) 5 Normal Left Dorsiflexion (L4) 5 Normal Plantarflexion (S1) 5 Normal Inversion 5 Normal Eversion (S1) 5 Normal Comments able to do 20 but smaller range than R PT-OP-Q Treatments Start: 04/16/20 07:27 Freq: Status: Active Protocol: Document 09/13/20 17:22 [facility] (Rec: 09/13/20 17:35 [facility] [id number]) Gym Equipment Sport Cord fwd walk Cord/Resistance green Reps/Duration 20 Comments focus on push off and good wt acceptance Therapeutic Exercises Standing Exercises hip hike Standing Exercise Name on step Side bilateral Reps/Minutes 15 1 Standing Exercise Name 1.stretch calf on wall 2. tib ant stretch Side left Reps/Minutes 30 sec ea Comments 3. ankle circles standing Gait Training Gait Activity wt shifts Comments 1.fwd wt shifts to each LE focus on neutral foot and push off to wt acceptance SLS to slow steps fwd Manual Therapy Treatment Soft Tissue Mobilization calf Body Location L achilles & calf & plantar fascia Mobilization Type Rolling,Strumming,Sustained Pressure Intensity/Depth Moderate Body Position Supine Joint Mobilizations tib fib Joint fib PA w/PF talus Joint L Direction distraction & AP gliding calcaneus Joint L Direction distraction Self-Care/Home Management Treatment Education Other Education edu to stretch ankle if gets pain during walk then see if that dec pain to cont walk. PT-OP-R Modalities Start: 04/16/20 07:27 Freq: Status: Active Protocol: Document 06/05/20 11:35 [facility] (Rec: 06/05/20 12:14 [facility] [id number]) Infrared Treatment Treatment L ant to fibula Duration (Minutes) 1 Program or Protocal chronic med intenisity for ligaments & tendons PT-OP-T Assessment and Plan Start: 04/16/20 07:27 Freq: Status: Active Protocol: Document 09/13/20 17:22 [facility] (Rec: 09/13/20 17:35 [facility] [id number]) Physical Therapy Assessment Goals balance Building Construction Contractor Goal (LTG) Pt will be able to balance 10 sec on LLE w/o lat deviation B 05/16-improving 08/16-6 sec L w/o deviation but can go 10 sec total L, R 10 sec 08/31/20 - 8 sec before deviating when L SLS LTG Duration 10/14/20 ROM Custodial Goal (LTG) Pt will have improved DF to 10 w/knee flex and 6 w/knee ext so he will have improved gait mechanics. 05/16-improving 08/16-lacking 4 deg w/both LTG Duration 10/14/20 FAAM Impairment 56/84 Short Term Goal (STG) Pt will score 66/84 to show improved functional ability. STG Duration achieved Building Construction Contractor Goal (LTG) Pt will score 80/84 to show improved functional ability. LTG Duration 10/14/20 activities Short Term Goal (STG) Pt will be able to go up/down stairs without pain 05/16-occ some pain 06/21-pain only sometimes 07/23/20- GOAL MET- pt no longer has pain on stairs STG Duration GOAL MET Custodial Goal (LTG) Pt will be able to do his typical walks without any inc in pain. 05/16-improving 06/21-overall dec pain 08/16-pain about 20-25% of the time but has only tried up to 3 miles LTG Duration 10/14/20 strength Short Term Goal (STG) Pt will be indep with HEP STG Duration achieved progressing as needed Custodial Goal (LTG) Pt will have 5/5 LE strength and 3/5 LPM to show improved stability so he will not have pain during typical activities . 05/16-improving 08/16-2/5 LPM all planes, LTG Duration 10/14/20 Assessment Summary Assessment pt cont to improve with gait mechanics but does still require occ tactile and VC to improve wt acceptance on LLE. Physical Therapy Plan Frequency and Duration Frequency of Treatment 1-2x/Week Duration of Treatment 2 months Plan of Care Start Date 08/16/20 Plan of Care End Date 10/14/20 Next Visit Focus/Plan Next Note Type Treatment Note Next Visit Plan prepare for dc in a couple sessions
--- NOTE | 2020-09-17 17:43 | PT.OTN ---
Current Diagnoses Other acquired deformities of left foot (09/17/20) Pain in left ankle and joints of left foot (09/17/20) Other specified joint disorders, left ankle and foot (09/17/20) Difficulty in walking, not elsewhere classified (09/17/20) Abnormal posture (09/17/20) Weakness (09/17/20) Physical Therapy Treatment Note PT-OP-A Visit Information Start: 04/16/20 07:27 Freq: Status: Active Protocol: Document 09/17/20 17:23 [facility] (Rec: 09/17/20 17:43 [facility] [id number]) Out-Patient Physical Therapy Visit Information Visit Information Visit Type Treatment Note Visit Note 11/29 Visit Start Time 16:05 Visit Stop Time 16:45 Total Visit Minutes 40 Visit Number 31 Number of REGIONAL COMMERCIAL SALES MANAGER Visits 0 PT-OP-B Current Condition Start: 04/16/20 07:27 Freq: Status: Active Protocol: Document 04/16/20 08:17 [facility] (Rec: 04/16/20 09:00 [facility] [id number]) Current Condition History of Current Condition Onset Date several months ago , ~5 months ago Current Complaints ant and lat L ankle History of Current Condition Pt reports he cannot remember anything specific starting his foot pain. Pt reprots he has had pain on/off and it has been nagging. Uphill is worse than downhill. Takes a walk 3 miles every few days and hasn' t been able to not walk d/t pain. Pt has been doing some stretching, ibuprofen to help. Pain has gradually gotten worse Prior Treatments and Tests Xrays shows some problems per pt and had a steroid injection -initally didn't help but after a couple of weeks it may have helped slightly, but not does not feel like its making much difference. He has started superfeet insoles per MD and that helped. Treatment Goals Patient/Caregiver Goals be able to do walks without pain Personal Factors Other Personal Factors That May Effect PMH: back pain, neck pain, Therapy/Recovery varicose veins PT-OP-C Subjective Start: 04/16/20 07:27 Freq: Status: Active Protocol: Document 09/17/20 17:23 [facility] (Rec: 09/17/20 17:43 [facility] [id number]) OP-PT Subjective Patient Comments Patient Comments Pt reprots pain only occ w/ road walks stretching helps PT-OP-D Balance Start: 04/16/20 07:27 Freq: Status: Active Protocol: Document 05/16/20 07:31 [facility] (Rec: 05/16/20 09:45 [facility] [id number]) Balance Tests Single Limb Standing Single Limb- Right 13 sec w/arms across chest and dec lat shift over hips Single Limb- Left 15 sec w/arms out & lat shift; 7 sec w/arms across chest and some lat shift PT-OP-F Manual Assessment Start: 04/16/20 07:27 Freq: Status: Active Protocol: Document 04/16/20 08:17 [facility] (Rec: 04/16/20 09:00 [facility] [id number]) Manual Assessments Soft Tissue Assessment Soft Tissue Mobility Assessment tihgtness/tendernss in L calf, L ATFL PT-OP-G Mobility & Gait Start: 04/16/20 07:27 Freq: Status: Active Protocol: Document 04/16/20 08:17 [facility] (Rec: 04/16/20 09:00 [facility] [id number]) OP Gait Assessment Comments Gait Comments dec push off, some lat leaning Stair Climbing Evaluation Comments Stair Climbing Comments able ot go up/down reciprocally with mild paind escent PT-OP-J Posture/Palpation/Skin Start: 04/16/20 07:27 Freq: Status: Active Protocol: Document 04/16/20 08:17 [facility] (Rec: 04/16/20 09:00 [facility] [id number]) Posture Evaluation [place] Postural Classification System Lumbar Protective Mechanism Left AP 1 Lumbar Protective Mechanism Right AP 2 Lumbar Protective Mechanism Left PA 0 Lumbar Protective Mechanism Right PA 0 Comments Posture Comments thoracic cage sheared R, pronation B, fwd head and shoulders PT-OP-K Range of Motion Start: 04/16/20 07:27 Freq: Status: Active Protocol: Document 05/16/20 07:31 [facility] (Rec: 05/16/20 09:45 [facility] [id number]) Ankle and Foot Goniometric Range of Motion Ankle and Foot Right Active Dorsiflexion with Knee Flexed 3 Left Active Dorsiflexion with Knee Flexed 3 Dorsiflexion with Knee Extended 2 PT-OP-M Strength Start: 04/16/20 07:27 Freq: Status: Active Protocol: Document 08/16/20 12:08 [facility] (Rec: 08/16/20 12:15 [facility] [id number]) Hip Strength Hip Manual Muscle Testing Right Flexion (L2) 5 Normal Extension (S1) 4 Good Abduction 4 Good External Rotation 4+ Good+ Internal Rotation 4+ Good+ Left Flexion (L2) 5 Normal Extension (S1) 4 Good Abduction 4+ Good+ External Rotation 4+ Good+ Internal Rotation 4+ Good+ Knee Strength Knee Manual Muscle Testing Right Flexion (S2) 5 Normal Extension (L3) 5 Normal Left Flexion (S2) 5 Normal Extension (L3) 5 Normal Ankle/Foot Strength Ankle and Foot Manual Muscle Testing Right Dorsiflexion (L4) 5 Normal Plantarflexion (S1) 5 Normal Inversion 5 Normal Eversion (S1) 5 Normal Left Dorsiflexion (L4) 5 Normal Plantarflexion (S1) 5 Normal Inversion 5 Normal Eversion (S1) 5 Normal Comments able to do 20 but smaller range than R PT-OP-Q Treatments Start: 04/16/20 07:27 Freq: Status: Active Protocol: Document 09/17/20 17:23 [facility] (Rec: 09/17/20 17:43 [facility] [id number]) Gym Equipment Sport Cord fwd walk Cord/Resistance green Reps/Duration 20 Comments focus on push off and good wt acceptance Gait Training Gait Activity gait Comments 1. resisted w/dowel 60ftx4 wt shifts Comments 1.fwd wt shifts to each LE focus on neutral foot and push off to wt acceptance SLS to slow steps fwd 2. Focus into wt acceptanec w/ o drop of L hip Manual Therapy Treatment Soft Tissue Mobilization ant ankle Mobilization Type Myofascial Release Intensity/Depth Superficial Body Position Supine calf Body Location L achilles & calf & plantar fascia Mobilization Type Rolling,Strumming,Sustained Pressure Intensity/Depth Moderate Body Position Supine Joint Mobilizations calcaneus Joint L Direction distraction PT-OP-R Modalities Start: 04/16/20 07:27 Freq: Status: Active Protocol: Document 06/05/20 11:35 [facility] (Rec: 06/05/20 12:14 [facility] [id number]) Infrared Treatment Treatment L ant to fibula Duration (Minutes) 1 Program or Protocal chronic med intenisity for ligaments & tendons PT-OP-T Assessment and Plan Start: 04/16/20 07:27 Freq: Status: Active Protocol: Document 09/17/20 17:23 [facility] (Rec: 09/17/20 17:43 [facility] [id number]) Physical Therapy Assessment Goals balance Certified Cytotechnologist Goal (LTG) Pt will be able to balance 10 sec on LLE w/o lat deviation B 05/16-improving 08/16-6 sec L w/o deviation but can go 10 sec total L, R 10 sec 08/31/20 - 8 sec before deviating when L SLS LTG Duration 10/14/20 ROM Intermediate Goal (LTG) Pt will have improved DF to 10 w/knee flex and 6 w/knee ext so he will have improved gait mechanics. 05/16-improving 08/16-lacking 4 deg w/both LTG Duration 10/14/20 FAAM Impairment 56/84 Short Term Goal (STG) Pt will score 66/84 to show improved functional ability. STG Duration achieved Intermediate Goal (LTG) Pt will score 80/84 to show improved functional ability. LTG Duration 10/14/20 activities Short Term Goal (STG) Pt will be able to go up/down stairs without pain 05/16-occ some pain 06/21-pain only sometimes 07/23/20- GOAL MET- pt no longer has pain on stairs STG Duration GOAL MET Intermediate Goal (LTG) Pt will be able to do his typical walks without any inc in pain. 05/16-improving 06/21-overall dec pain 08/16-pain about 20-25% of the time but has only tried up to 3 miles LTG Duration 10/14/20 strength Short Term Goal (STG) Pt will be indep with HEP STG Duration achieved progressing as needed Certified Cytotechnologist Goal (LTG) Pt will have 5/5 LE strength and 3/5 LPM to show improved stability so he will not have pain during typical activities . 05/16-improving 08/16-2/5 LPM all planes, LTG Duration 10/14/20 Assessment Summary Assessment Pt requires repetitive work with gait mechanics to get push off w/o overstride or w/o L hip drop during wt accpetances. He can imrpove this but requires cues and facilitation. Physical Therapy Plan Frequency and Duration Frequency of Treatment 1-2x/Week Duration of Treatment 2 months Plan of Care Start Date 08/16/20 Plan of Care End Date 10/14/20 Next Visit Focus/Plan Next Note Type Treatment Note Next Visit Plan cont to prep for DC, seated wt acceptance
--- NOTE | 2020-09-24 18:13 | PT.OTN ---
Current Diagnoses Other acquired deformities of left foot (09/24/20) Pain in left ankle and joints of left foot (09/24/20) Other specified joint disorders, left ankle and foot (09/24/20) Difficulty in walking, not elsewhere classified (09/24/20) Abnormal posture (09/24/20) Weakness (09/24/20) Physical Therapy Treatment Note PT-OP-A Visit Information Start: 04/16/20 07:27 Freq: Status: Active Protocol: Document 09/24/20 16:03 [facility] (Rec: 09/24/20 18:13 [facility] [id number]) Out-Patient Physical Therapy Visit Information Visit Information Visit Type Treatment Note Visit Start Time 16:06 Visit Stop Time 16:45 Total Visit Minutes 39 Visit Number 32 Number of EFFICIENCY ENGINEER Visits 0 PT-OP-B Current Condition Start: 04/16/20 07:27 Freq: Status: Active Protocol: Document 04/16/20 08:17 [facility] (Rec: 04/16/20 09:00 [facility] [id number]) Current Condition History of Current Condition Onset Date several months ago , ~5 months ago Current Complaints ant and lat L ankle History of Current Condition Pt reports he cannot remember anything specific starting his foot pain. Pt reprots he has had pain on/off and it has been nagging. Uphill is worse than downhill. Takes a walk 3 miles every few days and hasn' t been able to not walk d/t pain. Pt has been doing some stretching, ibuprofen to help. Pain has gradually gotten worse Prior Treatments and Tests Xrays shows some problems per pt and had a steroid injection -initally didn't help but after a couple of weeks it may have helped slightly, but not does not feel like its making much difference. He has started superfeet insoles per MD and that helped. Treatment Goals Patient/Caregiver Goals be able to do walks without pain Personal Factors Other Personal Factors That May Effect PMH: back pain, neck pain, Therapy/Recovery varicose veins PT-OP-C Subjective Start: 04/16/20 07:27 Freq: Status: Active Protocol: Document 09/24/20 16:03 [facility] (Rec: 09/24/20 18:13 [facility] [id number]) OP-PT Subjective Patient Comments Patient Comments Pt reports has not had pain past 2 days. Today did a lot of errands and yesterday did a big hike. Notes he still occ has pain but it does improve with stretches PT-OP-D Balance Start: 04/16/20 07:27 Freq: Status: Active Protocol: Document 09/24/20 16:03 [facility] (Rec: 09/24/20 18:13 [facility] [id number]) Balance Tests Single Limb Standing Single Limb- Right 9 sec Single Limb- Left 15 sec w/o lat shift PT-OP-F Manual Assessment Start: 04/16/20 07:27 Freq: Status: Active Protocol: Document 04/16/20 08:17 [facility] (Rec: 04/16/20 09:00 [facility] [id number]) Manual Assessments Soft Tissue Assessment Soft Tissue Mobility Assessment tihgtness/tendernss in L calf, L ATFL PT-OP-G Mobility & Gait Start: 04/16/20 07:27 Freq: Status: Active Protocol: Document 04/16/20 08:17 [facility] (Rec: 04/16/20 09:00 [facility] [id number]) OP Gait Assessment Comments Gait Comments dec push off, some lat leaning Stair Climbing Evaluation Comments Stair Climbing Comments able ot go up/down reciprocally with mild paind escent PT-OP-J Posture/Palpation/Skin Start: 04/16/20 07:27 Freq: Status: Active Protocol: Document 04/16/20 08:17 [facility] (Rec: 04/16/20 09:00 [facility] [id number]) Posture Evaluation [place] Postural Classification System Lumbar Protective Mechanism Left AP 1 Lumbar Protective Mechanism Right AP 2 Lumbar Protective Mechanism Left PA 0 Lumbar Protective Mechanism Right PA 0 Comments Posture Comments thoracic cage sheared R, pronation B, fwd head and shoulders PT-OP-K Range of Motion Start: 04/16/20 07:27 Freq: Status: Active Protocol: Document 09/24/20 16:03 [facility] (Rec: 09/24/20 18:13 [facility] [id number]) Ankle and Foot Goniometric Range of Motion Ankle and Foot Left Active Dorsiflexion with Knee Flexed 3 Dorsiflexion with Knee Extended 3 PT-OP-M Strength Start: 04/16/20 07:27 Freq: Status: Active Protocol: Document 09/24/20 16:03 [facility] (Rec: 09/24/20 18:13 [facility] [id number]) Hip Strength Hip Manual Muscle Testing Right Flexion (L2) 5 Normal Extension (S1) 5 Normal Abduction 5 Normal Adduction 5 Normal External Rotation 5 Normal Internal Rotation 5 Normal Left Flexion (L2) 5 Normal Extension (S1) 4+ Good+ Abduction 5 Normal Adduction 5 Normal External Rotation 5 Normal Internal Rotation 5 Normal Knee Strength Knee Manual Muscle Testing Right Flexion (S2) 5 Normal Extension (L3) 5 Normal Left Flexion (S2) 5 Normal Extension (L3) 5 Normal Ankle/Foot Strength Ankle and Foot Manual Muscle Testing Right Dorsiflexion (L4) 5 Normal Plantarflexion (S1) 5 Normal Inversion 5 Normal Eversion (S1) 5 Normal Left Dorsiflexion (L4) 5 Normal Plantarflexion (S1) 5 Normal Inversion 5 Normal Eversion (S1) 5 Normal Comments able to do 20 but smaller range than R as inc in number PT-OP-Q Treatments Start: 04/16/20 07:27 Freq: Status: Active Protocol: Document 09/24/20 16:03 [facility] (Rec: 09/24/20 18:13 [facility] [id number]) Therapeutic Exercises Standing Exercises hip hike Standing Exercise Name wt shift w/focus on wt acceptance into BLE Reps/Minutes 20 Comments mirror Calf Raises Standing Exercise Name on step and on ground-mostly L WB squat Side bilateral Equipment Used L2 band around knees 1st set Reps/Minutes 2x10 over chair in mirror Comments focus on knee position stretch Standing Exercise Name 1. calf on step 2. ant tib Side left Reps/Minutes 30 sec ea 1 Standing Exercise Name SLS Side bilateral PT-OP-R Modalities Start: 04/16/20 07:27 Freq: Status: Active Protocol: Document 06/05/20 11:35 [facility] (Rec: 06/05/20 12:14 [facility] [id number]) Infrared Treatment Treatment L ant to fibula Duration (Minutes) 1 Program or Protocal chronic med intenisity for ligaments & tendons PT-OP-T Assessment and Plan Start: 04/16/20 07:27 Freq: Status: Active Protocol: Document 09/24/20 16:03 [facility] (Rec: 09/24/20 18:13 [facility] [id number]) Physical Therapy Assessment Goals balance Mechanic And Welder Goal (LTG) Pt will be able to balance 10 sec on LLE w/o lat deviation B 05/16-improving 08/16-6 sec L w/o deviation but can go 10 sec total L, R 10 sec 08/31/20 - 8 sec before deviating when L SLS LTG Duration achieved ROM Fdc Goal (LTG) Pt will have improved DF to 10 w/knee flex and 6 w/knee ext so he will have improved gait mechanics. 05/16-improving 08/16-lacking 4 deg w/both 09/24-past neutral LTG Duration some progress FAAM Impairment 56/84 Short Term Goal (STG) Pt will score 66/84 to show improved functional ability. STG Duration achieved Fdc Goal (LTG) Pt will score 80/84 to show improved functional ability. LTG Duration improved 72 activities Short Term Goal (STG) Pt will be able to go up/down stairs without pain 05/16-occ some pain 06/21-pain only sometimes 07/23/20- GOAL MET- pt no longer has pain on stairs STG Duration GOAL MET Mechanic And Welder Goal (LTG) Pt will be able to do his typical walks without any inc in pain. 05/16-improving 06/21-overall dec pain 08/16-pain about 20-25% of the time but has only tried up to 3 miles LTG Duration able to do hikes without pain, occ pain w/road walks strength Short Term Goal (STG) Pt will be indep with HEP STG Duration achieved progressing as needed Mechanic And Welder Goal (LTG) Pt will have 5/5 LE strength and 3/5 LPM to show improved stability so he will not have pain during typical activities . 05/16-improving 08/16-2/5 LPM all planes, 4/5-LPM 3/5 LTG Duration achieved Assessment Summary Assessment Pt is indep with HEP at this time and is doign well with exericses. SOme cueing was needed today but it was limited. At this time, he has met all goals or is close to meeting goasl. He is starting to plateau but does not have much pain anymore. DC PT Physical Therapy Plan Discharge Physical Therapy Discharge Reasons Goals Met
== END 2020-09-27 09:29 | disposition home or self-care (01) ==
LOC: PHYS 16:00
PROVIDERS: Family Provider Family Medicine; PCP Family Medicine; Referring Provider Podiatrist; Visit Provider Podiatrist
DX: M25.872 Other specified joint disorders, left ankle and foot (principal); M25.572 Pain in left ankle and joints of left foot; M21.6X2 Other acquired deformities of left foot; R53.1 Weakness; R29.3 Abnormal posture; R26.2 Difficulty in walking, not elsewhere classified
CPT/HCPCS: 97110; 97112; 97116; 97140; 97162; 97535

== ENCOUNTER → 2021-12-02 10:32 | Outpatient (CLI) | payer MEDICARE, OTHER, SELFPAY ==
[2021-12-02 11:59] LABS: Alanine Aminotransferase 26 IU/L (<50); Albumin 4.4 g/dL (3.5-5.0); Albumin Globulin Ratio 1.5 (1.0-2.8); Alkaline Phosphatase 53 U/L (38-126); Aspartate Aminotransferase 36 IU/L (17-59); Bilirubin Total 0.5 mg/dL (0.2-1.3); Bilirubin Unconjugated 0.5 mg/dL (0.0-1.1); HEMOLYSIS < 15 (0-50); Total Protein 7.4 g/dL (6.3-8.2)
== END ==
PROVIDERS: Family Provider Family Medicine; PCP Family Medicine; Referring Provider Dermatology; Visit Provider Dermatology
DX: B35.1 Tinea unguium (principal)
CPT/HCPCS: 36415; 80076

== ENCOUNTER → 2022-01-09 08:28 | Outpatient (CLI) | payer MEDICARE, OTHER, SELFPAY ==
[2022-01-09 10:10] LABS: Add Manual Diff / Slide Review NO; Basophils Absolute Auto 0 /uL (0-100); Basophils Percent Auto 1.1 % (0-2); Eosinophils Absolute Auto 100 /uL (0-450); Eosinophils Percent Auto 2.9 % (2-4); Hematocrit 37.5 % (41-53); Hemoglobin 12.5 g/dL (13.5-17.5); Lymphocytes Absolute Auto 1300 /uL (1100-4500); Lymphocytes Percent Auto 35.8 % (25-40); Mean Corpuscular HGB Conc 33.3 % (30-36); Mean Corpuscular Hemoglobin 31.2 PG (26-34); Mean Corpuscular Volume 93.9 fL (80-100); Monocytes Absolute Auto 600 /uL (0-900); Monocytes Percent Auto 15.8 % (3-14); Neutrophils Absolute Auto 1700 /uL (1500-7000); Neutrophils Percent Auto 44.4 % (50-75); Platelet Count 250 X10^3/uL (150-400); Red Blood Cell Count 3.99 X10^6/uL (4.5-5.9); Red Cell Distribution Width 13.8 % (11.6-14.8); White Blood Cell Count 3.7 X10^3/uL (4.5-11.0)
[2022-01-09 10:55] LABS: BUN Creatinine Ratio 24.4 (6-22); Blood Urea Nitrogen 21 mg/dL (9-20); Carbon Dioxide 30 mmol/L (22-32); Chloride 96 mmol/L (98-107); Estimated Glomerular Filt Rate > 60 mL/min (>60); Glucose 85 mg/dL (80-110); HEMOLYSIS < 15 (0-50); Potassium 5.2 mmol/L (3.4-5.1); Sodium 130 mmol/L (137-145)
[2022-01-09 11:24] LABS: Prostate Specific Antigen Scrn 0.799 ng/mL (0.1-4.0)
== END ==
PROVIDERS: Family Provider Family Medicine; PCP Family Medicine; Referring Provider Family Medicine; Visit Provider Family Medicine
DX: L40.9 Psoriasis, unspecified (principal); Z12.5 Encounter for screening for malignant neoplasm of prostate; R39.9 Unspecified symptoms and signs involving the genitourinary system; Z13.220 Encounter for screening for lipoid disorders
CPT/HCPCS: 36415; 80048; 85025; G0103

== ENCOUNTER → 2023-01-23 07:17 | Outpatient (CLI) | payer MEDICARE, OTHER, SELFPAY ==
[2023-01-23 08:09] LABS: Alanine Aminotransferase 26 IU/L (<50); Albumin 3.9 g/dL (3.5-5.0); Albumin Globulin Ratio 1.5 (1.0-2.8); Alkaline Phosphatase 47 U/L (38-126); Aspartate Aminotransferase 30 IU/L (17-59); BUN Creatinine Ratio 35.3 (6-22); Bilirubin Total 0.5 mg/dL (0.2-1.3); Blood Urea Nitrogen 30 mg/dL (9-20); Calcium 8.9 mg/dL (8.4-10.2); Carbon Dioxide 31 mmol/L (22-32); Chloride 97 mmol/L (98-107); Estimated Glomerular Filt Rate > 60 mL/min (>60); Globulin 2.6 g/dL (1.7-4.1); Glucose 82 mg/dL (80-110); HEMOLYSIS < 15 (0-50); Potassium 4.4 mmol/L (3.4-5.1); Sodium 131 mmol/L (137-145); Total Protein 6.5 g/dL (6.3-8.2)
== END ==
PROVIDERS: Family Provider Family Medicine; PCP Family Medicine; Referring Provider Family Medicine; Visit Provider Family Medicine
DX: D64.9 Anemia, unspecified (principal); E87.1 Hypo-osmolality and hyponatremia
CPT/HCPCS: 36415; 80053

== ENCOUNTER → 2024-02-02 15:42 | Outpatient (CLI) | payer MEDICARE, OTHER, SELFPAY ==
[2024-02-02 17:10] LABS: Add Manual Diff / Slide Review NO; Basophils Absolute Auto 0 /uL (0-100); Basophils Percent Auto 0.8 % (0-2); Eosinophils Absolute Auto 200 /uL (0-450); Hematocrit 39.1 % (41-53); Lymphocytes Absolute Auto 2300 /uL (1100-4500); Lymphocytes Percent Auto 37.3 % (25-40); Mean Corpuscular HGB Conc 33.4 % (30-36); Mean Corpuscular Hemoglobin 31.6 PG (26-34); Mean Corpuscular Volume 94.7 fL (80-100); Monocytes Absolute Auto 700 /uL (0-900); Monocytes Percent Auto 12.1 % (3-14); Neutrophils Absolute Auto 2900 /uL (1500-7000); Neutrophils Percent Auto 46.8 % (50-75); Platelet Count 255 X10^3/uL (150-400); Red Blood Cell Count 4.13 X10^6/uL (4.5-5.9); Red Cell Distribution Width 13.5 % (11.6-14.8); White Blood Cell Count 6.1 X10^3/uL (4.5-11.0)
[2024-02-02 17:33] LABS: HEMOLYSIS 16 (0-50)
[2024-02-02 17:36] LABS: Alanine Aminotransferase 30 IU/L (<50); Albumin 4.4 g/dL (3.5-5.0); Albumin Globulin Ratio 1.8 (1.0-2.8); Alkaline Phosphatase 61 U/L (38-126); Aspartate Aminotransferase 41 IU/L (17-59); BUN Creatinine Ratio 36.2 (6-22); Bilirubin Total 0.5 mg/dL (0.2-1.3); Blood Urea Nitrogen 34 mg/dL (9-20); Calcium 9.5 mg/dL (8.4-10.2); Carbon Dioxide 29 mmol/L (22-32); Estimated Glomerular Filt Rate > 60 mL/min (>60); Globulin 2.4 g/dL (1.7-4.1); Glucose 82 mg/dL (80-110); Sodium 135 mmol/L (137-145); Total Protein 6.8 g/dL (6.3-8.2)
[2024-02-02 18:05] LABS: Prostate Specific Antigen Scrn 1.17 ng/mL (0.1-4.0)
[2024-02-02 22:17] LABS: Chloride 100 mmol/L (98-107)
== END ==
PROVIDERS: Family Provider Family Medicine; PCP Family Medicine; Referring Provider Family Medicine; Visit Provider Family Medicine
DX: E87.1 Hypo-osmolality and hyponatremia (principal); Z12.5 Encounter for screening for malignant neoplasm of prostate; D64.9 Anemia, unspecified; Z68.20 Body mass index [BMI] 20.0-20.9, adult; N13.30 Unspecified hydronephrosis
CPT/HCPCS: 36415; 80053; 85025; G0103

== ENCOUNTER → 2024-02-23 08:27 | Outpatient (CLI) | payer MEDICARE, OTHER, SELFPAY ==
[2024-02-23 10:53] LABS: BUN Creatinine Ratio 34.5 (6-22); Blood Urea Nitrogen 29 mg/dL (9-20); Estimated Glomerular Filt Rate > 60 mL/min (>60)
== END ==
PROVIDERS: Family Provider Family Medicine; PCP Family Medicine; Referring Provider Family Medicine; Visit Provider Family Medicine
DX: R79.9 Abnormal finding of blood chemistry, unspecified (principal)
CPT/HCPCS: 36415; 82565; 84520

== ENCOUNTER 2024-03-27 16:01 | Emergency (ER) | payer OTHER, MEDICARE, SELFPAY ==
[2024-03-27] VITALS (10 sets, daily range): BP systolic 162–184; BP diastolic 70–90; PULSE 58–62; RESP 7–23; TEMP 37.3; O2SAT 97–100; BMI 20.5
--- NOTE | 2024-03-27 16:31 | DI.RAD.S_ITS ---
PROCEDURE: XR CHEST 1V INDICATIONS: chest pain TECHNIQUE: One view of the chest was acquired. COMPARISON: None. FINDINGS: Surgical changes and devices: None. Lungs and pleura: Lungs are clear. No pleural effusions or pneumothorax. Mediastinum: Mediastinal contours appear normal. Heart size is normal. Bones and chest wall: No suspicious bony lesions. Overlying soft tissues appear unremarkable. IMPRESSION: No acute cardiopulmonary abnormality is seen. Approved by: Jean Thomas M.D. on 03/27/2024 at 16:18
--- NOTE | 2024-03-27 16:32 | DI.CT.S_ITS ---
PROCEDURE: CT ANGIO HEAD AND NECK INDICATIONS: Blacked out-Not a stroke order TECHNIQUE: After the administration of intravenous contrast, 1 mm thick sections acquired from the aortic arch through the [place] of [place]. 3-dimensional yxkewol-dsyuwdkmu-hsfqyslgan (MIP) and/or volume rendering reformats were acquired of the central intracranial vasculature and neck separately. For radiation dose reduction, the following was used: automated exposure control, adjustment of mA and/or kV according to patient size. COMPARISON: None. FINDINGS: Cerebral CT Angiogram: Internal carotid arteries: No acute findings. Intracranial ICA are patent with no significant stenosis. No occlusion. No aneurysm. Anterior cerebral arteries: Unremarkable. No significant stenosis. No occlusion. No aneurysm. Middle cerebral arteries: Unremarkable. No significant stenosis. No occlusion. No aneurysm. Posterior cerebral arteries: Unremarkable. No significant stenosis. No occlusion. No aneurysm. Basilar artery: Unremarkable. No significant stenosis. No occlusion. No aneurysm. Vertebral arteries: Unremarkable as visualized. Dural venous sinuses: Unremarkable given phase of enhancement. Other: Arterial phase brain parenchyma is unremarkable. Neck CT Angiogram: Internal carotid arteries: Unremarkable. No significant stenosis. No dissection or occlusion. Common carotid arteries: Unremarkable. No significant stenosis. No dissection or occlusion. External carotid arteries: Unremarkable. No occlusion. Vertebral arteries: Unremarkable. No significant stenosis. No dissection or occlusion. Other: None. Aortic Arch and Mediastinum: Partially visualized aortic arch unremarkable without evidence of aneurysm. Origins of the great vessels unremarkable. IMPRESSION: Normal CT angiogram of the head and neck. No evidence of atherosclerotic stenosis, aneurysm or vascular malformation Any quantitative measurements of stenosis were performed using NASCET criteria. Approved by: Jean Thomas M.D. on 03/27/2024 at 16:33
--- NOTE | 2024-03-27 16:32 | DI.CT.S_ITS ---
PROCEDURE: CT HEAD/BRAIN WO CON INDICATIONS: Blacked out-Not a stroke order TECHNIQUE: Noncontrast 4.5 mm thick angled axial sections acquired from the foramen magnum to the vertex, with coronal and sagittal reformats. For radiation dose reduction, the following was used: automated exposure control, adjustment of mA and/or kV according to patient size. COMPARISON: None. FINDINGS: Image quality: Diagnostic. CSF spaces: Basal cisterns are patent. No extra-axial fluid collections. Ventricles are normal in size and shape. Brain: No midline shift. No intracranial masses or hemorrhage. Collins-white matter interface is normal. Mild cerebral and cerebellar volume loss with multifocal white matter chronic ischemic change noted. Atherosclerotic calcification noted associated with cavernous segments of both internal carotid arteries. Skull and face: Calvarium and visualized facial bones are intact, without suspicious lesions. Sinuses: Visualized sinuses and mastoids are clear. IMPRESSION: Mild atrophy and white matter chronic ischemic change without intracranial hemorrhage or mass effect. Approved by: Jean Thomas M.D. on 03/27/2024 at 16:24
--- NOTE | 2024-03-27 16:44 | EKG_ITS ---
[facility] [address] [place] [id number] Test Date: 2024-03-27 Pat Name: Stan Lagos Department: [facility] Room: Gender: Male Child Welfare Caseworker: LANIE MURILLO : 1945 Requested By: Order Number: [id number] Reading MD: Humberto Adams MD Measurements Intervals [place] Rate: 56 P: 79 VT: 190 QRS: 68 QRSD: 82 T: 69 QT: 426 QTc: 411 Interpretive Statements Sinus bradycardia Electronically Signed On 03-28-2024 7:58:45 PDT by Humberto Adams MD
[2024-03-27 16:49] LABS: INR 0.9 (0.9-1.3); Prothrombin Time 10.5 SECONDS (9.4-12.5)
[2024-03-27 16:50] LABS: Add Manual Diff / Slide Review NO; Basophils Absolute Auto 100 /uL (0-100); Basophils Percent Auto 0.9 % (0-2); Eosinophils Absolute Auto 100 /uL (0-450); Eosinophils Percent Auto 1.7 % (2-4); Hemoglobin 13.1 g/dL (13.5-17.5); Lymphocytes Absolute Auto 1700 /uL (1100-4500); Mean Corpuscular HGB Conc 33.5 % (30-36); Mean Corpuscular Hemoglobin 31.5 PG (26-34); Mean Corpuscular Volume 93.9 fL (80-100); Monocytes Absolute Auto 700 /uL (0-900); Monocytes Percent Auto 12.5 % (3-14); Neutrophils Absolute Auto 3100 /uL (1500-7000); Neutrophils Percent Auto 54.9 % (50-75); Platelet Count 296 X10^3/uL (150-400); Red Blood Cell Count 4.15 X10^6/uL (4.5-5.9); Red Cell Distribution Width 13.5 % (11.6-14.8); White Blood Cell Count 5.6 X10^3/uL (4.5-11.0)
[2024-03-27 16:52] LABS: PTT Partial Thromboplastin Tim 35 SECONDS (25.1-36.5)
[2024-03-27 16:53] LABS: Alanine Aminotransferase 30 IU/L (<50); Albumin 4.4 g/dL (3.5-5.0); Albumin Globulin Ratio 1.6 (1.0-2.8); Alkaline Phosphatase 63 U/L (38-126); Aspartate Aminotransferase 37 IU/L (17-59); BUN Creatinine Ratio 32.1 (6-22); Bilirubin Total 0.4 mg/dL (0.2-1.3); Blood Urea Nitrogen 35 mg/dL (9-20); Calcium 9.6 mg/dL (8.4-10.2); Carbon Dioxide 28 mmol/L (22-32); Chloride 99 mmol/L (98-107); Creatine Kinase 218 U/L (55-170); Estimated Glomerular Filt Rate > 60 mL/min (>60); Globulin 2.8 g/dL (1.7-4.1); Glucose 95 mg/dL (80-110); HEMOLYSIS < 15 (0-50); Lipase 159 U/L (23-300); Potassium 4.5 mmol/L (3.4-5.1); Sodium 134 mmol/L (137-145); Total Protein 7.2 g/dL (6.3-8.2)
[2024-03-27 17:05] LABS: NT-proBNP (BNP-Adult 18+) 394 pg/mL (<450); Troponin I < 0.012 ng/mL (0.01-0.034)
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
== END 2024-03-27 19:20 | disposition home or self-care (01) ==
PROVIDERS: Emergency Medicine; Emergency Provider Emergency Medicine; Family Provider Family Medicine; PCP Family Medicine
DX: R55 Syncope and collapse (principal); R00.1 Bradycardia, unspecified; R07.9 Chest pain, unspecified; R29.818 Other symptoms and signs involving the nervous system
CPT/HCPCS: 36415; 70450; 70496; 70498; 71045; 80053; 82550; 83690; 83735; 83880; 84484; 85025; 85610; 85730; 93005; 93010; 99284; Q9967

== ENCOUNTER → 2024-03-29 10:05 | Outpatient (CLI) | payer MEDICARE, OTHER, SELFPAY ==
[2024-03-29 10:48] LABS: D Dimer 390 ng/ml (<500)
== END ==
LOC: LAB 10:07
PROVIDERS: Family Provider Family Medicine; PCP Family Medicine; Referring Provider Family Medicine; Visit Provider Family Medicine
DX: R55 Syncope and collapse (principal)
CPT/HCPCS: 36415; 85379

== ENCOUNTER → 2024-03-31 13:24 | Outpatient (CLI) | payer MEDICARE, OTHER, SELFPAY | PROVIDERS: Family Provider Family Medicine; PCP Family Medicine; Referring Provider Family Medicine; Visit Provider Family Medicine | DX: R55 Syncope and collapse (principal) | CPT/HCPCS: 93242; 93244 ==